=== PATIENT | male | born 1955 | race Caucasian/White ===

== ENCOUNTER → 2018-07-19 | Outpatient (CLI) | payer OTHER ==
[2018-07-19 21:34] LABS: Blood Urea Nitrogen 7 mg/dL (9-20)
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
== END | disposition home or self-care (01) ==
LOC: RADMRIMAIN 19:45
PROVIDERS: ATTEND Physical Medicine & Rehabilitation
DX: M47.26 Other spondylosis with radiculopathy, lumbar region (principal); M47.812 Spondylosis without myelopathy or radiculopathy, cervical region; S22.000A Wedge compression fracture of unspecified thoracic vertebra, initial encounter for closed fracture
CPT/HCPCS: 72141; 72146; 72148; 82565; 84520

== ENCOUNTER → 2018-07-20 | Outpatient (CLI) | payer OTHER ==
--- NOTE | 2018-07-20 16:22 | MR ---
EXAMINATION TYPE: MR shoulder RT wo con DATE OF EXAM: 07/20/2018 COMPARISON: None HISTORY: Rt shoulder pain TECHNIQUE: Multiplanar, multisequence imaging of the right shoulder is performed without contrast. FINDINGS: The exam is limited by patient motion. Rotator Cuff: There is a bursal surface tear of the supraspinatus in its distal tendinous measuring 0 .6 x 0.5 cm. There is overall bursal surface fraying of the supraspinatus fibers with moderate tendin opathy. The infraspinatus tendinous intact with mild tendinopathy demonstrated as abnormal intrinsic signal o f the myotendinous junction and distal fibers. The teres minor and subscapularis are of normal morphology. There is slight attenuation of the insert ional fibers of the subscapularis compatible with mild tendinopathy. Acromioclavicular Joint: There is moderate acromioclavicular arthropathy with capsular hypertrophy, m arginal osteophytes and joint space narrowing. There is only minimal impression upon the supraspinatu s. There is slight downsloping of the acromion. No significant internal impingement is seen as there is no signal alteration of the supraspinatus that again is only minimally impressed upon. Glenohumeral Joint: Mild glenohumeral arthropathy is seen. Numerous osseous cysts are noted of the hu merus and there is mild joint space narrowing. Small amount of fluid is seen within the glenohumeral labral joint space. Labrum: The labrum appears grossly intact given limitation of non-arthrogram study. Biceps Tendon: The long head of biceps is in normal location within bicipital groove. Bone marrow signal: No focal abnormal marrow signal is appreciated. Other: A very small amount of fluid is seen within the subacromial/subdeltoid bursa. IMPRESSION: 1. Partial-thickness subcentimeter bursal surface tear of the supraspinatus at the distal tendons lisa suring 0.6 x 0.5 cm superimposed upon moderate tendinopathy. 2. Mild tendinopathy of the infraspinatus and subscapularis. 3. Very small amount of fluid within the subacromial/subdeltoid bursa that may clinically correlate w ith bursitis. 4. Moderate acromio clavicular arthropathy and mild glenohumeral arthropathy.
--- NOTE | 2018-07-21 09:34 | MR ---
EXAMINATION TYPE: MR brain wo/w con DATE OF EXAM: 07/20/2018 4:26 PM COMPARISON: NONE HISTORY: Lymphangioma, Post concussional syndrome CONTRAST: Patient received 7.5 mL intravenous Gadavist gadolinium contrast. Multiplanar and multispin-echo imaging of the brain was performed . Pre and post contrast enhanced i mages are obtained. The ventricles, basal cisterns and sulci overlying the cerebral convexities are mildly enlarged. Numerous periventricular and deep white matter foci of increased signal throughout both cerebral eloisa spheres some of which are confluent. Largest focus of increased signal on inversion recovery data set right centrum semioval bilaterally measures 9.3 mm and the largest on the left measures approximatel y 7 mm. The findings are nonspecific and could be related to postconcussion syndrome. Additional poss ibilities include that of demyelination, vasculitis, Lyme's disease, chronic migraine headaches among other possibilities. No acute edema is seen on diffusion weighted imaging. There is no evidence for midline shift or mass effect. Acute intracranial hemorrhage or extra-axial collection is not evident. No enhancing lesions are seen. The paranasal sinuses and mastoid air cells are well-aerated. IMPRESSION: 1. Deep white matter changes which are nonspecific as discussed above. 2. No enhancing lesions identified at this time.
== END | disposition home or self-care (01) ==
LOC: RADMRIMAIN 14:55
PROVIDERS: ATTEND Physical Medicine & Rehabilitation
DX: M75.111 Incomplete rotator cuff tear or rupture of right shoulder, not specified as traumatic (principal); M75.91 Shoulder lesion, unspecified, right shoulder; M19.011 Primary osteoarthritis, right shoulder
CPT/HCPCS: 70553; 73221; A9585

== ENCOUNTER 2023-02-25 14:07 | Inpatient (IN) | payer MEDICARE ==
[2023-02-25] MEDS ORDERED: LORazepam 2 MG/ML INJ IV STA (14:57)
--- NOTE | 2023-02-25 14:57 | ED ---
General Adult HPI - General Chief complaint: Seizure Stated complaint: Seizures Time Seen by Provider: 02/25/23 14:12 Source: EMS Mode of arrival: EMS Limitations: altered mental status - History of Present Illness Initial comments: 67-year-old male sent to the ER as a transfer from [facility]. Patient has a history of TBI and chronic pain he is on oxycodone, gabapentin and Ativan at home. Uncertain if he has been taking his medicine for the past 3 days reports he started acting like himself. He did not come to bed last night when she attempted talk to him this morning he seemed confused and she may have had a seizure. He is taken to [facility] by EMS. He had a workup there that included a head CT CTA of the chest and was treated with Ativan Ride and IV fluids. Workup there was significant for lactic acidosis of elevated troponin which was trending up at the time of transfer. He is noted to be tachycardic while there. Upon arrival here patient answers questions but sometimes inappropriately or will start talking nonsense. He is ill-appearing, tachycardic, provides minimal history. - Related Data Home Medications Medication Instructions Recorded Confirmed ALPRAZolam [Xanax] 1 mg PO Q6H PRN 02/25/23 02/25/23 oxyCODONE HCL [Roxicodone] 30 mg PO QID 02/25/23 02/25/23 Allergies Allergy/AdvReac Type Severity Reaction Status Date / Time cephalexin [From Keflex] Allergy Unknown Verified 02/25/23 15:54 Review of Systems ROS Statement: Those systems with pertinent positive or pertinent negative responses have been documented in the HPI. ROS Other: All systems not noted in ROS Statement are negative. 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) ENT exam: Present: other (Mucous membranes are dry) Neck exam: Present: other (Decreased range of motion secondary to pain which family reports is chronic) Respiratory exam: Present: rhonchi Cardiovascular Exam: Present: tachycardia GI/Abdominal exam: Present: soft exam: Present: other (Carranza catheter in place) Neurological exam: Present: alert, other (Oriented to self, sleepy) Course Vital Signs 02/25/23 02/25/23 02/25/23 14:14 15:04 15:30 Temperature 99.9 F H Pulse Rate 119 H 122 H 118 H Respiratory 24 28 H 27 H Rate Blood Pressure 117/88 O2 Sat by Pulse 93 L 94 L 95 Oximetry 02/25/23 02/25/23 02/25/23 16:00 16:30 19:25 Temperature 98.2 F Pulse Rate 118 H 115 H 110 H Respiratory 30 H 28 H 18 Rate Blood Pressure 126/81 127/81 132/92 O2 Sat by Pulse 95 93 L 89 L Oximetry 02/25/23 19:35 Temperature 98.6 F Pulse Rate 111 H Respiratory 15 Rate Blood Pressure 126/78 O2 Sat by Pulse 98 Oximetry EKG Findings - EKG Comments: EKG Findings:: EKG interpreted by me EKG was obtained due to tachycardia EKG was obtained at 1426 rate is 119 rhythm is a narrow complex regular with a room with a P-wave before each QRS this is a sinus tachycardia AR 96, QRS 94, QTC prolonged at [address] elevations or depressions no evidence of acute ischemia or infarction. EKG is abnormal Medical Decision Making - Medical Decision Making The patient was seen and evaluated immediately upon arrival to the emergency department. This is an ill-appearing 67-year-old male coming from outside hospital for altered mental status. On arrival he is altered he's noted to be tachycardic to [employer] elevated though technically not febrile. Repeat labs were obtained, troponin is now trending down, lactic acidosis has resolved. He has mild leukocytosis and elevated CRP. Ammonia is not elevated, tox labs were negative. Patient care was discussed with the neurologist solid waste collection worker Dr. Oswald who agrees with plan for treatment of meningitis versus encephalopathy. Given the patient's not cooperative with exam. Is not stable for LP in the ER we will treat empirically. He does have a history of ALLERGY to Keflex reports he had diffuse rash with taking this medication. He will be treated with vancomycin and Clinda as well as azithromycin. Plan for EEG tomorrow Patient care was discussed with sound physician who agrees with plan for admission for encephalopathy of unknown cause... Sons are at bedside, they were able to give the patient some ice chips he speaking more though he does at times seem very confused. Was pt. sent in by a medical professional or institution (BETH Nam, MANAGED CARE COORDINATOR, urgent care, hospital, or senior care...) When possible be specific @ -Yes, sent from ER physician at [place] Did you speak to anyone other than the patient for history (EMS, parent, family, police, friend...)? What history was obtained from this source @ -EMS, transferring team, family Did you review nursing and triage notes (agree or disagree)? Why? @ -I reviewed and agree with nursing and triage notes Were old charts reviewed (outside hosp., previous admission, EMS record, old EKG, old radiological studies, urgent care reports/EKG's, senior care records)? Report findings @ -No old charts were reviewed Differential Diagnosis (chest pain, altered mental status, abdominal pain women, abdominal pain men, vaginal bleeding, weakness, fever, dyspnea, syncope, headache, dizziness, GI bleed, back pain, seizure, CVA, palpatations, mental he alth, musculoskeletal)? @ -Differential Altered Mental Status: Hypoglycemia, DKA, hypercapnia, ETOH, overdose, CO poisoning, trauma, myxedema coma, HTN encephalopathy, infection, encephalitis, psychosis, intercranial hemorrhage, hepatic encephalopathy, meningitis, CVA, this is not meant to be an all-inclusive list EKG interpreted by me (3pts min.). @ -As above X-rays interpreted by me (1pt min.). @ -None done CT interpreted by me (1pt min.). @No mass U/S interpreted by me (1pt. min.). @ -None done What testing was considered but not performed or refused? (CT, X-rays, U/S, labs)? Why? @ -EEG, will be completed while inpatient, LP was not performed as patient was not cooperative and sedation was too high risk in the ER will be treated empirically What meds were considered but not given or refused? Why? @ -None Did you discuss the management of the patient with other professionals (p rofessionals i.e. BETH Nam, MANAGED CARE COORDINATOR, lab, RT, psych nurse, social group worker, back padder, teacher, promotion officer, case fitter)? Give summary @ -Discussed with the neurologist and admitting team Was smoking cessation discussed for >3mins.? @ -No Was critical care preformed (if so, how long)? @ -Yes Were there social determinants of health that impacted care today? How? (Homelessness, low income, unemployed, alcoholism, drug addiction, transportation, low edu. Level, literacy, decrease access to med. care, fpc, rehab)? @Drug addiction Was there de-escalation of care discussed even if they declined (Discuss DNR or withdrawal of care, Hospice)? DNR status @ -No What co-morbidities impacted this encounter? (DM, HTN, Smoking, COPD, CAD, Cancer, CVA, ARF, Chemo, Hep., AIDS, mental health diagnosis, sleep apnea, morbid obesity)? @ -None Was patient admitted / discharged? Hospital course, mention meds given and route, prescriptions, significant lab abnormalities, going to OR and other pertinent info. @ -Admitted Undiagnosed new problem with uncertain prognosis? @ -Yes Drug Therapy requiring intensive monitoring for toxicity (Heparin, Nitro, Insulin, Cardizem)? @ -No Were any procedures done? @ -No Diagnosis/symptom? @ -Encephalopathy Acute, or Chronic, or Acute on Chronic? @ -Acute Uncomplicated (without systemic symptoms) or Complicated (systemic symptoms)? @ -Complicated Side effects of treatment? @ -No Exacerbation, Progression, or Severe Exacerbation? @ -No Poses a threat to life or bodily function? How? (Chest pain, [place], [place], pneumonia, PE, COPD, DKA, ARF, appy, cholecystitis, CVA, Diverticulitis, Homicidal, Suicidal, threat to staff... and all critical care pts) @ -Yes] - Lab Data Result diagrams: 02/25/23 14:44 02/25/23 14:44 Lab Results 02/25/23 02/25/23 02/25/23 Range/Units 14:44 14:44 14:44 WBC 13.8 H (3.8-10.6) k/uL RBC 4.99 (4.30-5.90) m/uL Hgb 15.0 (13.0-17.5) gm/dL Hct 45.3 (39.0-53.0) % MCV 90.8 (80.0-100.0) fL MCH 30.1 (25.0-35.0) pg MCHC 33.2 (31.0-37.0) g/dL RDW 13.8 (11.5-15.5) % Plt Count 170 (150-450) k/uL MPV 8.3 Neutrophils % 83 % Lymphocytes % 10 % Monocytes % 6 % Eosinophils % 1 % Basophils % 0 % Neutrophils # 11.5 H (1.3-7.7) k/uL Lymphocytes # 1.3 (1.0-4.8) k/uL Monocytes # 0.8 (0-1.0) k/uL Eosinophils # 0.1 (0-0.7) k/uL Basophils # 0.0 (0-0.2) k/uL PT 12.3 H (9.0-12.0) sec INR 1.2 H (<1.2) APTT 22.2 (22.0-30.0) sec VBG pH (7.31-7.41) VBG pCO2 (37-51) mmHg VBG HCO3 (24-28) mmol/L Sodium 140 (137-145) mmol/L Potassium 4.1 (3.5-5.1) mmol/L Chloride 107 (98-107) mmol/L Carbon Dioxide 25 (22-30) mmol/L Anion Gap 8 mmol/L BUN 34 H (9-20) mg/dL Creatinine 0.90 (0.66-1.25) mg/dL Est GFR (CKD-EPI)AfAm >90 (>60 ml/min/1.73 sqM) Est GFR (CKD-EPI)NonAf 89 (>60 ml/min/1.73 sqM) Glucose 89 (74-99) mg/dL Plasma Lactic Acid Lan (0.7-2.0) mmol/L Calcium 8.1 L (8.4-10.2) mg/dL Magnesium 2.3 (1.6-2.3) mg/dL Total Bilirubin 1.5 H (0.2-1.3) mg/dL AST 22 (17-59) U/L ALT 14 (4-49) U/L Alkaline Phosphatase 56 (38-126) U/L Ammonia (<30) umol/L Creatine Kinase 432 H (55-170) U/L Troponin I (0.000-0.034) ng/mL C-Reactive Protein 4.4 H (<1.0) mg/dL Total Protein 6.1 L (6.3-8.2) g/dL Albumin 3.1 L (3.5-5.0) g/dL Salicylates <1.0 mg/dL Urine Opiates Screen (NotDetected) Ur Oxycodone Screen (NotDetected) Urine Methadone Screen (NotDetected) Ur Propoxyphene Screen (NotDetected) Acetaminophen <10.0 ug/mL Ur Barbiturates Screen (NotDetected) U Tricyclic Antidepress (NotDetected) Ur Phencyclidine Scrn (NotDetected) Ur Amphetamines Screen (NotDetected) U Methamphetamines Scrn (NotDetected) U Benzodiazepines Scrn (NotDetected) Urine Cocaine Screen (NotDetected) U Marijuana (THC) Screen (NotDetected) Serum Alcohol <10 mg/dL Acetone, Qual Negative (Negative) 02/25/23 02/25/23 02/25/23 Range/Units 14:44 14:44 14:44 WBC (3.8-10.6) k/uL RBC (4.30-5.90) m/uL Hgb (13.0-17.5) gm/dL Hct (39.0-53.0) % MCV (80.0-100.0) fL MCH (25.0-35.0) pg MCHC (31.0-37.0) g/dL RDW (11.5-15.5) % Plt Count (150-450) k/uL MPV Neutrophils % % Lymphocytes % % Monocytes % % Eosinophils % % Basophils % % Neutrophils # (1.3-7.7) k/uL Lymphocytes # (1.0-4.8) k/uL Monocytes # (0-1.0) k/uL Eosinophils # (0-0.7) k/uL Basophils # (0-0.2) k/uL PT (9.0-12.0) sec INR (<1.2) APTT (22.0-30.0) sec VBG pH 7.40 (7.31-7.41) VBG pCO2 44 (37-51) mmHg VBG HCO3 26 (24-28) mmol/L Sodium (137-145) mmol/L Potassium (3.5-5.1) mmol/L Chloride (98-107) mmol/L Carbon Dioxide (22-30) mmol/L Anion Gap mmol/L BUN (9-20) mg/dL Creatinine (0.66-1.25) mg/dL Est GFR (CKD-EPI)AfAm (>60 ml/min/1.73 sqM) Est GFR (CKD-EPI)NonAf (>60 ml/min/1.73 sqM) Glucose (74-99) mg/dL Plasma Lactic Acid Lan 1.9 (0.7-2.0) mmol/L Calcium (8.4-10.2) mg/dL Magnesium (1.6-2.3) mg/dL Total Bilirubin (0.2-1.3) mg/dL AST (17-59) U/L ALT (4-49) U/L Alkaline Phosphatase (38-126) U/L Ammonia 10 (<30) umol/L Creatine Kinase (55-170) U/L Troponin I 0.813 H* (0.000-0.034) ng/mL C-Reactive Protein (<1.0) mg/dL Total Protein (6.3-8.2) g/dL Albumin (3.5-5.0) g/dL Salicylates mg/dL Urine Opiates Screen (NotDetected) Ur Oxycodone Screen (NotDetected) Urine Methadone Screen (NotDetected) Ur Propoxyphene Screen (NotDetected) Acetaminophen ug/mL Ur Barbiturates Screen (NotDetected) U Tricyclic Antidepress (NotDetected) Ur Phencyclidine Scrn (NotDetected) Ur Amphetamines Screen (NotDetected) U Methamphetamines Scrn (NotDetected) U Benzodiazepines Scrn (NotDetected) Urine Cocaine Screen (NotDetected) U Marijuana (THC) Screen (NotDetected) Serum Alcohol mg/dL Acetone, Qual (Negative) 02/25/23 Range/Units 14:44 WBC (3.8-10.6) k/uL RBC (4.30-5.90) m/uL Hgb (13.0-17.5) gm/dL Hct (39.0-53.0) % MCV (80.0-100.0) fL MCH (25.0-35.0) pg MCHC (31.0-37.0) g/dL RDW (11.5-15.5) % Plt Count (150-450) k/uL MPV Neutrophils % % Lymphocytes % % Monocytes % % Eosinophils % % Basophils % % Neutrophils # (1.3-7.7) k/uL Lymphocytes # (1.0-4.8) k/uL Monocytes # (0-1.0) k/uL Eosinophils # (0-0.7) k/uL Basophils # (0-0.2) k/uL PT (9.0-12.0) sec INR (<1.2) APTT (22.0-30.0) sec VBG pH (7.31-7.41) VBG pCO2 (37-51) mmHg VBG HCO3 (24-28) mmol/L Sodium (137-145) mmol/L Potassium (3.5-5.1) mmol/L Chloride (98-107) mmol/L Carbon Dioxide (22-30) mmol/L Anion Gap mmol/L BUN (9-20) mg/dL Creatinine (0.66-1.25) mg/dL Est GFR (CKD-EPI)AfAm (>60 ml/min/1.73 sqM) Est GFR (CKD-EPI)NonAf (>60 ml/min/1.73 sqM) Glucose (74-99) mg/dL Plasma Lactic Acid Lan (0.7-2.0) mmol/L Calcium (8.4-10.2) mg/dL Magnesium (1.6-2.3) mg/dL Total Bilirubin (0.2-1.3) mg/dL AST (17-59) U/L ALT (4-49) U/L Alkaline Phosphatase (38-126) U/L Ammonia (<30) umol/L Creatine Kinase (55-170) U/L Troponin I (0.000-0.034) ng/mL C-Reactive Protein (<1.0) mg/dL Total Protein (6.3-8.2) g/dL Albumin (3.5-5.0) g/dL Salicylates mg/dL Urine Opiates Screen Not Detected (NotDetected) Ur Oxycodone Screen Not Detected (NotDetected) Urine Methadone Screen Not Detected (NotDetected) Ur Propoxyphene Screen Not Detected (NotDetected) Acetaminophen ug/mL Ur Barbiturates Screen Not Detected (NotDetected) U Tricyclic Antidepress Not Detected (NotDetected) Ur Phencyclidine Scrn Not Detected (NotDetected) Ur Amphetamines Screen Not Detected (NotDetected) U Methamphetamines Scrn Not Detected (NotDetected) U Benzodiazepines Scrn Detected H (NotDetected) Urine Cocaine Screen Not Detected (NotDetected) U Marijuana (THC) Screen Detected H (NotDetected) Serum Alcohol mg/dL Acetone, Qual (Negative) Disposition Clinical Impression: New onset seizure, Encephalopathy, Elevated troponin, SIRS (systemic inflammatory response syndrome) Disposition: ADMITTED IP TO THIS [facility] Condition: Critical
[2023-02-25 15:03] LABS: Basophils % (A) 0 %; Eosinophils # (A) 0.1 k/uL (0-0.7); Eosinophils % (A) 1 %; HCT 45.3 % (39.0-53.0); Lymphocytes # (A) 1.3 k/uL (1.0-4.8); Lymphocytes % (A) 10 %; MCH 30.1 pg (25.0-35.0); MCHC 33.2 g/dL (31.0-37.0); MCV 90.8 fL (80.0-100.0); Mean Platelet Volume 8.3; Monocytes # (A) 0.8 k/uL (0-1.0); Monocytes % (A) 6 %; Neutrophils # (A) 11.5 k/uL (1.3-7.7); Neutrophils % (A) 83 %; Platelet Count 170 k/uL (150-450); RBC 4.99 m/uL (4.30-5.90); RDW 13.8 % (11.5-15.5); WBC 13.8 k/uL (3.8-10.6)
[2023-02-25 15:08] LABS: INR 1.2 (<1.2); Partial Thromboplastin Time 22.2 sec (22.0-30.0); Prothrombin Time 12.3 sec (9.0-12.0)
[2023-02-25 15:10] LABS: Lactic Acid, Venous 1.9 mmol/L (0.7-2.0)
[2023-02-25 15:29] LABS: ALT 14 U/L (4-49); AST 22 U/L (17-59); Acetaminophen <10.0 ug/mL; African American GFR (CKD) >90 (>60 ml/min/1.73 sqM); Albumin 3.1 g/dL (3.5-5.0); Alcohol <10 mg/dL; Alkaline Phosphatase 56 U/L (38-126); Anion Gap 8 mmol/L; Blood Urea Nitrogen 34 mg/dL (9-20); C Reactive Protein 4.4 mg/dL (<1.0); Calcium 8.1 mg/dL (8.4-10.2); Carbon Dioxide 25 mmol/L (22-30); Chloride 107 mmol/L (98-107); Creatine Kinase 432 U/L (55-170); Glucose 89 mg/dL (74-99); Magnesium 2.3 mg/dL (1.6-2.3); Non-African American GFR(CKD) 89 (>60 ml/min/1.73 sqM); Potassium 4.1 mmol/L (3.5-5.1); Salicylate <1.0 mg/dL; Sodium 140 mmol/L (137-145); Total Bilirubin 1.5 mg/dL (0.2-1.3); Total Protein 6.1 g/dL (6.3-8.2)
--- NOTE | 2023-02-25 15:31 | CT ---
EXAMINATION TYPE: CT brain brittney ball con DATE OF EXAM: 02/25/2023 COMPARISON: HISTORY: Seizure. CT DLP: 1542.[address] of the brain was performed. The ventricles, basal cisterns and sulci overlying the cerebral convexities demonstrate mild enlargem ent. Left frontal arachnoid cyst measuring 4.7 cm in length by 8 mm in width. There is no evidence for intracranial hemorrhage or sulcal effacement. There is decreased attenuatio n about the periventricular white matter and deep white matter of both cerebral hemispheres, compatib le with chronic small vessel ischemia. If symptoms persist consider MRI. Osseous calvarium is intact. IMPRESSION: 1. Age related atrophic and chronic small vessel ischemic change without acute intracranial process seen at this time. CT Cervical Spine: Unenhanced CT of the cervical spine was performed with bone and soft tissue window settings submitted . Coronal and sagittal reconstruction is obtained. There is normal alignment and prevertebral soft tissues. No evidence for acute cervical fracture . Scattered degenerative disc disease and spondylosis. Biapical scarring. Moderate upper lobe emphyse matous change. IMPRESSION: 1. No evidence for acute fracture or subluxation of the cervical spine.
--- NOTE | 2023-02-25 15:36 | XR ---
EXAMINATION TYPE: XR chest 2V DATE OF EXAM: 02/25/2023 COMPARISON: 06/07/10 HISTORY: Shortness of breath TECHNIQUE: Frontal and lateral views of the chest are obtained. FINDINGS: Scattered senescent parenchymal changes noted. Hyperinflation compatible with COPD. Increased density right lower lobe as well as patchy density left perihilar region. Correlate for dev eloping pneumonia. Heart size is stable. Mediastinal structures are stable and grossly unremarkable. No evidence for hilar prominence. Degenerative changes dorsal spine. IMPRESSION: 1. Increased density right lower lobe as well as patchy density left perihilar region. Correlate for developing pneumonia.
[2023-02-25 15:51] LABS: VBG PH 7.4 (7.31-7.41)
[2023-02-25 16:08] LABS: Amphetamine Screen,Urine Not Detected (NotDetected); Barbiturate Screen,Urine Not Detected (NotDetected); Benzodiazepines Screen,Urine Detected (NotDetected); Cocaine Screen,Urine Not Detected (NotDetected); Methadone Screen, Urine Not Detected (NotDetected); Opiate Screen,Urine Not Detected (NotDetected); Oxycodone Screen, Urine Not Detected (NotDetected); Phencyclidine Screen,Urine Not Detected (NotDetected); Tricyclic Antidepressant,Urine Not Detected (NotDetected); Urn Cannabinoid Scrn Detected (NotDetected)
[2023-02-25] MEDS ORDERED: LEVOFLOXACIN 500MG-D5W PMX 500 MG in DEXTROSE/WATER 1 100ML.BAG IVPB STA (16:10)
[2023-02-25] MEDS ORDERED: VANCOMYCIN IV PER PHARMACY 1 EACH MISC MISCELLANE PRN (16:10)
[2023-02-25] MEDS ORDERED: VANCOMYCIN 1,250 MG in SODIUM CHLORIDE 0.9% 250 ML IVPB STA (16:16)
[2023-02-25] MEDS ORDERED: NALOXONE 0.4 MG/ML 1 ML VIAL IV PRN (18:02)
[2023-02-25] MEDS: levETIRAcetam IV 500 MG/5 ML VIAL IVP SCH (20:31)
[2023-02-25] MEDS: ACYCLOVIR SODIUM 1,000 MG in SODIUM CHLORIDE 0.9% 250 ML IVPB SCH (20:32)
[2023-02-25 21:26] LABS: Glucose,Whole Blood 81 mg/dL (70-110)
[2023-02-25] MEDS ORDERED: LORazepam 2 MG/ML INJ IV PRN ×2 (21:45)
[2023-02-25] MEDS ORDERED: LORazepam 1 MG TAB PO PRN (21:45)
[2023-02-25] MEDS ORDERED: LORazepam 0.5 MG TAB PO PRN (21:45)
[2023-02-25 22:18] LABS: ABG Base Excess 0.8 mmol/L; ABG HCO3 26 mmol/L (21-25); ABG PCO2 42 mmHg (35-45); ABG PH 7.39 (7.35-7.45); ABG TCO2 27 mmol/L (19-24); Allen Test Performed? Yes
[2023-02-25 22:21] LABS: ABG PO2 56 mmHg (83-108)
--- NOTE | 2023-02-25 23:21 | P.HPIM ---
History of Present Illness H&P Date: 02/25/23 Chief Complaint: altered mental status 67 year old male with polysubstance abuse (opiates, and alcohol), TBI Patient is able to provide any meaningful history due to confusion history obtained by reviewing medical records Patient was a transfer from [facility] he was taken and there by his due to not feeling well and acting right since Tuesday. For the past 4 days she doubts that he was taking his medications was less interactive and she took him to the hospital today as she found him more confused this morning she reported that he was talking nonsense. At [facility] CT angiogram of the chest showed no acute PE CT of the brain in no acute pathology he was given IV fluids and benzos he was found to have elevated troponins. There were m entioned the possibility of seizure but nothing was witnessed Patient doesn't see doctors he only follows up with his pain clinic. Atorvastatin facility for elevated troponins and altered mental status for neurology evaluation Blood work in our facility shows trending down troponins. Lactic acidosis, case discussed with neurology on-call A she will be empirically treated for possible meningitis/encephalitis review of systems unable to obtain on exam Constitutional: tachypnic , cachectic Eyes: Anicteric sclerae, moist conjunctiva, Pupils equal round reactive to light ENMT: NC/AT Oropharynx clear, no erythema, or exudates Neck: Supple, no masses, or JVD No carotid bruits No thyromegaly Lungs: Rhonchorous breathing throughout and decreased breath sounds at lung basis Clear to percussion Tachypnea Cardiovascular: Heart tachycardia No murmurs, gallops, or rubs No peripheral edema Abdominal: Soft Nontender, no guarding, rebound or rigidity Abdomen moving with respiration Normoactive bowel sounds No hepatomegaly, No splenomegaly No palpable mass No abdominal wall hernia noted Skin: Normal temperature, tone, texture, turgor Extremities: No digital cyanosis No clubbing Pedal pulses intact and symmetrical Radial pulses intact and symmetrical No calf tenderness Psychiatric: Awake but disoriented doesn't answer questions properly tangential in his thought process Neuro Muscles Strength 4/5 in all 4 extremities Unable to for perform reliable neuro Lymphatics: no palpable cervical or supraclavicular lymph nodes Past Medical History Past Medical History: Dementia Past Surgical History: Unable to Obtain Past Psychological History: Unable to Obtain Smoking Status: Unknown if ever smoked Past Alcohol Use History: Unable to Obtain Past Drug Use History: Unable to Obtain Medications and Allergies Home Medications Medication Instructions Recorded Confirmed Type ALPRAZolam [Xanax] 1 mg PO Q6H PRN 02/25/23 02/25/23 History oxyCODONE HCL [Roxicodone] 30 mg PO QID 02/25/23 02/25/23 History Allergies Allergy/AdvReac Type Severity Reaction Status Date / Time cephalexin [From Keflex] Allergy Unknown Verified 02/25/23 15:54 Physical Exam Vitals: Vital Signs Temp Pulse Resp BP Pulse Ox 02/25/23 19:35 98.6 F 111 H 15 126/78 98 02/25/23 19:25 98.2 F 110 H 18 132/92 89 L 02/25/23 16:30 115 H 28 H 127/81 93 L 02/25/23 16:00 118 H 30 H 126/81 95 02/25/23 15:30 118 H 27 H 95 02/25/23 15:04 122 H 28 H 94 L 02/25/23 14:14 99.9 F H 119 H 24 117/88 93 L Intake and Output 02/25/23 02/25/23 02/25/23 06:59 14:59 22:59 Other: Weight 63.503 kg Results CBC & Chem 7: 02/25/23 14:44 02/25/23 14:44 Labs: Abnormal Lab Results - Last 24 Hours (Table) 02/25/23 02/25/23 02/25/23 Range/Units 14:44 14:44 14:44 WBC 13.8 H (3.8-10.6) k/uL Neutrophils # 11.5 H (1.3-7.7) k/uL PT 12.3 H (9.0-12.0) sec INR 1.2 H (<1.2) BUN 34 H (9-20) mg/dL Calcium 8.1 L (8.4-10.2) mg/dL Total Bilirubin 1.5 H (0.2-1.3) mg/dL Creatine Kinase 432 H (55-170) U/L Troponin I (0.000-0.034) ng/mL C-Reactive Protein 4.4 H (<1.0) mg/dL Total Protein 6.1 L (6.3-8.2) g/dL Albumin 3.1 L (3.5-5.0) g/dL U Benzodiazepines Scrn (NotDetected) U Marijuana (THC) Screen (NotDetected) 02/25/23 02/25/23 Range/Units 14:44 14:44 WBC (3.8-10.6) k/uL Neutrophils # (1.3-7.7) k/uL PT (9.0-12.0) sec INR (<1.2) BUN (9-20) mg/dL Calcium (8.4-10.2) mg/dL Total Bilirubin (0.2-1.3) mg/dL Creatine Kinase (55-170) U/L Troponin I 0.813 H* (0.000-0.034) ng/mL C-Reactive Protein (<1.0) mg/dL Total Protein (6.3-8.2) g/dL Albumin (3.5-5.0) g/dL U Benzodiazepines Scrn Detected H (NotDetected) U Marijuana (THC) Screen Detected H (NotDetected) Assessment and Plan Assessment: 67-year-old male transferred from [facility] to our facility for Neurontin evaluation due to altered mental status and possible seizures, I discussed the case with the ED doctor and accepted the admission for sepsis with pneumonia rule out an encephalitis(/meningitis with anticipated length of stay more than 2 midnights acute hypoxic respiratory failure secondary to lobar pneumonia acute metabolic encephalopathy Secondary to pneumonia rule out meningitis Possible seizure episode no clear history of seizure patient has history of traumatic brain injury CT of the brain no acute pathology CT of the cervical spine no Acute fracture or dislocation CT angiogram of the chest done at the different facility no acute PE Fall precautions, seizure precautions Patient was started on Keppra 500 mg IV piggyback twice a day Follow-up cultures empirically treated with vancomycin dosing by pharmacy, levofloxacin 500 mg IV piggyback daily, acyclovir 1 g IV piggyback every 8 Chest x-ray showing right lower lobe consuolidation with patchy infiltrates bilaterally Blood work showing leukocytosis 13.8 elevated CRP 4.4 Troponins trending 0.8 then 1.1 and then 0.8 Urine drug cream positive for marijuana and benzo Toxicology screen negative for acetaminophen salicylate and alcohol due to tachypnea and hypoxemia patient initiated on bipap Neurology consult Lactic acid 1.9 within normal limits Ammonia level within normal limits 10 check EEG in AM Renal function unremarkable BUN 34 creatinine 0.9 sodium 140 potassium 4.1 Patient will be kept on alcohol withdrawal precautions unclear history of alcohol abuse Benzo per KRIS Thiamine daily Alcohol withdrawal precautions DVT prophylaxis heparin subcu 3 times a day Full code
[2023-02-26] MEDS: HEPARIN SODIUM,PORCINE/PF 5,000 UNIT/0.5 ML SYRINGE SQ SCH ×3 (00:32→16:11)
--- NOTE | 2023-02-26 01:02 | XR ---
EXAM: XR Chest, 1 View CLINICAL HISTORY: ITS.REASON XR Reason: r/u pul edema TECHNIQUE: Frontal view of the chest. COMPARISON: 02/25/2023 at 1521 FINDINGS: Lungs: Peripheral right lung base consolidation concerning for an infectious etiology is unchanged. Left base atelectasis. Pleural space: Unremarkable. No pneumothorax. No pleural effusions. Heart: Unremarkable. No cardiomegaly. Mediastinum: Unremarkable. Bones/joints: No acute osseous abnormalities. IMPRESSION: Peripheral right lung base consolidation concerning for an infectious etiology is unchanged.
[2023-02-26] MEDS: ACYCLOVIR SODIUM 1,000 MG in SODIUM CHLORIDE 0.9% 250 ML IVPB SCH ×4 (04:15→21:28)
[2023-02-26 04:24] LABS: ABG Base Excess 0.4 mmol/L; ABG HCO3 25 mmol/L (21-25); ABG Oxygen Saturation 98.1 % (94-97); ABG PCO2 40 mmHg (35-45); ABG PH 7.41 (7.35-7.45); ABG PO2 123 mmHg (83-108); ABG TCO2 26 mmol/L (19-24); Allen Test Performed? Yes
[2023-02-26 04:56] LABS: Glucose,Whole Blood 69 mg/dL (70-110)
[2023-02-26] MEDS ORDERED: VANCOMYCIN 1,250 MG in SODIUM CHLORIDE 0.9% 250 ML IVPB SCH (05:00)
[2023-02-26] MEDS: DEXTROSE 50% SYRINGE 50 ML IVP ONE ×2 (05:10→16:27)
[2023-02-26] MEDS: SODIUM CHLORIDE 0.9% 1,000 ML IV SCH ×2 (05:20→10:08)
[2023-02-26 05:33] LABS: Glucose,Whole Blood 191 mg/dL (70-110)
--- NOTE | 2023-02-26 06:58 | XR ---
EXAMINATION TYPE: XR chest 1V DATE OF EXAM: 02/26/2023 6:51 AM COMPARISON: Chest radiographs from 02/25/2023 TECHNIQUE: XR chest 1V Frontal view of the chest. CLINICAL INDICATION:Male, 67 years old with history of Follow-up; FINDINGS: Lungs/Pleura: No pneumothorax. Left lung is clear. Elevation right hemidiaphragm with unchanged right lateral lower lobe density. Pulmonary vascularity: Unremarkable. Heart/mediastinum: Cardiomediastinal silhouette is unremarkable. Atherosclerotic calcifications are seen in the aorta. Musculoskeletal: No acute osseous pathology. IMPRESSION: Unchanged density in the right lower lobe laterally which may represent a loculated pleural effusion.
[2023-02-26 08:17] LABS: Glucose,Whole Blood 83 mg/dL (70-110)
[2023-02-26 08:38] LABS: African American GFR (CKD) >90 (>60 ml/min/1.73 sqM); Anion Gap 5 mmol/L; Blood Urea Nitrogen 33 mg/dL (9-20); Carbon Dioxide 27 mmol/L (22-30); Chloride 112 mmol/L (98-107); Glucose 89 mg/dL (74-99); Magnesium 2.2 mg/dL (1.6-2.3); Non-African American GFR(CKD) >90 (>60 ml/min/1.73 sqM); Potassium 3.8 mmol/L (3.5-5.1); Sodium 144 mmol/L (137-145)
[2023-02-26] MEDS ORDERED: LEVOFLOXACIN 500MG-D5W PMX 500 MG in DEXTROSE/WATER 1 100ML.BAG IVPB SCH (09:00)
[2023-02-26 09:04] LABS: Basophils % (A) 0 %; Eosinophils % (A) 0 %; HCT 45.1 % (39.0-53.0); HGB 14.1 gm/dL (13.0-17.5); Hypochromasia Slight; Lymphocytes # (A) 0.8 k/uL (1.0-4.8); Lymphocytes % (A) 3 %; MCH 29.6 pg (25.0-35.0); MCHC 31.2 g/dL (31.0-37.0); MCV 94.9 fL (80.0-100.0); Mean Platelet Volume 8.4; Monocytes # (A) 1.1 k/uL (0-1.0); Monocytes % (A) 5 %; Neutrophils # (A) 21.8 k/uL (1.3-7.7); Neutrophils % (A) 91 %; Platelet Count 148 k/uL (150-450); RBC 4.75 m/uL (4.30-5.90); WBC 23.9 k/uL (3.8-10.6)
[2023-02-26] MEDS ORDERED: Potassium Replacement Protocol 1 EACH MISC MISCELLANE PRN (09:12)
[2023-02-26] MEDS ORDERED: IPRATROPIUM-ALBUTEROL 3 ML NEB INHALATION PRN (09:22)
[2023-02-26] MEDS: THIAMINE 100 MG TAB PO SCH (10:02)
[2023-02-26] MEDS: POTASSIUM CHLORIDE 10 MEQ in WATER FOR INJECTION 1 100ML.BAG IVPB SCH ×2 (10:07→12:20)
[2023-02-26] MEDS: levETIRAcetam IV 500 MG/5 ML VIAL IVP SCH ×2 (10:07→21:29)
--- NOTE | 2023-02-26 11:03 | P.CNPUL ---
History of Present Illness Consult date: 02/26/23 Requesting physician: Pranav Delacruz Reason for consult: other (Critical care management) Chief complaint: Altered mental status History of present illness: This is a 67-year-old male patient with a history of previous traumatic brain injury, chronic pain for which he takes oxycodone, gabapentin and Ativan, anxiety, chronic and ongoing tobacco dependence, chronic obstructive pulmonary disease, hypertension. He was transferred here from [facility] after being found to have confusion, altered mental status and possibly a seizure at home by his . CT angiogram of the chest ruled out pulmonary embolism. Computed tomography scan of the head showed no acute intracranial process. Chest x-ray reveals no evidence of pneumothorax. The left lung is clear. There is an unchanged right lateral lower lobe density possibly a loculated pleural effusion. White count 23.9. Hemoglobin 14.1. Platelets 148. Sodium 144. Potassium 3.8. Bicarb 27. BUN 33. Creatinine 0.77. Ammonia level XXI. Arterial blood gases on 100% FiO2 revealed a pO2 of 123, pCO2 40, pH 7.41. He is seen today in consultation in the intensive care unit. Currently he is awake and alert. Following commands. Slightly tachycardic. Tachypneic. Afebrile. He is on BiPAP 14/890% FiO2. He was initiated on Keppra, vancomycin, acyclovir, Levaquin. Lumbar puncture pending. He has normal saline at 75 ML's per hour. Review of Systems ROS unobtainable: due to mental status Past Medical History Past Medical History: Dementia Past Surgical History: Unable to Obtain Past Psychological History: Unable to Obtain Smoking Status: Unknown if ever smoked Past Alcohol Use History: Unable to Obtain Past Drug Use History: Unable to Obtain Medications and Allergies Home Medications Medication Instructions Recorded Confirmed Type ALPRAZolam [Xanax] 1 mg PO Q6H PRN 02/25/23 02/25/23 History oxyCODONE HCL [Roxicodone] 30 mg PO QID 02/25/23 02/25/23 History Allergies Allergy/AdvReac Type Severity Reaction Status Date / Time cephalexin [From Keflex] Allergy Unknown Verified 02/25/23 15:54 Physical Exam Vitals: Vital Signs Temp Pulse Pulse Resp BP BP Pulse Ox 02/26/23 10:30 113 H 31 H 113/67 96 02/26/23 10:00 112 H 30 H 117/67 96 02/26/23 09:30 111 H 36 H 104/67 95 02/26/23 09:00 113 H 36 H 100/64 95 02/26/23 08:30 115 H 24 108/62 96 02/26/23 08:00 99.6 F 121 H 32 H 100/63 94 L 02/26/23 07:53 02/26/23 07:30 121 H 34 H 114/64 95 02/26/23 07:00 117 H 29 H 114/72 96 02/26/23 06:30 108 H 32 H 104/69 96 02/26/23 06:00 110 H 36 H 129/85 96 02/26/23 05:41 114 H 02/26/23 05:37 02/26/23 05:30 114 H 34 H 131/77 98 02/26/23 05:00 98.7 F 105 H 16 123/86 98 02/26/23 04:50 02/26/23 04:00 110 H 40 H 100 02/26/23 02:00 106 H 43 H 02/26/23 00:17 02/26/23 00:00 106 H 43 H 162/106 97 02/25/23 22:41 95 02/25/23 22:21 125 H 40 H 117/70 88 L 02/25/23 22:16 02/25/23 20:00 125 H 40 H 02/25/23 19:35 98.6 F 111 H 15 126/78 98 02/25/23 19:25 98.2 F 110 H 18 132/92 89 L 02/25/23 16:30 115 H 28 H 127/81 93 L 02/25/23 16:00 118 H 30 H 126/81 95 02/25/23 15:30 118 H 27 H 95 02/25/23 15:04 122 H 28 H 94 L 02/25/23 14:14 99.9 F H 119 H 24 117/88 93 L FiO2 02/26/23 10:30 02/26/23 10:00 02/26/23 09:30 02/26/23 09:00 02/26/23 08:30 02/26/23 08:00 90 02/26/23 07:53 90 02/26/23 07:30 02/26/23 07:00 02/26/23 06:30 02/26/23 06:00 02/26/23 05:41 02/26/23 05:37 02/26/23 05:30 02/26/23 05:00 02/26/23 04:50 02/26/23 04:00 02/26/23 02:00 02/26/23 00:17 02/26/23 00:00 02/25/23 22:41 02/25/23 22:21 02/25/23 22:16 02/25/23 20:00 02/25/23 19:35 02/25/23 19:25 02/25/23 16:30 02/25/23 16:00 02/25/23 15:30 02/25/23 15:04 02/25/23 14:14 Intake and Output 02/25/23 02/26/23 02/26/23 22:59 06:59 14:59 Intake Total 75 500 Output Total 360 325 120 Balance -360 -250 380 Intake: IV 75 300 Sodium Chloride 0.9% 1, 75 300 000 ml @ 75 mls/hr IV . [id number] [facility] Rx#:[id number] Intake, IV Titration 200 Amount Levofloxacin 500Mg-D5w 100 Pmx 500 mg In Dextrose/ Water 1 100ml.bag @ 100 mls/hr IVPB Q24H [facility] Rx#: [id number] Potassium Chloride 10 meq 100 In Water For Injection 1 100ml.bag @ 100 mls/hr IVPB Q1H [facility] Rx#: [id number] Output: Urine 360 325 120 Other: Voiding Method Incontinent Incontinent Indwelling Catheter Indwelling Catheter Weight 64.5 kg GENERAL EXAM: Alert, somewhat confused to time and place, 67-year-old male, on BiPAP 14/80 and 90% FiO2, comfortable in no apparent distress. HEAD: Normocephalic. EYES: Normal reaction of pupils, equal size. NOSE: Clear with pink turbinates. THROAT: No erythema or exudates. NECK: No masses, no JVD. CHEST: No chest wall deformity. LUNGS: Equal air entry with no crackles, wheeze, rhonchi or dullness. CVS: S1 and S2 normal with no audible murmur, regular rhythm. ABDOMEN: No hepatosplenomegaly, normal bowel sounds, no guarding or rigidity. SPINE: No scoliosis or deformity SKIN: No rashes CENTRAL NERVOUS SYSTEM: No focal deficits, tone is normal in all 4 extremities. EXTREMITIES: There is no peripheral edema. No clubbing, no cyanosis. Peripheral pulses are intact. Results - Laboratory Findings CBC and BMP: 02/26/23 08:13 02/26/23 08:13 ABG ABG pH 7.41 (7.35-7.45) 02/26/23 04:22 ABG pCO2 40 mmHg (35-45) 02/26/23 04:22 ABG pO2 123 mmHg (83-108) H 02/26/23 04:22 ABG O2 Saturation 98.1 % (94-97) H 02/26/23 04:22 PT/INR, D-dimer PT 12.3 sec (9.0-12.0) H 02/25/23 14:44 INR 1.2 (<1.2) H 02/25/23 14:44 Abnormal lab findings: Abnormal Labs 02/25/23 02/25/23 02/25/23 14:44 14:44 14:44 WBC 13.8 H Plt Count Neutrophils # 11.5 H Lymphocytes # Monocytes # PT 12.3 H INR 1.2 H ABG pO2 ABG HCO3 ABG Total CO2 ABG O2 Saturation Chloride BUN 34 H POC Glucose (mg/dL) Calcium 8.1 L Total Bilirubin 1.5 H Creatine Kinase 432 H Troponin I C-Reactive Protein 4.4 H Total Protein 6.1 L Albumin 3.1 L U Benzodiazepines Scrn U Marijuana (THC) Screen 02/25/23 02/25/23 02/25/23 14:44 14:44 22:16 WBC Plt Count Neutrophils # Lymphocytes # Monocytes # PT INR ABG pO2 56 L* ABG HCO3 26 H ABG Total CO2 27 H ABG O2 Saturation 86.0 L Chloride BUN POC Glucose (mg/dL) Calcium Total Bilirubin Creatine Kinase Troponin I 0.813 H* C-Reactive Protein Total Protein Albumin U Benzodiazepines Scrn Detected H U Marijuana (THC) Screen Detected H 02/26/23 02/26/23 02/26/23 04:22 04:54 05:31 WBC Plt Count Neutrophils # Lymphocytes # Monocytes # PT INR ABG pO2 123 H ABG HCO3 ABG Total CO2 26 H ABG O2 Saturation 98.1 H Chloride BUN POC Glucose (mg/dL) 69 L 191 H Calcium Total Bilirubin Creatine Kinase Troponin I C-Reactive Protein Total Protein Albumin U Benzodiazepines Scrn U Marijuana (THC) Screen 02/26/23 02/26/23 08:13 08:13 WBC 23.9 H Plt Count 148 L Neutrophils # 21.8 H Lymphocytes # 0.8 L Monocytes # 1.1 H PT INR ABG pO2 ABG HCO3 ABG Total CO2 ABG O2 Saturation Chloride 112 H BUN 33 H POC Glucose (mg/dL) Calcium 8.0 L Total Bilirubin Creatine Kinase Troponin I C-Reactive Protein Total Protein Albumin U Benzodiazepines Scrn U Marijuana (THC) Screen - Diagnostic Findings Chest x-ray: image reviewed Assessment and Plan Assessment: Altered mental status of unclear etiology. Urine drug screen positive for benzo diazepines and marijuana. Suspect metabolic encephalopathy, seizure History of chronic pain syndrome and the patient takes oxycodone, gabapentin and Xanax Acute hypoxemic respiratory failure suspect secondary to mental status changes and exacerbation of COPD, doubt underlying pneumonia or infection. Pro- calcitonin 0.09 Leukocytosis Troponin leak Chronic and ongoing tobacco dependence Marijuana use Hypertension History of anxiety History of traumatic brain injury History of lipoma of the right chest wall Plan: The patient was seen and evaluated Chest x-ray, ABGs, labs and medications reviewed Progress and tone in negative at 0.09 Discontinue vancomycin and Levaquin Continue acyclovir, lumbar puncture pending Initiate DuoNeb inhalations, Symbicort Heparin for DVT prophylaxis Transitioned to nasal cannula as tolerated Alternating with BiPAP 14/8 and 90% FiO2 Neurology consult We'll continue to follow and make further recommendations based on his clinical status I have personally seen and examined the patient, performed the documentation and the assessment and plan as written. Number of minutes spent on the visit: 20.
[2023-02-26] MEDS: IPRATROPIUM-ALBUTEROL 3 ML NEB INHALATION SCH ×3 (11:15→20:17)
[2023-02-26 11:43] LABS: Glucose,Whole Blood 91 mg/dL (70-110)
--- NOTE | 2023-02-26 12:30 | P.CNNES ---
History of Present Illness Consult date: 02/26/23 History of Present Illness: The patient is a 67-year-old male who was seen in neurologic consultation on February 26, 2023, via teleneurology. History is obtained from the chart. The patient is unable to provide any history. Apparently he was brought into the emergency department in [place], by his , because of increasing confusion over the past 3-4 days. The patient reportedly was having confusion and slurred speech. There is some report of a questionable seizure, at home. The patient does not have a history of seizures. The patient has a history of previous traumatic brain injury, chronic pain for which he takes oxycodone, gabapentin and Ativan, anxi ety, chronic and ongoing tobacco dependence, chronic obstructive pulmonary disease, hypertension. In the emergency department, CT scan of the brain was performed. There is no report of acute hemorrhage or infarct. Chest x-ray revealed right lower lobe infiltrate. The patient became more and more hypoxic. He is currently on BiPAP, in the intensive care unit. Review of Systems ROS unobtainable: due to mental status Past Medical History Past Medical History: Dementia Additional Past Medical History / Comment(s): The patient reportedly has a history of traumatic brain injury, alcohol abuse Past Surgical History: Unable to Obtain Past Psychological History: Unable to Obtain Smoking Status: Unknown if ever smoked Past Alcohol Use History: Unable to Obtain Past Drug Use History: Unable to Obtain Medications and Allergies Home Medications Medication Instructions Recorded Confirmed Type ALPRAZolam [Xanax] 1 mg PO Q6H PRN 02/25/23 02/25/23 History oxyCODONE HCL [Roxicodone] 30 mg PO QID 02/25/23 02/25/23 History Allergies Allergy/AdvReac Type Severity Reaction Status Date / Time cephalexin [From Keflex] Allergy Unknown Verified 02/25/23 15:54 Physical Examination - Vital Signs Vital Signs: Vital Signs Temp Pulse Pulse Resp BP BP Pulse Ox 02/26/23 07:53 02/26/23 06:30 108 H 32 H 104/69 96 02/26/23 06:00 110 H 36 H 129/85 96 02/26/23 05:41 114 H 02/26/23 05:37 02/26/23 05:30 114 H 34 H 131/77 98 02/26/23 05:00 98.7 F 105 H 16 123/86 98 02/26/23 04:50 02/26/23 04:00 110 H 40 H 100 02/26/23 02:00 106 H 43 H 02/26/23 00:17 02/26/23 00:00 106 H 43 H 162/106 97 02/25/23 22:41 95 02/25/23 22:21 125 H 40 H 117/70 88 L 02/25/23 22:16 02/25/23 20:00 125 H 40 H 02/25/23 19:35 98.6 F 111 H 15 126/78 98 02/25/23 19:25 98.2 F 110 H 18 132/92 89 L 02/25/23 16:30 115 H 28 H 127/81 93 L 02/25/23 16:00 118 H 30 H 126/81 95 02/25/23 15:30 118 H 27 H 95 02/25/23 15:04 122 H 28 H 94 L 02/25/23 14:14 99.9 F H 119 H 24 117/88 93 L FiO2 02/26/23 07:53 90 02/26/23 06:30 02/26/23 06:00 02/26/23 05:41 02/26/23 05:37 90 02/26/23 05:30 02/26/23 05:00 90 02/26/23 04:50 100 02/26/23 04:00 100 02/26/23 02:00 02/26/23 00:17 100 02/26/23 00:00 100 02/25/23 22:41 100 02/25/23 22:21 100 02/25/23 22:16 100 02/25/23 20:00 02/25/23 19:35 02/25/23 19:25 02/25/23 16:30 02/25/23 16:00 02/25/23 15:30 02/25/23 15:04 02/25/23 14:14 Intake and Output 02/25/23 02/26/23 02/26/23 22:59 06:59 14:59 Intake Total 75 Output Total 360 325 Balance -360 -250 Intake: IV 75 Sodium Chloride 0.9% 1, 75 000 ml @ 75 mls/hr IV . [id number] [facility] Rx#:[id number] Output: Urine 360 325 Other: Voiding Method Incontinent Incontinent Indwelling Catheter Indwelling Catheter Weight 64.5 kg Gen.: The patient is reclining in the bed. He has a BiPAP mask on. He is lethargic and difficult to arouse. He is in no acute distress. HEENT: Head is atraumatic, normocephalic. Fundus not visualized. There is no scleral icterus. Mucous membranes are moist. Neck: There is a question of nuchal rigidity. When the neck is flexed, the patient's left knee flexes, consistent with positive Kernig sign. There are no carotid bruits Heart: Regular rate and rhythm Lungs: Diffuse wheezing throughout Extremities: Without edema Neurological examination Mental status: The patient opens his eyes to verbal stimulation. He is nonverbal. He follows a few simple commands, such as giving a "thumbs up" Cranial nerves: Pupils are equal at 2 mm. The patient does blink to visual threat. There is direct eye contact with the examiner. There is no obvious facial asymmetry. The patient does not cooperate with further cranial nerve testing Motor: There is some spontaneous movement of the left upper extremity. The patient does not follow instructions for strength testing. Muscle tone is increased throughout. Sensation: There is withdrawal from noxious stimulation, of all 4 extremities. Coordination: Not assessed Deep tendon reflexes: 2+/4+ throughout with the exception of the bilateral Achilles reflexes at 1+/4+. Plantar responses are flexor bilaterally. Gait: Unable to be assessed Results - Laboratory Findings CBC and BMP: 02/26/23 08:13 02/26/23 08:13 Abnormal Lab Findings: Abnormal Labs 02/25/23 02/25/23 02/25/23 14:44 14:44 14:44 WBC 13.8 H Neutrophils # 11.5 H PT 12.3 H INR 1.2 H ABG pO2 ABG HCO3 ABG Total CO2 ABG O2 Saturation BUN 34 H POC Glucose (mg/dL) Calcium 8.1 L Total Bilirubin 1.5 H Creatine Kinase 432 H Troponin I C-Reactive Protein 4.4 H Total Protein 6.1 L Albumin 3.1 L U Benzodiazepines Scrn U Marijuana (THC) Screen 02/25/23 02/25/23 02/25/23 14:44 14:44 22:16 WBC Neutrophils # PT INR ABG pO2 56 L* ABG HCO3 26 H ABG Total CO2 27 H ABG O2 Saturation 86.0 L BUN POC Glucose (mg/dL) Calcium Total Bilirubin Creatine Kinase Troponin I 0.813 H* C-Reactive Protein Total Protein Albumin U Benzodiazepines Scrn Detected H U Marijuana (THC) Screen Detected H 02/26/23 02/26/23 02/26/23 04:22 04:54 05:31 WBC Neutrophils # PT INR ABG pO2 123 H ABG HCO3 ABG Total CO2 26 H ABG O2 Saturation 98.1 H BUN POC Glucose (mg/dL) 69 L 191 H Calcium Total Bilirubin Creatine Kinase Troponin I C-Reactive Protein Total Protein Albumin U Benzodiazepines Scrn U Marijuana (THC) Screen Assessment and Plan Assessment: 1. Altered mental status in a patient who is febrile, with leukocytosis, positive Kernig sign and pneumonia-encephalitis/meningitis must be considered 2. Possible seizure-Secondary to alcohol withdrawal 3. Alcohol and polysubstance abuse-all: Level on admission is less than 10. Drug screen is positive for Benzodiazepines and marijuana Plan: 1. Agree with stat EEG, unfortunately this cannot be done when the patient is not medically stable. 2. Lumbar puncture should be considered and was ordered with the assistance of nursing however per nursing, interventional radiology is not able to do the lumbar puncture until Tuesday. At that time, the patient will have been on antibiotics and antivirals for several days and so utility is questionable 3. Agree with CIWA protocol 4. Seizure precautions 5. Ammonia level has been ordered Time with Patient: Greater than 30 (55 minutes were spent in caring for this patient today including, obtaining history, examining the patient, reviewing imaging, chart documentation, labs, placing orders and creating this note)
--- NOTE | 2023-02-26 14:28 | P.PN ---
Subjective Progress Note Date: 02/26/23 Hospital Course: 67 year old male with polysubstance abuse (opiates, and alcohol), TBI, COPD presenting from outside hospital for acute encephalopathy. At that hospital, CT head did not show any acute pathology, he also had elevated troponins, possibility of unwitnessed seizures. Patient was given IV fluids and benzodiazepines. He also had CT angiogram of the chest showed no acute PE. There was concern for possible meningitis/cephalitis, and was transferred to our facility for neurological evaluation. Patient also have hypoxic respiratory failure, currently on BiPAP, in the medical ICU. Neurology and ICU consulted. Subjective: Seen and examined at bedside. Remains on BiPAP. Patient is more alert and orientated. Pertinent positives and negatives as discussed above, a complete review of systems was performed and all other systems are negative. Vitals Signs Reviewed. General: nontoxic, no distress, appears at stated age Derm: warm, dry Head: atraumatic, normocephalic, symmetric Eyes: EOMI, no lid lag, anicteric sclera Mouth: no lip lesion, mucus membranes moist Cardiovascular: S1S2 reg, no murmur Lungs: Bilateral rhonchi at the bases , no accessory muscle use, on BiPAP Abdominal: soft, nontender to palpation, no guarding, no appreciable organomegaly Ext: no gross muscle atrophy, no edema, no contractures Neuro: Following some commands, no focal deficits Psych: Unable to assess Data Reviewed Today: Pertinent Labs: WBC 23.9, platelet 148, pH 7.41, pCO2 40, O2 123 on BiPAP, sodium 144, potassium 2.8, creatinine 0.77, magnesium 2.2, troponin at 0.813. Imaging: Chest x-ray interpreted independently from this morning, shows right lower lobe opacity Assessment and Plan: Patient is critically ill in medical ICU Acute hypoxic respiratory failure COPD exacerbation Acute encephalopathy Possible encephalitis/meningitis History of TBI, possible seizures Possible drug withdrawal Chronic pain syndrome -Procal negative -patient does have significant leukocytosis -ID consulted -ICU note reviewed, started on bronchodilators, continue antiviral, discontinue abx -possible meningitis/encephalitis, neurology following, on IV keppra -echo also ordered for hypoxia, unable to explain with current chest xray -on ativan PRN per CIWA scores, thiamine DVT ppx: heparin Code status: full code Anticipated discharge place: pending clinical course Anticipated discharge time: pending clinical course Objective - Vital Signs Vital signs: Vital Signs Temp 99.0 F 02/26/23 12:00 Pulse 101 H 02/26/23 14:00 Resp 30 H 02/26/23 14:00 BP 104/65 02/26/23 14:00 Pulse Ox 96 02/26/23 14:00 FiO2 90 02/26/23 12:00 Intake & Output 02/25/23 02/26/23 02/26/23 18:59 06:59 18:59 Intake Total 75 750 Output Total 685 180 Balance -610 570 Weight 63.503 kg 64.5 kg 64.5 kg Intake: IV 75 450 Sodium Chloride 0.9% 1, 75 450 000 ml @ 75 mls/hr IV . [id number] [facility] Rx#:[id number] Intake, IV Titration 300 Amount Levofloxacin 500Mg-D5w 100 Pmx 500 mg In Dextrose/ Water 1 100ml.bag @ 100 mls/hr IVPB Q24H [facility] Rx#: [id number] Potassium Chloride 10 meq 200 In Water For Injection 1 100ml.bag @ 100 mls/hr IVPB Q1H E[facility] Rx#: [id number] Output: Urine 685 180 Other: Voiding Method Incontinent Indwelling Catheter Indwelling Catheter - Labs CBC & Chem 7: 02/26/23 08:13 02/26/23 08:13 Labs: Abnormal Lab Results - Last 24 Hours (Table) 02/25/23 02/25/23 02/25/23 Range/Units 14:44 14:44 14:44 WBC 13.8 H (3.8-10.6) k/uL Plt Count (150-450) k/uL Neutrophils # 11.5 H (1.3-7.7) k/uL Lymphocytes # (1.0-4.8) k/uL Monocytes # (0-1.0) k/uL PT 12.3 H (9.0-12.0) sec INR 1.2 H (<1.2) ABG pO2 (83-108) mmHg ABG HCO3 (21-25) mmol/L ABG Total CO2 (19-24) mmol/L ABG O2 Saturation (94-97) % Chloride (98-107) mmol/L BUN 34 H (9-20) mg/dL POC Glucose (mg/dL) (70-110) mg/dL Calcium 8.1 L (8.4-10.2) mg/dL Total Bilirubin 1.5 H (0.2-1.3) mg/dL Creatine Kinase 432 H (55-170) U/L Troponin I (0.000-0.034) ng/mL C-Reactive Protein 4.4 H (<1.0) mg/dL Total Protein 6.1 L (6.3-8.2) g/dL Albumin 3.1 L (3.5-5.0) g/dL U Benzodiazepines Scrn (NotDetected) U Marijuana (THC) Screen (NotDetected) 02/25/23 02/25/23 02/25/23 Range/Units 14:44 14:44 22:16 WBC (3.8-10.6) k/uL Plt Count (150-450) k/uL Neutrophils # (1.3-7.7) k/uL Lymphocytes # (1.0-4.8) k/uL Monocytes # (0-1.0) k/uL PT (9.0-12.0) sec INR (<1.2) ABG pO2 56 L* (83-108) mmHg ABG HCO3 26 H (21-25) mmol/L ABG Total CO2 27 H (19-24) mmol/L ABG O2 Saturation 86.0 L (94-97) % Chloride (98-107) mmol/L BUN (9-20) mg/dL POC Glucose (mg/dL) (70-110) mg/dL Calcium (8.4-10.2) mg/dL Total Bilirubin (0.2-1.3) mg/dL Creatine Kinase (55-170) U/L Troponin I 0.813 H* (0.000-0.034) ng/mL C-Reactive Protein (<1.0) mg/dL Total Protein (6.3-8.2) g/dL Albumin (3.5-5.0) g/dL U Benzodiazepines Scrn Detected H (NotDetected) U Marijuana (THC) Screen Detected H (NotDetected) 02/26/23 02/26/23 02/26/23 Range/Units 04:22 04:54 05:31 WBC (3.8-10.6) k/uL Plt Count (150-450) k/uL Neutrophils # (1.3-7.7) k/uL Lymphocytes # (1.0-4.8) k/uL Monocytes # (0-1.0) k/uL PT (9.0-12.0) sec INR (<1.2) ABG pO2 123 H (83-108) mmHg ABG HCO3 (21-25) mmol/L ABG Total CO2 26 H (19-24) mmol/L ABG O2 Saturation 98.1 H (94-97) % Chloride (98-107) mmol/L BUN (9-20) mg/dL POC Glucose (mg/dL) 69 L 191 H (70-110) mg/dL Calcium (8.4-10.2) mg/dL Total Bilirubin (0.2-1.3) mg/dL Creatine Kinase (55-170) U/L Troponin I (0.000-0.034) ng/mL C-Reactive Protein (<1.0) mg/dL Total Protein (6.3-8.2) g/dL Albumin (3.5-5.0) g/dL U Benzodiazepines Scrn (NotDetected) U Marijuana (THC) Screen (NotDetected) 02/26/23 02/26/23 Range/Units 08:13 08:13 WBC 23.9 H (3.8-10.6) k/uL Plt Count 148 L (150-450) k/uL Neutrophils # 21.8 H (1.3-7.7) k/uL Lymphocytes # 0.8 L (1.0-4.8) k/uL Monocytes # 1.1 H (0-1.0) k/uL PT (9.0-12.0) sec INR (<1.2) ABG pO2 (83-108) mmHg ABG HCO3 (21-25) mmol/L ABG Total CO2 (19-24) mmol/L ABG O2 Saturation (94-97) % Chloride 112 H (98-107) mmol/L BUN 33 H (9-20) mg/dL POC Glucose (mg/dL) (70-110) mg/dL Calcium 8.0 L (8.4-10.2) mg/dL Total Bilirubin (0.2-1.3) mg/dL Creatine Kinase (55-170) U/L Troponin I (0.000-0.034) ng/mL C-Reactive Protein (<1.0) mg/dL Total Protein (6.3-8.2) g/dL Albumin (3.5-5.0) g/dL U Benzodiazepines Scrn (NotDetected) U Marijuana (THC) Screen (NotDetected)
[2023-02-26] MEDS ORDERED: VANCOMYCIN IV PER PHARMACY 1 EACH MISC MISCELLANE PRN (15:32)
[2023-02-26 16:14] LABS: Glucose,Whole Blood 75 mg/dL (70-110)
[2023-02-26] MEDS: AZTREONAM 2 GM in SODIUM CHLORIDE 0.9% 100 ML IVPB SCH (16:15)
[2023-02-26] MEDS ORDERED: DEXTROSE 50% SYRINGE 50 ML IVP ONE (16:26)
[2023-02-26 18:14] LABS: Glucose,Whole Blood 109 mg/dL (70-110)
[2023-02-26] MEDS: VANCOMYCIN 1,250 MG in SODIUM CHLORIDE 0.9% 250 ML IVPB SCH (18:42)
[2023-02-26] MEDS: SYMBICORT 160-4.5 MCG INHALER INHALATION SCH ×2 (20:17→20:43)
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
[2023-02-27 00:08] LABS: Glucose,Whole Blood 94 mg/dL (70-110)
[2023-02-27] MEDS: SODIUM CHLORIDE 0.9% 1,000 ML IV SCH ×2 (00:24→16:08)
[2023-02-27] MEDS: HEPARIN SODIUM,PORCINE/PF 5,000 UNIT/0.5 ML SYRINGE SQ SCH ×4 (00:25→23:17)
[2023-02-27] MEDS: AZTREONAM 2 GM in SODIUM CHLORIDE 0.9% 100 ML IVPB SCH ×4 (00:25→23:17)
[2023-02-27] MEDS ORDERED: VANCOMYCIN TROUGH DUE 1 EACH MISC MISCELLANE ONE ×2 (04:00→05:00)
[2023-02-27 05:53] LABS: African American GFR (CKD) >90 (>60 ml/min/1.73 sqM); Anion Gap 7 mmol/L; Blood Urea Nitrogen 28 mg/dL (9-20); Calcium 7.9 mg/dL (8.4-10.2); Carbon Dioxide 22 mmol/L (22-30); Chloride 108 mmol/L (98-107); Glucose 87 mg/dL (74-99); Magnesium 1.9 mg/dL (1.6-2.3); Non-African American GFR(CKD) >90 (>60 ml/min/1.73 sqM); Potassium 3.8 mmol/L (3.5-5.1); Sodium 137 mmol/L (137-145)
[2023-02-27 06:09] LABS: Glucose,Whole Blood 87 mg/dL (70-110)
[2023-02-27 06:23] LABS: Basophils % (A) 0 %; Eosinophils % (A) 0 %; HCT 35.9 % (39.0-53.0); HGB 11.6 gm/dL (13.0-17.5); Hypochromasia Slight; Lymphocytes # (A) 0.9 k/uL (1.0-4.8); Lymphocytes % (A) 6 %; MCH 30.5 pg (25.0-35.0); MCHC 32.2 g/dL (31.0-37.0); MCV 94.5 fL (80.0-100.0); Mean Platelet Volume 9.5; Monocytes # (A) 0.5 k/uL (0-1.0); Monocytes % (A) 4 %; Neutrophils # (A) 12.6 k/uL (1.3-7.7); Neutrophils % (A) 89 %; Platelet Count 104 k/uL (150-450); RDW 13.8 % (11.5-15.5); WBC 14.2 k/uL (3.8-10.6)
[2023-02-27] MEDS: ACYCLOVIR SODIUM 1,000 MG in SODIUM CHLORIDE 0.9% 250 ML IVPB SCH ×3 (06:36→22:18)
[2023-02-27] MEDS ORDERED: Potassium Replacement Protocol 1 EACH MISC MISCELLANE PRN (06:52)
[2023-02-27] MEDS ORDERED: POTASSIUM CHLORIDE ER 20 MEQ TAB.ER PO SCH (08:00)
[2023-02-27] MEDS: SYMBICORT 160-4.5 MCG INHALER INHALATION SCH ×2 (08:25→20:39)
[2023-02-27] MEDS: IPRATROPIUM-ALBUTEROL 3 ML NEB INHALATION SCH ×4 (08:26→20:39)
[2023-02-27] MEDS: VANCOMYCIN 1,250 MG in SODIUM CHLORIDE 0.9% 250 ML IVPB SCH (09:18)
[2023-02-27] MEDS: THIAMINE 100 MG TAB PO SCH (10:13)
[2023-02-27] MEDS: levETIRAcetam IV 500 MG/5 ML VIAL IVP SCH ×2 (10:13→20:23)
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
[2023-02-27] MEDS ORDERED: LOPERAMIDE 2 MG CAP PO PRN (10:59)
[2023-02-27] MEDS: PANTOPRAZOLE 40 MG/10 ML VIAL IVP SCH ×2 (11:23→20:22)
[2023-02-27 11:37] LABS: Glucose,Whole Blood 100 mg/dL (70-110)
--- NOTE | 2023-02-27 11:46 | P.PN ---
Subjective Progress Note Date: 02/27/23 Hospital Course: 67 year old male with polysubstance abuse (opiates, and alcohol), TBI, COPD pre senting from outside hospital for acute encephalopathy. At that hospital, CT head did not show any acute pathology, he also had elevated troponins, possibility of unwitnessed seizures. Patient was given IV fluids and benzodiazepines. He also had CT angiogram of the chest showed no acute PE. There was concern for possible meningitis/cephalitis, and was transferred to our facility for neurological evaluation. Patient also have hypoxic respiratory failure, was on BiPAP, in the medical ICU. He is currently on nasal cannula. Neurology and ICU consulted. Infectious the also consulted. Patient on IV antibiotics. Subjective: Seen and examined at bedside. Patient is alert and oriented. Complaining of minimal productive cough. Also having diarrhea, No watery stools. Pertinent positives and negatives as discussed above, a complete review of systems was performed and all other systems are negative. Vitals Signs Reviewed. General: nontoxic, no distress, appears at stated age Derm: warm, dry Head: atraumatic, normocephalic, symmetric Eyes: EOMI, no lid lag, anicteric sclera Mouth: no lip lesion, mucus membranes moist Cardiovascular: S1S2 reg, no murmur Lungs: Bilateral rhonchi at the bases , no accessory muscle use, supplemental oxygen Abdominal: soft, nontender to palpation, no guarding, no appreciable organomegaly Ext: no gross muscle atrophy, no edema, no contractures Neuro: Cranial nerves II-12 intact grossly, no focal deficits, following all commands Psych: Alert and oriented, cooperative Data Reviewed Today: Pertinent Labs: WBC 14.2, hemoglobin 11.6, creatinine 0.67, magnesium 1.9, repeat pro calcitonin 0.29, stool occult blood positive Imaging: No new imaging today Assessment and Plan: Patient is critically ill in medical ICU, prognosis guarded Acute hypoxic respiratory failure COPD exacerbation Acute encephalopathy, resolved Sepsis with unclear source Possible encephalitis/meningitis History of TBI, possible seizures Possible drug withdrawal Chronic pain syndrome Acute blood loss anemia Suspected upper GI bleed -ICU note reviewed, continue current management -Continue to wean oxygen, continue bronchodilators -ID following, on acyclovir IV, vancomycin IV, aztreonam IV, monitor for renal function -Cultures pending -possible meningitis/encephalitis, neurology following, on IV keppra, patient may be atorvastatin LP tomorrow -EKG also pending -Seizure precautions -echo also ordered for hypoxia, unable to explain with current chest xray -on ativan PRN per CIWA scores, thiamine -Patient claims that he has stopping drinking, however did discontinue his Xanax recently -IV pantoprazole 40 mg twice a day, monitor hemoglobin DVT ppx: heparin sq Code status: full code Anticipated discharge place: pending clinical course Anticipated discharge time: pending clinical course Objective - Vital Signs Vital signs: Vital Signs Temp 97.8 F 02/27/23 04:00 Pulse 107 H 02/27/23 10:00 Resp 12 02/27/23 10:00 BP 124/70 02/27/23 10:00 Pulse Ox 96 02/27/23 10:00 FiO2 60 02/27/23 05:00 Intake & Output 02/26/23 02/27/23 02/27/23 18:59 06:59 18:59 Intake Total 1475 3045 Output Total 520 395 Balance 955 2650 Weight 64.5 kg 67.1 kg Intake: IV 975 1175 Acyclovir Sodium 1,000 mg 250 In Sodium Chloride 0.9% 250 ml @ 270 mls/hr IVPB Q8H [facility] Rx#:[id number] Aztreonam 2 gm In Sodium 100 Chloride 0.9% 100 ml @ 33 .3 mls/hr IVPB Q8HR [facility] Rx#:[id number] Sodium Chloride 0.9% 1, 975 825 000 ml @ 75 mls/hr IV . [id number] [facility] Rx#:[id number] Intake, IV Titration 500 Amount Aztreonam 2 gm In Sodium 200 Chloride 0.9% 100 ml @ 33 .3 mls/hr IVPB Q8HR [facility] Rx#:[id number] Levofloxacin 500Mg-D5w 100 Pmx 500 mg In Dextrose/ Water 1 100ml.bag @ 100 mls/hr IVPB Q24H [facility] Rx#: [id number] Potassium Chloride 10 meq 200 In Water For Injection 1 100ml.bag @ 100 mls/hr IVPB Q1H [facility] Rx#: [id number] Oral 1870 Output: Urine 520 395 Other: Voiding Method Indwelling Catheter Indwelling Catheter # Bowel Movements 1 - Labs CBC & Chem 7: 02/27/23 05:15 02/27/23 05:15 Labs: Abnormal Lab Results - Last 24 Hours (Table) 02/26/23 02/27/23 02/27/23 Range/Units 08:13 05:15 05:15 WBC 14.2 H (3.8-10.6) k/uL RBC 3.80 L (4.30-5.90) m/uL Hgb 11.6 L (13.0-17.5) gm/dL Hct 35.9 L (39.0-53.0) % Plt Count 104 L (150-450) k/uL Neutrophils # 12.6 H (1.3-7.7) k/uL Lymphocytes # 0.9 L (1.0-4.8) k/uL Chloride 108 H (98-107) mmol/L BUN 28 H (9-20) mg/dL Calcium 7.9 L (8.4-10.2) mg/dL Procalcitonin 0.29 H (0.02-0.09) ng/mL Microbiology - Last 24 Hours (Table) 02/25/23 14:45 Blood Culture - Preliminary Blood
[2023-02-27 13:39] LABS: Basophils % (A) 0 %; Eosinophils # (A) 0.1 k/uL (0-0.7); Eosinophils % (A) 0 %; HCT 37.9 % (39.0-53.0); HGB 12.3 gm/dL (13.0-17.5); Hypochromasia Moderate; Lymphocytes # (A) 0.8 k/uL (1.0-4.8); Lymphocytes % (A) 6 %; MCH 31.1 pg (25.0-35.0); MCHC 32.4 g/dL (31.0-37.0); MCV 96.1 fL (80.0-100.0); Mean Platelet Volume 9.2; Monocytes # (A) 0.5 k/uL (0-1.0); Monocytes % (A) 4 %; Neutrophils # (A) 12.2 k/uL (1.3-7.7); Neutrophils % (A) 89 %; Platelet Count 114 k/uL (150-450); RBC 3.94 m/uL (4.30-5.90); RDW 13.8 % (11.5-15.5); WBC 13.7 k/uL (3.8-10.6)
--- NOTE | 2023-02-27 16:34 | P.PN ---
Subjective Progress Note Date: 02/27/23 The patient is a 67-year-old male who is seen in neurologic follow-up on February 27, 2023, in collaboration with Suzan Marin, via teleneurology. Per nursing, the patient is doing much better today. Is awake, answering questions, requiring much less oxygen support and is eating. He reportedly has occasional tremors. The patient himself reports that he is feeling better. He does not recall coming into the hospital. He denies headache, vision changes, difficulty with speech and swallowing. The patient reports that he did have a possible seizure, 4-5 years ago. Objective - Vital Signs Vital signs: Vital Signs Temp 98.5 F 02/27/23 12:00 Pulse 102 H 02/27/23 16:16 Resp 25 H 02/27/23 14:00 BP 140/84 02/27/23 14:00 Pulse Ox 96 02/27/23 14:00 FiO2 60 02/27/23 05:00 Intake & Output 02/26/23 02/27/23 02/27/23 18:59 06:59 18:59 Intake Total 1475 3045 824.9 Output Total 520 395 225 Balance 955 2650 599.9 Weight 64.5 kg 67.1 kg Intake: IV 975 1175 824.9 Acyclovir Sodium 1,000 mg 250 In Sodium Chloride 0.9% 250 ml @ 270 mls/hr IVPB Q8H [facility] Rx#:[id number] Acyclovir Sodium 1,000 mg 250 In Sodium Chloride 0.9% 250 ml @ 270 mls/hr IVPB Q8H [facility] Rx#:[id number] Aztreonam 2 gm In Sodium 100 99.9 Chloride 0.9% 100 ml @ 33 .3 mls/hr IVPB Q8HR [facility] Rx#:[id number] Sodium Chloride 0.9% 1, 975 825 225 000 ml @ 75 mls/hr IV . [id number] [facility] Rx#:[id number] Vancomycin 1,250 mg In 250 Sodium Chloride 0.9% 250 ml @ 125 mls/hr IVPB Q12H [facility] Rx#:[id number] Intake, IV Titration 500 Amount Aztreonam 2 gm In Sodium 200 Chloride 0.9% 100 ml @ 33 .3 mls/hr IVPB Q8HR [facility] Rx#:[id number] Levofloxacin 500Mg-D5w 100 Pmx 500 mg In Dextrose/ Water 1 100ml.bag @ 100 mls/hr IVPB Q24H [facility] Rx#: [id number] Potassium Chloride 10 meq 200 In Water For Injection 1 100ml.bag @ 100 mls/hr IVPB Q1H [facility] Rx#: [id number] Oral 1870 Output: Urine 520 395 225 Other: Voiding Method Indwelling Catheter Indwelling Catheter Indwelling Catheter # Bowel Movements 1 1 - Exam Gen.: The patient is reclining in the bed. He is receiving O2 via nasal cannula. He is observed having a full-body spasm, when we entered the room. He says he had one earlier today as well. He denies having these spasms, prior to admission. Otherwise, the patient is in no acute distress. He is thin. HEENT: Head is atraumatic, normocephalic. Fundus not visualized. There is no scleral icterus. Mucous membranes are moist. Neck: Supple, without carotid bruits Heart: Regular rate and rhythm Neurological examination Mental status: The patient is awake, alert and oriented 3. He has difficulty reporting the upcoming holiday. Cranial nerves: Pupils are equal at 3 mm and reactive. Visual wall are full to confrontation. Extraocular movements are intact. There is no nystagmus. Facial sensations intact. There is no facial asymmetry. Hearing is grossly intact. Uvula and palate are midline. Shoulder shrug is symmetric. Tongue protrudes midline. Motor: Eyelid her upper extremity strength is 5/5. Bilateral ankle dorsiflexion 3/5. Plantar flexion 4/5. Coordination: There is mild tremor of the upper extremities with finger to nose testing. Patient is also observed to have tremor of his right foot. The patient is able to perform left-sided [id number] testing. There is ataxia with right-sided [id number] testing. Tendon reflexes: 2+/4+ in the upper extremities. 3+/4+ at the knees. Plantar responses are flexor bilaterally. - Labs CBC & Chem 7: 02/27/23 13:10 02/27/23 05:15 Labs: Abnormal Lab Results - Last 24 Hours (Table) 02/27/23 02/27/23 02/27/23 Range/Units 05:15 05:15 13:10 WBC 14.2 H 13.7 H (3.8-10.6) k/uL RBC 3.80 L 3.94 L (4.30-5.90) m/uL Hgb 11.6 L 12.3 L (13.0-17.5) gm/dL Hct 35.9 L 37.9 L (39.0-53.0) % Plt Count 104 L 114 L (150-450) k/uL Neutrophils # 12.6 H 12.2 H (1.3-7.7) k/uL Lymphocytes # 0.9 L 0.8 L (1.0-4.8) k/uL Chloride 108 H (98-107) mmol/L BUN 28 H (9-20) mg/dL Calcium 7.9 L (8.4-10.2) mg/dL Microbiology - Last 24 Hours (Table) 02/25/23 14:30 Blood Culture - Preliminary Blood 02/25/23 14:45 Blood Culture - Preliminary Blood Assessment and Plan Assessment: 1. Altered mental status in a patient who is febrile, with leukocytosis, positive Kernig sign and pneumonia-encephalitis/meningitis must be considered-There is improvement in the patient's neurologic status today. He is day 2 on antibiotics and antiviral 2. Possible seizure-Secondary to alcohol withdrawal 3. Alcohol and polysubstance abuse-all: Level on admission is less than 10. Drug screen is positive for Benzodiazepines and marijuana Plan: 1. Agree with stat EEG, unfortunately this cannot be done when the patient is not medically stable. 2. Lumbar puncture should be considered and was ordered with the assistance of nursing however per nursing, interventional radiology is not able to do the lumbar puncture until Tuesday. At that time, the patient will have been on antibiotics and antivirals for several days. Cell count, protein, Gram stain, culture, herpes PCR should all be ordered 3. Agree with CIWA protocol 4. Seizure precautions 5. Ammonia level has been ordered Dr. Roge Segura will assume neurologic coverage of this patient as of February 28, 2023 Time with Patient: Less than 30 (28 minutes were spent in caring for this patient today including, obtaining a history, examining the patient, reviewing chart documentation, placing orders, speaking with the patient's nurse and creating this note)
[2023-02-27 17:39] LABS: Color,Urine Light Orange
[2023-02-27 17:40] LABS: Appearance,Urine Cloudy (Clear); Bilirubin,Urine Negative (Negative); Glucose,Urine (UA) Negative (Negative); Ketones,Urine 2+ (Negative); Protein,Urine 1+ (Negative); Specific Gravity,Urine 1.025 (1.001-1.035)
[2023-02-27 17:41] LABS: Bacteria,Urine Few /hpf; Blood,Urine Small (Negative); Leukocyte Esterase,Urine Moderate (Negative); Nitrite,Urine Negative (Negative); Urobilinogen,Urine <2.0 mg/dL (<2.0); WBC,Urine 2 /hpf (0-5)
[2023-02-27 18:46] LABS: Glucose,Whole Blood 123 mg/dL (70-110)
[2023-02-27] MEDS: VANCOMYCIN 1,500 MG in SODIUM CHLORIDE 0.9% 500 ML 500 ML IVPB SCH (20:28)
[2023-02-27] MEDS ORDERED: VANCOMYCIN 1,250 MG in SODIUM CHLORIDE 0.9% 250 ML IVPB SCH (21:00)
[2023-02-27 22:03] LABS: Basophils % (A) 0 %; Eosinophils # (A) 0.1 k/uL (0-0.7); Eosinophils % (A) 0 %; HCT 39.9 % (39.0-53.0); HGB 12.7 gm/dL (13.0-17.5); Hypochromasia Slight; Lymphocytes # (A) 1.1 k/uL (1.0-4.8); Lymphocytes % (A) 9 %; MCH 29.9 pg (25.0-35.0); MCHC 31.7 g/dL (31.0-37.0); MCV 94.2 fL (80.0-100.0); Mean Platelet Volume 9.4; Monocytes # (A) 0.5 k/uL (0-1.0); Monocytes % (A) 4 %; Neutrophils # (A) 10.6 k/uL (1.3-7.7); Neutrophils % (A) 86 %; Platelet Count 132 k/uL (150-450); RBC 4.24 m/uL (4.30-5.90); RDW 13.8 % (11.5-15.5); WBC 12.4 k/uL (3.8-10.6)
--- NOTE | 2023-02-27 22:48 | P.PN ---
Subjective Progress Note Date: 02/27/23 Principal diagnosis: Possible encephalitis Patient is a 67-year male with a past medical history significant for chronic pain syndrome history of traumatic brain injury and hypertension patient was noticed to be confused the morning of presentation to the hospital patient also have increasing respiratory distress requiring BiPAP and admission to the ICU. On today's evaluation that is 02/27/2023, the patient is afebrile the patient is more awake and alert today and is off BiPAP currently on 4 L nasal cannula oxygen patient denies any headache he's aware that he is in the [facility] denies any chest pain or shortness of breath. Has some cough but no sputum production no abdominal pain or diarrhea Objective - Vital Signs Vital signs: Vital Signs Temp 97.8 F 02/27/23 04:00 Pulse 107 H 02/27/23 10:00 Resp 12 02/27/23 10:00 BP 124/70 02/27/23 10:00 Pulse Ox 96 02/27/23 10:00 FiO2 60 02/27/23 05:00 Intake & Output 02/26/23 02/27/23 02/27/23 18:59 06:59 18:59 Intake Total 1475 3045 Output Total 520 395 Balance 955 2650 Weight 64.5 kg 67.1 kg Intake: IV 975 1175 Acyclovir Sodium 1,000 mg 250 In Sodium Chloride 0.9% 250 ml @ 270 mls/hr IVPB Q8H [facility] Rx#:[id number] Aztreonam 2 gm In Sodium 100 Chloride 0.9% 100 ml @ 33 .3 mls/hr IVPB Q8HR [facility] Rx#:[id number] Sodium Chloride 0.9% 1, 975 825 000 ml @ 75 mls/hr IV . [id number] [facility] Rx#:[id number] Intake, IV Titration 500 Amount Aztreonam 2 gm In Sodium 200 Chloride 0.9% 100 ml @ 33 .3 mls/hr IVPB Q8HR [facility] Rx#:[id number] Levofloxacin 500Mg-D5w 100 Pmx 500 mg In Dextrose/ Water 1 100ml.bag @ 100 mls/hr IVPB Q24H [facility] Rx#: [id number] Potassium Chloride 10 meq 200 In Water For Injection 1 100ml.bag @ 100 mls/hr IVPB Q1H [facility] Rx#: [id number] Oral 1870 Output: Urine 520 395 Other: Voiding Method Indwelling Catheter Indwelling Catheter # Bowel Movements 1 - Exam GENERAL DESCRIPTION: An elderly male lying in bed in no distress RESPIRATORY SYSTEM: Unlabored breathing , decreased breath sounds at bases HEART: S1 S2 regular rate and rhythm , ABDOMEN: Soft , no tenderness EXTREMITIES: No edema feet - Labs CBC & Chem 7: 02/27/23 21:30 02/27/23 05:15 Labs: Abnormal Lab Results - Last 24 Hours (Table) 02/26/23 02/27/23 02/27/23 Range/Units 08:13 05:15 05:15 WBC 14.2 H (3.8-10.6) k/uL RBC 3.80 L (4.30-5.90) m/uL Hgb 11.6 L (13.0-17.5) gm/dL Hct 35.9 L (39.0-53.0) % Plt Count 104 L (150-450) k/uL Neutrophils # 12.6 H (1.3-7.7) k/uL Lymphocytes # 0.9 L (1.0-4.8) k/uL Chloride 108 H (98-107) mmol/L BUN 28 H (9-20) mg/dL Calcium 7.9 L (8.4-10.2) mg/dL Procalcitonin 0.29 H (0.02-0.09) ng/mL Microbiology - Last 24 Hours (Table) 02/25/23 14:45 Blood Culture - Preliminary Blood Assessment and Plan (1) Encephalopathy Current Visit: Yes Status: Acute Code(s): G93.40 - ENCEPHALOPATHY, UNSPECIFIED SNOMED Code(s): 51115611 (2) SIRS (systemic inflammatory response syndrome) Current Visit: Yes Status: Acute Code(s): R65.10 - SIRS OF NON-INFECTIOUS ORIGIN W/O ACUTE ORGAN DYSFUNCTION SNOMED Code(s): 951154291 Plan: 1patient present to hospital with sepsis in this patient who did have a fever elevated white count tachycardia concerning for possible [employer] infection possibility of encephalitis or meningitis as patient currently do not have any other obvious focus of infection CT angiogram of the chest did not show any consolidation abdominal soft on Examination no evidence of any cellulitis 2-patient did have cephalexin allergy that will limit the number of antibiotics safe to use 3-we will request for LP/CSF with the fluid should be sent for cell count differential glucose protein HSV DNA by PCR 4Patient to continue with the acyclovir along with vancomycin Azactam while waiting for the work-up to be completed Family at the bedside questions were answered Dictation was produced using [employer] dictation software. please excuse any grammatical, word or spelling errors.
[2023-02-27] MEDS ORDERED: SODIUM CHLORIDE 0.9% 500 ML 500 ML IV ONE (22:51)
[2023-02-28 00:27] LABS: Glucose,Whole Blood 116 mg/dL (70-110)
[2023-02-28 04:34] LABS: Herpes simplex I and/or II IgM 0.38 INDEX (<=0.90); Herpes simplex IgG I Ab 26.8 (< or = 0.90); Herpes simplex IgG II Ab 1.2 (< or = 0.90)
[2023-02-28] MEDS: SODIUM CHLORIDE 0.9% 1,000 ML IV SCH (05:23)
[2023-02-28 05:38] LABS: HCT 38.1 % (39.0-53.0); HGB 12.5 gm/dL (13.0-17.5); Hypochromasia Slight; MCH 30.8 pg (25.0-35.0); MCHC 32.9 g/dL (31.0-37.0); MCV 93.8 fL (80.0-100.0); Mean Platelet Volume 9.2; Platelet Count 136 k/uL (150-450); RBC 4.06 m/uL (4.30-5.90); RDW 13.8 % (11.5-15.5); WBC 10.5 k/uL (3.8-10.6)
[2023-02-28 05:48] LABS: African American GFR (CKD) >90 (>60 ml/min/1.73 sqM); Anion Gap 4 mmol/L; Blood Urea Nitrogen 22 mg/dL (9-20); Calcium 7.8 mg/dL (8.4-10.2); Carbon Dioxide 22 mmol/L (22-30); Chloride 112 mmol/L (98-107); Glucose 101 mg/dL (74-99); Non-African American GFR(CKD) >90 (>60 ml/min/1.73 sqM); Potassium 3.5 mmol/L (3.5-5.1); Sodium 138 mmol/L (137-145)
[2023-02-28] MEDS: ACYCLOVIR SODIUM 1,000 MG in SODIUM CHLORIDE 0.9% 250 ML IVPB SCH ×3 (06:18→23:31)
[2023-02-28] MEDS: POTASSIUM CHLORIDE ER 20 MEQ TAB.ER PO SCH ×2 (06:18→08:16)
[2023-02-28 06:23] LABS: Lymphocytes # (M) 0.95 k/uL (1.0-4.8); Monocytes # (M) 0.11 k/uL (0-1.0); Neutrophils # (M) 9.45 k/uL (1.3-7.7); Neutrophils % (M) 90 %; Nucleated Red Blood Cells 0 /100 WBC (0-0); Total Cells Counted 100
[2023-02-28 06:27] LABS: Glucose,Whole Blood 93 mg/dL (70-110)
[2023-02-28] MEDS: PANTOPRAZOLE 40 MG/10 ML VIAL IVP SCH ×2 (08:12→21:09)
[2023-02-28] MEDS: levETIRAcetam IV 500 MG/5 ML VIAL IVP SCH ×2 (08:13→21:08)
[2023-02-28] MEDS: THIAMINE 100 MG TAB PO SCH (08:16)
[2023-02-28] MEDS: AZTREONAM 2 GM in SODIUM CHLORIDE 0.9% 100 ML IVPB SCH ×2 (08:58→16:17)
[2023-02-28] MEDS: IPRATROPIUM-ALBUTEROL 3 ML NEB INHALATION SCH ×4 (09:06→20:01)
[2023-02-28] MEDS: SYMBICORT 160-4.5 MCG INHALER INHALATION SCH (09:07)
[2023-02-28] MEDS ORDERED: levETIRAcetam IV 500 MG/5 ML VIAL IVP STA (10:12)
[2023-02-28] MEDS ORDERED: LORazepam 2 MG/ML INJ IV STA (10:13)
[2023-02-28] MEDS: VANCOMYCIN 1,500 MG in SODIUM CHLORIDE 0.9% 500 ML 500 ML IVPB SCH ×2 (10:20→21:09)
--- NOTE | 2023-02-28 10:48 | P.PN ---
Subjective Progress Note Date: 02/28/23 This is a 67-year-old male patient with a history of previous traumatic brain injury, chronic pain for which he takes oxycodone, gabapentin and Ativan, anxiety, chronic and ongoing tobacco dependence, chronic obstructive pulmonary disease, hypertension. He was transferred here from [facility] after being found to have confusion, altered mental status and possibly a seizure at home by his . CT angiogram of the chest ruled out pulmonary embolism. Computed tomography scan of the head showed no acute intracranial process. Chest x-ray reveals no evidence of pneumothorax. The left lung is clear. There is an unchanged right lateral lower lobe density possibly a loculated pleural effusion. White count 23.9. Hemoglobin 14.1. Platelets 148. Sodium 144. Potassium 3.8. Bicarb 27. BUN 33. Creatinine 0.77. Ammonia level XXI. Arterial blood gases on 100% FiO2 revealed a pO2 of 123, pCO2 40, pH 7.41. He is seen today in consultation in the intensive care unit. Currently he is awake and alert. Following commands. Slightly tachycardic. Tachypneic. Afebrile. He is on BiPAP 14/890% FiO2. He was initiated on Keppra, vancomycin, acyclovir, Levaquin. Lumbar puncture pending. He has normal saline at 75 ML's per hour. The patient is seen today 02/27/2023 in follow-up in the intensive care unit. He is currently sitting up in bed. Bit more awake and alert today. He is on 2 L high flow nasal cannula. He did wear her BiPAP last night 14/8 and 60% FiO2 to approximate 8 AM this morning. He has normal saline at 75 ML's per hour. His pro calcitonin went from 0.09 up to 0.29. ID is on the case and resumed vancomycin, Azactam and continued on acyclovir. White count 14.2. Hemoglobin 11.6. Platelets 104. Sodium 137. Potassium 3.8. Bicarb 20. BUN 28. Creatin ine 0.67. Glucose 87. Stool for occult blood is positive. Blood culture pending. Lumbar puncture pending. He remains on DuoNeb inhalations, Symbicort, heparin for DVT prophylaxis. On today's evaluation of 02/28/2023, the patient is awake and alert and communicating. He is alert and oriented 3. Is responding appropriately to commands and answering questions appropriately. Is aware that he is in [place] and is also aware of the time and date. He is moving all 4 extremities. Denies having any headache. No neck stiffness. Is weak and is having some occasional tremors. The neuro workup is still in progress. Obviously, seizure was a concern and the patient was started on Keppra. EEG was done and the final report is not available yet. CT of the brain was also completed in addition to the CAT scan of the cervical spine and there is no evidence of any cervical spine fracture on the CAT scan of the head showed chronic atrophic changes with chronic small vessel ischemic changes. The patient was suspected to have a component of encephalitis/meningitis initiated time of admission and the patient was covered with a combination of acyclovir, vancomycin and is active and. He h as hypoxic, he is currently on 6 L to maintain a saturation above 90%. The chest x-ray that was done today showed an extensive right lower lobe and possibly right middle lobe consolidation along with possibly some underlying effusion. Left lung is clear. He has history of alcoholism, denies drinking this point in time. He has previous history of traumatic brain injury, he has chronic pain and limited on a combination of oxycodone and gabapentin and he also takes Ativan for chronic anxiety. Is a chronic smoker and is known to have COPD. His blood work from today shows a WBC count of 10.5 with a hemoglobin 12.7 and a platelet count of 136. BUN is at 22 with a creatinine of 0.6 and the sodium levels of 138, his pro calcitonin level was at 0.29 and his ammonia level was negative. Objective - Vital Signs Vital signs: Vital Signs Temp 97.9 F 02/28/23 08:00 Pulse 137 H 02/28/23 09:16 Resp 41 H 02/28/23 09:00 BP 157/139 02/28/23 09:00 Pulse Ox 94 L 02/28/23 09:12 FiO2 60 02/27/23 05:00 Intake & Output 02/27/23 02/28/23 02/28/23 18:59 06:59 18:59 Intake Total 1074.8 1425 258.3 Output Total 350 540 150 Balance 724.8 885 108.3 Weight 66.7 kg Intake: IV 1074.8 1425 258.3 Acyclovir Sodium 1,000 mg 250 250 In Sodium Chloride 0.9% 250 ml @ 270 mls/hr IVPB Q8H [facility] Rx#:[id number] Aztreonam 2 gm In Sodium 199.8 100 33.3 Chloride 0.9% 100 ml @ 33 .3 mls/hr IVPB Q8HR [facility] Rx#:[id number] Sodium Chloride 0.9% 1, 375 825 225 000 ml @ 75 mls/hr IV . [id number] [facility] Rx#:[id number] Vancomycin 1,250 mg In 250 250 Sodium Chloride 0.9% 250 ml @ 125 mls/hr IVPB Q12H [facility] Rx#:[id number] Output: Urine 350 540 150 Other: Voiding Method Indwelling Catheter Indwelling Catheter # Bowel Movements 1 - Exam GENERAL EXAM: Alert, 67-year-old male, on 6 liters high flow nasal cannula alternating with BiPAP 14/8 and 90% FiO2, comfortable in no apparent distress. HEAD: Normocephalic. EYES: Normal reaction of pupils, equal size. NOSE: Clear with pink turbinates. THROAT: No erythema or exudates. NECK: No masses, no JVD. CHEST: No chest wall deformity. LUNGS: Equal air entry with no crackles, wheeze, rhonchi or dullness. There is diminished breath on the right lung base along with egophony consistent with an underlying pneumonia. CVS: S1 and S2 normal with no audible murmur, regular rhythm. ABDOMEN: No hepatosplenomegaly, normal bowel sounds, no guarding or rigidity. SPINE: No scoliosis or deformity SKIN: No rashes CENTRAL NERVOUS SYSTEM: No focal deficits, tone is normal in all 4 extremities. The patient is awake and alert and communicating at this point in time. He is weak and has generalized motor weakness in all 4 extremities. The reflexes are symmetrical however. No hyperreflexia. No clonus. No Babinski. No neck stiffness. EXTREMITIES: There is no peripheral edema. No clubbing, no cyanosis. Peripheral pulses are intact. - Labs CBC & Chem 7: 02/28/23 04:35 02/28/23 04:35 Labs: Abnormal Lab Results - Last 24 Hours (Table) 02/27/23 02/27/23 02/27/23 Range/Units 05:15 13:10 16:19 WBC 13.7 H (3.8-10.6) k/uL RBC 3.94 L (4.30-5.90) m/uL Hgb 12.3 L (13.0-17.5) gm/dL Hct 37.9 L (39.0-53.0) % Plt Count 114 L (150-450) k/uL Neutrophils # 12.2 H (1.3-7.7) k/uL Neutrophils # (Manual) (1.3-7.7) k/uL Lymphocytes # 0.8 L (1.0-4.8) k/uL Lymphocytes # (Manual) (1.0-4.8) k/uL Chloride (98-107) mmol/L BUN (9-20) mg/dL Creatinine (0.66-1.25) mg/dL Glucose (74-99) mg/dL POC Glucose (mg/dL) (70-110) mg/dL Calcium (8.4-10.2) mg/dL Urine Bacteria Few H (None) /hpf HSV I IgG Ab 26.80 H (< or = 0.90) HSV II IgG 1.20 H (< or = 0.90) 02/27/23 02/27/23 02/28/23 Range/Units 18:44 21:30 00:25 WBC 12.4 H (3.8-10.6) k/uL RBC 4.24 L (4.30-5.90) m/uL Hgb 12.7 L (13.0-17.5) gm/dL Hct (39.0-53.0) % Plt Count 132 L (150-450) k/uL Neutrophils # 10.6 H (1.3-7.7) k/uL Neutrophils # (Manual) (1.3-7.7) k/uL Lymphocytes # (1.0-4.8) k/uL Lymphocytes # (Manual) (1.0-4.8) k/uL Chloride (98-107) mmol/L BUN (9-20) mg/dL Creatinine (0.66-1.25) mg/dL Glucose (74-99) mg/dL POC Glucose (mg/dL) 123 H 116 H (70-110) mg/dL Calcium (8.4-10.2) mg/dL Urine Bacteria (None) /hpf HSV I IgG Ab (< or = 0.90) HSV II IgG (< or = 0.90) 02/28/23 02/28/23 Range/Units 04:35 04:35 WBC (3.8-10.6) k/uL RBC 4.06 L (4.30-5.90) m/uL Hgb 12.5 L (13.0-17.5) gm/dL Hct 38.1 L (39.0-53.0) % Plt Count 136 L (150-450) k/uL Neutrophils # (1.3-7.7) k/uL Neutrophils # (Manual) 9.45 H (1.3-7.7) k/uL Lymphocytes # (1.0-4.8) k/uL Lymphocytes # (Manual) 0.95 L (1.0-4.8) k/uL Chloride 112 H (98-107) mmol/L BUN 22 H (9-20) mg/dL Creatinine 0.61 L (0.66-1.25) mg/dL Glucose 101 H (74-99) mg/dL POC Glucose (mg/dL) (70-110) mg/dL Calcium 7.8 L (8.4-10.2) mg/dL Urine Bacteria (None) /hpf HSV I IgG Ab (< or = 0.90) HSV II IgG (< or = 0.90) Microbiology - Last 24 Hours (Table) 02/25/23 14:45 Blood Culture - Preliminary Blood 02/25/23 14:30 Blood Culture - Preliminary Blood Assessment and Plan Plan: Altered mental status of unclear etiology. Urine drug screen positive for benzodiazepines and marijuana. Suspect metabolic encephalopathy, seizure, in addition, the patient has developed a right lower lobe pneumonia and the presentation could be secondary to metabolic encephalopathy. His mental status is improved and the patient is awake and alert and communicating. His profoundly weak. He has an adequate cough. Unable to bring up much sputum. CAT scan of the brain was negative for any acute abnormalities. Results of the EEG is pending and the patient is currently on Keppra. Acute encephalitis is still likely. An injected is felt to be less likely. The patient's covered with acyclovir, Azactam, and vancomycin. History of chronic pain syndrome and the patient takes oxycodone, gabapentin and Xanax Acute hypoxemic respiratory failure suspect secondary to mental status changes and exacerbation of COPD, and some interstitial fibrosis in addition to an extensive right lung pneumonia, possibly of an aspiration times pressure was underlying mental status and suspicion for aspiration. 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 Continue the vancomycin and Azactam for now Continue IV acyclovir Proceed with lumbar puncture and anesthesia will be consulted in that regard Neurology consultation Continue IV Keppra Keep the patient by mouth for now Continue DuoNeb neb blotchiness on the clock Stop the Symbicort as the patient is unable to perform any form of MDIs DVT and GI prophylaxis We'll continue to follow
--- NOTE | 2023-02-28 11:19 | XR ---
EXAMINATION TYPE: XR chest 1V portable DATE OF EXAM: 02/28/2023 COMPARISON: 02/26/2023 INDICATION: Assess lungs, previous abnormal chest, history of pneumonia TECHNIQUE: Single frontal view of the chest is obtained. FINDINGS: The heart size is normal. The pulmonary vasculature is normal. There is increasing diffuse lung markings. Small right pleural effusion may be developing. There is p ersistence of the right lateral lung opacity. Left lower lobe consolidation may be present with a few air bronchograms. Correlate for worsening pneumonia. IMPRESSION: 1. Worsening left lower lobe infiltrate. Correlate for pneumonia. 2. Developing small right pleural effusion with persistent lung opacity at the right lateral lung bas e. Follow-up to clearing is recommended.
[2023-02-28 11:53] LABS: Glucose,Whole Blood 88 mg/dL (70-110)
--- NOTE | 2023-02-28 12:22 | P.PN ---
Subjective Progress Note Date: 02/28/23 I am seeing the patient for the first time during this admission. Please refer to Dr. Castillo's notes for further details. Some of the history if obtained from the primary team and medical records. Per the primary team he came confused with fever. He also the patient had leukocytosis and per Dr. Castillo's note he had positive Kernig sign so one of the consideration was pneumoniaencephalitis meningitis and the patient was on acyclovir. Also the patient is on aztreonam as well as vancomycin. Patient is ALLERGIC to cephalexin. Lumbar puncture is pending An EEG was ordered that. Was felt by the covering neurologist over the weekend of possible seizure secondary due to alcohol withdrawal the patient was on Keppra 500 mg every 12 hours. According to the patient he felt he has been coughing recently prior to present in the hospital and unsure duration but he thinks is about the past 1 week. He denies any fever or denies any sick contacts any headache any prior seizure-like activity or any focal weakness. He denies any recent travel. He denies of any headache. He stated that the he stopped drinking alcohol about 18 years ago. He stated that he was on Xanax but stopped doing that about a month ago. According to the primary team note he was taken that pain medication as well as Xanax and it seems that he notified them that he stopped cold turkey about a week ago prior to presented facility. Objective - Vital Signs Vital signs: Vital Signs Temp 97.9 F 02/28/23 08:00 Pulse 129 H 02/28/23 11:00 Resp 34 H 02/28/23 11:00 BP 163/97 02/28/23 11:00 Pulse Ox 88 L 02/28/23 11:00 FiO2 60 02/27/23 05:00 Intake & Output 02/27/23 02/28/23 02/28/23 18:59 06:59 18:59 Intake Total 1074.8 1425 641.9 Output Total 350 540 250 Balance 724.8 885 391.9 Weight 66.7 kg Intake: IV 1074.8 1425 474.9 Acyclovir Sodium 1,000 mg 250 250 In Sodium Chloride 0.9% 250 ml @ 270 mls/hr IVPB Q8H [facility] Rx#:[id number] Aztreonam 2 gm In Sodium 199.8 100 99.9 Chloride 0.9% 100 ml @ 33 .3 mls/hr IVPB Q8HR [facility] Rx#:[id number] Sodium Chloride 0.9% 1, 375 825 375 000 ml @ 75 mls/hr IV . [id number] [facility] Rx#:[id number] Vancomycin 1,250 mg In 250 250 Sodium Chloride 0.9% 250 ml @ 125 mls/hr IVPB Q12H [facility] Rx#:[id number] Intake, IV Titration 167 Amount Vancomycin 1,500 mg In 167 Sodium Chloride 0.9% 500 ml 500 ml @ 167 mls/hr IVPB Q12H [facility] Rx#: [id number] Output: Urine 350 540 250 Other: Voiding Method Indwelling Catheter Indwelling Catheter # Bowel Movements 1 - Exam GENERAL: The patient is lying in bed and is not in acute distress. HENT: Supple neck. Negative Brudzinski or Kernig sign. Respiratory: Productive cough. NEUROLOGICAL: Higher mental function: The patient is drowsy but is awake able to voice. He is oriented to self, place and time. Patient is following simple commands commands. No aphasia. Cranial nerves: The pupils are round, equal and reactive to light. Visual wall are full to confrontation throughout. Extraocular movement is intact no nystagmus is noted. The facial strength is normal throughout. No dysarthria is noted. Motor: The strength is right lower extremity predominately distal is 4 positive. Otherwise listed in all extremities above gravity Cerebellum: Normal finger to nose bilaterally. Sensation: Sensation is normal to touch throughout. - Labs CBC & Chem 7: 02/28/23 04:35 02/28/23 04:35 Labs: Abnormal Lab Results - Last 24 Hours (Table) 02/27/23 02/27/23 02/27/23 Range/Units 05:15 13:10 16:19 WBC 13.7 H (3.8-10.6) k/uL RBC 3.94 L (4.30-5.90) m/uL Hgb 12.3 L (13.0-17.5) gm/dL Hct 37.9 L (39.0-53.0) % Plt Count 114 L (150-450) k/uL Neutrophils # 12.2 H (1.3-7.7) k/uL Neutrophils # (Manual) (1.3-7.7) k/uL Lymphocytes # 0.8 L (1.0-4.8) k/uL Lymphocytes # (Manual) (1.0-4.8) k/uL Chloride (98-107) mmol/L BUN (9-20) mg/dL Creatinine (0.66-1.25) mg/dL Glucose (74-99) mg/dL POC Glucose (mg/dL) (70-110) mg/dL Calcium (8.4-10.2) mg/dL Urine Bacteria Few H (None) /hpf HSV I IgG Ab 26.80 H (< or = 0.90) HSV II IgG 1.20 H (< or = 0.90) 02/27/23 02/27/23 02/28/23 Range/Units 18:44 21:30 00:25 WBC 12.4 H (3.8-10.6) k/uL RBC 4.24 L (4.30-5.90) m/uL Hgb 12.7 L (13.0-17.5) gm/dL Hct (39.0-53.0) % Plt Count 132 L (150-450) k/uL Neutrophils # 10.6 H (1.3-7.7) k/uL Neutrophils # (Manual) (1.3-7.7) k/uL Lymphocytes # (1.0-4.8) k/uL Lymphocytes # (Manual) (1.0-4.8) k/uL Chloride (98-107) mmol/L BUN (9-20) mg/dL Creatinine (0.66-1.25) mg/dL Glucose (74-99) mg/dL POC Glucose (mg/dL) 123 H 116 H (70-110) mg/dL Calcium (8.4-10.2) mg/dL Urine Bacteria (None) /hpf HSV I IgG Ab (< or = 0.90) HSV II IgG (< or = 0.90) 02/28/23 02/28/23 Range/Units 04:35 04:35 WBC (3.8-10.6) k/uL RBC 4.06 L (4.30-5.90) m/uL Hgb 12.5 L (13.0-17.5) gm/dL Hct 38.1 L (39.0-53.0) % Plt Count 136 L (150-450) k/uL Neutrophils # (1.3-7.7) k/uL Neutrophils # (Manual) 9.45 H (1.3-7.7) k/uL Lymphocytes # (1.0-4.8) k/uL Lymphocytes # (Manual) 0.95 L (1.0-4.8) k/uL Chloride 112 H (98-107) mmol/L BUN 22 H (9-20) mg/dL Creatinine 0.61 L (0.66-1.25) mg/dL Glucose 101 H (74-99) mg/dL POC Glucose (mg/dL) (70-110) mg/dL Calcium 7.8 L (8.4-10.2) mg/dL Urine Bacteria (None) /hpf HSV I IgG Ab (< or = 0.90) HSV II IgG (< or = 0.90) Microbiology - Last 24 Hours (Table) 02/25/23 14:45 Blood Culture - Preliminary Blood 02/25/23 14:30 Blood Culture - Preliminary Blood Assessment and Plan Assessment: This is a 67-year-old gentleman who is transferred from [place] after being found to be confused a possible seizure-like activity by his . Patient stated that he has been coughing recently prior to presenting to the hospital denies any sick contacts, fevers, recent travel. Altered mental status, fever, leukocytosis of unclear etiology. There is concern for meningoencephalitis (I feel more encephalitis) with positive Kernig sign on prior examination. Today on examination patient has right lower extremity weakness. Rule out any stroke or mass. His mentation is improving compared to couple days but continues to be drowsy. Also some of his confusion is due to his seizure. There is also concern for possible aspiration pneumonia. New onset seizure and I feel likely due to underlying infection possible encephalitis. History of chronic pain syndrome and the patient was taking oxycodone, gabapentin Xanax and he notified me that he stopped the using dose medication about a month ago but he notified the primary he stopped cold turkey about a week ago prior to presenting the hospital History of traumatic brain injury History of trials Bruno syndrome History of alcohol use and he stated that he stopped about 18 years ago Tobacco use Plan: An EEG is ordered and is pending Pending a lumbar puncture IR guided Patient is on acyclovir, vancomycin, Aztreonam. I placed patient on ceftriaxone but it was discontinued by the ICU attending since low suspicious of bacterial meningitis and he felt aspiration pneumonia. ID team is on board. I'll defer the management of antibiotic/acyclovir to the ID team I ordered MRI of the brain with and without stat to rule out any stroke, mass Because of his seizure-like activity today over the right right side in which she had shaking lasting a minute to 2 but he was conversing increased the Keppra from 500 to 1,000mg every 12 hours and I'll give him a loading dose of 1 g once. Also gave him one time Ativan. Continue neurocheck We'll defer the rest of the medical management to primary and other specialists The plan was discussed with the patient's primary attending in his ears. We'll continue to follow Time with Patient: Greater than 30
--- NOTE | 2023-02-28 12:49 | P.PN ---
Subjective Progress Note Date: 02/28/23 Hospital Course: 67 year old male with polysubstance abuse (opiates, and alcohol), TBI, COPD presenting from outside hospital for acute encephalopathy. At that hospital, CT head did not show any acute pathology, he also had elevated troponins, possibility of unwitnessed seizures. Patient was given IV fluids and benzodiazepines. He also had CT angiogram of the chest showed no acute PE. There was concern for possible meningitis/cephalitis, and was transferred to our facility for neurological evaluation. Patient also have hypoxic respiratory failure, was on BiPAP, in the medical ICU. He is currently on nasal cannula. Neurology and ICU consulted. Infectious disease also consulted. Patient on IV antibiotics. Subjective: Seen and examined at bedside. Patient is alert and oriented. Complaining off persistent cough. Pertinent positives and negatives as discussed above, a complete review of systems was performed and all other systems are negative. Vitals Signs Reviewed. General: nontoxic, no distress, appears at stated age Derm: warm, dry Head: atraumatic, normocephalic, symmetric Eyes: EOMI, no lid lag, anicteric sclera Mouth: no lip lesion, mucus membranes moist Cardiovascular: S1S2 reg, no murmur Lungs: Bilateral rhonchi at the bases , no accessory muscle use, supplemental oxygen Abdominal: soft, nontender to palpation, no guarding, no appreciable or ganomegaly Ext: no gross muscle atrophy, no edema, no contractures Neuro: Cranial nerves II-12 intact grossly, right lower extremity weakness, following all commands Psych: Alert and oriented, cooperative Data Reviewed Today: Pertinent Labs: WBC 10.5, hemoglobin 12.5, creatinine 0.61 Imaging: Chest x-ray independently interpreted Left lower lobe opacity worsening, right lower lobe persistent opacity Assessment and Plan: Patient is critically ill in medical ICU, prognosis guarded Acute hypoxic respiratory failure Sepsis secondary to Bacterial pneumonia COPD exacerbation Acute encephalopathy, resolved Possible encephalitis/meningitis Possible seizures Possible drug withdrawal Chronic pain syndrome Acute blood loss anemia, hemoglobin stable Suspected upper GI bleed -ICU note reviewed, continue current antibiotics, bronchodilators change to DuoNeb -Continue to wean oxygen -ID following, on acyclovir IV, vancomycin IV, aztreonam IV, monitor for renal function -Cultures pending -possible meningitis/encephalitis -Discussed management with neurology, EEG pending, patient may have encephalitis -Seizure precautions -Echo also pending to evaluate other causes for hypoxia -on ativan PRN per CIWA scores, thiamine -IV pantoprazole 40 mg twice a day, monitor hemoglobin DVT ppx: heparin sq Code status: full code Anticipated discharge place: pending clinical course Anticipated discharge time: pending clinical course Objective - Vital Signs Vital signs: Vital Signs Temp 97.9 F 02/28/23 08:00 Pulse 129 H 02/28/23 11:00 Resp 34 H 02/28/23 11:00 BP 163/97 02/28/23 11:00 Pulse Ox 88 L 02/28/23 11:00 FiO2 60 02/27/23 05:00 Intake & Output 02/27/23 02/28/23 02/28/23 18:59 06:59 18:59 Intake Total 1074.8 1425 641.9 Output Total 350 540 250 Balance 724.8 885 391.9 Weight 66.7 kg Intake: IV 1074.8 1425 474.9 Acyclovir Sodium 1,000 mg 250 250 In Sodium Chloride 0.9% 250 ml @ 270 mls/hr IVPB Q8H EMILE[facility] Rx#:[id number] Aztreonam 2 gm In Sodium 199.8 100 99.9 Chloride 0.9% 100 ml @ 33 .3 mls/hr IVPB Q8HR E[facility]LE[facility] Rx#:[id number] Sodium Chloride 0.9% 1, 375 825 375 000 ml @ 75 mls/hr IV . [id number] E[facility] Rx#:[id number] Vancomycin 1,250 mg In 250 250 Sodium Chloride 0.9% 250 ml @ 125 mls/hr IVPB Q12H E[facility] Rx#:[id number] Intake, IV Titration 167 Amount Vancomycin 1,500 mg In 167 Sodium Chloride 0.9% 500 ml 500 ml @ 167 mls/hr IVPB Q12H EMILEE Rx#: [id number] Output: Urine 350 540 250 Other: Voiding Method Indwelling Catheter Indwelling Catheter # Bowel Movements 1 - Labs CBC & Chem 7: 02/28/23 04:35 02/28/23 04:35 Labs: Abnormal Lab Results - Last 24 Hours (Table) 02/27/23 02/27/23 02/27/23 Range/Units 05:15 13:10 16:19 WBC 13.7 H (3.8-10.6) k/uL RBC 3.94 L (4.30-5.90) m/uL Hgb 12.3 L (13.0-17.5) gm/dL Hct 37.9 L (39.0-53.0) % Plt Count 114 L (150-450) k/uL Neutrophils # 12.2 H (1.3-7.7) k/uL Neutrophils # (Manual) (1.3-7.7) k/uL Lymphocytes # 0.8 L (1.0-4.8) k/uL Lymphocytes # (Manual) (1.0-4.8) k/uL Chloride (98-107) mmol/L BUN (9-20) mg/dL Creatinine (0.66-1.25) mg/dL Glucose (74-99) mg/dL POC Glucose (mg/dL) (70-110) mg/dL Calcium (8.4-10.2) mg/dL Urine Bacteria Few H (None) /hpf HSV I IgG Ab 26.80 H (< or = 0.90) HSV II IgG 1.20 H (< or = 0.90) 02/27/23 02/27/23 02/28/23 Range/Units 18:44 21:30 00:25 WBC 12.4 H (3.8-10.6) k/uL RBC 4.24 L (4.30-5.90) m/uL Hgb 12.7 L (13.0-17.5) gm/dL Hct (39.0-53.0) % Plt Count 132 L (150-450) k/uL Neutrophils # 10.6 H (1.3-7.7) k/uL Neutrophils # (Manual) (1.3-7.7) k/uL Lymphocytes # (1.0-4.8) k/uL Lymphocytes # (Manual) (1.0-4.8) k/uL Chloride (98-107) mmol/L BUN (9-20) mg/dL Creatinine (0.66-1.25) mg/dL Glucose (74-99) mg/dL POC Glucose (mg/dL) 123 H 116 H (70-110) mg/dL Calcium (8.4-10.2) mg/dL Urine Bacteria (None) /hpf HSV I IgG Ab (< or = 0.90) HSV II IgG (< or = 0.90) 02/28/23 02/28/23 Range/Units 04:35 04:35 WBC (3.8-10.6) k/uL RBC 4.06 L (4.30-5.90) m/uL Hgb 12.5 L (13.0-17.5) gm/dL Hct 38.1 L (39.0-53.0) % Plt Count 136 L (150-450) k/uL Neutrophils # (1.3-7.7) k/uL Neutrophils # (Manual) 9.45 H (1.3-7.7) k/uL Lymphocytes # (1.0-4.8) k/uL Lymphocytes # (Manual) 0.95 L (1.0-4.8) k/uL Chloride 112 H (98-107) mmol/L BUN 22 H (9-20) mg/dL Creatinine 0.61 L (0.66-1.25) mg/dL Glucose 101 H (74-99) mg/dL POC Glucose (mg/dL) (70-110) mg/dL Calcium 7.8 L (8.4-10.2) mg/dL Urine Bacteria (None) /hpf HSV I IgG Ab (< or = 0.90) HSV II IgG (< or = 0.90) Microbiology - Last 24 Hours (Table) 02/25/23 14:45 Blood Culture - Preliminary Blood 02/25/23 14:30 Blood Culture - Preliminary Blood
[2023-02-28 13:08] LABS: HSV I IgG Interp POSITIVE; HSV II IgG Interp POSITIVE
[2023-02-28] MEDS: HEPARIN SODIUM,PORCINE/PF 5,000 UNIT/0.5 ML SYRINGE SQ SCH ×2 (14:28→15:27)
[2023-02-28] MEDS: LORazepam 2 MG/ML INJ IV PRN ×2 (15:04→21:08)
--- NOTE | 2023-02-28 16:12 | MR ---
EXAMINATION TYPE: MR brain wo/w con DATE OF EXAM: 02/28/2023 3:57 PM CLINICAL INDICATION:Male, 67 years old with history of altered mental status with seizure-like and fe armida; Altered mental status with seizure-like and fever COMPARISON: 07/20/2018. TECHNIQUE: Multi planar, multi sequence imaging was performed through the brain including: T1, T2, In version recovery, susceptibility weighted imaging and gradient echo imaging and Diffusion weighted im aging. The patient was then given intravenous contrast and multi planar, T1 fat-saturation images wer e obtained. IV Contrast: 6.5 cc Gadavist FINDINGS: Restricted diffusion within the left frontal/parietal cortex medially in the RICCARDO distribution. Some o f this has a gyriform appearance with some areas suggestive of T2 shine through within this region.. Ventricular dilation proportion to cerebral atrophy.. Similar increased subdural space of the left fr ontal lobe. Intracranial arterial flow voids are maintained. Midline structures show no abnormality. Scattered foci of high T2 signal intensity are seen within the periventricular white matter. The susc eptibility weighted images do not reveal any evidence for micro-hemorrhage. After administration of g adolinium, no abnormal enhancement is seen. The bone marrow signal is within normal limits. Paranasal sinuses and mastoid air cells: No significant paranasal sinus disease. Visualized orbits: Orbital contents are intact. IMPRESSION: 1. Motion limited exam, there is thought to be some areas of restricted diffusion within the posterio r medial left frontal/parietal cortex and subcortical white matter in the RICCARDO distribution suggest ac [place]/subacute CVA. Gyriform appearance of some of this region suggestive associated alignment and necr osis. 2. Nonspecific white matter changes, likely related to small vessel ischemic disease
[2023-02-28] MEDS: PIPERACILLIN-TAZOBACTAM 3.375 GM in SODIUM CHLORIDE 0.9% 100 ML IVPB SCH (16:17)
[2023-02-28 18:04] LABS: Glucose,Whole Blood 74 mg/dL (70-110)
--- NOTE | 2023-02-28 19:16 | P.PN ---
Progress Note - Text Progress Note Date: 02/28/23 I attempted Lumbar Puncture multiple attempts and no success. No bleeding noted in lower back. Will have pain management (Dr. Claros) attempt LP tomorrow.
[2023-02-28 20:42] LABS: INR 1.1 (<1.2); Partial Thromboplastin Time 25.8 sec (22.0-30.0); Prothrombin Time 11.6 sec (9.0-12.0)
--- NOTE | 2023-02-28 22:04 | EEG ---
ELECTROENCEPHALOGRAM REPORT CLINICAL HISTORY: This is a 67-year-old gentleman with altered mental status and new onset seizure-like activity. The video EEG is obtained to evaluate for seizure epileptiform activity. RELEVANT MEDICATIONS: Keppra and Ativan. EEG TYPE: A routine 21-channel EEG was performed with video using the 10/20 electrode placement system. DESCRIPTION: The background consists of 8.5 to 9 hertz activity that is low to moderate voltage and poorly modulated, poorly sustained. At times, the background consists of diffuse nonrhythmic igl-[id number]-oimqsaoc voltage of theta-delta activity. There is no physiological stage 2 sleep architecture. There is no focal slowing. Interictal and ictal is none. ACTIVATION PROCEDURE: Photic stimulation did not evoke a posterior driving response. There is no abnormality during photic stimulation. CLINICAL INTERPRETATION: This is an abnormal routine EEG. The background slowing is suggestive of moderate encephalopathy. Otherwise, there is no focal slowing, epileptiform discharge, or seizure on the EEG. Clinical correlation is recommended. LASHELL / JUANCHON: [id number] / [facility]PITALJosy
[2023-02-28 23:57] LABS: Glucose,Whole Blood 75 mg/dL (70-110)
[2023-03-01] MEDS: PIPERACILLIN-TAZOBACTAM 3.375 GM in SODIUM CHLORIDE 0.9% 100 ML IVPB SCH ×2 (02:07→08:57)
[2023-03-01] MEDS: SODIUM CHLORIDE 0.9% 1,000 ML IV SCH ×2 (05:03→09:38)
[2023-03-01] MEDS: ACYCLOVIR SODIUM 1,000 MG in SODIUM CHLORIDE 0.9% 250 ML IVPB SCH ×3 (05:03→21:00)
[2023-03-01 05:58] LABS: Glucose,Whole Blood 104 mg/dL (70-110)
[2023-03-01 06:47] LABS: African American GFR (CKD) >90 (>60 ml/min/1.73 sqM); Anion Gap 8 mmol/L; Blood Urea Nitrogen 18 mg/dL (9-20); Calcium 7.8 mg/dL (8.4-10.2); Carbon Dioxide 20 mmol/L (22-30); Chloride 113 mmol/L (98-107); Glucose 107 mg/dL (74-99); Non-African American GFR(CKD) >90 (>60 ml/min/1.73 sqM); Potassium 3.8 mmol/L (3.5-5.1); Sodium 141 mmol/L (137-145)
--- NOTE | 2023-03-01 07:09 | CA ---
Transthoracic Echo Report Name: Kristofer Acharya Age: 67 Gender: M : 1955 Exam Date: 02/28/2023 07:55 Exam Location: [facility] Ht (in): 67 Wt (lb): 142 Ordering Physician: Pranav Delacruz MD Attending/Referring Phys: Loading Unit Tool Setter Hailey Robertson RDCS Procedure CPT: Indications: hypoxia, elevated trop Cardiac Hx: Technical Quality: Fair Contrast 1: Total Dose (mL): Contrast 2: Total Dose (mL): MEASUREMENTS (Male / Female) Normal Values 2D ECHO LV Diastolic Diameter PLAX 4.2 cm 4.2 - 5.9 / 3.9 - 5.3 cm LV Systolic Diameter PLAX 4.0 cm IVS Diastolic Thickness 1.3 cm 0.6 - 1.0 / 0.6 - 0.9 cm LVPW Diastolic Thickness 1.2 cm 0.6 - 1.0 / 0.6 - 0.9 cm LV Relative Wall Thickness 0.6 LA Systolic Diameter LX 4.1 cm 3.0 - 4.0 / 2.7 - 3.8 cm M-MODE Aortic Root Diameter MM 3.9 cm AV Cusp Separation MM 2.2 cm DOPPLER AV Peak Velocity 87.8 cm/s AV Peak Gradient 3.1 mmHg MV Area PHT 8.1 cm??? MV Deceleration Time 114.4 ms TR Peak Velocity 390.1 cm/s TR Peak Gradient 60.9 mmHg Right Ventricular Systolic Press 65.9 mmHg FINDINGS Left Ventricle Left ventricular ejection fraction is estimated at 25-30 %. Left ventricular cavity size normal. Mildly increased septal wall thickness. Only basel santana ely Right Ventricle Mild right ventricular dilatation. Severe pulmonary hypertension. Right ventricular systolic pressure estimated at 69 mm hg. Right Atrium Normal right atrial size. Left Atrium Mild left atrial dilatation. Mitral Valve Mitral valve thickened. Trace mitral regurgitation. Aortic Valve Aortic valve not well visualized. No aortic valve stenosis or regurgitation. Tricuspid Valve Structurally normal tricuspid valve. Mild tricuspid regurgitation. Pulmonic Valve Pulmonic valve not well visualized. Pericardium Normal pericardium. No pericardial effusion. Aorta Mild aortic dilatation at the level of the sinuses of valsalva 39 mm CONCLUSIONS Left ventricular ejection fraction 25-30% with apical hypokinesis and basal sparing. May be consistent with Takotsubo's cardiomyopathy vs wrap around LAD disease RVSP 69 Trace mitral regurgitation Mild tricuspid regurgitation Previewed by: Dr. Justin Flynn DO (Electronically Signed) Final Date: 01 March 2023 07:07
[2023-03-01 07:53] LABS: Basophils % (A) 0 %; Eosinophils # (A) 0.1 k/uL (0-0.7); Eosinophils % (A) 1 %; HCT 40.9 % (39.0-53.0); HGB 12.4 gm/dL (13.0-17.5); Hypochromasia Moderate; Lymphocytes # (A) 1.3 k/uL (1.0-4.8); Lymphocytes % (A) 12 %; MCH 29.4 pg (25.0-35.0); MCHC 30.4 g/dL (31.0-37.0); MCV 96.9 fL (80.0-100.0); Mean Platelet Volume 9.3; Monocytes # (A) 0.4 k/uL (0-1.0); Monocytes % (A) 4 %; Neutrophils # (A) 8.5 k/uL (1.3-7.7); Neutrophils % (A) 82 %; Platelet Count 189 k/uL (150-450); RBC 4.22 m/uL (4.30-5.90); RDW 13.8 % (11.5-15.5); WBC 10.4 k/uL (3.8-10.6)
[2023-03-01] MEDS ORDERED: VANCOMYCIN TROUGH DUE 1 EACH MISC MISCELLANE ONE (08:00)
--- NOTE | 2023-03-01 08:02 | XR ---
EXAMINATION TYPE: XR chest 1V portable DATE OF EXAM: 03/01/2023 6:14 AM COMPARISON: Chest radiographs from 02/28/2023 TECHNIQUE: XR chest 1V portable Portable AP radiograph of the chest. CLINICAL INDICATION:Male, 67 years old with history of dyspnea; FINDINGS: Lungs/Pleura: Similar increased diffuse lung markings. Small to moderate size right pleural effusion redemonstrated. Persistent right lateral lung airspace opacity. Small left pleural effusion persists. Patchy left lower lobe consolidation persists. Pulmonary vascularity: Unremarkable. Heart/mediastinum: Cardiomediastinal silhouette is unremarkable. Musculoskeletal: No acute osseous pathology. IMPRESSION: Overall similar examination with bibasilar patchy airspace opacities and small left with small to mod erate right pleural effusions.
[2023-03-01] MEDS: IPRATROPIUM-ALBUTEROL 3 ML NEB INHALATION SCH ×4 (08:35→20:14)
--- NOTE | 2023-03-01 08:58 | P.PCN ---
Date of Procedure: 03/01/23 Procedure(s) Performed: PREOPERATIVE DIAGNOSIS: 1- Lumbar Degenerative Disc Diseases 2-Lumbar spondylosis with Facet arthropathy without myelopathy. POSTOPERATIVE DIAGNOSIS: 1-lumbar degenerative disc disease. 2-lumbar spondylosis with facet arthropathy without myelopathy. PROCEDURE 1. Lumbar epidural steroid injection under fluoroscopic guidance at the L1-2 level. (Fluoroscopy imaging was available in radiology department) 2. Lumbar epidurogram. ANESTHESIA: Lidocaine 1% 3 and then only. EBL: Minimal PROCEDURE INDICATION: The patient with low back pain and radiculitis symptoms unresponsive to conservative treatment. Fluoroscopy was used to optimize visualization of the needle placement and to maximize safety. PROCEDURE DESCRIPTION / TECHNIQUE: The patient was seen and identified in the preoperative area. Risks, benefits, complications including but not limited to infections ,bleeding ,allergic reaction to the medications ,nerve damage and not complete pain releife , and alternatives were discussed with the patient. The patient agreed to proceed with the procedure and signed the consent, and vital signs were stable. Patient was taken to the OR and time out was completed. The patient was placed in the prone position on procedure table and a pillow was placed under the abdomen to reduce lumbar lordosis. The lumbosacral area was prepped and draped in the usual sterile fashion.ere closely monitored during the procedure. Vital signs was monitered during the entire procedure. Using anterior-posterior fluoroscopy, the L1-2 interlaminar space was identified and the skin over this site was marked and then infiltrated with 1% lidocaine subcutaneously. Subsequently, a 20-gauge Tuohy epidural needle was inserted and advanced toward the epidural space using the ``Loss of resistance technique and guided by AP and lateral fluoroscopy. The correct needle position in the epidural space was verified with the injection of 2 mL of the water soluble contrast dye Isovue 200 contrast and observing an excellent epidurogram with the epidural spread of the dye, after negative aspiration for blood and CSF and in the absence of paresthesias. Again after negative aspiration, a 6 ml mixture containing 80 mg of Depo-medrol ( Preservetive Free ), and 2 ml of preservative free Normal Saline, and 2 ml of preservative free lidocaine 1% solution was injected and a washout of epidurogram was seen. Needle was withdrawn intact, skin was cleansed, and bandages were applied. COMPLICATIONS: None DISPOSITION / PLANS: The patient was placed in a supine position and transferred to the recovery area in a stable condition for observation. There was no ev idence of lower extremity motor or sensory deficit after the procedure. Patient was discharged from the recovery room after meeting discharge criteria. Home discharge instructions were given to the patient by the staff. The patient was reexamined prior to discharge. The patient will schedule a follow up in the clinic in 2-4 weeks.
[2023-03-01] MEDS: THIAMINE 100 MG TAB PO SCH (08:59)
[2023-03-01] MEDS: levETIRAcetam IV 500 MG/5 ML VIAL IVP SCH ×2 (08:59→20:55)
[2023-03-01] MEDS: PANTOPRAZOLE 40 MG/10 ML VIAL IVP SCH ×2 (08:59→20:55)
[2023-03-01] MEDS: NICOTINE 21MG/24HR PATCH TRANSDERM SCH (09:00)
[2023-03-01] MEDS ORDERED: HYDROmorphone 0.5 MG/0.5 ML SYRINGE IVP STA (09:08)
--- NOTE | 2023-03-01 09:11 | P.PN ---
Subjective Progress Note Date: 03/01/23 This is a 67-year-old male patient with a history of previous traumatic brain injury, chronic pain for which he takes oxycodone, gabapentin and Ativan, anxiety, chronic and ongoing tobacco dependence, chronic obstructive pulmonary disease, hypertension. He was transferred here from [facility] after being found to have confusion, altered mental status and possibly a seizure at home by his . CT angiogram of the chest ruled out pulmonary embolism. Computed tomography scan of the head showed no acute intracranial process. Chest x-ray reveals no evidence of pneumothorax. The left lung is clear. There is an unchanged right lateral lower lobe density possibly a loculated pleural effusion. White count 23.9. Hemoglobin 14.1. Platelets 148. Sodium 144. Potassium 3.8. Bicarb 27. BUN 33. Creatinine 0.77. Ammonia level XXI. Arterial blood gases on 100% FiO2 revealed a pO2 of 123, pCO2 40, pH 7.41. He is seen today in consultation in the intensive care unit. Currently he is awake and alert. Following commands. Slightly tachycardic. Tachypneic. Afebrile. He is on BiPAP 14/890% FiO2. He was initiated on Keppra, vancomycin, acyclovir, Levaquin. Lumbar puncture pending. He has normal saline at 75 ML's per hour. The patient is seen today 02/27/2023 in follow-up in the intensive care unit. He is currently sitting up in bed. Bit more awake and alert today. He is on 2 L high flow nasal cannula. He did wear her BiPAP last night 14/8 and 60% FiO2 to approximate 8 AM this morning. He has normal saline at 75 ML's per hour. His pro calcitonin went from 0.09 up to 0.29. ID is on the case and resumed vancomycin, Azactam and continued on acyclovir. White count 14.2. Hemoglobin 11.6. Platelets 104. Sodium 137. Potassium 3.8. Bicarb 20. BUN 28. Creatin ine 0.67. Glucose 87. Stool for occult blood is positive. Blood culture pending. Lumbar puncture pending. He remains on DuoNeb inhalations, Symbicort, heparin for DVT prophylaxis. On today's evaluation of 02/28/2023, the patient is awake and alert and communicating. He is alert and oriented 3. Is responding appropriately to commands and answering questions appropriately. Is aware that he is in [place] and is also aware of the time and date. He is moving all 4 extremities. Denies having any headache. No neck stiffness. Is weak and is having some occasional tremors. The neuro workup is still in progress. Obviously, seizure was a concern and the patient was started on Keppra. EEG was done and the final report is not available yet. CT of the brain was also completed in addition to the CAT scan of the cervical spine and there is no evidence of any cervical spine fracture on the CAT scan of the head showed chronic atrophic changes with chronic small vessel ischemic changes. The patient was suspected to have a component of encephalitis/meningitis initiated time of admission and the patient was covered with a combination of acyclovir, vancomycin and is active and. He h as hypoxic, he is currently on 6 L to maintain a saturation above 90%. The chest x-ray that was done today showed an extensive right lower lobe and possibly right middle lobe consolidation along with possibly some underlying effusion. Left lung is clear. He has history of alcoholism, denies drinking this point in time. He has previous history of traumatic brain injury, he has chronic pain and limited on a combination of oxycodone and gabapentin and he also takes Ativan for chronic anxiety. Is a chronic smoker and is known to have COPD. His blood work from today shows a WBC count of 10.5 with a hemoglobin 12.7 and a platelet count of 136. BUN is at 22 with a creatinine of 0.6 and the sodium levels of 138, his pro calcitonin level was at 0.29 and his ammonia level was negative. 03/01/2023, seeing the patient for a follow-up. The patient is awake and alert and communicating. Lumbar punctures to be done today. EEG from yesterday showed encephalopathy, moderate, no evidence of any seizure activity and the patient remains on Keppra. A lumbar puncture will be done by anesthesia today. Otherwise, the patient denies having any headache or neck stiffness. The patient remains on a combination of IV acyclovir, vancomycin and he was also started on Zosyn yesterday due to bilateral pneumonia worse in the right. The patient is still coughing and has a congested cough, unable to bring up much of sputum at this point in time. The chest x-ray from today is essentially unchang ed. There is similar bibasilar patchy airspace disease with a small effusion on the left. Possibility of a right-sided pleural effusion cannot be completely ruled out. I'm going to go ahead an ultrasound the right chest to evaluate for any signs of any effusion. In terms of oxygenation, the patient was brought up as high as 15 L and currently is down to 12 L of oxygen by nasal cannula. Is less tachycardic compared to yesterday. He remains in mild degree of sinus tachycardia. He was able to swallow. Neurology is on the case. Lumbar puncture still pending for now. On today's blood work, the white cell count is 10.4 with a hemoglobin 12.4 and a platelet count of 189. The BUN is 18 with a creatinine of 0.7 and a sodium level is at 141. Potassium levels at 3.8. Objective - Vital Signs Vital signs: Vital Signs Temp 99.1 F 03/01/23 04:30 Pulse 110 H 03/01/23 06:30 Resp 36 H 03/01/23 07:00 BP 157/97 03/01/23 07:00 Pulse Ox 96 03/01/23 07:00 FiO2 12 03/01/23 04:00 Intake & Output 02/28/23 03/01/23 03/01/23 18:59 06:59 18:59 Intake Total 1850.9 1925 Output Total 480 1045 Balance 1370.9 880 Weight 68.7 kg Intake: IV 1349.9 1325 Acyclovir Sodium 1,000 mg 250 350 In Sodium Chloride 0.9% 250 ml @ 270 mls/hr IVPB Q8H [facility] Rx#:[id number] Aztreonam 2 gm In Sodium 199.9 Chloride 0.9% 100 ml @ 33 .3 mls/hr IVPB Q8HR [facility] Rx#:[id number] Sodium Chloride 0.9% 1, 900 975 000 ml @ 75 mls/hr IV . [id number] [facility] Rx#:[id number] Intake, IV Titration 501 600 Amount Piperacillin-Tazobactam 3 100 .375 gm In Sodium Chloride 0.9% 100 ml @ 25 mls/hr IVPB Q8HR [facility] Rx# :[id number] Vancomycin 1,500 mg In 501 500 Sodium Chloride 0.9% 500 ml 500 ml @ 167 mls/hr IVPB Q12H [facility] Rx#: [id number] Output: Urine 480 1045 Other: Voiding Method Indwelling Catheter Indwelling Catheter - Exam GENERAL EXAM: Alert, 67-year-old male, on 12 liters high flow nasal cannula alternating with BiPAP 14/8 and 90% FiO2, comfortable in no apparent distress. HEAD: Normocephalic. EYES: Normal reaction of pupils, equal size. NOSE: Clear with pink turbinates. THROAT: No erythema or exudates. NECK: No masses, no JVD. CHEST: No chest wall deformity. LUNGS: Equal air entry with no crackles, wheeze, rhonchi or dullness. There is diminished breath on the right lung base along with egophony consistent with an underlying pneumonia. CVS: S1 and S2 normal with no audible murmur, regular rhythm. ABDOMEN: No hepatosplenomegaly, normal bowel sounds, no guarding or rigidity. SPINE: No scoliosis or deformity SKIN: No rashes CENTRAL NERVOUS SYSTEM: No focal deficits, tone is normal in all 4 extremities. The patient is awake and alert and communicating at this point in time. He is weak and has generalized motor weakness in all 4 extremities. The reflexes are symmetrical however. No hyperreflexia. No clonus. No Babinski. No neck stiffness. EXTREMITIES: There is no peripheral edema. No clubbing, no cyanosis. Peripheral pulses are intact. - Labs CBC & Chem 7: 03/01/23 05:51 03/01/23 05:51 Labs: Abnormal Lab Results - Last 24 Hours (Table) 03/01/23 03/01/23 Range/Units 05:51 05:51 RBC 4.22 L (4.30-5.90) m/uL Hgb 12.4 L (13.0-17.5) gm/dL MCHC 30.4 L (31.0-37.0) g/dL Neutrophils # 8.5 H (1.3-7.7) k/uL Chloride 113 H (98-107) mmol/L Carbon Dioxide 20 L (22-30) mmol/L Glucose 107 H (74-99) mg/dL Calcium 7.8 L (8.4-10.2) mg/dL Microbiology - Last 24 Hours (Table) 02/25/23 14:45 Blood Culture - Preliminary Blood 02/25/23 14:30 Blood Culture - Preliminary Blood Assessment and Plan Plan: Altered mental status of unclear etiology. Urine drug screen positive for benzodiazepines and marijuana. Suspect metabolic encephalopathy, seizure, in addition, the patient has developed a right lower lobe pneumonia and the presentation could be secondary to metabolic encephalopathy. He has an adequate cough. Unable to bring up much sputum. CAT scan of the brain was negative for any acute abnormalities. Results of the EEG is pending and the patient is currently on Keppra. Acute encephalitis is still likely. An injected is felt to be less likely. The patient's covered with acyclovir, and vancomycin was discontinued, as a, was also discontinued by infectious disease. EEG from yesterday showed encephalopathy. Neurologically awake and alert and communicating. History of chronic pain syndrome and the patient takes oxycodone, gabapentin and Xanax Acute hypoxemic respiratory failure suspect secondary to mental status changes and exacerbation of COPD, and some interstitial fibrosis in addition to an extensive right lung pneumonia, possibly of an aspiration times pressure was underlying mental status and suspicion for aspiration. 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 Plan: Continue monitoring the patient's mental status, essentially improving and the patient is going to undergo his lumbar puncture today Titrate oxygen flow to maintain a saturation above 90%, currently on 12 L of O2 nasal cannula Obtain an ultrasound of the chest on Chris any sizable effusions and consider thoracentesis if there is any sizable effusions Aspiration precautions Allow oral intake Continue IV Zosyn Continue IV acyclovir, total encephalitis is ruled out Proceed with lumbar puncture, anesthesia Neurology consultation Continue IV Keppra Continue DuoNeb nebs on the clock DVT and GI prophylaxis We'll continue to follow
--- NOTE | 2023-03-01 09:24 | P.PCN ---
Date of Procedure: 03/01/23 Procedure(s) Performed: Preoperative diagnosis: Altered mental status Post operative diagnoses: Altered mental status Procedure= lumbar puncture Anesthesia= local infiltration with lidocaine 1% 2 mL. Condition: Critical Complication: none. Description of the procedure procedure risk and benefits discussed with the patient , consent signed. Patient and the procedure area placed in sitting position, back prepped with chlorhexidine 3 times been local infiltration of the skin and subcutaneous tissue with lidocaine 1% 2 mL for skin and subcu interstitial frustrations at L4 5 levels then 22-gauge Quincke-type needle advanced slowly at L4- 5 interlaminar space there was positive cerebrospinal fluid which was clear, no heme, no paresthesia ,total of 8 ML of clear cerebrospinal fluid collected in 4 different tubes 2-2-1/2 mL in each, then the needle removed and a Band-Aid applied and patient tolerated the procedure well without any complications.
--- NOTE | 2023-03-01 10:06 | US ---
EXAMINATION TYPE: US chest DATE OF EXAM: 03/01/2023 Exam done portable in ICU COMPARISON: NONE CLINICAL INDICATION: Male, 67 years old with history of pleural effusions; TECHNIQUE: Targeted ultrasound of the posterior lower bilateral hemithoraces EXAM MEASUREMENTS: Right Pleural Effusion pocket size: 2.4 cm Right skin surface to fluid distance: 3.7 cm Left Pleural Effusion pocket size: 6.8 cm Left skin surface to fluid distance: 2.9 cm Lung seen within mid portion of fluid pocket Right side not marked for possible thoracentesis outside the dept. Left side marked for possible thoracentesis outside the dept. Pulmonologists are able to review the images in the patient?s EMR. IMPRESSIONS: Small right and small to moderate left pleural effusions.
[2023-03-01] MEDS: METOPROLOL SUCCINATE (ER) 50 MG TAB.ER.24H PO SCH (11:59)
[2023-03-01] MEDS: LOSARTAN 25 MG TAB PO SCH (11:59)
[2023-03-01 12:21] LABS: Glucose,Whole Blood 69 mg/dL (70-110)
[2023-03-01 12:38] LABS: Glucose,Whole Blood 102 mg/dL (70-110)
--- NOTE | 2023-03-01 13:50 | P.PN ---
Subjective Progress Note Date: 02/28/23 Principal diagnosis: Possible encephalitis Patient is a 67-year male with a past medical history significant for chronic pain syndrome history of traumatic brain injury and hypertension patient was noticed to be confused the morning of presentation to the hospital patient also have increasing respiratory distress requiring BiPAP and admission to the ICU. On today's evaluation that is 02/28/2023, the patient a remains to befebrile the patient is more awake and alert today and is off Bihowever is requiring more supplemental oxygen today currently on 12 L nasal cannula, patient denies headache no chest pain he did have a cough but not bringing up any sputum no [place] no vomiting no abdominal pain no diarrhea The patient white count is normalized to 10.5,, creatinine 0.61, blood cultures currently pending, CSF is pending collection Objective - Vital Signs Vital signs: Vital Signs Temp 97.9 F 02/28/23 08:00 Pulse 129 H 02/28/23 11:00 Resp 34 H 02/28/23 11:00 BP 163/97 02/28/23 11:00 Pulse Ox 88 L 02/28/23 11:00 FiO2 60 02/27/23 05:00 Intake & Output 02/27/23 02/28/23 02/28/23 18:59 06:59 18:59 Intake Total 1074.8 1425 641.9 Output Total 350 540 250 Balance 724.8 885 391.9 Weight 66.7 kg Intake: IV 1074.8 1425 474.9 Acyclovir Sodium 1,000 mg 250 250 In Sodium Chloride 0.9% 250 ml @ 270 mls/hr IVPB Q8H [facility] Rx#:[id number] Aztreonam 2 gm In Sodium 199.8 100 99.9 Chloride 0.9% 100 ml @ 33 .3 mls/hr IVPB Q8HR [facility] Rx#:[id number] Sodium Chloride 0.9% 1, 375 825 375 000 ml @ 75 mls/hr IV . [id number] [facility] Rx#:[id number] Vancomycin 1,250 mg In 250 250 Sodium Chloride 0.9% 250 ml @ 125 mls/hr IVPB Q12H [facility] Rx#:[id number] Intake, IV Titration 167 Amount Vancomycin 1,500 mg In 167 Sodium Chloride 0.9% 500 ml 500 ml @ 167 mls/hr IVPB Q12H [facility] Rx#: [id number] Output: Urine 350 540 250 Other: Voiding Method Indwelling Catheter Indwelling Catheter # Bowel Movements 1 - Exam GENERAL DESCRIPTION: An elderly male lying in bed in no distress RESPIRATORY SYSTEM: Unlabored breathing , decreased breath sounds at bases HEART: S1 S2 regular rate and rhythm , ABDOMEN: Soft , no tenderness EXTREMITIES: No edema feet - Labs CBC & Chem 7: 03/01/23 05:51 03/01/23 05:51 Labs: Abnormal Lab Results - Last 24 Hours (Table) 02/27/23 02/27/23 02/27/23 Range/Units 05:15 13:10 16:19 WBC 13.7 H (3.8-10.6) k/uL RBC 3.94 L (4.30-5.90) m/uL Hgb 12.3 L (13.0-17.5) gm/dL Hct 37.9 L (39.0-53.0) % Plt Count 114 L (150-450) k/uL Neutrophils # 12.2 H (1.3-7.7) k/uL Neutrophils # (Manual) (1.3-7.7) k/uL Lymphocytes # 0.8 L (1.0-4.8) k/uL Lymphocytes # (Manual) (1.0-4.8) k/uL Chloride (98-107) mmol/L BUN (9-20) mg/dL Creatinine (0.66-1.25) mg/dL Glucose (74-99) mg/dL POC Glucose (mg/dL) (70-110) mg/dL Calcium (8.4-10.2) mg/dL Urine Bacteria Few H (None) /hpf HSV I IgG Ab 26.80 H (< or = 0.90) HSV II IgG 1.20 H (< or = 0.90) 02/27/23 02/27/23 02/28/23 Range/Units 18:44 21:30 00:25 WBC 12.4 H (3.8-10.6) k/uL RBC 4.24 L (4.30-5.90) m/uL Hgb 12.7 L (13.0-17.5) gm/dL Hct (39.0-53.0) % Plt Count 132 L (150-450) k/uL Neutrophils # 10.6 H (1.3-7.7) k/uL Neutrophils # (Manual) (1.3-7.7) k/uL Lymphocytes # (1.0-4.8) k/uL Lymphocytes # (Manual) (1.0-4.8) k/uL Chloride (98-107) mmol/L BUN (9-20) mg/dL Creatinine (0.66-1.25) mg/dL Glucose (74-99) mg/dL POC Glucose (mg/dL) 123 H 116 H (70-110) mg/dL Calcium (8.4-10.2) mg/dL Urine Bacteria (None) /hpf HSV I IgG Ab (< or = 0.90) HSV II IgG (< or = 0.90) 02/28/23 02/28/23 Range/Units 04:35 04:35 WBC (3.8-10.6) k/uL RBC 4.06 L (4.30-5.90) m/uL Hgb 12.5 L (13.0-17.5) gm/dL Hct 38.1 L (39.0-53.0) % Plt Count 136 L (150-450) k/uL Neutrophils # (1.3-7.7) k/uL Neutrophils # (Manual) 9.45 H (1.3-7.7) k/uL Lymphocytes # (1.0-4.8) k/uL Lymphocytes # (Manual) 0.95 L (1.0-4.8) k/uL Chloride 112 H (98-107) mmol/L BUN 22 H (9-20) mg/dL Creatinine 0.61 L (0.66-1.25) mg/dL Glucose 101 H (74-99) mg/dL POC Glucose (mg/dL) (70-110) mg/dL Calcium 7.8 L (8.4-10.2) mg/dL Urine Bacteria (None) /hpf HSV I IgG Ab (< or = 0.90) HSV II IgG (< or = 0.90) Microbiology - Last 24 Hours (Table) 02/25/23 14:45 Blood Culture - Preliminary Blood 02/25/23 14:30 Blood Culture - Preliminary Blood Assessment and Plan (1) Encephalopathy Current Visit: Yes Status: Acute Code(s): G93.40 - ENCEPHALOPATHY, UNSPECIFIED SNOMED Code(s): 65595594 (2) SIRS (systemic inflammatory response syndrome) Current Visit: Yes Status: Acute Code(s): R65.10 - SIRS OF NON-INFECTIOUS ORIGIN W/O ACUTE ORGAN DYSFUNCTION SNOMED Code(s): 352721696 Plan: 1patient present to hospital with sepsis in this patient who did have a fever elevated white count tachycardia concerning for 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 infection possibility of encephalitis or meningitis as patient currently do not have any other obvious focus of infection CT angiogram of the chest did not show any consolidation abdominal soft on Examination no evidence of any cellulitis 2-patient did have cephalexin allergy that will limit the number of antibiotics safe to use 3-we currently waiting for LP/CSF with the fluid should be sent for cell count differential glucose protein HSV DNA by PCR 4Patient to continue with the acyclovir, now with concern for possible aspirat ion and the patient has been started on Zosyn by pulmonary we will discontinue vancomycin and Azactam Dictation was produced using [employer] dictation software. please excuse any grammatical, word or spelling errors. Time with Patient: Less than 30
--- NOTE | 2023-03-01 13:53 | P.PN ---
Subjective Progress Note Date: 03/01/23 Principal diagnosis: Possible encephalitis Patient is a 67-year male with a past medical history significant for chronic pain syndrome history of traumatic brain injury and hypertension patient was noticed to be confused the morning of presentation to the hospital patient also have increasing respiratory distress requiring BiPAP and admission to the ICU. On today's evaluation that is 03/01/2023, the patient denies any fever or any chills, the patient is breathing comfortably today and is down to 10 L high flow nasal cannula oxygen patient denies any chest pain he did have a cough with occasional sputum no vomiting or diarrhea has been reported The patient white count is 10.4, creatinine 0.76, blood cultures currently pending, patient did have LP, CSF results are pending Objective - Vital Signs Vital signs: Vital Signs Temp 99.1 F 03/01/23 04:30 Pulse 118 H 03/01/23 11:00 Resp 22 03/01/23 11:00 BP 149/90 03/01/23 11:00 Pulse Ox 94 L 03/01/23 11:00 FiO2 12 03/01/23 04:00 Intake & Output 02/28/23 03/01/23 03/01/23 18:59 06:59 18:59 Intake Total 1850.9 1925 225 Output Total 480 1045 200 Balance 1370.9 880 25 Weight 68.7 kg Intake: IV 1349.9 1325 225 Acyclovir Sodium 1,000 mg 250 350 In Sodium Chloride 0.9% 250 ml @ 270 mls/hr IVPB Q8H [facility] Rx#:[id number] Aztreonam 2 gm In Sodium 199.9 Chloride 0.9% 100 ml @ 33 .3 mls/hr IVPB Q8HR [facility] Rx#:[id number] Sodium Chloride 0.9% 1, 900 975 225 000 ml @ 75 mls/hr IV . [id number] [facility] Rx#:[id number] Intake, IV Titration 501 600 Amount Piperacillin-Tazobactam 3 100 .375 gm In Sodium Chloride 0.9% 100 ml @ 25 mls/hr IVPB Q8HR [facility] Rx# :[id number] Vancomycin 1,500 mg In 501 500 Sodium Chloride 0.9% 500 ml 500 ml @ 167 mls/hr IVPB Q12H [facility] Rx#: [id number] Output: Urine 480 1045 200 Other: Voiding Method Indwelling Catheter Indwelling Catheter - Exam GENERAL DESCRIPTION: An elderly male lying in bed in no distress RESPIRATORY SYSTEM: Unlabored breathing , decreased breath sounds at bases HEART: S1 S2 regular rate and rhythm , ABDOMEN: Soft , no tenderness EXTREMITIES: No edema feet - Labs CBC & Chem 7: 03/01/23 05:51 03/01/23 05:51 Labs: Abnormal Lab Results - Last 24 Hours (Table) 03/01/23 03/01/23 03/01/23 Range/Units 05:51 05:51 08:58 RBC 4.22 L (4.30-5.90) m/uL Hgb 12.4 L (13.0-17.5) gm/dL MCHC 30.4 L (31.0-37.0) g/dL Neutrophils # 8.5 H (1.3-7.7) k/uL Chloride 113 H (98-107) mmol/L Carbon Dioxide 20 L (22-30) mmol/L Glucose 107 H (74-99) mg/dL POC Glucose (mg/dL) (70-110) mg/dL Calcium 7.8 L (8.4-10.2) mg/dL Troponin I 0.119 H* (0.000-0.034) ng/mL 03/01/23 Range/Units 12:20 RBC (4.30-5.90) m/uL Hgb (13.0-17.5) gm/dL MCHC (31.0-37.0) g/dL Neutrophils # (1.3-7.7) k/uL Chloride (98-107) mmol/L Carbon Dioxide (22-30) mmol/L Glucose (74-99) mg/dL POC Glucose (mg/dL) 69 L (70-110) mg/dL Calcium (8.4-10.2) mg/dL Troponin I (0.000-0.034) ng/mL Microbiology - Last 24 Hours (Table) 02/28/23 13:40 Gram Stain - Preliminary Sputum 02/25/23 14:30 Blood Culture - Preliminary Blood 02/25/23 14:45 Blood Culture - Preliminary Blood Assessment and Plan (1) Encephalopathy Current Visit: Yes Status: Acute Code(s): G93.40 - ENCEPHALOPATHY, UNSPECIFIED SNOMED Code(s): 88837494 (2) SIRS (systemic inflammatory response syndrome) Current Visit: Yes Status: Acute Code(s): R65.10 - SIRS OF NON-INFECTIOUS ORIGIN W/O ACUTE ORGAN DYSFUNCTION SNOMED Code(s): 520295205 Plan: 1patient present to hospital with sepsis in this patient who did have a fever elevated white count tachycardia 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 for 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 please excuse any grammatical, word or spelling errors. Time with Patient: Less than 30
--- NOTE | 2023-03-01 14:06 | P.PN ---
Subjective Progress Note Date: 03/01/23 The patient seen at bedside and he feels he is doing better today compared to yesterday. Per the patient's nurse and his confusion is improving. Patient denies of any headache, difficulty getting his words out. He does not appreciate any new weakness he feels. Today he had a lumbar puncture done. Objective - Vital Signs Vital signs: Vital Signs Temp 99.1 F 03/01/23 04:30 Pulse 118 H 03/01/23 11:00 Resp 22 03/01/23 11:00 BP 149/90 03/01/23 11:00 Pulse Ox 94 L 03/01/23 11:00 FiO2 12 03/01/23 04:00 Intake & Output 02/28/23 03/01/23 03/01/23 18:59 06:59 18:59 Intake Total 1850.9 1925 225 Output Total 480 1045 200 Balance 1370.9 880 25 Weight 68.7 kg Intake: IV 1349.9 1325 225 Acyclovir Sodium 1,000 mg 250 350 In Sodium Chloride 0.9% 250 ml @ 270 mls/hr IVPB Q8H [facility] Rx#:[id number] Aztreonam 2 gm In Sodium 199.9 Chloride 0.9% 100 ml @ 33 .3 mls/hr IVPB Q8HR [facility] Rx#:[id number] Sodium Chloride 0.9% 1, 900 975 225 000 ml @ 75 mls/hr IV . [id number] [facility] Rx#:[id number] Intake, IV Titration 501 600 Amount Piperacillin-Tazobactam 3 100 .375 gm In Sodium Chloride 0.9% 100 ml @ 25 mls/hr IVPB Q8HR [facility] Rx# :[id number] Vancomycin 1,500 mg In 501 500 Sodium Chloride 0.9% 500 ml 500 ml @ 167 mls/hr IVPB Q12H [facility] Rx#: [id number] Output: Urine 480 1045 200 Other: Voiding Method Indwelling Catheter Indwelling Catheter - Exam GENERAL: The patient is lying in bed and is not in acute distress. HENT: Supple neck. Negative Brudzinski or Kernig sign. Respiratory: Productive cough. NEUROLOGICAL: Higher mental function: The patient is awake alert oriented to self place and time. Patient is following simple commands commands. No aphasia. Cranial nerves: The pupils are round, equal and reactive to light. Visual wall are full to confrontation throughout. Extraocular movement is intact no nystagmus is noted. The facial strength is normal throughout. No dysarthria is noted. Motor: The strength is right lower extremity is 4+. Otherwise lifting all extremities above gravity without difficulty. Cerebellum: Normal finger to nose bilaterally. Sensation: Sensation is normal to touch throughout. LAB/DIAGNOSTIC: MRI the brain shows restriction diffusion within the posterior medial left frontal/parietal and subcortical white matter in the RICCARDO distribution suggesting acute/subacute CVA. Gyriform appearance of some of this region suggest associated alignment and necrosis. Echo: Left ventricular enjection 25-30% with apical hypokinesis and basal aspirin. May be consistent with the tic is supple cardiomyopathy versus wrap around LAD disease. - Labs CBC & Chem 7: 03/01/23 05:51 03/01/23 05:51 Labs: Abnormal Lab Results - Last 24 Hours (Table) 03/01/23 03/01/23 03/01/23 Range/Units 05:51 05:51 08:58 RBC 4.22 L (4.30-5.90) m/uL Hgb 12.4 L (13.0-17.5) gm/dL MCHC 30.4 L (31.0-37.0) g/dL Neutrophils # 8.5 H (1.3-7.7) k/uL Chloride 113 H (98-107) mmol/L Carbon Dioxide 20 L (22-30) mmol/L Glucose 107 H (74-99) mg/dL POC Glucose (mg/dL) (70-110) mg/dL Calcium 7.8 L (8.4-10.2) mg/dL Troponin I 0.119 H* (0.000-0.034) ng/mL 03/01/23 Range/Units 12:20 RBC (4.30-5.90) m/uL Hgb (13.0-17.5) gm/dL MCHC (31.0-37.0) g/dL Neutrophils # (1.3-7.7) k/uL Chloride (98-107) mmol/L Carbon Dioxide (22-30) mmol/L Glucose (74-99) mg/dL POC Glucose (mg/dL) 69 L (70-110) mg/dL Calcium (8.4-10.2) mg/dL Troponin I (0.000-0.034) ng/mL Microbiology - Last 24 Hours (Table) 02/28/23 13:40 Gram Stain - Preliminary Sputum 02/25/23 14:30 Blood Culture - Preliminary Blood 02/25/23 14:45 Blood Culture - Preliminary Blood Assessment and Plan Assessment: This is a 67-year-old gentleman who is transferred from [place] after being found to be confused a possible seizure-like activity by his . Patient stated that he has been coughing recently prior to presenting to the hospital denies any sick contacts, fevers, recent travel. Altered mental status, fever, leukocytosis of unclear etiology. There is concern for meningoencephalitis (I feel more encephalitis) with positive reported Kernig sign on prior examination. On examination patient has right lower extremity weakness. His mentation is improving compared to couple days but continues to be drowsy. Also some of his confusion is due to his seizure. There is also concern for possible aspiration pneumonia. New onset seizure and I feel likely due to underlying infection possible e ncephalitis. Acute to subacute ischemic stroke and the on the MRI he has diffusion restriction over the left parietal/frontal region in distribution of RICCARDO (on examination has right lower extremity weakness). No enhancement on MRI Brain. No IV tpa since outside window and risk outweigh benefit (days old but unsure to how long). Unknown exact cause of stroke. Echo has low EF with Takotsubo car diomyopathy vs wrap around LAD disease. 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 Gyriform appearance of some of this region suggest associated alignment and necrosis. I personally had a hard time reviewing the MRI since did not have all images uploaded. I spoke with the reading radiologist and he did agree that the patient did have diffusion restriction over the left parietal frontal region suggestive of acute/subacute CVA. Today's reading radiologist stated that it's hard for him to reports necrosis on the MRI this early. There is no enhancement on MRI. I recommend the patient to be on aspirin 325 daily and Lipitor 20 mg daily at bedtime for secondary stroke prophylaxis. I ordered carotid duplex. Echo has low EF with Takotsubo cardiomyopathy vs wrap around LAD disease. Cardiology team is consulted. Pending LP results which was performed by the pain specialist Dr. Valdovinos Patient is on acyclovir. I placed patient on ceftriaxone on 02/28/23 but it was discontinued by the ICU attending since low suspicious of bacterial meningitis and he felt aspiration pneumonia. ID team is on board. I'll defer the management of antibiotic/antiviral to the ID team Pending 90 minutes EEG reported that study was completed today since having repeated shaking of the right upper lower extremity to rule out any underlying epileptiform discharges or seizure not seen on the routine EEG. He is on Keppra 1gm bid. Continue neurocheck Cardiac monitoring. PT, OT and [employer] OPERATOR [employer] TENDER are consulted. We'll defer the rest of the medical management to primary and other specialists For DVT prophylaxis: Recommend subq heparin. The plan was discussed with the patient's primary attending and his nurse. Time with Patient: Less than 30
[2023-03-01] MEDS ORDERED: LOSARTAN 25 MG TAB PO STA (14:51)
[2023-03-01 15:47] LABS: Glucose,Whole Blood 101 mg/dL (70-110)
--- NOTE | 2023-03-01 16:28 | US ---
EXAMINATION TYPE: US carotid duplex BILAT DATE OF EXAM: 03/01/2023 Exam done portable in ICU COMPARISON: NONE CLINICAL INDICATION: Male, 67 years old with history of stroke; TECHNIQUE: Carotid duplex ultrasound examination. Indirect Doppler criteria was utilized. FINDINGS: EXAM MEASUREMENTS: RIGHT: Peak Systolic Velocity (PSV) cm/sec ----- Right CCA: 106.5 ----- Right ICA: 101.2 ----- Right ECA: 99.8 ICA/CCA ratio: 1.0 RIGHT: End Diastole cm/sec ----- Right CCA: 28.5 ----- Right ICA: 35.8 ----- Right ECA: 8.1 LEFT: Peak Systolic Velocity (PSV) cm/sec ----- Left CCA: 82.3 ----- Left ICA: 111.4 ----- Left ECA: 93.9 ICA/CCA ratio: 1.4 LEFT: End Diastole cm/sec ----- Left CCA: 29.9 ----- Left ICA: 47.4 ----- Left ECA: 12.5 VERTEBRALS (direction of flow): Right Vertebral: Antegrade Left Vertebral: Antegrade Rhythm: Normal Difficult and limited study due to patient heavy breathing No significant stenosis. Mild atherosclerotic calcification in the bilateral carotid bulbs with left greater than right. IMPRESSION: No ultrasound evidence for hemodynamically significant stenosis of the visualized bilateral carotid a rteries. Criteria for Assigning % of Stenosis / Diameter reduction (Estimation based on the indirect measurements of the internal carotid artery velocities (ICA PSV). 1. Normal (no stenosis)=ICA PSV < 125 cm/s: ratio < 2.0: ICA EDV<40 cm/s. 2. Less than 50% stenosis=ICA PSV < 125 cm/s: ratio < 2.0: ICA EDV<40 cm/s. 3. 50 to 69% stenosis=ICA PSV of 125 to 230 cm/s: ration 2.0 ? 4.0: ICA EDV 40-100 cm/s. 4. Greater than 70% stenosis to near occlusion= ICA PSV > 230 cm/s: ratio > 4.0: ICA EDV > 100 cm/s. 5. Near occlusion= ICA PSV velocities may be low or undetectable: variable ratio and ICA EDV. 6. Total occlusion=unable to detect flow.
[2023-03-01] MEDS: MEROPENEM 500 MG in SODIUM CHLORIDE 0.9% 100 ML IVPB SCH (16:50)
--- NOTE | 2023-03-01 17:02 | P.PN ---
Subjective Progress Note Date: 03/01/23 (delayed charting seen at 1205) Patient is a 67-year-old male with a history of polysubstance abuse (opiates and alcohol), TBI, and COPD who presented from an outside hospital for acute en cephalopathy. Patient had lumbar puncture performed by anesthesia on 03/01/23 Patient seen and examined at bedside. He is awake, alert, and oriented 3. His interactions are on and he does not answer my questions appropriately but continues to complain about his Carranza catheter and eating habit out due to his penile pain and feeling like he has to PE. He denies any chest pain, shortness breath, nausea, vomiting. Case discussed with nursing at bedside. They report he has had poor oral intake. He was started on metoprolol and losartan by cardiology. Vital signs reviewed General: nontoxic, no distress, appears at stated age Cardiovascular: S1S2 reg, no murmur, positive posterior tibial pulse bilateral, Lungs: Coarse breath sounds bilateral, no conversational dyspnea, no rhonchi, no rales , no accessory muscle use Abdominal: soft, nontender to palpation, no guarding, no appreciable organomegaly Ext: no gross muscle atrophy, no edema b/l lower extremities, no contractures Neuro: CN II-XI grossly intact, no focal neuro deficits Psych: Alert, oriented 3, appropriate affect Assessment/Plan: Acute hypoxic respiratory failure Sepsis secondary to Bacterial pneumonia COPD exacerbation -Transition from Zosyn to meropenem 500 mg IV every 8 hours -Pulmonary hygiene -Pulmonary note reviewed: Aspiration precautions, Zosyn, acyclovir -Infectious disease note reviewed: Await LP Dermatitis bilateral feet, sparing the soles -Possible related to ALLERGIC reaction -Per pulmonary antibiotic was changed from Zosyn to meropenem for his possible aspiration pneumonia -We'll continue to monitor closely -Patient without any itching. If something develops would use hydrocortisone cream Cardiomyopathy with ejection fraction 25-30% -Await formal cardiology consultation dictation -Patient has been started on metoprolol 50 mg daily and losartan 25 mg daily -Follow blood pressures -Stop IV fluids given elevated BNP Acute encephalopathy, resolved Possible encephalitis/meningitis Possible seizures Possible drug withdrawal -LP performed on 03/01/23. Results currently pending -Case discussed with neurology. 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 Imaging: Carotid Doppler-no evidence of hemodynamically significant stenosis Chest ultrasound: Small right and small to moderate left pleural effusions MRI brain: Motion limited exam some areas of restricted diffusion within the posterior medial left frontal/parietal cortex to suggest acute/subacute CVA, nonspecific white matter changes Echocardiogram with ejection fraction 25-30% with apical hypokinesis and basilar sparing may be consistent with Kaposi was cardiomyopathy versus wraparound LAD disease, severe pulmonary hypertension with RVSP 69 Data Review: Vitals reviewed T-max in the last 24 hours is 99.1. Vitals remarkable for pulse 117, respirations 37, blood pressure 156/92, O2 sat 95% on 8 L Labs reviewed and remarkable for hemoglobin of 12.4, chloride 113, carbon dioxide 20 -Repeat troponin in order to decreased at 0.119. BMP ordered and 19,300. Vancomycin trough 13.5 DVT prophylaxis: Heparin SC Anticipated discharge date: Pending Clinical Course Anticipated discharge place: Pending Clinical Course This dictation was prepared using [employer] voice recognition software. [facility] every attempt is made to correct errors during dictation some may still exist. Objective - Vital Signs Vital signs: Vital Signs Temp 99.1 F 03/01/23 04:30 Pulse 116 H 03/01/23 15:00 Resp 36 H 03/01/23 15:00 BP 169/103 03/01/23 15:00 Pulse Ox 98 03/01/23 15:00 FiO2 12 03/01/23 04:00 Intake & Output 02/28/23 03/01/23 03/01/23 18:59 06:59 18:59 Intake Total 1850.9 1925 435 Output Total 480 1045 425 Balance 1370.9 880 10 Weight 68.7 kg 68.7 kg Intake: IV 1349.9 1325 435 Acyclovir Sodium 1,000 mg 250 350 In Sodium Chloride 0.9% 250 ml @ 270 mls/hr IVPB Q8H [facility] Rx#:[id number] Aztreonam 2 gm In Sodium 199.9 Chloride 0.9% 100 ml @ 33 .3 mls/hr IVPB Q8HR [facility] Rx#:[id number] Sodium Chloride 0.9% 1, 900 975 435 000 ml @ 75 mls/hr IV . [id number] [facility] Rx#:[id number] Intake, IV Titration 501 600 Amount Piperacillin-Tazobactam 3 100 .375 gm In Sodium Chloride 0.9% 100 ml @ 25 mls/hr IVPB Q8HR [facility] Rx# :[id number] Vancomycin 1,500 mg In 501 500 Sodium Chloride 0.9% 500 ml 500 ml @ 167 mls/hr IVPB Q12H [facility] Rx#: [id number] Output: Urine 480 1045 425 Other: Voiding Method Indwelling Catheter Indwelling Catheter - Labs CBC & Chem 7: 03/01/23 05:51 03/01/23 05:51 Labs: Abnormal Lab Results - Last 24 Hours (Table) 03/01/23 03/01/23 03/01/23 Range/Units 05:51 05:51 08:58 RBC 4.22 L (4.30-5.90) m/uL Hgb 12.4 L (13.0-17.5) gm/dL MCHC 30.4 L (31.0-37.0) g/dL Neutrophils # 8.5 H (1.3-7.7) k/uL Chloride 113 H (98-107) mmol/L Carbon Dioxide 20 L (22-30) mmol/L Glucose 107 H (74-99) mg/dL POC Glucose (mg/dL) (70-110) mg/dL Calcium 7.8 L (8.4-10.2) mg/dL Troponin I 0.119 H* (0.000-0.034) ng/mL 03/01/23 Range/Units 12:20 RBC (4.30-5.90) m/uL Hgb (13.0-17.5) gm/dL MCHC (31.0-37.0) g/dL Neutrophils # (1.3-7.7) k/uL Chloride (98-107) mmol/L Carbon Dioxide (22-30) mmol/L Glucose (74-99) mg/dL POC Glucose (mg/dL) 69 L (70-110) mg/dL Calcium (8.4-10.2) mg/dL Troponin I (0.000-0.034) ng/mL Microbiology - Last 24 Hours (Table) 02/28/23 13:40 Gram Stain - Preliminary Sputum 02/25/23 14:30 Blood Culture - Preliminary Blood 02/25/23 14:45 Blood Culture - Preliminary Blood
[2023-03-01] MEDS: ACETAMINOPHEN TAB 325 MG TAB PO PRN (17:14)
[2023-03-01 17:31] LABS: Appearance,CSF Clear; CSF Tube Number 4; CSF Tube Volume 1.5; Nucleated Cells, CSF 1 u/L (0-5); Red Blood Cell,CSF 1 u/L (0-10)
[2023-03-01] MEDS ORDERED: HYDROmorphone 1 MG/ML 1 ML SYRINGE IVP STA (17:44)
[2023-03-01 17:52] LABS: Glucose,CSF 53 mg/dL (40-70)
[2023-03-01] MEDS ORDERED: TAMSULOSIN 0.4 MG CAP.ER.24H PO STA (18:28)
[2023-03-01] MEDS: ALPRAZolam 0.5 MG TAB PO PRN (19:01)
--- NOTE | 2023-03-01 20:31 | EEG ---
ELECTROENCEPHALOGRAM REPORT ELECTROENCEPHALOGRAM (EEG) REPORT: TECHNIQUE: A routine 18-channel EEG was performed with video using the 10/20 international placement system. HISTORY: Encephalopathy. Increased confusion, possible alcohol withdrawal, slurred speech. CURRENT MEDICATIONS: 1. Acyclovir. 2. Albuterol. 3. Keppra. 4. Imodium. 5. Protonix. 6. Piperacillin. 7. Vitamin B1. STUDY DURATION: 74 minutes. FINDINGS: Please note that quality of this recording was significantly limited due to the presence of muscle artifact over the T3-T5, and T5-O1 channel essentially throughout the entire recording. In addition, electrode artifact was noted in the F8-T4 and T4-T6 channels. Waveforms were seen with phase reversal at T4 frequently. However, these did not have a reproducible appearance for a believable cerebral field. BACKGROUND: The background activity consisted of unsustained 7 to 9 hertz rhythmic waveforms. ACTIVATION: Hyperventilation: Not performed. Photic stimulation: Symmetric driving seen. Sleep: Drowsy. ABNORMALITIES: 1. Rare frontally predominant delta range slowing was seen. 2. Intermittent diffuse 5 to 7 hertz theta range slowing was seen. 3. Also note that during the course of this EEG, per crystal growing technician annotation, the patient had frequent body tremoring, jaw tremoring, and right arm tremoring. These events were not associated with epileptiform activity. IMPRESSION: Limited study, abnormal EEG. The rare frontally predominant delta range slowing as well as the diffuse theta range slowing mentioned above is not epileptiform in nature. These findings indicate mild to moderate diffuse cerebral dysfunction, which may in part be due to medication effect. These findings were called to the consulting neurologist at 4:15 p.m. on 03/01/2023. MMODL / IJN: [id number] /
[2023-03-01] MEDS ORDERED: MEROPENEM 1 GM in SODIUM CHLORIDE 0.9% 100 ML IVPB SCH (21:00)
[2023-03-01 22:00] LABS: Chol/HDL Ratio 4.14 Ratio; LDL Cholesterol,Calculated 60.7 mg/dL (0.0-131.0); VLDL Calculation 18.22 mg/dL (5.00-40.00)
[2023-03-01 23:37] LABS: Glucose,Whole Blood 121 mg/dL (70-110)
[2023-03-02] MEDS: MEROPENEM 500 MG in SODIUM CHLORIDE 0.9% 100 ML IVPB SCH ×3 (00:20→16:06)
[2023-03-02 01:09] LABS: Glucose,Whole Blood 172 mg/dL (70-110)
[2023-03-02] MEDS: ALPRAZolam 0.5 MG TAB PO PRN ×2 (04:47→11:17)
[2023-03-02 04:52] LABS: African American GFR (CKD) >90 (>60 ml/min/1.73 sqM); Anion Gap 4 mmol/L; Blood Urea Nitrogen 16 mg/dL (9-20); Calcium 7.5 mg/dL (8.4-10.2); Carbon Dioxide 26 mmol/L (22-30); Chloride 109 mmol/L (98-107); Glucose 107 mg/dL (74-99); Non-African American GFR(CKD) >90 (>60 ml/min/1.73 sqM); Potassium 3.6 mmol/L (3.5-5.1); Sodium 139 mmol/L (137-145)
[2023-03-02] MEDS ORDERED: POTASSIUM CHLORIDE 10 MEQ in WATER FOR INJECTION 1 100ML.BAG IVPB SCH (05:00)
[2023-03-02 05:02] LABS: HCT 38.3 % (39.0-53.0); HGB 11.8 gm/dL (13.0-17.5); Hypochromasia Moderate; MCH 29.6 pg (25.0-35.0); MCHC 30.9 g/dL (31.0-37.0); MCV 95.9 fL (80.0-100.0); Platelet Count 174 k/uL (150-450); WBC 7.3 k/uL (3.8-10.6)
[2023-03-02] MEDS ORDERED: Potassium Replacement Protocol 1 EACH MISC MISCELLANE PRN (05:25)
[2023-03-02] MEDS ORDERED: POTASSIUM CHLORIDE ER 20 MEQ TAB.ER PO SCH (06:00)
[2023-03-02 06:02] LABS: Glucose,Whole Blood 89 mg/dL (70-110)
[2023-03-02 06:13] LABS: Eosinophils # (M) 0.07 k/uL (0-0.7); Lymphocytes # (M) 1.17 k/uL (1.0-4.8); Monocytes # (M) 0.44 k/uL (0-1.0); Neutrophils # (M) 5.62 k/uL (1.3-7.7); Neutrophils % (M) 77 %; Nucleated Red Blood Cells 0 /100 WBC (0-0); Total Cells Counted 100
[2023-03-02] MEDS: ACYCLOVIR SODIUM 1,000 MG in SODIUM CHLORIDE 0.9% 250 ML IVPB SCH ×3 (06:18→22:15)
[2023-03-02] MEDS: IPRATROPIUM-ALBUTEROL 3 ML NEB INHALATION SCH ×4 (07:41→18:23)
--- NOTE | 2023-03-02 08:05 | XR ---
EXAMINATION TYPE: XR chest 1V portable DATE OF EXAM: 03/02/2023 COMPARISON: 03/01/2023 INDICATION: Pneumonia TECHNIQUE: Single frontal view of the chest is obtained. FINDINGS: The heart size is normal. The pulmonary vasculature is normal. There is a moderate right pleural effusion. Bibasilar infiltrates are present. Small left pleural eff usion is present. Findings are similar to comparison IMPRESSION: 1. Bibasilar infiltrates with moderate right and small left pleural effusions, stable from prior exam . Continued follow-up is recommended
[2023-03-02] MEDS: levETIRAcetam IV 500 MG/5 ML VIAL IVP SCH ×2 (08:46→20:21)
[2023-03-02] MEDS: TAMSULOSIN 0.4 MG CAP.ER.24H PO SCH (08:50)
[2023-03-02] MEDS: LOSARTAN 25 MG TAB PO SCH (08:50)
[2023-03-02] MEDS: NICOTINE 21MG/24HR PATCH TRANSDERM SCH (08:50)
[2023-03-02] MEDS: THIAMINE 100 MG TAB PO SCH (08:50)
[2023-03-02] MEDS: METOPROLOL SUCCINATE (ER) 50 MG TAB.ER.24H PO SCH (08:50)
[2023-03-02] MEDS: PANTOPRAZOLE 40 MG/10 ML VIAL IVP SCH ×2 (09:30→20:20)
--- NOTE | 2023-03-02 09:34 | P.PN ---
Subjective Progress Note Date: 03/02/23 This is a 67-year-old male patient with a history of previous traumatic brain injury, chronic pain for which he takes oxycodone, gabapentin and Ativan, anxiety, chronic and ongoing tobacco dependence, chronic obstructive pulmonary disease, hypertension. He was transferred here from [facility] after being found to have confusion, altered mental status and possibly a seizure at home by his . CT angiogram of the chest ruled out pulmonary embolism. Computed tomography scan of the head showed no acute intracranial process. Chest x-ray reveals no evidence of pneumothorax. The left lung is clear. There is an unchanged right lateral lower lobe density possibly a loculated pleural effusion. White count 23.9. Hemoglobin 14.1. Platelets 148. Sodium 144. Potassium 3.8. Bicarb 27. BUN 33. Creatinine 0.77. Ammonia level XXI. Arterial blood gases on 100% FiO2 revealed a pO2 of 123, pCO2 40, pH 7.41. He is seen today in consultation in the intensive care unit. Currently he is awake and alert. Following commands. Slightly tachycardic. Tachypneic. Afebrile. He is on BiPAP 14/890% FiO2. He was initiated on Keppra, vancomycin, acyclovir, Levaquin. Lumbar puncture pending. He has normal saline at 75 ML's per hour. The patient is seen today 02/27/2023 in follow-up in the intensive care unit. He is currently sitting up in bed. Bit more awake and alert today. He is on 2 L high flow nasal cannula. He did wear her BiPAP last night 14/8 and 60% FiO2 to approximate 8 AM this morning. He has normal saline at 75 ML's per hour. His pro calcitonin went from 0.09 up to 0.29. ID is on the case and resumed vancomycin, Azactam and continued on acyclovir. White count 14.2. Hemoglobin 11.6. Platelets 104. Sodium 137. Potassium 3.8. Bicarb 20. BUN 28. Creatin ine 0.67. Glucose 87. Stool for occult blood is positive. Blood culture pending. Lumbar puncture pending. He remains on DuoNeb inhalations, Symbicort, heparin for DVT prophylaxis. On today's evaluation of 02/28/2023, the patient is awake and alert and communicating. He is alert and oriented 3. Is responding appropriately to commands and answering questions appropriately. Is aware that he is in [place] and is also aware of the time and date. He is moving all 4 extremities. Denies having any headache. No neck stiffness. Is weak and is having some occasional tremors. The neuro workup is still in progress. Obviously, seizure was a concern and the patient was started on Keppra. EEG was done and the final report is not available yet. CT of the brain was also completed in addition to the CAT scan of the cervical spine and there is no evidence of any cervical spine fracture on the CAT scan of the head showed chronic atrophic changes with chronic small vessel ischemic changes. The patient was suspected to have a component of encephalitis/meningitis initiated time of admission and the patient was covered with a combination of acyclovir, vancomycin and is active and. He h as hypoxic, he is currently on 6 L to maintain a saturation above 90%. The chest x-ray that was done today showed an extensive right lower lobe and possibly right middle lobe consolidation along with possibly some underlying effusion. Left lung is clear. He has history of alcoholism, denies drinking this point in time. He has previous history of traumatic brain injury, he has chronic pain and limited on a combination of oxycodone and gabapentin and he also takes Ativan for chronic anxiety. Is a chronic smoker and is known to have COPD. His blood work from today shows a WBC count of 10.5 with a hemoglobin 12.7 and a platelet count of 136. BUN is at 22 with a creatinine of 0.6 and the sodium levels of 138, his pro calcitonin level was at 0.29 and his ammonia level was negative. 03/01/2023, seeing the patient for a follow-up. The patient is awake and alert and communicating. Lumbar punctures to be done today. EEG from yesterday showed encephalopathy, moderate, no evidence of any seizure activity and the patient remains on Keppra. A lumbar puncture will be done by anesthesia today. Otherwise, the patient denies having any headache or neck stiffness. The patient remains on a combination of IV acyclovir, vancomycin and he was also started on Zosyn yesterday due to bilateral pneumonia worse in the right. The patient is still coughing and has a congested cough, unable to bring up much of sputum at this point in time. The chest x-ray from today is essentially unchang ed. There is similar bibasilar patchy airspace disease with a small effusion on the left. Possibility of a right-sided pleural effusion cannot be completely ruled out. I'm going to go ahead an ultrasound the right chest to evaluate for any signs of any effusion. In terms of oxygenation, the patient was brought up as high as 15 L and currently is down to 12 L of oxygen by nasal cannula. Is less tachycardic compared to yesterday. He remains in mild degree of sinus tachycardia. He was able to swallow. Neurology is on the case. Lumbar puncture still pending for now. On today's blood work, the white cell count is 10.4 with a hemoglobin 12.4 and a platelet count of 189. The BUN is 18 with a creatinine of 0.7 and a sodium level is at 141. Potassium levels at 3.8. On 03/02/2023, seeing the patient for a follow-up. The patient is currently on 8 L of oxygen by nasal cannula. His being treated for bilateral pneumonia. The patient continues to have dense consolidation of the lower lobes worse on the right and there is also evidence of bilateral pleural effusion. Based on the ultrasound that was performed yesterday. The patient has a 6.8 cm pocket on the left and a 2.4 cm pocket on the right. A left-sided thoracentesis to be done today. Meanwhile, lumbar puncture was done yesterday and the CSF seems to be clear. There is only 1 nucleated cell and 1 RBC and the glucose is normal at 53. 14 has not been checked and needs to be sent in addition to HSV by PCR. The patient is awake and alert and communicating. He remains weak. Is a congested cough. He developed a rash while being on Zosyn and I switched him to IV meropenem. No significant rashes appreciated on today's evaluation. BUN is at 60 with a creatinine of 0.5 and a sodium levels of 139. White cell count is at 7.3 with a hemoglobin of 11.8. Note that the patient also developed some diaphoresis and tachycardia and hypertension yesterday. We thought that this was related to narcotic withdrawal as the patient takes oxycodone on an outpatient basis 4 times a day. This was addressed by the medical team and the patient was started on oxycodone 15 mg every 8 hours for chronic pain. This morning, he seems to much more comfortable. The patient remains on IV acyclovir. The patient is currently on IV meropenem. Objective - Vital Signs Vital signs: Vital Signs Temp 97.6 F 03/02/23 08:00 Pulse 105 H 03/02/23 08:00 Resp 29 H 03/02/23 08:00 BP 102/58 03/02/23 08:00 Pulse Ox 95 03/02/23 08:00 FiO2 12 03/01/23 04:00 Intake & Output 03/01/23 03/02/23 03/02/23 18:59 06:59 18:59 Intake Total 811.6 653.3 10 Output Total 425 900 Balance 386.6 -246.7 10 Weight 68.7 kg 69.1 kg Intake: IV 745 180 10 Acyclovir Sodium 1,000 mg 250 In Sodium Chloride 0.9% 250 ml @ 270 mls/hr IVPB Q8H [facility] Rx#:[id number] Sodium Chloride 0.9% 1, 495 180 10 000 ml @ 75 mls/hr IV . [id number] [facility] Rx#:[id number] Intake, IV Titration 66.6 233.3 Amount Acyclovir Sodium 1,000 mg 200 In Sodium Chloride 0.9% 250 ml @ 270 mls/hr IVPB Q8H [facility] Rx#:[id number] Meropenem 500 mg In 66.6 33.3 Sodium Chloride 0.9% 100 ml @ 33.3 mls/hr IVPB Q8HR [facility] Rx#:[id number] Oral 240 Output: Urine 425 900 Other: Voiding Method Indwelling Catheter Urinal # Voids 1 - Exam GENERAL EXAM: Alert, 67-year-old male, on 8-12 liters high flow nasal cannula HEAD: Normocephalic. EYES: Normal reaction of pupils, equal size. NOSE: Clear with pink turbinates. THROAT: No erythema or exudates. NECK: No masses, no JVD. CHEST: No chest wall deformity. LUNGS: Equal air entry with no crackles, wheeze, rhonchi or dullness. There is diminished breath on the right lung base along with egophony consistent with an underlying pneumonia. CVS: S1 and S2 normal with no audible murmur, regular rhythm. ABDOMEN: No hepatosplenomegaly, normal bowel sounds, no guarding or rigidity. SPINE: No scoliosis or deformity SKIN: No rashes CENTRAL NERVOUS SYSTEM: No focal deficits, tone is normal in all 4 extremities. The patient is awake and alert and communicating at this point in time. He is weak and has generalized motor weakness in all 4 extremities. The reflexes are symmetrical however. No hyperreflexia. No clonus. No Babinski. No neck stiffness. EXTREMITIES: There is no peripheral edema. No clubbing, no cyanosis. Peripheral pulses are intact. - Labs CBC & Chem 7: 03/02/23 04:04 03/02/23 04:04 Labs: Abnormal Lab Results - Last 24 Hours (Table) 03/01/23 03/01/23 03/01/23 Range/Units 08:58 08:58 12:20 RBC (4.30-5.90) m/uL Hgb (13.0-17.5) gm/dL Hct (39.0-53.0) % MCHC (31.0-37.0) g/dL Chloride (98-107) mmol/L Creatinine (0.66-1.25) mg/dL Glucose (74-99) mg/dL POC Glucose (mg/dL) 69 L (70-110) mg/dL Calcium (8.4-10.2) mg/dL Troponin I 0.119 H* (0.000-0.034) ng/mL HDL Cholesterol 25.10 L (40.00-60.00) mg/dL 03/01/23 03/02/23 03/02/23 Range/Units 23:35 01:06 04:04 RBC 4.00 L (4.30-5.90) m/uL Hgb 11.8 L (13.0-17.5) gm/dL Hct 38.3 L (39.0-53.0) % MCHC 30.9 L (31.0-37.0) g/dL Chloride (98-107) mmol/L Creatinine (0.66-1.25) mg/dL Glucose (74-99) mg/dL POC Glucose (mg/dL) 121 H 172 H (70-110) mg/dL Calcium (8.4-10.2) mg/dL Troponin I (0.000-0.034) ng/mL HDL Cholesterol (40.00-60.00) mg/dL 03/02/23 Range/Units 04:04 RBC (4.30-5.90) m/uL Hgb (13.0-17.5) gm/dL Hct (39.0-53.0) % MCHC (31.0-37.0) g/dL Chloride 109 H (98-107) mmol/L Creatinine 0.58 L (0.66-1.25) mg/dL Glucose 107 H (74-99) mg/dL POC Glucose (mg/dL) (70-110) mg/dL Calcium 7.5 L (8.4-10.2) mg/dL Troponin I (0.000-0.034) ng/mL HDL Cholesterol (40.00-60.00) mg/dL Microbiology - Last 24 Hours (Table) 02/28/23 13:40 Gram Stain - Preliminary Sputum 02/25/23 14:30 Blood Culture - Preliminary Blood Assessment and Plan Plan: Altered mental status of unclear etiology. Urine drug screen positive for benzodiazepines and marijuana. Suspect metabolic encephalopathy, seizure, in ad dition, the patient has developed a right lower lobe pneumonia and the presentation could be secondary to metabolic encephalopathy. He has an adequate cough. Unable to bring up much sputum. CAT scan of the brain was negative for any acute abnormalities. Results of the EEG is pending and the pat ient is currently on Keppra. Lumbar puncture was done and it was not consistent with bacterial meningitis. It is not also consistent with encephalitis. I'm going to continue the IV acyclovir for now. Meanwhile, we'll going to send the CSF for protein and HSV by PCR. If the workup is negative, a second-degree we also discontinued. Mental status is adequate for now. History of chronic pain syndrome and the patient takes oxycodone, gabapentin and Xanax Acute hypoxemic respiratory failure suspect secondary to mental status changes and exacerbation of COPD, and some interstitial fibrosis in addition to an extensive right lung pneumonia, possibly of an aspiration times pressure was underlying mental status and suspicion for aspiration. The patient has also developed bilateral pleural effusion larger on the left. The patient remains on IV meropenem. 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 Chronic narcotic use and the patient is currently on oxycodone 50 mg every 8 hours Plan: Continue monitoring the patient's mental status, essentially improving Lumbar puncture was noted IV acyclovir can't be discontinued if neurology and ID are agreeable Send CSF for protein and HSV by PCR Titrate oxygen flow to maintain a saturation above 90%, currently on 8-12 L of O2 nasal cannula I'm going to perform a left-sided thoracentesis Aspiration precautions Allow oral intake Continue IV IV meropenem Continue IV Keppra Continue DuoNeb nebs on the clock DVT and GI prophylaxis We'll continue to follow
--- NOTE | 2023-03-02 10:11 | P.PCN ---
Date of Procedure: 03/02/23 Preoperative Diagnosis: Left-sided pleural effusion Postoperative Diagnosis: Left-sided pleural effusion Procedure(s) Performed: Thoracentesis Anesthesia: local Surgeon: Keturah Angel Estimated Blood Loss (ml): 0 Pathology: other Condition: critical Disposition: ICU Operative Findings: A time out was performed and the chest x-ray was reviewed, the appropriate side was confirmed and marked. My hands were washed immediately prior to the procedure. I wore a surgical cap, mask with protective eyewear, sterile gown and sterile gloves throughout the procedure. The patient was prepped and draped in a sterile manner using chlorhexidine scrub after the appropriate level was percussed and confirmed by ultrasound. 1% lidocaine was used to anesthesize the skin, subcutaneous tissue, superior aspect of the rib periosteum and parietal pleura. A finder needle was then introduced over the superior aspect of the rib to locate the pleural fluid; 2colored fluid was aspirated at a depth of approximately 2 cm. A 10-blade scalpel was used to paul the skin at the insertion site. The [id number] needle was then introduced through the skin incision into the pleural space using negative aspiration pressure and the red colometric indicator to confirm appropriate positioning of the needle. The thoracentesis catheter was then threaded without difficulty. 1200 ml of turbid colored fluid was removed without difficulty. The catheter was then removed. No immediate complications were noted during the procedure. A post-procedure chest x-ray is pending at the time of this note. The fluid will be sent for studies. Estimated blood loss is 0cc
--- NOTE | 2023-03-02 10:44 | XR ---
EXAMINATION TYPE: XR chest 1V portable DATE OF EXAM: 03/02/2023 10:28 AM COMPARISON: Chest radiographs from 03/02/23 TECHNIQUE: XR chest 1V portable Portable AP radiograph of the chest. CLINICAL INDICATION:Male, 67 years old with history of post thoracentesis; FINDINGS: Lungs/Pleura: Small left and decreased small to moderate size right pleural effusions redemonstrated with improvement in bibasilar patchy airspace opacities from prior examination. No pneumothorax. Pulmonary vascularity: Unremarkable. Heart/mediastinum: Cardiomediastinal silhouette is unremarkable. Atherosclerotic calcifications are seen in the aorta. Musculoskeletal: No acute osseous pathology. IMPRESSION: Decreased small to moderate size right pleural effusion status post thoracentesis with stable small l eft pleural effusion. No pneumothorax. Improvement in bibasilar patchy airspace opacities.
[2023-03-02] MEDS ORDERED: ASPIRIN 81 MG PO SCH (10:45)
[2023-03-02] MEDS ORDERED: Magnesium Replacement Protocol 1 EACH MISC MISCELLANE PRN (11:19)
[2023-03-02 11:35] LABS: Glucose,Whole Blood 115 mg/dL (70-110)
[2023-03-02] MEDS ORDERED: MAGNESIUM SULFATE-D5W PMX 1 GM in DEXTROSE/WATER 1 100ML.BAG IVPB ONE (13:00)
[2023-03-02] MEDS: ATORVASTATIN 40 MG TAB PO SCH (13:35)
--- NOTE | 2023-03-02 14:34 | P.PN ---
Subjective Progress Note Date: 03/02/23 Patient is a 67-year-old male patient with traumatic brain injury, chronic pain (on Oxy and Xanax), chronic obstructive pulmonary disease, and hypertension who presetned as a transfer from [facility] for altered mentation and possible seizure like activity. Ct head without acute intracranila process, CTA chest without pulmonary embolism on arrival laboratory analysis is normal for white blood cell, 13.3, PaO2 of 56, calcium 8.1, bilirubin 1.5, CK 432, troponin 0.813, CRP 4.4, pro calcitonin 0.09, urine drug screen was positive for benzodiazepines and marijuana. He was started on empiric treatment for possible pneumonia. Case was discussed neurology and he was also started on empiric treatment for possible meningitis. He required BiPAP and pulmonary was consulted. He was admitted to the ICU. Infectious disease was consulted. Initial antimicrobial regimen consists of Vanco, Azactam, and acyclovir. She had improvement in mentation by 02/28. With some concerns of seizure by neurology and continued on Keppra. EEG and prolonged EEG did not show any signs of seizure activity. He developed worsening bilateral polar effusions. Underwent echocardiogram which confirmed ejection fraction of 25-30% with possible coccus to lose. Cardiology was consulted. He was started on beta marco a and ARB. He was transitioned to Zosyn, he then developed dermatitis and subsequently transitioned to meropenem Patient had lumbar puncture performed by anesthesia on 03/01/23 which can back normal. He underwent left sided thoracentesis on 03/02/23. Imaging: Carotid Doppler-no evidence of hemodynamically significant stenosis Chest ultrasound: Small right and small to moderate left pleural effusions MRI brain: Motion limited exam some areas of restricted diffusion within the posterior medial left frontal/parietal cortex to suggest acute/subacute CVA, nonspecific white matter changes Echocardiogram with ejection fraction 25-30% with apical hypokinesis and basilar sparing may be consistent with Kaposi was cardiomyopathy versus wraparound LAD disease, severe pulmonary hypertension with RVSP 69 Patient seen and examined at bedside. He denies any chest pain. He is feeling very tired after his thoracentesis. He continues to have some shortness of breath. He is having some back pain. He is feeling achy and painful all over and is worried about getting his home oxycodone doses as he realizes that he withdraws anytime this is stopped. I explianed to him that we restarted him at approximately half his dose yesterday. Case discussed with nursing at bedside. Continues to have poor oral intake but he is drinking his ensure, only at [facility] yesterday. Vital signs reviewed General: nontoxic, no distress, appears at stated age Cardiovascular: S1S2 reg, no murmur, positive posterior tibial pulse bilateral, Lungs: Coarse breath sounds bilateral, no conversational dyspnea, no rhonchi, no rales , no accessory muscle use Abdominal: soft, nontender to palpation, no guarding, no appreciable organomegaly Ext: no gross muscle atrophy, no edema b/l lower extremities, no contractures Neuro: CN II-XI grossly intact, no focal neuro deficits Psych: Alert, oriented 3, appropriate affect Assessment/Plan: Acute hypoxic respiratory failure Sepsis secondary to Bacterial pneumonia, bilateral pleural effusions s/p Left sided thora on 03/02/23 COPD exacerbation - Left sided thoracentesisi on 03/02 with removal of 1200 cc of fluid. -Meropenem 500 mg IV every 8 hours D # 2 -Pulmonary hygiene - pulmonary note reviewed: I agree with discontinuation of acyclovir if neurology and ID are agreeable, - await further infectious disease recommendations Opiate and benzodiazepine withdrawal -Patient restarted on his chronic Oxy at home he was taking 30 milligrams 4 times daily. Restarted on 15 mg 3 times daily -patient was taking Xanax 1 mg 4 times daily at home. He was restarted on Xanax 0.5 mg 4 times daily as needed. 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 Segura. It does appear that the patient had a small ac [place] to subacute stroke. We'll start on aspirin 325 mg daily, Lipitor 40 mg daily. CSF without signs of infection and if infectious diseases in agreement can discontinue acyclovir. - Discontinue Acyclovir if ID is in agreement - ASA 325 mg daily, Lipitor 40 mg daily Cardiomyopathy with ejection fraction 25-30% -Await formal cardiology consultation dictation -Continue metoprolol 50 mg daily and Losartan 25 mg daily -Follow blood pressures Dermatitis bilateral feet, sparing the soles -Possible related to ALLERGIC reaction -Per pulmonary antibiotic was changed from Zosyn to meropenem on 03/01 -Continue to monitor closely -Patient without any itching. If something develops would use hydrocortisone cream Severe protein calorie malnutrition - continue with ensure - add Remeron 7.5 mg at night to help with insomnia and appetite stimulation. Resolved/chronic: Chronic pain syndrome Acute blood loss anemia, hemoglobin stable Upper GI bleed ruled out Traumatic brain injury History of alcoholism Marijuana use Hypertension Bruno Mckinley syndrome due to visual losses Imaging: CXR revieed with resolution of left pleural effusion, but conitnuation of right pleural effusion Data Review: T-max in the last 24 hours 98, vitals reviewed from this morning reviewed and remarkable for pulse 107, respirations 31, O2 sat 94% on 10 L high flow Labs reviewed and remarkable for hemoglobin 11.8, glucose 107, calcium 7.5 DVT prophylaxis: Heparin SC Anticipated discharge date: Pending Clinical Course Anticipated discharge place: Pending Clinical Course This dictation was prepared using [employer] voice recognition software. Though every attempt is made to correct errors during dictation some may still exist. Objective - Vital Signs Vital signs: Vital Signs Temp 97.6 F 03/02/23 08:00 Pulse 98 03/02/23 12:00 Resp 14 03/02/23 12:00 BP 116/66 03/02/23 12:00 Pulse Ox 91 L 03/02/23 12:00 FiO2 12 03/01/23 04:00 Intake & Output 03/01/23 03/02/23 03/02/23 18:59 06:59 18:59 Intake Total 811.6 653.3 73.3 Output Total 100 098 5267 Balance 386.6 -246.7 -1326.7 Weight 68.7 kg 69.1 kg Intake: IV 745 180 40 Acyclovir Sodium 1,000 mg 250 In Sodium Chloride 0.9% 250 ml @ 270 mls/hr IVPB Q8H [facility] Rx#:[id number] Sodium Chloride 0.9% 1, 495 180 40 000 ml @ 75 mls/hr IV . [id number] [facility] Rx#:[id number] Intake, IV Titration 66.6 233.3 33.3 Amount Acyclovir Sodium 1,000 mg 200 In Sodium Chloride 0.9% 250 ml @ 270 mls/hr IVPB Q8H [facility] Rx#:[id number] Meropenem 500 mg In 66.6 33.3 33.3 Sodium Chloride 0.9% 100 ml @ 33.3 mls/hr IVPB Q8HR [facility] Rx#:[id number] Oral 240 Output: Urine 425 900 200 Other 1200 Other: Voiding Method Indwelling Catheter Urinal # Voids 1 - Labs CBC & Chem 7: 03/02/23 04:04 03/02/23 04:04 Labs: Abnormal Lab Results - Last 24 Hours (Table) 03/01/23 03/01/23 03/01/23 Range/Units 08:58 08:58 23:35 RBC (4.30-5.90) m/uL Hgb (13.0-17.5) gm/dL Hct (39.0-53.0) % MCHC (31.0-37.0) g/dL Chloride (98-107) mmol/L Creatinine (0.66-1.25) mg/dL Glucose (74-99) mg/dL POC Glucose (mg/dL) 121 H (70-110) mg/dL Calcium (8.4-10.2) mg/dL Troponin I 0.119 H* (0.000-0.034) ng/mL HDL Cholesterol 25.10 L (40.00-60.00) mg/dL 03/02/23 03/02/23 03/02/23 Range/Units 01:06 04:04 04:04 RBC 4.00 L (4.30-5.90) m/uL Hgb 11.8 L (13.0-17.5) gm/dL Hct 38.3 L (39.0-53.0) % MCHC 30.9 L (31.0-37.0) g/dL Chloride 109 H (98-107) mmol/L Creatinine 0.58 L (0.66-1.25) mg/dL Glucose 107 H (74-99) mg/dL POC Glucose (mg/dL) 172 H (70-110) mg/dL Calcium 7.5 L (8.4-10.2) mg/dL Troponin I (0.000-0.034) ng/mL HDL Cholesterol (40.00-60.00) mg/dL 03/02/23 Range/Units 11:34 RBC (4.30-5.90) m/uL Hgb (13.0-17.5) gm/dL Hct (39.0-53.0) % MCHC (31.0-37.0) g/dL Chloride (98-107) mmol/L Creatinine (0.66-1.25) mg/dL Glucose (74-99) mg/dL POC Glucose (mg/dL) 115 H (70-110) mg/dL Calcium (8.4-10.2) mg/dL Troponin I (0.000-0.034) ng/mL HDL Cholesterol (40.00-60.00) mg/dL Microbiology - Last 24 Hours (Table) 02/28/23 13:40 Gram Stain - Preliminary Sputum 02/25/23 14:30 Blood Culture - Preliminary Blood
[2023-03-02] MEDS: ACETAMINOPHEN TAB 325 MG TAB PO PRN ×2 (15:49→20:18)
[2023-03-02] MEDS: ALPRAZolam 0.5 MG TAB PO SCH ×2 (17:15→20:32)
[2023-03-02] MEDS: NITROGLYCERIN OINT 1 INCH/GM PACKET TOPICAL SCH (17:40)
[2023-03-02 18:03] LABS: Glucose,Whole Blood 131 mg/dL (70-110)
[2023-03-02 20:19] LABS: Glucose,Whole Blood 137 mg/dL (70-110)
--- NOTE | 2023-03-02 21:39 | PN ---
PROGRESS NOTE SUBJECTIVE: Kristofer is a 67-year-old gentleman who was admitted to hospital with a confusional state, thought to be secondary to meningitis, but now it appears as if he is going through oxy withdrawal. We have been consulted because of cardiomyopathy suggestive of takotsubo syndrome. He was hypertensive and tachycardic. I added both the beta-marco a and GABY inhibitor with improvement in both. OBJECTIVE: VITAL SIGNS: On exam today, heart rate is 95 beats per minute, blood pressure is 110/62, respiratory rate is 18. CHEST: Reveals good air entry bilaterally. HEART: Reveals first and second heart sounds. No gallop. No murmur. ABDOMEN: Soft. EXTREMITIES: Exam of extremities did not reveal any edema. Peripheral pulses are felt. LABORATORY DATA: Labs show a hemoglobin of 11.8, platelet count is 174. Potassium is 3.6, creatinine is 0.58. 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 PLAN: He will continue current medications. Hopefully home over the next 48 hours. MMODL / IJN: [id number] /
[2023-03-03] MEDS: MIRTAZAPINE 15 MG TAB PO SCH ×2 (01:19→21:42)
[2023-03-03] MEDS: NITROGLYCERIN OINT 1 INCH/GM PACKET TOPICAL SCH ×3 (01:19→16:30)
[2023-03-03] MEDS: MEROPENEM 500 MG in SODIUM CHLORIDE 0.9% 100 ML IVPB SCH ×3 (01:19→16:00)
[2023-03-03 04:58] LABS: Potassium 3.8 mmol/L (3.5-5.1)
[2023-03-03 05:00] LABS: African American GFR (CKD) >90 (>60 ml/min/1.73 sqM); Anion Gap 1 mmol/L; Blood Urea Nitrogen 14 mg/dL (9-20); Calcium 7.6 mg/dL (8.4-10.2); Carbon Dioxide 32 mmol/L (22-30); Chloride 106 mmol/L (98-107); Glucose 95 mg/dL (74-99); Non-African American GFR(CKD) >90 (>60 ml/min/1.73 sqM); Sodium 139 mmol/L (137-145)
[2023-03-03 05:03] LABS: HCT 39.6 % (39.0-53.0); HGB 12.2 gm/dL (13.0-17.5); Hypochromasia Marked; MCHC 30.8 g/dL (31.0-37.0); MCV 97.3 fL (80.0-100.0); Platelet Count 166 k/uL (150-450); RBC 4.07 m/uL (4.30-5.90); RDW 13.8 % (11.5-15.5); WBC 6.8 k/uL (3.8-10.6)
[2023-03-03 05:44] LABS: Band Neutrophils % 3 %; Eosinophils # (M) 0.07 k/uL (0-0.7); Lymphocytes # (M) 1.43 k/uL (1.0-4.8); Monocytes # (M) 0.54 k/uL (0-1.0); Neutrophils % (M) 67 %; Nucleated Red Blood Cells 0 /100 WBC (0-0); Total Cells Counted 100
[2023-03-03 06:37] LABS: Cholesterol,BF Source Thoracentesis F; Cholesterol,Body Fluid 8 mg/dL; Glucose, BF Source Thoracentesis F; Glucose, Body Fluid 110 mg/dL; LDH, Body Fluid Source Thoracentesis F; T. Protein, Body Fluid Source Thoracentesis F; Total Protein, Body Fluid 831 mg/dL
[2023-03-03] MEDS: ACYCLOVIR SODIUM 1,000 MG in SODIUM CHLORIDE 0.9% 250 ML IVPB SCH (06:41)
[2023-03-03 06:50] LABS: Glucose,Whole Blood 83 mg/dL (70-110)
[2023-03-03] MEDS ORDERED: POTASSIUM CHLORIDE ER 20 MEQ TAB.ER PO SCH (07:00)
--- NOTE | 2023-03-03 08:05 | XR ---
EXAMINATION TYPE: XR chest 1V portable DATE OF EXAM: 03/03/2023 6:26 AM COMPARISON: Chest radiographs from 03/02/2023 TECHNIQUE: XR chest 1V portable Portable AP radiograph of the chest. CLINICAL INDICATION:Male, 67 years old with history of pleural effusions; FINDINGS: Patient is rotated which limits evaluation. Lungs/Pleura: Small left pleural effusion with left basilar patchy airspace opacities. Increased opac ification of the right lung likely related to increased moderate size pleural effusion with associate d atelectasis. No pneumothorax. Pulmonary vascularity: Mild pulmonary vascular congestion. Heart/mediastinum: Cardiomediastinal silhouette is partially obscured due to overlying and adjacent o pacities. Mediastinal shift to the right. Musculoskeletal: No acute osseous pathology. IMPRESSION: Mild pulmonary vascular congestion with similar small left pleural effusion and increased opacificati on of the right lung likely related to combination of moderate pleural effusion and atelectasis. This could relate to reexpansion pulmonary edema from recent thoracentesis.
[2023-03-03] MEDS: IPRATROPIUM-ALBUTEROL 3 ML NEB INHALATION SCH ×4 (08:13→20:52)
[2023-03-03 08:16] LABS: Appearance,BF Clear (Clear)
[2023-03-03] MEDS ORDERED: ASPIRIN 325 MG TAB PO SCH (09:00)
[2023-03-03] MEDS ORDERED: RX INFO: IV CONTRAST WAS GIVEN 1 EACH MISC MISCELLANE PRN (09:03)
--- NOTE | 2023-03-03 09:09 | P.PN ---
Subjective Progress Note Date: 03/03/23 This is a 67-year-old male patient with a history of previous traumatic brain injury, chronic pain for which he takes oxycodone, gabapentin and Ativan, anxiety, chronic and ongoing tobacco dependence, chronic obstructive pulmonary disease, hypertension. He was transferred here from [facility] after being found to have confusion, altered mental status and possibly a seizure at home by his . CT angiogram of the chest ruled out pulmonary embolism. Computed tomography scan of the head showed no acute intracranial process. Chest x-ray reveals no evidence of pneumothorax. The left lung is clear. There is an unchanged right lateral lower lobe density possibly a loculated pleural effusion. White count 23.9. Hemoglobin 14.1. Platelets 148. Sodium 144. Potassium 3.8. Bicarb 27. BUN 33. Creatinine 0.77. Ammonia level XXI. Arterial blood gases on 100% FiO2 revealed a pO2 of 123, pCO2 40, pH 7.41. He is seen today in consultation in the intensive care unit. Currently he is awake and alert. Following commands. Slightly tachycardic. Tachypneic. Afebrile. He is on BiPAP 14/890% FiO2. He was initiated on Keppra, vancomycin, acyclovir, Levaquin. Lumbar puncture pending. He has normal saline at 75 ML's per hour. The patient is seen today 02/27/2023 in follow-up in the intensive care unit. He is currently sitting up in bed. Bit more awake and alert today. He is on 2 L high flow nasal cannula. He did wear her BiPAP last night 14/8 and 60% FiO2 to approximate 8 AM this morning. He has normal saline at 75 ML's per hour. His pro calcitonin went from 0.09 up to 0.29. ID is on the case and resumed vancomycin, Azactam and continued on acyclovir. White count 14.2. Hemoglobin 11.6. Platelets 104. Sodium 137. Potassium 3.8. Bicarb 20. BUN 28. Creatin ine 0.67. Glucose 87. Stool for occult blood is positive. Blood culture pending. Lumbar puncture pending. He remains on DuoNeb inhalations, Symbicort, heparin for DVT prophylaxis. On today's evaluation of 02/28/2023, the patient is awake and alert and communicating. He is alert and oriented 3. Is responding appropriately to commands and answering questions appropriately. Is aware that he is in [place] and is also aware of the time and date. He is moving all 4 extremities. Denies having any headache. No neck stiffness. Is weak and is having some occasional tremors. The neuro workup is still in progress. Obviously, seizure was a concern and the patient was started on Keppra. EEG was done and the final report is not available yet. CT of the brain was also completed in addition to the CAT scan of the cervical spine and there is no evidence of any cervical spine fracture on the CAT scan of the head showed chronic atrophic changes with chronic small vessel ischemic changes. The patient was suspected to have a component of encephalitis/meningitis initiated time of admission and the patient was covered with a combination of acyclovir, vancomycin and is active and. He h as hypoxic, he is currently on 6 L to maintain a saturation above 90%. The chest x-ray that was done today showed an extensive right lower lobe and possibly right middle lobe consolidation along with possibly some underlying effusion. Left lung is clear. He has history of alcoholism, denies drinking this point in time. He has previous history of traumatic brain injury, he has chronic pain and limited on a combination of oxycodone and gabapentin and he also takes Ativan for chronic anxiety. Is a chronic smoker and is known to have COPD. His blood work from today shows a WBC count of 10.5 with a hemoglobin 12.7 and a platelet count of 136. BUN is at 22 with a creatinine of 0.6 and the sodium levels of 138, his pro calcitonin level was at 0.29 and his ammonia level was negative. 03/01/2023, seeing the patient for a follow-up. The patient is awake and alert and communicating. Lumbar punctures to be done today. EEG from yesterday showed encephalopathy, moderate, no evidence of any seizure activity and the patient remains on Keppra. A lumbar puncture will be done by anesthesia today. Otherwise, the patient denies having any headache or neck stiffness. The patient remains on a combination of IV acyclovir, vancomycin and he was also started on Zosyn yesterday due to bilateral pneumonia worse in the right. The patient is still coughing and has a congested cough, unable to bring up much of sputum at this point in time. The chest x-ray from today is essentially unchang ed. There is similar bibasilar patchy airspace disease with a small effusion on the left. Possibility of a right-sided pleural effusion cannot be completely ruled out. I'm going to go ahead an ultrasound the right chest to evaluate for any signs of any effusion. In terms of oxygenation, the patient was brought up as high as 15 L and currently is down to 12 L of oxygen by nasal cannula. Is less tachycardic compared to yesterday. He remains in mild degree of sinus tachycardia. He was able to swallow. Neurology is on the case. Lumbar puncture still pending for now. On today's blood work, the white cell count is 10.4 with a hemoglobin 12.4 and a platelet count of 189. The BUN is 18 with a creatinine of 0.7 and a sodium level is at 141. Potassium levels at 3.8. On 03/02/2023, seeing the patient for a follow-up. The patient is currently on 8 L of oxygen by nasal cannula. His being treated for bilateral pneumonia. The patient continues to have dense consolidation of the lower lobes worse on the right and there is also evidence of bilateral pleural effusion. Based on the ultrasound that was performed yesterday. The patient has a 6.8 cm pocket on the left and a 2.4 cm pocket on the right. A left-sided thoracentesis to be done today. Meanwhile, lumbar puncture was done yesterday and the CSF seems to be clear. There is only 1 nucleated cell and 1 RBC and the glucose is normal at 53. 14 has not been checked and needs to be sent in addition to HSV by PCR. The patient is awake and alert and communicating. He remains weak. Is a congested cough. He developed a rash while being on Zosyn and I switched him to IV meropenem. No significant rashes appreciated on today's evaluation. BUN is at 60 with a creatinine of 0.5 and a sodium levels of 139. White cell count is at 7.3 with a hemoglobin of 11.8. Note that the patient also developed some diaphoresis and tachycardia and hypertension yesterday. We thought that this was related to narcotic withdrawal as the patient takes oxycodone on an outpatient basis 4 times a day. This was addressed by the medical team and the patient was started on oxycodone 15 mg every 8 hours for chronic pain. This morning, he seems to much more comfortable. The patient remains on IV acyclovir. The patient is currently on IV meropenem. 03/03/2023, the patient is still in the intensive care unit. We'll continue to have issues with the patient's oxygenation. The patient currently is on 15 L of oxygen by nasal cannula. Note that yesterday, he was on 8 L. I brain his left lung and a total of 1.2 L of pleural fluid was aspirated without any complication. The aeration of the left lung improved. The fluid is a tra nsudate based on protein and LDH criteria. Nevertheless, on today's evaluation, there is progression in his right lung in terms of consolidation and volume loss. The opacification of the right lung has increased and there may be an underlying effusion/atelectasis/consolidation. As such, a CAT scan of the chest will be needed prior to making any further decision. He states that his right lung is also aching and hurting. He is antibiotic coverage is with IV meropenem. His echoes at 6.8 with a hemoglobin 12.2. BUN is at 40 with a creatinine of 0.7 and a sodium level is at 139. Neurologically, he is awake and alert. CSF cultures came back negative. The CSF protein was also low at 25. As such, there is no indication for encephalitis and I'm going to discontinue the IV acyclovir on this patient. For now, the active issue remains chest congestion, probably mucus plugging, pneumonia, volume loss in the right lung and possibly a right-sided pleural effusion. He is drinking. He is communicating. No focal neurological deficits. Objective - Vital Signs Vital signs: Vital Signs Temp 98.1 F 03/03/23 04:00 Pulse 100 03/03/23 08:29 Resp 23 03/03/23 08:00 BP 126/66 03/03/23 08:00 Pulse Ox 92 L 03/03/23 08:00 FiO2 12 03/01/23 04:00 Intake & Output 03/02/23 03/03/23 03/03/23 18:59 06:59 18:59 Intake Total 553.2 370 10 Output Total 1400 400 0 Balance -846.8 -30 10 Weight 70.4 kg Intake: IV 320 370 10 0.9NS 30 120 10 Acyclovir Sodium 1,000 mg 250 250 In Sodium Chloride 0.9% 250 ml @ 270 mls/hr IVPB Q8H [facility] Rx#:[id number] Sodium Chloride 0.9% 1, 40 000 ml @ 75 mls/hr IV . [id number] [facility] Rx#:[id number] Intake, IV Titration 233.2 Amount Magnesium Sulfate-D5w Pmx 100 1 gm In Dextrose/Water 1 100ml.bag @ 100 mls/hr IVPB ONCE ONE Rx#: [id number] Meropenem 500 mg In 133.2 Sodium Chloride 0.9% 100 ml @ 33.3 mls/hr IVPB Q8HR [facility] Rx#:[id number] Output: Urine 200 400 0 Other 1200 Other: Voiding Method Urinal Urinal # Voids 1 1 - Exam GENERAL EXAM: Alert, 67-year-old male, on 15 liters high flow nasal cannula HEAD: Normocephalic. EYES: Normal reaction of pupils, equal size. NOSE: Clear with pink turbinates. THROAT: No erythema or exudates. NECK: No masses, no JVD. CHEST: No chest wall deformity. LUNGS: Equal air entry with no crackles, wheeze, rhonchi or dullness. There is diminished breath on the right lung base along with egophony consistent with an underlying pneumonia. CVS: S1 and S2 normal with no audible murmur, regular rhythm. ABDOMEN: No hepatosplenomegaly, normal bowel sounds, no guarding or rigidity. SPINE: No scoliosis or deformity SKIN: No rashes CENTRAL NERVOUS SYSTEM: No focal deficits, tone is normal in all 4 extremities. The patient is awake and alert and communicating at this point in time. He is weak and has generalized motor weakness in all 4 extremities. The reflexes are symmetrical however. No hyperreflexia. No clonus. No Babinski. No neck stiffness. EXTREMITIES: There is no peripheral edema. No clubbing, no cyanosis. Peripheral pulses are intact. - Labs CBC & Chem 7: 03/03/23 04:12 03/03/23 04:04 Labs: Abnormal Lab Results - Last 24 Hours (Table) 03/02/23 03/02/23 03/02/23 Range/Units 11:34 17:48 18:01 RBC (4.30-5.90) m/uL Hgb (13.0-17.5) gm/dL MCHC (31.0-37.0) g/dL Carbon Dioxide (22-30) mmol/L POC Glucose (mg/dL) 115 H 131 H (70-110) mg/dL Calcium (8.4-10.2) mg/dL Troponin I 0.071 H* (0.000-0.034) ng/mL 03/02/23 03/03/23 03/03/23 Range/Units 20:16 04:04 04:12 RBC 4.07 L (4.30-5.90) m/uL Hgb 12.2 L (13.0-17.5) gm/dL MCHC 30.8 L (31.0-37.0) g/dL Carbon Dioxide 32 H (22-30) mmol/L POC Glucose (mg/dL) 137 H (70-110) mg/dL Calcium 7.6 L (8.4-10.2) mg/dL Troponin I (0.000-0.034) ng/mL Microbiology - Last 24 Hours (Table) 02/25/23 14:45 Blood Culture - Final Blood Assessment and Plan Plan: Altered mental status of unclear etiology. The mental status is back to baseline. Lumbar puncture was negative. This could have been a metabolic encephalopathy. Seizures cannot be completely ruled out. The patient remains on Keppra. Neurology is on the case. IV acyclovir will be discontinued. No evidence of any meningitis. Neurologically intact and communicating without any focal neurological deficit. Urine drug screen positive for benzodiazepines and marijuana. History of chronic pain syndrome and the patient takes oxycodone, gabapentin and Xanax Acute hypoxemic respiratory failure suspect secondary to mental status changes and exacerbation of COPD, and some interstitial fibrosis in addition to an extensive right lung pneumonia, possibly of an aspiration times pressure was underlying mental status and suspicion for aspiration. The patient has also developed bilateral pleural effusion larger on the left. The patient remains on IV meropenem. The patient underwent a left-sided thoracentesis with removal of 1.2 L signs of 8 fluids. The right lung is obviously worse with volume loss, possible mucus plugging, possible consolidation and effusion. Bilateral lower lobe pneumonia worse on the right, the patient better pleural effusion currently on IV meropenem Left-sided pleural effusion, status post thoracentesis and drainage of 1.2 L of fluid, trazodone 8. 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 Final decision will be made following the CAT scan review. Aspiration precautions Allow oral intake Continue IV IV meropenem Continue IV Keppra Continue DuoNeb nebs on the clock DVT and GI prophylaxis We'll continue to follow
--- NOTE | 2023-03-03 09:27 | P.PN ---
Subjective Progress Note Date: 03/02/23 Principal diagnosis: Possible encephalitis Patient is a 67-year male with a past medical history significant for chronic pain syndrome history of traumatic brain injury and hypertension patient was noticed to be confused the morning of presentation to the hospital patient also have increasing respiratory distress requiring BiPAP and admission to the ICU. On today's evaluation that is 03/02/2023, the patient remains to be afebrile, the patient is breathing comfortably today and is down to 6 L high flow nasal cannula oxygen patient denies any chest pain he did have a cough with occasional sputum no vomiting or diarrhea has been reported by the nursing staff The patient white count is 7.3, creatinine 0. 58, blood cultures currently pending, patient did have LP, CSF results reported to be normal sputum cultures pending Objective - Vital Signs Vital signs: Vital Signs Temp 97.6 F 03/02/23 08:00 Pulse 95 03/02/23 11:00 Resp 27 H 03/02/23 11:00 BP 106/57 03/02/23 11:00 Pulse Ox 97 03/02/23 11:00 FiO2 12 03/01/23 04:00 Intake & Output 03/01/23 03/02/23 03/02/23 18:59 06:59 18:59 Intake Total 811.6 653.3 73.3 Output Total 700 035 3251 Balance 386.6 -246.7 -1326.7 Weight 68.7 kg 69.1 kg Intake: IV 745 180 40 Acyclovir Sodium 1,000 mg 250 In Sodium Chloride 0.9% 250 ml @ 270 mls/hr IVPB Q8H [facility] Rx#:[id number] Sodium Chloride 0.9% 1, 495 180 40 000 ml @ 75 mls/hr IV . [id number] [facility] Rx#:[id number] Intake, IV Titration 66.6 233.3 33.3 Amount Acyclovir Sodium 1,000 mg 200 In Sodium Chloride 0.9% 250 ml @ 270 mls/hr IVPB Q8H [facility] Rx#:[id number] Meropenem 500 mg In 66.6 33.3 33.3 Sodium Chloride 0.9% 100 ml @ 33.3 mls/hr IVPB Q8HR [facility] Rx#:[id number] Oral 240 Output: Urine 425 900 200 Other 1200 Other: Voiding Method Indwelling Catheter Urinal # Voids 1 - Exam GENERAL DESCRIPTION: An elderly male lying in bed in no distress RESPIRATORY SYSTEM: Unlabored breathing , decreased breath sounds at bases HEART: S1 S2 regular rate and rhythm , ABDOMEN: Soft , no tenderness EXTREMITIES: No edema feet - Labs CBC & Chem 7: 03/03/23 04:12 03/03/23 04:04 Labs: Abnormal Lab Results - Last 24 Hours (Table) 03/01/23 03/01/23 03/01/23 Range/Units 08:58 08:58 23:35 RBC (4.30-5.90) m/uL Hgb (13.0-17.5) gm/dL Hct (39.0-53.0) % MCHC (31.0-37.0) g/dL Chloride (98-107) mmol/L Creatinine (0.66-1.25) mg/dL Glucose (74-99) mg/dL POC Glucose (mg/dL) 121 H (70-110) mg/dL Calcium (8.4-10.2) mg/dL Troponin I 0.119 H* (0.000-0.034) ng/mL HDL Cholesterol 25.10 L (40.00-60.00) mg/dL 03/02/23 03/02/23 03/02/23 Range/Units 01:06 04:04 04:04 RBC 4.00 L (4.30-5.90) m/uL Hgb 11.8 L (13.0-17.5) gm/dL Hct 38.3 L (39.0-53.0) % MCHC 30.9 L (31.0-37.0) g/dL Chloride 109 H (98-107) mmol/L Creatinine 0.58 L (0.66-1.25) mg/dL Glucose 107 H (74-99) mg/dL POC Glucose (mg/dL) 172 H (70-110) mg/dL Calcium 7.5 L (8.4-10.2) mg/dL Troponin I (0.000-0.034) ng/mL HDL Cholesterol (40.00-60.00) mg/dL 03/02/23 Range/Units 11:34 RBC (4.30-5.90) m/uL Hgb (13.0-17.5) gm/dL Hct (39.0-53.0) % MCHC (31.0-37.0) g/dL Chloride (98-107) mmol/L Creatinine (0.66-1.25) mg/dL Glucose (74-99) mg/dL POC Glucose (mg/dL) 115 H (70-110) mg/dL Calcium (8.4-10.2) mg/dL Troponin I (0.000-0.034) ng/mL HDL Cholesterol (40.00-60.00) mg/dL Microbiology - Last 24 Hours (Table) 02/28/23 13:40 Gram Stain - Preliminary Sputum 02/25/23 14:30 Blood Culture - Preliminary Blood Assessment and Plan (1) Encephalopathy Current Visit: Yes Status: Acute Code(s): G93.40 - ENCEPHALOPATHY, UNSPECIFIED SNOMED Code(s): 92179934 (2) SIRS (systemic inflammatory response syndrome) Current Visit: Yes Status: Acute Code(s): R65.10 - SIRS OF NON-INFECTIOUS ORIGIN W/O ACUTE ORGAN DYSFUNCTION SNOMED Code(s): 055570326 Plan: 1patient present to hospital with sepsis in this patient who did have a fever elevated white count tachycardia concerning for possible [employer] infection possibility of encephalitis or meningitis as patient currently do not have any other obvious focus of infection CT angiogram of the chest did not show any consolidation abdominal soft on Examination no evidence of any cellulitis 2-patient did have cephalexin allergy that will limit the number of antibiotics safe to use 3-patient did have LP/CSF did have normal protein and glucose and white count , hence we'll discontinue acyclovir were discussed with the neurology 4Patient antibiotic has been switched over to meropenem by medicine will wait for sputum to be finalize Dictation was produced using [employer] dictation software. please excuse any grammatical, word or spelling errors. Time with Patient: Less than 30
[2023-03-03] MEDS: levETIRAcetam IV 500 MG/5 ML VIAL IVP SCH (10:10)
[2023-03-03] MEDS: PANTOPRAZOLE 40 MG/10 ML VIAL IVP SCH ×2 (10:11→21:42)
[2023-03-03] MEDS: THIAMINE 100 MG TAB PO SCH (10:11)
[2023-03-03] MEDS: NICOTINE 21MG/24HR PATCH TRANSDERM SCH (10:11)
[2023-03-03] MEDS: ATORVASTATIN 40 MG TAB PO SCH (10:12)
[2023-03-03] MEDS: ALPRAZolam 0.5 MG TAB PO SCH ×4 (10:12→21:42)
[2023-03-03] MEDS: TAMSULOSIN 0.4 MG CAP.ER.24H PO SCH (10:12)
[2023-03-03] MEDS: METOPROLOL SUCCINATE (ER) 50 MG TAB.ER.24H PO SCH (10:17)
--- NOTE | 2023-03-03 10:46 | PN ---
PROGRESS NOTE SUBJECTIVE: Kristofer is a 67-year-old gentleman, who is admitted to hospital with confusion and was found to have cardiomyopathy with severe LV dysfunction. He is currently on aspirin, Lipitor, Cozaar, Toprol, and nitroglycerin paste. He has had episodes of chest discomfort. His troponins have mildly elevated, but there has not been any significant increase since his admission. When he first came in, it was at 0.8, then it was 0.1 and 0.07. His EKG shows diffuse T-wave inversions. The patient needs evaluation for underlying ischemic heart disease when he is more stable mentally and his respiratory status. He developed worsening respiratory status and was found to have pleural effusion and underwent thoracentesis, where they took out about 1200 mL of fluid. At the time of my evaluation, he is free of chest pain. He is on 15 L of high-flow nasal cannula. OBJECTIVE: VITAL SIGNS: Heart rate is 100 beats per minute, blood pressure is 126/60, respiratory rate is 20. NECK: There is no jugular venous distention. Carotid upstroke is diminished. There is no bruit. CHEST: Reveals diminished air entry at the right base. HEART: Reveals first and second heart sounds. No gallop. No murmur. ABDOMEN: Soft. EXTREMITIES: Did not reveal any edema. Peripheral pulses were felt. LABORATORY DATA: Show a potassium of 3.8, creatinine is 0.7. Hemoglobin is 12.2, platelet count of 166. ASSESSMENT: 1. Cardiomyopathy with severe left ventricular systolic dysfunction, probably related to takotsubo syndrome. 2. Confusional state. 3. Respiratory insufficiency. PLAN: I will continue with aggressive medical therapy and when his clinical status improves, I will perform cardiac catheterization on him. MMODL / IJN: [id number] /
--- NOTE | 2023-03-03 11:20 | CT ---
EXAMINATION TYPE: CT chest w con CT DLP: 382 mGycm, Automated exposure control for dose reduction was used. DATE OF EXAM: 03/03/2023 11:00 AM COMPARISON: Chest radiograph 03/03/2023 CLINICAL INDICATION:Male, 67 years old with history of pneumonia; TECHNIQUE: Multiple axial images were obtained through the chest. Sagittal and coronal reformats were created for review. Contrast used:100ml mL of Isovue 300 with IV Contrast (None if empty) Oral contrast used: (None if empty) FINDINGS: LUNGS/ PLEURA: There is consolidation changes in the right upper lung. Trace bilateral pleural effusi ons with associated atelectasis. Large right chest wall lipoma measuring 7.0 x 6.2 x 6.9 cm. There is mild evidence emphysema changes within the left lung. AIRWAY: Multiple opacified airways are seen in the lower lungs including the right lower lobe bronchu s intermedius. In left lower lung. HEART: Tubbs mildly enlarged for size. Mild coronary artery calcifications. MEDIASTINUM: No gross evidence of adenopathy. VASCULATURE: No aortic aneurysm. MUSCULOSKELETAL: There is a mottled appearance of the cortex within the left upper extremity. SOFT TISSUES/LYMPH NODES: Unremarkable. LOWER NECK: No significant findings. UPPER ABDOMEN: No significant findings. IMPRESSION: 1. Consolidation changes within the right upper lung with trace bilateral pleural effusions. Correla te for infection. Findings are new from 02/25/2023 2. Opacified bilateral lower lung large airways correlate for aspiration/retained secretions. 3. Right intrathoracic lipoma appears to be coming from the right chest wall measuring up to 7.0 cm. 4. Left upper extremity/humerus cortical erosive changes partially visualized. Further evaluation wi dedicated left upper extremity radiographs recommended.
[2023-03-03] MEDS ORDERED: METOPROLOL SUCCINATE (ER) 25 MG TAB.ER.24H PO STA (11:44)
[2023-03-03] MEDS ORDERED: FUROSEMIDE 10 MG/ML 2 ML VIAL IV ONE (11:44)
[2023-03-03 11:47] LABS: Glucose,Whole Blood 105 mg/dL (70-110)
--- NOTE | 2023-03-03 13:23 | P.PN ---
Subjective Progress Note Date: 03/03/23 Patient is a 67-year-old male patient with traumatic brain injury, chronic pain (on Oxy and Xanax), chronic obstructive pulmonary disease, and hypertension who presetned as a transfer from [facility] for altered mentation and possible seizure like activity. Ct head without acute intracranila process, CTA chest without pulmonary embolism on arrival laboratory analysis is normal for white blood cell, 13.3, PaO2 of 56, calcium 8.1, bilirubin 1.5, CK 432, troponin 0.813, CRP 4.4, pro calcitonin 0.09, urine drug screen was positive for benzodiazepines and marijuana. He was started on empiric treatment for possible pneumonia. Case was discussed neurology and he was also started on empiric treatment for possible meningitis. He required BiPAP and pulmonary was consulted. He was admitted to the ICU. Infectious disease was consulted. Initial antimicrobial regimen consists of Vanco, Azactam, and acyclovir. She had improvement in mentation by 02/28. With some concerns of seizure by neurology and continued on Keppra. EEG and prolonged EEG did not show any signs of seizure activity. He developed worsening bilateral polar effusions. Underwent echocardiogram which confirmed ejection fraction of 25-30% with possible coccus to lose. Cardiology was consulted. He was started on beta marco a and ARB. He was transitioned to Zosyn, he then developed dermatitis and subsequently transitioned to meropenem Patient had lumbar puncture performed by anesthesia on 03/01/23 which can back normal. He underwent left sided thoracentesis on 03/02/23. Exudative based on elevated protein. Imaging: Carotid Doppler-no evidence of hemodynamically significant stenosis Chest ultrasound: Small right and small to moderate left pleural effusions MRI brain: Motion limited exam some areas of restricted diffusion within the posterior medial left frontal/parietal cortex to suggest acute/subacute CVA, nonspecific white matter changes Echocardiogram with ejection fraction 25-30% with apical hypokinesis and basilar sparing may be consistent with Kaposi was cardiomyopathy versus wraparound LAD disease, severe pulmonary hypertension with RVSP [address] chest showed consolidation changes within the right upper lung with trace bilateral pleural effusion, opacified bilateral lower lung large airways, possible aspiration, right intrathoracic lipoma Patient seen and examined at bedside. He denies any chest pain. He continues to have some shortness of breath. He feels anxious. Has a sitter in place. Vital signs reviewed General: nontoxic, no distress, appears at stated age Cardiovascular: S1S2 reg, no murmur, positive posterior tibial pulse bilateral, Lungs: Coarse breath sounds bilateral, no conversational dyspnea, no rhonchi, no rales , no accessory muscle use, supplemental oxygen Abdominal: soft, nontender to palpation, no guarding, no appreciable organomegaly Ext: no gross muscle atrophy, no edema b/l lower extremities, no contractures Neuro: CN II-XI grossly intact, no focal neuro deficits Psych: Alert, oriented 3, appropriate affect Assessment/Plan: Acute hypoxic respiratory failure Sepsis secondary to Bacterial pneumonia, bilateral pleural effusions s/p Left sided thora on 03/02/23 COPD exacerbation - Left sided thoracentesisi on 03/02 with removal of 1200 cc of fluid. -Exudative fluid based on protein content -Meropenem 500 mg IV every 8 hours D # 3 -Pulmonary hygiene - pulmonary note reviewed: Acyclovir discontinued -Repeat chest CT completed, patient may need further thoracentesis -ID following Opiate and benzodiazepine withdrawal -Patient now on his chronic Oxy , started at 15 mg 3 times daily -patient was taking Xanax 1 mg 4 times daily at home. He was restarted on Xanax 0.5 mg 4 times daily as needed. Acute to subacute left side CVA Acute encephalopathy, resolved Possible encephalitis/meningitis--unlikely given negative LP Possible seizures, ruled out Possible drug withdrawal -Neurology following - ASA 325 mg daily, Lipitor 40 mg daily Cardiomyopathy with ejection fraction 25-30% -Cardiology note reviewed, patient to undergo cardiac cath -Metoprolol increased to 75 mg daily and Losartan 25 mg daily -Follow blood pressures Dermatitis bilateral feet, sparing the soles, resolving -Possible related to ALLERGIC reaction, antibiotics changed -Continue to monitor closely -Patient without any itching. 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 Imaging: CXR independently interpreted, shows resolution of left pleural effusion, but persistent right pleural effusion Data Review: WBC 6.8, hemoglobin 12.2, potassium 3.8, creatinine 0.79, magnesium 2, blood sugars range between 83-137 DVT prophylaxis: Heparin SC Anticipated discharge date: Pending Clinical Course Anticipated discharge place: Pending Clinical Course Objective - Vital Signs Vital signs: Vital Signs Temp 98.1 F 03/03/23 04:00 Pulse 100 03/03/23 12:52 Resp 23 03/03/23 08:00 BP 126/66 03/03/23 08:00 Pulse Ox 92 L 03/03/23 08:00 FiO2 12 03/01/23 04:00 Intake & Output 03/02/23 03/03/23 03/03/23 18:59 06:59 18:59 Intake Total 553.2 370 10 Output Total 1400 400 0 Balance -846.8 -30 10 Weight 70.4 kg Intake: IV 320 370 10 0.9NS 30 120 10 Acyclovir Sodium 1,000 mg 250 250 In Sodium Chloride 0.9% 250 ml @ 270 mls/hr IVPB Q8H [facility] Rx#:[id number] Sodium Chloride 0.9% 1, 40 000 ml @ 75 mls/hr IV . [id number] [facility] Rx#:[id number] Intake, IV Titration 233.2 Amount Magnesium Sulfate-D5w Pmx 100 1 gm In Dextrose/Water 1 100ml.bag @ 100 mls/hr IVPB ONCE ONE Rx#: [id number] Meropenem 500 mg In 133.2 Sodium Chloride 0.9% 100 ml @ 33.3 mls/hr IVPB Q8HR [facility] Rx#:[id number] Output: Urine 200 400 0 Other 1200 Other: Voiding Method Urinal Urinal # Voids 1 1 - Labs CBC & Chem 7: 03/03/23 04:12 03/03/23 04:04 Labs: Abnormal Lab Results - Last 24 Hours (Table) 03/02/23 03/02/23 03/02/23 Range/Units 17:48 18:01 20:16 RBC (4.30-5.90) m/uL Hgb (13.0-17.5) gm/dL MCHC (31.0-37.0) g/dL Carbon Dioxide (22-30) mmol/L POC Glucose (mg/dL) 131 H 137 H (70-110) mg/dL Calcium (8.4-10.2) mg/dL Troponin I 0.071 H* (0.000-0.034) ng/mL 03/03/23 03/03/23 Range/Units 04:04 04:12 RBC 4.07 L (4.30-5.90) m/uL Hgb 12.2 L (13.0-17.5) gm/dL MCHC 30.8 L (31.0-37.0) g/dL Carbon Dioxide 32 H (22-30) mmol/L POC Glucose (mg/dL) (70-110) mg/dL Calcium 7.6 L (8.4-10.2) mg/dL Troponin I (0.000-0.034) ng/mL Microbiology - Last 24 Hours (Table) 02/25/23 14:30 Blood Culture - Final Blood 02/28/23 13:40 Gram Stain - Final Sputum Sputum Culture - Final Joi albicans 02/25/23 14:45 Blood Culture - Final Blood
[2023-03-03] MEDS ORDERED: HEPARIN SODIUM,PORCINE/PF 5,000 UNIT/0.5 ML SYRINGE SQ SCH (16:00)
--- NOTE | 2023-03-03 16:24 | P.PN ---
Subjective Progress Note Date: 03/03/23 The patient is seen at bedside and he states she's doing much better. He denies of any headache, any difficulty getting his words out. The patient has drastically improved. The nursing staff as well as primary team. Objective - Vital Signs Vital signs: Vital Signs Temp 98.1 F 03/03/23 04:00 Pulse 98 03/03/23 15:28 Resp 23 03/03/23 08:00 BP 126/66 03/03/23 08:00 Pulse Ox 92 L 03/03/23 08:00 FiO2 12 03/01/23 04:00 Intake & Output 03/02/23 03/03/23 03/03/23 18:59 06:59 18:59 Intake Total 553.2 370 10 Output Total 1400 400 0 Balance -846.8 -30 10 Weight 70.4 kg Intake: IV 320 370 10 0.9NS 30 120 10 Acyclovir Sodium 1,000 mg 250 250 In Sodium Chloride 0.9% 250 ml @ 270 mls/hr IVPB Q8H [facility] Rx#:[id number] Sodium Chloride 0.9% 1, 40 000 ml @ 75 mls/hr IV . [id number] [facility] Rx#:[id number] Intake, IV Titration 233.2 Amount Magnesium Sulfate-D5w Pmx 100 1 gm In Dextrose/Water 1 100ml.bag @ 100 mls/hr IVPB ONCE ONE Rx#: [id number] Meropenem 500 mg In 133.2 Sodium Chloride 0.9% 100 ml @ 33.3 mls/hr IVPB Q8HR [facility] Rx#:[id number] Output: Urine 200 400 0 Other 1200 Other: Voiding Method Urinal Urinal # Voids 1 1 - Exam GENERAL: The patient is sitting in a recliner chair and is not in acute distress. NEUROLOGICAL: Higher mental function: The patient is awake alert oriented to self place and time. Patient is following simple commands commands. No aphasia. Cranial nerves: The pupils are round, equal and reactive to light. Visual wall are full to confrontation throughout. Extraocular movement is intact no nystagmus is noted. The facial strength is normal throughout. Mild dysarthria is noted. Motor: The strength is right lower extremity is 4+. Otherwise lifting all extremities above gravity without difficulty. Cerebellum: Normal finger to nose bilaterally. Sensation: Sensation is normal to touch throughout. LAB/DIAGNOSTIC: Lipid panel is triglycerides 91, cholesterol is 104, LDL 60 and HDL is 25. MRI the brain shows restriction diffusion within the posterior medial left frontal/parietal and subcortical white matter in the RICCARDO distribution suggesting acute/subacute CVA. Gyriform appearance of some of this region suggest associated alignment and necrosis. Echo: Left ventricular enjection 25-30% with apical hypokinesis and basal asp irin. May be consistent with the tic is supple cardiomyopathy versus wrap around LAD disease. CSF study is clear, colorless, red blood cells 1, nucleated cell is 1, glucose 53, protein is 25 fat. Prolonged EEG (90 minutes) on 03/01/2023 is reported as limited study, abnormal EEG. The rare frontal predominant delta range slowing as well as diffuse theta range slowing mentioned above is not epileptiform in nature. The findings indicate mild to moderate diffuse cerebral dysfunction, which may be part due to medication effect. Carotid duplex is reported as no ultrasound evidence for hemodynamically significant stenosis of the visualized bilateral carotid artery. 2-D echo was reported as left ventricle ejection fraction of 25-30% with apical hypokinesis and basal sparing. May be consistent with Takyotsubo cardiomyopath vs wrap around LAD disease. - Labs CBC & Chem 7: 03/03/23 04:12 03/03/23 04:04 Labs: Abnormal Lab Results - Last 24 Hours (Table) 03/02/23 03/02/23 03/02/23 Range/Units 17:48 18:01 20:16 RBC (4.30-5.90) m/uL Hgb (13.0-17.5) gm/dL MCHC (31.0-37.0) g/dL Carbon Dioxide (22-30) mmol/L POC Glucose (mg/dL) 131 H 137 H (70-110) mg/dL Calcium (8.4-10.2) mg/dL Troponin I 0.071 H* (0.000-0.034) ng/mL 03/03/23 03/03/23 Range/Units 04:04 04:12 RBC 4.07 L (4.30-5.90) m/uL Hgb 12.2 L (13.0-17.5) gm/dL MCHC 30.8 L (31.0-37.0) g/dL Carbon Dioxide 32 H (22-30) mmol/L POC Glucose (mg/dL) (70-110) mg/dL Calcium 7.6 L (8.4-10.2) mg/dL Troponin I (0.000-0.034) ng/mL Microbiology - Last 24 Hours (Table) 02/25/23 14:30 Blood Culture - Final Blood 02/28/23 13:40 Gram Stain - Final Sputum Sputum Culture - Final Joi albicans 02/25/23 14:45 Blood Culture - Final Blood Assessment and Plan Assessment: This is a 67-year-old gentleman who is transferred from [place] after being found to be confused a possible seizure-like activity by his . Patient stated that he has been coughing recently prior to presenting to the hospital denies any sick contacts, fevers, recent travel. Acute to subacute ischemic stroke (left fronto/parietal) and patient has left lower extremity weakness. No auditory since the patient is also to within the risk outweighed the benefit Altered mental status. Encephalopathy of unknown etiology. CSF study is negative for any underlying the [employer] SERVICES [employer] infection. Possible metabolic and underlying aspiration pneumonia Seizure-like activity over the right side clinically bun EEG negative for any seizure or discharges Cardiomyopathy. Echo has low EF with Takotsubo cardiomyopathy vs wrap around LAD disease. Bilateral lower lobe pneumonia worse on the right with pleural effusion Left-sided the pleural effusion status post thoracentesis History of chronic pain syndrome and the patient was taking oxycodone, gabapentin Xanax and he notified me that he stopped the using dose medication about a month ago but he notified the primary he stopped cold turkey about a week ago prior to presenting the hospital History of traumatic brain injury History of trials Bruno syndrome History of alcohol use and he stated that he stopped about 18 years ago Tobacco use Plan: Currently the patient is on aspirin 81 mg daily (at home was taking sporadic a spirin). Recommend start Plavix for his stroke. Starte when it is safe to do so especially since she is having thoracenteses because for his pleural effusion. Currently is on Lipitor 40mg daily. Continue neuro checks Cardiac monitoring Echo has low EF with Takotsubo cardiomyopathy vs wrap around LAD disease. Cardiology team is consulted. Since the prolonged EEG does not show any seizures all going down on Keppra from 1 g to 500 mg twice a day and will continue to weak if continues to be stable. PT, OT and DRILLING ASSISTANT are consulted. We'll defer the rest of the medical management to primary and other specialists For DVT prophylaxis: On subq heparin. The plan was discussed with the patient and primary attending. Will follow-up with patient sporadically. Time with Patient: Less than 30
[2023-03-03 16:49] LABS: Glucose,Whole Blood 136 mg/dL (70-110)
[2023-03-03] MEDS: HEPARIN SODIUM,PORCINE 5,000 UNIT/ML 1 ML VIAL SQ SCH (17:29)
[2023-03-03] MEDS: LOSARTAN 25 MG TAB PO SCH (17:44)
[2023-03-03 20:06] LABS: Glucose,Whole Blood 110 mg/dL (70-110)
[2023-03-03] MEDS: levETIRAcetam 500 MG TAB PO SCH (21:42)
[2023-03-04] MEDS: MEROPENEM 1,000 MG in SODIUM CHLORIDE 0.9% 100 ML IVPB SCH ×3 (00:06→17:45)
[2023-03-04] MEDS: NITROGLYCERIN OINT 1 INCH/GM PACKET TOPICAL SCH ×3 (00:12→17:42)
[2023-03-04] MEDS: HEPARIN SODIUM,PORCINE 5,000 UNIT/ML 1 ML VIAL SQ SCH ×3 (00:12→17:41)
[2023-03-04 04:17] LABS: Basophils % (A) 0 %; Eosinophils # (A) 0.1 k/uL (0-0.7); Eosinophils % (A) 1 %; HCT 37.1 % (39.0-53.0); Hypochromasia Moderate; Lymphocytes # (A) 0.9 k/uL (1.0-4.8); Lymphocytes % (A) 9 %; MCH 30.5 pg (25.0-35.0); MCHC 32.3 g/dL (31.0-37.0); MCV 94.6 fL (80.0-100.0); Mean Platelet Volume 8.4; Monocytes # (A) 0.7 k/uL (0-1.0); Monocytes % (A) 7 %; Neutrophils # (A) 8.1 k/uL (1.3-7.7); Neutrophils % (A) 82 %; Platelet Count 154 k/uL (150-450); RBC 3.92 m/uL (4.30-5.90); RDW 13.7 % (11.5-15.5); WBC 9.9 k/uL (3.8-10.6)
[2023-03-04 04:24] LABS: African American GFR (CKD) 85 (>60 ml/min/1.73 sqM); Anion Gap -1 mmol/L; Blood Urea Nitrogen 14 mg/dL (9-20); Calcium 7.8 mg/dL (8.4-10.2); Carbon Dioxide 38 mmol/L (22-30); Chloride 106 mmol/L (98-107); Glucose 104 mg/dL (74-99); Magnesium 1.9 mg/dL (1.6-2.3); Non-African American GFR(CKD) 74 (>60 ml/min/1.73 sqM); Potassium 3.8 mmol/L (3.5-5.1); Sodium 143 mmol/L (137-145)
[2023-03-04] MEDS ORDERED: MAGNESIUM SULFATE-D5W PMX 1 GM in DEXTROSE/WATER 1 100ML.BAG IVPB ONE (05:30)
[2023-03-04] MEDS: IPRATROPIUM-ALBUTEROL 3 ML NEB INHALATION SCH ×4 (07:51→20:17)
--- NOTE | 2023-03-04 08:22 | XR ---
EXAMINATION TYPE: XR chest 1V portable DATE OF EXAM: 03/04/2023 Comparison: 03/03/2023 Clinical History: 67 year-old male history of pleural effusions Findings: Right heart margin remains obscured by adjacent pleural parenchymal opacity. A moderate right pleural effusion remains with patchy changes throughout the right lung and interstitial densities throughout the left lung. Effusion has diminished from prior exam. Residual small effusion on the left. Impression: Decreased, now moderate sized right pleural effusion with adjacent atelectasis and/or consolidation. Similar small left pleural effusion. Background patchy interstitial opacities are similar.
--- NOTE | 2023-03-04 08:33 | P.PN ---
Subjective Progress Note Date: 03/04/23 This is a 67-year-old male patient with a history of previous traumatic brain injury, chronic pain for which he takes oxycodone, gabapentin and Ativan, anxiety, chronic and ongoing tobacco dependence, chronic obstructive pulmonary disease, hypertension. He was transferred here from [facility] after being found to have confusion, altered mental status and possibly a seizure at home by his . CT angiogram of the chest ruled out pulmonary embolism. Computed tomography scan of the head showed no acute intracranial process. Chest x-ray reveals no evidence of pneumothorax. The left lung is clear. There is an unchanged right lateral lower lobe density possibly a loculated pleural effusion. White count 23.9. Hemoglobin 14.1. Platelets 148. Sodium 144. Potassium 3.8. Bicarb 27. BUN 33. Creatinine 0.77. Ammonia level XXI. Arterial blood gases on 100% FiO2 revealed a pO2 of 123, pCO2 40, pH 7.41. He is seen today in consultation in the intensive care unit. Currently he is awake and alert. Following commands. Slightly tachycardic. Tachypneic. Afebrile. He is on BiPAP 14/890% FiO2. He was initiated on Keppra, vancomycin, acyclovir, Levaquin. Lumbar puncture pending. He has normal saline at 75 ML's per hour. The patient is seen today 02/27/2023 in follow-up in the intensive care unit. He is currently sitting up in bed. Bit more awake and alert today. He is on 2 L high flow nasal cannula. He did wear her BiPAP last night 14/8 and 60% FiO2 to approximate 8 AM this morning. He has normal saline at 75 ML's per hour. His pro calcitonin went from 0.09 up to 0.29. ID is on the case and resumed vancomycin, Azactam and continued on acyclovir. White count 14.2. Hemoglobin 11.6. Platelets 104. Sodium 137. Potassium 3.8. Bicarb 20. BUN 28. Creatin ine 0.67. Glucose 87. Stool for occult blood is positive. Blood culture pending. Lumbar puncture pending. He remains on DuoNeb inhalations, Symbicort, heparin for DVT prophylaxis. On today's evaluation of 02/28/2023, the patient is awake and alert and communicating. He is alert and oriented 3. Is responding appropriately to commands and answering questions appropriately. Is aware that he is in [place] and is also aware of the time and date. He is moving all 4 extremities. Denies having any headache. No neck stiffness. Is weak and is having some occasional tremors. The neuro workup is still in progress. Obviously, seizure was a concern and the patient was started on Keppra. EEG was done and the final report is not available yet. CT of the brain was also completed in addition to the CAT scan of the cervical spine and there is no evidence of any cervical spine fracture on the CAT scan of the head showed chronic atrophic changes with chronic small vessel ischemic changes. The patient was suspected to have a component of encephalitis/meningitis initiated time of admission and the patient was covered with a combination of acyclovir, vancomycin and is active and. He h as hypoxic, he is currently on 6 L to maintain a saturation above 90%. The chest x-ray that was done today showed an extensive right lower lobe and possibly right middle lobe consolidation along with possibly some underlying effusion. Left lung is clear. He has history of alcoholism, denies drinking this point in time. He has previous history of traumatic brain injury, he has chronic pain and limited on a combination of oxycodone and gabapentin and he also takes Ativan for chronic anxiety. Is a chronic smoker and is known to have COPD. His blood work from today shows a WBC count of 10.5 with a hemoglobin 12.7 and a platelet count of 136. BUN is at 22 with a creatinine of 0.6 and the sodium levels of 138, his pro calcitonin level was at 0.29 and his ammonia level was negative. 03/01/2023, seeing the patient for a follow-up. The patient is awake and alert and communicating. Lumbar punctures to be done today. EEG from yesterday showed encephalopathy, moderate, no evidence of any seizure activity and the patient remains on Keppra. A lumbar puncture will be done by anesthesia today. Otherwise, the patient denies having any headache or neck stiffness. The patient remains on a combination of IV acyclovir, vancomycin and he was also started on Zosyn yesterday due to bilateral pneumonia worse in the right. The patient is still coughing and has a congested cough, unable to bring up much of sputum at this point in time. The chest x-ray from today is essentially unchang ed. There is similar bibasilar patchy airspace disease with a small effusion on the left. Possibility of a right-sided pleural effusion cannot be completely ruled out. I'm going to go ahead an ultrasound the right chest to evaluate for any signs of any effusion. In terms of oxygenation, the patient was brought up as high as 15 L and currently is down to 12 L of oxygen by nasal cannula. Is less tachycardic compared to yesterday. He remains in mild degree of sinus tachycardia. He was able to swallow. Neurology is on the case. Lumbar puncture still pending for now. On today's blood work, the white cell count is 10.4 with a hemoglobin 12.4 and a platelet count of 189. The BUN is 18 with a creatinine of 0.7 and a sodium level is at 141. Potassium levels at 3.8. On 03/02/2023, seeing the patient for a follow-up. The patient is currently on 8 L of oxygen by nasal cannula. His being treated for bilateral pneumonia. The patient continues to have dense consolidation of the lower lobes worse on the right and there is also evidence of bilateral pleural effusion. Based on the ultrasound that was performed yesterday. The patient has a 6.8 cm pocket on the left and a 2.4 cm pocket on the right. A left-sided thoracentesis to be done today. Meanwhile, lumbar puncture was done yesterday and the CSF seems to be clear. There is only 1 nucleated cell and 1 RBC and the glucose is normal at 53. 14 has not been checked and needs to be sent in addition to HSV by PCR. The patient is awake and alert and communicating. He remains weak. Is a congested cough. He developed a rash while being on Zosyn and I switched him to IV meropenem. No significant rashes appreciated on today's evaluation. BUN is at 60 with a creatinine of 0.5 and a sodium levels of 139. White cell count is at 7.3 with a hemoglobin of 11.8. Note that the patient also developed some diaphoresis and tachycardia and hypertension yesterday. We thought that this was related to narcotic withdrawal as the patient takes oxycodone on an outpatient basis 4 times a day. This was addressed by the medical team and the patient was started on oxycodone 15 mg every 8 hours for chronic pain. This morning, he seems to much more comfortable. The patient remains on IV acyclovir. The patient is currently on IV meropenem. 03/03/2023, the patient is still in the intensive care unit. We'll continue to have issues with the patient's oxygenation. The patient currently is on 15 L of oxygen by nasal cannula. Note that yesterday, he was on 8 L. I brain his left lung and a total of 1.2 L of pleural fluid was aspirated without any complication. The aeration of the left lung improved. The fluid is a tra nsudate based on protein and LDH criteria. Nevertheless, on today's evaluation, there is progression in his right lung in terms of consolidation and volume loss. The opacification of the right lung has increased and there may be an underlying effusion/atelectasis/consolidation. As such, a CAT scan of the chest will be needed prior to making any further decision. He states that his right lung is also aching and hurting. He is antibiotic coverage is with IV meropenem. His echoes at 6.8 with a hemoglobin 12.2. BUN is at 40 with a creatinine of 0.7 and a sodium level is at 139. Neurologically, he is awake and alert. CSF cultures came back negative. The CSF protein was also low at 25. As such, there is no indication for encephalitis and I'm going to discontinue the IV acyclovir on this patient. For now, the active issue remains chest congestion, probably mucus plugging, pneumonia, volume loss in the right lung and possibly a right-sided pleural effusion. He is drinking. He is communicating. No focal neurological deficits. He is communicating. He remains on 15 L of oxygen by nasal cannula. Bronchoscope was not done yesterday and the patient has already taken his oral diet. Based on that, the procedure was done today. A CAT scan of the chest was done and showed trace bilateral pleural effusion, there is consolidation involving the right lung in addition to atelectasis. There is obviously transfusions within the airways. There is also a large right intrathoracic lipoma appears to be coming from the right chest wall measuring up to 7 cm in size. The patient also has cortical erosion in the left upper extremity humerus. This morning, he is communicating. He is lethargic. He has a congested cough. Unable to bring up much of sputum. Repeat chest x-ray shows essentially no major interval change and there is still persistent consolidation volume loss in the right lung. The white cell cause of 9.9 with a hemoglobin of 12. He is a 40 with a creatinine of 1.06 and his sodium levels of 143. The patient remains on IV Merrem. Sputum was positive for Joi. The patient remains on bronchodilators. The patient is on IV Merrem. Neurologically s table. IV fluids are running in the form of 0.9 at KVO. Objective - Vital Signs Vital signs: Vital Signs Temp 98.4 F 03/04/23 00:00 Pulse 104 H 03/04/23 08:00 Resp 32 H 03/04/23 07:00 BP 142/75 03/04/23 07:00 Pulse Ox 94 L 03/04/23 07:00 FiO2 12 03/01/23 04:00 Intake & Output 03/03/23 03/04/23 03/04/23 18:59 06:59 18:59 Intake Total 834 260 20 Output Total 1550 1200 350 Balance -716 -940 -330 Weight 64.9 kg Intake: IV 360 260 20 0.9NS 120 120 20 Invasive Line 5 20 30 Invasive Line 6 20 10 Meropenem 500 mg In 200 100 Sodium Chloride 0.9% 100 ml @ 33.3 mls/hr IVPB Q8HR [facility] Rx#:[id number] Oral 474 Output: Urine 1550 1200 350 Other: Voiding Method Urinal External Catheter # Bowel Movements 1 - Exam GENERAL EXAM: Alert, 67-year-old male, on 15 liters high flow nasal cannula , lethargic yet awake and alert. Communicating. Body mass index is 22. HEAD: Normocephalic. EYES: Normal reaction of pupils, equal size. NOSE: Clear with pink turbinates. THROAT: No erythema or exudates. NECK: No masses, no JVD. CHEST: No chest wall deformity. LUNGS: Equal air entry with no crackles, wheeze, rhonchi or dullness. There is diminished breath on the right lung base along with egophony consistent with an underlying pneumonia. CVS: S1 and S2 normal with no audible murmur, regular rhythm. ABDOMEN: No hepatosplenomegaly, normal bowel sounds, no guarding or rigidity. SPINE: No scoliosis or deformity SKIN: No rashes CENTRAL NERVOUS SYSTEM: No focal deficits, tone is normal in all 4 extremities. The patient is awake and alert and communicating at this point in time. He is weak and has generalized motor weakness in all 4 extremities. The reflexes are symmetrical however. No hyperreflexia. No clonus. No Babinski. No neck stiffness. EXTREMITIES: There is no peripheral edema. No clubbing, no cyanosis. Peripheral pulses are intact. - Labs CBC & Chem 7: 03/04/23 03:57 03/04/23 03:57 Labs: Abnormal Lab Results - Last 24 Hours (Table) 03/03/23 03/04/23 03/04/23 Range/Units 16:47 03:57 03:57 RBC 3.92 L (4.30-5.90) m/uL Hgb 12.0 L (13.0-17.5) gm/dL Hct 37.1 L (39.0-53.0) % Neutrophils # 8.1 H (1.3-7.7) k/uL Lymphocytes # 0.9 L (1.0-4.8) k/uL Carbon Dioxide 38 H (22-30) mmol/L Glucose 104 H (74-99) mg/dL POC Glucose (mg/dL) 136 H (70-110) mg/dL Calcium 7.8 L (8.4-10.2) mg/dL Microbiology - Last 24 Hours (Table) 03/02/23 10:08 Gram Stain - Preliminary Thoracic Fluid 02/25/23 14:30 Blood Culture - Final Blood 02/28/23 13:40 Gram Stain - Final Sputum Sputum Culture - Final Joi albicans 02/25/23 14:45 Blood Culture - Final Blood Assessment and Plan Plan: Altered mental status of unclear etiology. The mental status is back to baseline. Lumbar puncture was negative. This could have been a metabolic encephalopathy. Seizures cannot be completely ruled out. The patient remains on Keppra. Neurology is on the case. IV acyclovir will be discontinued. No evidence of any meningitis. Neurologically intact and communicating without any focal neurological deficit. Urine drug screen positive for benzodiazepines and marijuana. The mental status is back to normal at this point in time. Neurolo gic workup has been completed. History of chronic pain syndrome and the patient takes oxycodone, gabapentin and Xanax Acute hypoxemic respiratory failure suspect secondary to mental status changes and exacerbation of COPD, and some interstitial fibrosis in addition to an extensive right lung pneumonia, possibly of an aspiration times pressure was underlying mental status and suspicion for aspiration. The patient has also developed bilateral pleural effusion larger on the left. The patient remains on IV meropenem. The patient underwent a left-sided thoracentesis with removal of 1.2 L, transudate, there is persistent consolidation volume loss in the right lung. Consider mucous retention/mucus plugging in addition to pneumonia. The patient will need a bronchoscopy. He is currently on 15 L of oxygen by nasal cannula. He is nothing by mouth awaiting bronchoscopy today. 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 The patient is nothing by mouth for now. No need for thoracentesis of the month the pleural fluid is minimal Aspiration precautions Allow oral intake Continue IV IV meropenem Continue IV Keppra Continue DuoNeb nebs on the clock DVT and GI prophylaxis We'll continue to follow Condition remains critical. We'll continue to follow.
[2023-03-04] MEDS: MORPHINE SULFATE 4 MG/ML SYRINGE IVP SCH (09:42)
[2023-03-04] MEDS: levETIRAcetam 500 MG TAB PO SCH ×2 (09:47→21:53)
[2023-03-04] MEDS: METOPROLOL SUCCINATE (ER) 50 MG TAB.ER.24H PO SCH (09:48)
[2023-03-04] MEDS: PANTOPRAZOLE 40 MG/10 ML VIAL IVP SCH ×2 (09:48→21:52)
--- NOTE | 2023-03-04 10:14 | PN ---
PROGRESS NOTE HISTORY OF PRESENT ILLNESS: Kristofer is a 67-year-old gentleman who was admitted to hospital initially with confusion, had an echocardiogram that showed severe LV systolic dysfunction suggestive of apical ballooning syndrome. He has had some chest discomfort during his stay, but that has improved. His primary problem at the moment is worsening respiratory status, and a chest x-ray revealed evidence of aspiration pneumonia and is currently being treated for the same. He has mildly elevated troponin also. PHYSICAL EXAMINATION: VITAL SIGNS: Heart rate is 104 beats per minute, blood pressure is 142/75, respiratory rate is 18. CHEST: Diminished air entry at the bases. HEART: First and second heart sounds. Systolic murmur at the apex. ABDOMEN: Soft. EXTREMITIES: Did not reveal any edema. Peripheral pulses are felt. The patient is currently on aspirin, Lipitor, Cozaar, Toprol-XL 75 mg daily, Remeron, and nitro paste. He is to undergo bronchoscopy today. His labs show a hemoglobin of 12. Potassium is 3.8, creatinine is 1. ASSESSMENT: 1. Takotsubo syndrome. 2. Respiratory failure secondary to aspiration pneumonia. PLAN: I will increase the dose of losartan and Toprol if necessary for better control of the blood pressure. When the respiratory status improves, we will consider cardiac catheterization. MMODL / IJN: [id number] /
[2023-03-04] MEDS ORDERED: MIDAZOLAM 1 MG/ML 5 ML VIAL IV STA (10:52)
--- NOTE | 2023-03-04 11:15 | P.PCN ---
Date of Procedure: 03/04/23 Preoperative Diagnosis: Right lung pneumonia, mucous plugs, atelectasis/consolidation Postoperative Diagnosis: Same Procedure(s) Performed: Bronchoscopy, bronchioloalveolar lavage of the right lower lobe Anesthesia: MAC Surgeon: Keturah Angel Estimated Blood Loss (ml): 0 Pathology: other Condition: critical Disposition: ICU Operative Findings: This is a procedure that was on intensive care unit under conscious sedation. The patient was given a total of 4 mg of IV Versed during the procedure. Noted the patient was placed on 100% nonrebreather facemask and the procedure was completed. Preoperative chest x-ray showed extensive consolidation and volume loss in the right lung. The patient was suspected to have copious amount of rest or secretions mucous plugs that he was unable to cough. A consent was obtained. A timeout was done. After achieving adequate sedation, the bronchoscope was inserted through the left nostril and was advanced into the posterior pharynx and then larynx. There was copious amounts of loose cystoscopy secretions occupying the upper airway that were suctioned out without any major difficulties. Epiglottis was identified. Arytenoids were seen. The true and the false vocal cords were seen. The vocal cords were functional without any major abnormalities with vocal cord mobility. A total of 2 mL of 1% lidocaine was applied to the vocal cord and following that the bronchoscope was advanced into the upper trachea. Examination of the tracheal bronchial tree with him. There was copious amounts of rest or secretions in purulent respiratory secretions and material and debris is CRYING the entire trachea, back and bilateral mainstem bronchi more so on the right. The secretions were copious and estimated amount was in the order of 30- 40 mL. Constant therapeutic airway suctioning was done and the secretions were removed without any major difficulties. At the secretions were being suctioned out, the patient's oxygen patient remains stable and he did not encounter any desaturations. After completing the therapeutic airway suctioning, the visualized airways included the trachea, bilateral mainstem bronchi, right upper lobe bronchus, bronchus intermedius, right middle lobe bronchus and the right lower lobe bronchus and the various segments of the right and a summation of the left included left upper lobe bronchus and the left lower lobe bronchus and the various 8 segments on the left. Majority of this 20 secretions were BUYING the right lower lobe bronchus. At the completion of the procedure, a bronchial lavage was done of the right lower lobe and a total of 20 mL of purulent aspirate was obtained. The bronchoalveolar lavage will be sent for microbial cultures. After completing the procedure, the flexible bronchoscope was removed and the patient was 100% nonrebreather facemask and it'll be gradually scott sitioned to a nasal cannula. No complications.
[2023-03-04] MEDS: ALPRAZolam 0.5 MG TAB PO SCH ×4 (11:19→22:16)
--- NOTE | 2023-03-04 12:15 | P.PN ---
Subjective Progress Note Date: 03/04/23 Patient is a 67-year-old male patient with traumatic brain injury, chronic pain (on Oxy and Xanax), chronic obstructive pulmonary disease, and hypertension who presetned as a transfer from [facility] for altered mentation and possible seizure like activity. Ct head without acute intracranila process, CTA chest without pulmonary embolism on arrival laboratory analysis is normal for white blood cell, 13.3, PaO2 of 56, calcium 8.1, bilirubin 1.5, CK 432, troponin 0.813, CRP 4.4, pro calcitonin 0.09, urine drug screen was positive for benzodiazepines and marijuana. He was started on empiric treatment for possible pneumonia. Case was discussed neurology and he was also started on empiric treatment for possible meningitis. He required BiPAP and pulmonary was consulted. He was admitted to the ICU. Infectious disease was consulted. Initial antimicrobial regimen consists of Vanco, Azactam, and acyclovir. She had improvement in mentation by 02/28. With some concerns of seizure by neurology and continued on Keppra. EEG and prolonged EEG did not show any signs of seizure activity. He developed worsening bilateral polar effusions. Underwent echocardiogram which confirmed ejection fraction of 25-30% with possible coccus to lose. Cardiology was consulted. He was started on beta marco a and ARB. He was transitioned to Zosyn, he then developed dermatitis and subsequently transitioned to meropenem Patient had lumbar puncture performed by anesthesia on 03/01/23 which can back normal. He underwent left sided thoracentesis on 03/02/23. Exudative based on elevated protein. Bronch completed on 03/04. He was noted to have significant amount of secretion which was suctioned, BAL was completed. Imaging: Carotid Doppler-no evidence of hemodynamically significant stenosis Chest ultrasound: Small right and small to moderate left pleural effusions MRI brain: Motion limited exam some areas of restricted diffusion within the posterior medial left frontal/parietal cortex to suggest acute/subacute CVA, nonspecific white matter changes Echocardiogram with ejection fraction 25-30% with apical hypokinesis and basilar sparing may be consistent with Kaposi was cardiomyopathy versus wraparound LAD disease, severe pulmonary hypertension with RVSP [address] chest showed consolidation changes within the right upper lung with trace bilateral pleural effusion, opacified bilateral lower lung large airways, possible aspiration, right intrathoracic lipoma Patient seen and examined at bedside. He denies any chest pain. He continues to have some shortness of breath. Vital signs reviewed General: nontoxic, no distress, appears at stated age Cardiovascular: S1S2 reg, no murmur, positive posterior tibial pulse bilateral, Lungs: Coarse breath sounds bilateral, no conversational dyspnea, no rhonchi, no rales , no accessory muscle use, supplemental oxygen Abdominal: soft, nontender to palpation, no guarding, no appreciable organomegaly Ext: no gross muscle atrophy, no edema b/l lower extremities, no contractures Neuro: CN II-XI grossly intact, right lower extremity weakness Psych: Alert, oriented 3, appropriate affect Assessment/Plan: Acute hypoxic respiratory failure Sepsis secondary to Bacterial pneumonia, bilateral pleural effusions s/p Left sided thora on 03/02/23 COPD exacerbation - Left sided thoracentesisi on 03/02 with removal of 1200 cc of fluid. -Exudative fluid based on protein content -Meropenem 500 mg IV every 8 hours D # 4 -Pulmonary hygiene - pulmonary note reviewed: Bronchoscopy with BAL completed today -ID following Opiate and benzodiazepine withdrawal -Patient now on his chronic Oxy , started at 15 mg 3 times daily -patient was taking Xanax 1 mg 4 times daily at home. He was restarted on Xanax 0.5 mg 4 times daily as needed. Acute to subacute left side CVA Acute encephalopathy, resolved Possible encephalitis/meningitis--unlikely given negative LP Possible seizures, ruled out Possible drug withdrawal -Neurology following - ASA 325 mg daily, Lipitor 40 mg daily -Acute inpatient rehab consulted Cardiomyopathy with ejection fraction 25-30% Hypertension -Cardiology note reviewed, increase metoprolol and losartan, cardiac cath once respiratory function improves Dermatitis bilateral feet, sparing the soles, resolving -Possible related to ALLERGIC reaction, antibiotics changed -Continue to monitor closely -Patient without any itching. 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 Imaging: CXR independently interpreted, shows resolution of left pleural effusion, but persistent right pleural effusion, but improved Data Review: WBC 9.9, hemoglobin 12, sodium 143, bicarb 38, creatinine 1.06, blood sugars range between 83-136 DVT prophylaxis: Heparin SC Anticipated discharge date: Pending Clinical Course Anticipated discharge place: Pending Clinical Course Objective - Vital Signs Vital signs: Vital Signs Temp 98.2 F 03/04/23 08:00 Pulse 96 03/04/23 11:53 Resp 34 H 03/04/23 11:00 BP 144/79 03/04/23 11:00 Pulse Ox 95 03/04/23 11:00 FiO2 12 03/01/23 04:00 Intake & Output 03/03/23 03/04/23 03/04/23 18:59 06:59 18:59 Intake Total 834 260 20 Output Total 1550 1200 350 Balance -716 -940 -330 Weight 64.9 kg Intake: IV 360 260 20 0.9NS 120 120 20 Invasive Line 5 20 30 Invasive Line 6 20 10 Meropenem 500 mg In 200 100 Sodium Chloride 0.9% 100 ml @ 33.3 mls/hr IVPB Q8HR [facility] Rx#:[id number] Oral 474 Output: Urine 1550 1200 350 Other: Voiding Method Urinal External Catheter External Catheter # Bowel Movements 1 - Labs CBC & Chem 7: 03/04/23 03:57 03/04/23 03:57 Labs: Abnormal Lab Results - Last 24 Hours (Table) 03/03/23 03/04/23 03/04/23 Range/Units 16:47 03:57 03:57 RBC 3.92 L (4.30-5.90) m/uL Hgb 12.0 L (13.0-17.5) gm/dL Hct 37.1 L (39.0-53.0) % Neutrophils # 8.1 H (1.3-7.7) k/uL Lymphocytes # 0.9 L (1.0-4.8) k/uL Carbon Dioxide 38 H (22-30) mmol/L Glucose 104 H (74-99) mg/dL POC Glucose (mg/dL) 136 H (70-110) mg/dL Calcium 7.8 L (8.4-10.2) mg/dL Microbiology - Last 24 Hours (Table) 03/02/23 10:08 Gram Stain - Preliminary Thoracic Fluid Body Fluid Culture - Preliminary 02/25/23 14:30 Blood Culture - Final Blood 02/28/23 13:40 Gram Stain - Final Sputum Sputum Culture - Final Joi albicans
[2023-03-04] MEDS: TAMSULOSIN 0.4 MG CAP.ER.24H PO SCH (14:43)
[2023-03-04] MEDS: ATORVASTATIN 40 MG TAB PO SCH (14:43)
[2023-03-04] MEDS: ASPIRIN 81 MG PO SCH (14:43)
[2023-03-04] MEDS: THIAMINE 100 MG TAB PO SCH (14:43)
[2023-03-04] MEDS: LOSARTAN 25 MG TAB PO SCH (14:45)
[2023-03-04] MEDS: NICOTINE 21MG/24HR PATCH TRANSDERM SCH (17:41)
[2023-03-04 20:07] LABS: Glucose,Whole Blood 97 mg/dL (70-110)
[2023-03-04] MEDS: MIRTAZAPINE 15 MG TAB PO SCH (21:53)
[2023-03-05] MEDS: HEPARIN SODIUM,PORCINE 5,000 UNIT/ML 1 ML VIAL SQ SCH ×4 (01:06→23:23)
[2023-03-05] MEDS: MEROPENEM 1,000 MG in SODIUM CHLORIDE 0.9% 100 ML IVPB SCH ×4 (01:06→23:03)
[2023-03-05] MEDS: NITROGLYCERIN OINT 1 INCH/GM PACKET TOPICAL SCH ×3 (01:23→16:56)
[2023-03-05 04:51] LABS: African American GFR (CKD) >90 (>60 ml/min/1.73 sqM); Blood Urea Nitrogen 15 mg/dL (9-20); Calcium 7.7 mg/dL (8.4-10.2); Chloride 104 mmol/L (98-107); Glucose 104 mg/dL (74-99); Non-African American GFR(CKD) >90 (>60 ml/min/1.73 sqM); Potassium 3.5 mmol/L (3.5-5.1); Sodium 144 mmol/L (137-145)
[2023-03-05 04:58] LABS: Anion Gap 3 mmol/L
[2023-03-05 05:12] LABS: Carbon Dioxide 37 mmol/L (22-30)
[2023-03-05] MEDS ORDERED: POTASSIUM CHLORIDE ER 20 MEQ TAB.ER PO SCH (06:00)
[2023-03-05] MEDS: POTASSIUM CHLORIDE 10 MEQ in WATER FOR INJECTION 1 100ML.BAG IVPB SCH ×6 (06:02→23:04)
[2023-03-05] MEDS ORDERED: MIDAZOLAM 1 MG/ML 5 ML VIAL IV STA (07:42)
--- NOTE | 2023-03-05 07:48 | P.PN ---
Subjective Progress Note Date: 03/05/23 This is a 67-year-old male patient with a history of previous traumatic brain injury, chronic pain for which he takes oxycodone, gabapentin and Ativan, anxiety, chronic and ongoing tobacco dependence, chronic obstructive pulmonary disease, hypertension. He was transferred here from [facility] after being found to have confusion, altered mental status and possibly a seizure at home by his . CT angiogram of the chest ruled out pulmonary embolism. Computed tomography scan of the head showed no acute intracranial process. Chest x-ray reveals no evidence of pneumothorax. The left lung is clear. There is an unchanged right lateral lower lobe density possibly a loculated pleural effusion. White count 23.9. Hemoglobin 14.1. Platelets 148. Sodium 144. Potassium 3.8. Bicarb 27. BUN 33. Creatinine 0.77. Ammonia level XXI. Arterial blood gases on 100% FiO2 revealed a pO2 of 123, pCO2 40, pH 7.41. He is seen today in consultation in the intensive care unit. Currently he is awake and alert. Following commands. Slightly tachycardic. Tachypneic. Afebrile. He is on BiPAP 14/890% FiO2. He was initiated on Keppra, vancomycin, acyclovir, Levaquin. Lumbar puncture pending. He has normal saline at 75 ML's per hour. The patient is seen today 02/27/2023 in follow-up in the intensive care unit. He is currently sitting up in bed. Bit more awake and alert today. He is on 2 L high flow nasal cannula. He did wear her BiPAP last night 14/8 and 60% FiO2 to approximate 8 AM this morning. He has normal saline at 75 ML's per hour. His pro calcitonin went from 0.09 up to 0.29. ID is on the case and resumed vancomycin, Azactam and continued on acyclovir. White count 14.2. Hemoglobin 11.6. Platelets 104. Sodium 137. Potassium 3.8. Bicarb 20. BUN 28. Creatin ine 0.67. Glucose 87. Stool for occult blood is positive. Blood culture pending. Lumbar puncture pending. He remains on DuoNeb inhalations, Symbicort, heparin for DVT prophylaxis. On today's evaluation of 02/28/2023, the patient is awake and alert and communicating. He is alert and oriented 3. Is responding appropriately to commands and answering questions appropriately. Is aware that he is in [place] and is also aware of the time and date. He is moving all 4 extremities. Denies having any headache. No neck stiffness. Is weak and is having some occasional tremors. The neuro workup is still in progress. Obviously, seizure was a concern and the patient was started on Keppra. EEG was done and the final report is not available yet. CT of the brain was also completed in addition to the CAT scan of the cervical spine and there is no evidence of any cervical spine fracture on the CAT scan of the head showed chronic atrophic changes with chronic small vessel ischemic changes. The patient was suspected to have a component of encephalitis/meningitis initiated time of admission and the patient was covered with a combination of acyclovir, vancomycin and is active and. He h as hypoxic, he is currently on 6 L to maintain a saturation above 90%. The chest x-ray that was done today showed an extensive right lower lobe and possibly right middle lobe consolidation along with possibly some underlying effusion. Left lung is clear. He has history of alcoholism, denies drinking this point in time. He has previous history of traumatic brain injury, he has chronic pain and limited on a combination of oxycodone and gabapentin and he also takes Ativan for chronic anxiety. Is a chronic smoker and is known to have COPD. His blood work from today shows a WBC count of 10.5 with a hemoglobin 12.7 and a platelet count of 136. BUN is at 22 with a creatinine of 0.6 and the sodium levels of 138, his pro calcitonin level was at 0.29 and his ammonia level was negative. 03/01/2023, seeing the patient for a follow-up. The patient is awake and alert and communicating. Lumbar punctures to be done today. EEG from yesterday showed encephalopathy, moderate, no evidence of any seizure activity and the patient remains on Keppra. A lumbar puncture will be done by anesthesia today. Otherwise, the patient denies having any headache or neck stiffness. The patient remains on a combination of IV acyclovir, vancomycin and he was also started on Zosyn yesterday due to bilateral pneumonia worse in the right. The patient is still coughing and has a congested cough, unable to bring up much of sputum at this point in time. The chest x-ray from today is essentially unchang ed. There is similar bibasilar patchy airspace disease with a small effusion on the left. Possibility of a right-sided pleural effusion cannot be completely ruled out. I'm going to go ahead an ultrasound the right chest to evaluate for any signs of any effusion. In terms of oxygenation, the patient was brought up as high as 15 L and currently is down to 12 L of oxygen by nasal cannula. Is less tachycardic compared to yesterday. He remains in mild degree of sinus tachycardia. He was able to swallow. Neurology is on the case. Lumbar puncture still pending for now. On today's blood work, the white cell count is 10.4 with a hemoglobin 12.4 and a platelet count of 189. The BUN is 18 with a creatinine of 0.7 and a sodium level is at 141. Potassium levels at 3.8. On 03/02/2023, seeing the patient for a follow-up. The patient is currently on 8 L of oxygen by nasal cannula. His being treated for bilateral pneumonia. The patient continues to have dense consolidation of the lower lobes worse on the right and there is also evidence of bilateral pleural effusion. Based on the ultrasound that was performed yesterday. The patient has a 6.8 cm pocket on the left and a 2.4 cm pocket on the right. A left-sided thoracentesis to be done today. Meanwhile, lumbar puncture was done yesterday and the CSF seems to be clear. There is only 1 nucleated cell and 1 RBC and the glucose is normal at 53. 14 has not been checked and needs to be sent in addition to HSV by PCR. The patient is awake and alert and communicating. He remains weak. Is a congested cough. He developed a rash while being on Zosyn and I switched him to IV meropenem. No significant rashes appreciated on today's evaluation. BUN is at 60 with a creatinine of 0.5 and a sodium levels of 139. White cell count is at 7.3 with a hemoglobin of 11.8. Note that the patient also developed some diaphoresis and tachycardia and hypertension yesterday. We thought that this was related to narcotic withdrawal as the patient takes oxycodone on an outpatient basis 4 times a day. This was addressed by the medical team and the patient was started on oxycodone 15 mg every 8 hours for chronic pain. This morning, he seems to much more comfortable. The patient remains on IV acyclovir. The patient is currently on IV meropenem. 03/03/2023, the patient is still in the intensive care unit. We'll continue to have issues with the patient's oxygenation. The patient currently is on 15 L of oxygen by nasal cannula. Note that yesterday, he was on 8 L. I brain his left lung and a total of 1.2 L of pleural fluid was aspirated without any complication. The aeration of the left lung improved. The fluid is a tra nsudate based on protein and LDH criteria. Nevertheless, on today's evaluation, there is progression in his right lung in terms of consolidation and volume loss. The opacification of the right lung has increased and there may be an underlying effusion/atelectasis/consolidation. As such, a CAT scan of the chest will be needed prior to making any further decision. He states that his right lung is also aching and hurting. He is antibiotic coverage is with IV meropenem. His echoes at 6.8 with a hemoglobin 12.2. BUN is at 40 with a creatinine of 0.7 and a sodium level is at 139. Neurologically, he is awake and alert. CSF cultures came back negative. The CSF protein was also low at 25. As such, there is no indication for encephalitis and I'm going to discontinue the IV acyclovir on this patient. For now, the active issue remains chest congestion, probably mucus plugging, pneumonia, volume loss in the right lung and possibly a right-sided pleural effusion. He is drinking. He is communicating. No focal neurological deficits. On 03/04/2023 He is communicating. He remains on 15 L of oxygen by nasal cannula. Bronchoscope was not done yesterday and the patient has already taken his oral diet. Based on that, the procedure was done today. A CAT scan of the chest was done and showed trace bilateral pleural effusion, there is consolidation involving the right lung in addition to atelectasis. There is obviously transfusions within the airways. There is also a large right intrathoracic lipoma appears to be coming from the right chest wall measuring up to 7 cm in size. The patient also has cortical erosion in the left upper extremity humerus. This morning, he is communicating. He is lethargic. He has a congested cough. Unable to bring up much of sputum. Repeat chest x-ray shows essentially no major interval change and there is still persistent consolidation volume loss in the right lung. The white cell cause of 9.9 with a hemoglobin of 12. He is a 40 with a creatinine of 1.06 and his sodium levels of 143. The patient remains on IV Merrem. Sputum was positive for Joi. The patient remains on bronchodilators. The patient is on IV Merrem. Neurologically stable. IV fluids are running in the form of 0.9 at KVO. On today's evaluation of 03/05/2023, the patient is on 8 L of oxygen by nasal cannula. A bronchoscopy was done and copious amounts of this was secretions were suctioned out from his right lung yesterday. There was massive quantities of mucous plugs. He clinically improved. However, the chest x-ray from today shows complete the investigation of the right lung. Obviously, the patient is going to need another bronchoscope. His calm and comfortable on 8 L of oxygen by nasal cannula with a pulse ox of 96%. No other significant events overnight. He has a congested cough. Unable to bring up much of sputum. The chest x-ray from today was reviewed. Also, the rest of the blood work shows a sodium level of 144, potassium of 3.5, BUN is 15 with a creatinine of 0.88. CBC is pending. Hemoglobin from yesterday was 12 and a white cell cause of 9.9. The patient remains on IV Merrem. The cultures that were obtained from the sputum analysis yesterday showed no microbial growth thus far. He is afebrile. Hemodynamically stable. Neurologically intact IV fluids are currently at KVO. No aspiration overnight. Objective - Vital Signs Vital signs: Vital Signs Temp 99.3 F 03/05/23 05:00 Pulse 89 03/05/23 07:00 Resp 25 H 03/05/23 07:00 BP 148/72 03/05/23 07:00 Pulse Ox 98 03/05/23 07:00 FiO2 12 03/01/23 04:00 Intake & Output 03/04/23 03/05/23 03/05/23 18:59 06:59 18:59 Intake Total 412 583 10 Output Total 1650 1150 350 Balance -1238 -567 -340 Weight 64.9 kg 64.9 kg Intake: IV 212 143 10 0.9NS 80 110 10 Meropenem 500 mg In 132 33 Sodium Chloride 0.9% 100 ml @ 33.3 mls/hr IVPB Q8HR [facility] Rx#:[id number] Intake, IV Titration 200 Amount Meropenem 1,000 mg In 100 Sodium Chloride 0.9% 100 ml @ 33.3 mls/hr IVPB Q8HR [facility] Rx#:[id number] Potassium Chloride 10 meq 100 In Water For Injection 1 100ml.bag @ 100 mls/hr IVPB Q1HR [facility] Rx#: [id number] Oral 200 240 Output: Urine 1650 1150 350 Other: Voiding Method External Catheter External Catheter - Exam GENERAL EXAM: Alert, 67-year-old male, on 8 liters high flow nasal cannula , lethargic yet awake and alert. Communicating. Body mass index is 22. HEAD: Normocephalic. EYES: Normal reaction of pupils, equal size. NOSE: Clear with pink turbinates. THROAT: No erythema or exudates. NECK: No masses, no JVD. CHEST: No chest wall deformity. LUNGS: Equal air entry with no crackles, wheeze, rhonchi or dullness. There is diminished breath on the right lung base along with egophony consistent with an underlying pneumonia. CVS: S1 and S2 normal with no audible murmur, regular rhythm. ABDOMEN: No hepatosplenomegaly, normal bowel sounds, no guarding or rigidity. SPINE: No scoliosis or deformity SKIN: No rashes CENTRAL NERVOUS SYSTEM: No focal deficits, tone is normal in all 4 extremities. The patient is awake and alert and communicating at this point in time. He is w eak and has generalized motor weakness in all 4 extremities. The reflexes are symmetrical however. No hyperreflexia. No clonus. No Babinski. No neck stiffness. EXTREMITIES: There is no peripheral edema. No clubbing, no cyanosis. Peripheral pulses are intact. - Labs CBC & Chem 7: 03/04/23 03:57 03/05/23 04:16 Labs: Abnormal Lab Results - Last 24 Hours (Table) 03/05/23 Range/Units 04:16 Carbon Dioxide 37 H (22-30) mmol/L Glucose 104 H (74-99) mg/dL Calcium 7.7 L (8.4-10.2) mg/dL Microbiology - Last 24 Hours (Table) 03/02/23 10:08 Gram Stain - Preliminary Thoracic Fluid Body Fluid Culture - Preliminary Assessment and Plan Plan: Complete opacification of the right lung due to large quantities of mucus and mucous plugs, secondary to right lung pneumonia. The patient is on IV meropenem. Initial bronchoscope was done on 03/04/2023 and the bronchoscope will be done today. Patient's currently on 8 L of oxygen by nasal cannula Altered mental status of unclear etiology. The mental status is back to baseline. Lumbar puncture was negative. This could have been a metabolic encephalopathy. Seizures cannot be completely ruled out. The patient remains on Keppra. Neurology is on the case. IV acyclovir will be discontinued. No evidence of any meningitis. Neurologically intact and communicating without any focal neurological deficit. Urine drug screen positive for benzodiazepines and marijuana. The mental status is back to normal at this point in time. Neurologic workup has been completed. History of chronic pain syndrome and the patient takes oxycodone, gabapentin and Xanax Acute hypoxemic respiratory failure suspect secondary to COPD, and some interstitial fibrosis in addition to an extensive right lung pneumonia, possibly of an aspiration times pressure was underlying mental status and suspicion for aspiration. The patient has also developed bilateral pleural effusion larger on the left. The patient remains on IV meropenem. The patient underwent a left-sided thoracentesis with removal of 1.2 L, transudate, there is persistent consolidation volume loss in the right lung. Consider mucous retention/mucus plugging in addition to pneumonia. He underwent bronchoscopy yesterday. Currently on 8 L of O2 cannula. Right lung remains completely opacified on today's evaluation. 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 We'll continue to follow. We will be kept in the intensive care unit.
--- NOTE | 2023-03-05 08:05 | P.PCN ---
Date of Procedure: 03/05/23 Preoperative Diagnosis: Right lung collapse Postoperative Diagnosis: Right lung collapse with mucous plugs Procedure(s) Performed: Bronchoscopy, therapeutic airway suctioning and removal of mucous plugs Operative Findings: Anesthesia: MAC Surgeon: Keturah Angel Estimated Blood Loss (ml): 0 Pathology: other Condition: critical Disposition: ICU Operative Findings: This is a procedure that was on intensive care unit under conscious sedation. The patient was given a total of 4 mg of IV Versed during the procedure. Noted the patient was placed on 100% nonrebreather facemask and the procedure was completed. Preoperative chest x-ray complete opacification of the right lung. Bronchoscopy was done yesterday and copious amounts of mucous plugs were removed from the right lung. A consent was obtained. A timeout was done. After achieving adequate sedation, the bronchoscope was inserted through the left nostril and was advanced into the posterior pharynx and then larynx. There was copious amounts of loose cystoscopy secretions occupying the upper airway that were suctioned out without any major difficulties. Epiglottis was identified. Arytenoids were seen. The true and the false vocal cords were seen. The vocal cords were functional without any major abnormalities with vocal cord mobility. A total of 2 mL of 1% lidocaine was applied to the vocal cord and following that the bronchoscope was advanced into the upper trachea. E xamination of the tracheal bronchial tree with him. There was copious amounts of rest or secretions in purulent respiratory secretions and material and debris occupying the entire trachea, back and bilateral mainstem bronchi more so on the right. The secretions were copious and estimated amount was in the order of 30- 40 mL. Constant therapeutic airway suctioning was done and the secretions were removed without any major difficulties. At the secretions were being suctioned out, the patient's oxygen patient remains stable and he did not encounter any desaturations. After completing the therapeutic airway suctioning, the visualized airways included the trachea, bilateral mainstem bronchi, right upper lobe bronchus, bronchus intermedius, right middle lobe bronchus and the right lower lobe bronchus and the various segments of the right and a summation of the left included left upper lobe bronchus and the left lower lobe bronchus and the various 8 segments on the left. Majority of this 20 secretions were BUYING the right lower lobe bronchus. At the completion of the procedure, the airway was clear and there was no significant respiratory secretions retained within the patient's airways. The patient will need a follow-up chest x-ray. The patient is currently on a percent on a beta facemask with a pulse ox of 97%
--- NOTE | 2023-03-05 08:33 | P.PN ---
Subjective Progress Note Date: 03/03/23 Principal diagnosis: Possible encephalitis Patient is a 67-year male with a past medical history significant for chronic pain syndrome history of traumatic brain injury and hypertension patient was noticed to be confused the morning of presentation to the hospital patient also have increasing respiratory distress requiring BiPAP and admission to the ICU. On today's evaluation that is 03/03/2023 patient is afebrile, the patient is more awake and alert and is breathing comfortably however still requiring high flow oxygen at 15 L nasal cannula the patient denies having any chest pain he did have a cough not bringing up any sputum no vomiting diarrhea or any other laura nges reported by nursing staff. Patient white count is 6.8 hemoglobin is 12.2 creatinine 0.79, patient did have a thoracocentesis yesterday with a white count of 345 thoracocentesis fluid pending sputum showing Joi blood cultures negative Objective - Vital Signs Vital signs: Vital Signs Temp 98.1 F 03/03/23 04:00 Pulse 98 03/03/23 12:38 Resp 23 03/03/23 08:00 BP 126/66 03/03/23 08:00 Pulse Ox 92 L 03/03/23 08:00 FiO2 12 03/01/23 04:00 Intake & Output 03/02/23 03/03/23 03/03/23 18:59 06:59 18:59 Intake Total 553.2 370 10 Output Total 1400 400 0 Balance -846.8 -30 10 Weight 70.4 kg Intake: IV 320 370 10 0.9NS 30 120 10 Acyclovir Sodium 1,000 mg 250 250 In Sodium Chloride 0.9% 250 ml @ 270 mls/hr IVPB Q8H [facility] Rx#:[id number] Sodium Chloride 0.9% 1, 40 000 ml @ 75 mls/hr IV . [id number] [facility] Rx#:[id number] Intake, IV Titration 233.2 Amount Magnesium Sulfate-D5w Pmx 100 1 gm In Dextrose/Water 1 100ml.bag @ 100 mls/hr IVPB ONCE ONE Rx#: [id number] Meropenem 500 mg In 133.2 Sodium Chloride 0.9% 100 ml @ 33.3 mls/hr IVPB Q8HR [facility] Rx#:[id number] Output: Urine 200 400 0 Other 1200 Other: Voiding Method Urinal Urinal # Voids 1 1 - Exam GENERAL DESCRIPTION: An elderly male lying in bed in no distress RESPIRATORY SYSTEM: Unlabored breathing , decreased breath sounds at bases HEART: S1 S2 regular rate and rhythm , ABDOMEN: Soft , no tenderness EXTREMITIES: No edema feet - Labs CBC & Chem 7: 03/04/23 03:57 03/05/23 04:16 Labs: Abnormal Lab Results - Last 24 Hours (Table) 03/02/23 03/02/23 03/02/23 Range/Units 17:48 18:01 20:16 RBC (4.30-5.90) m/uL Hgb (13.0-17.5) gm/dL MCHC (31.0-37.0) g/dL Carbon Dioxide (22-30) mmol/L POC Glucose (mg/dL) 131 H 137 H (70-110) mg/dL Calcium (8.4-10.2) mg/dL Troponin I 0.071 H* (0.000-0.034) ng/mL 03/03/23 03/03/23 Range/Units 04:04 04:12 RBC 4.07 L (4.30-5.90) m/uL Hgb 12.2 L (13.0-17.5) gm/dL MCHC 30.8 L (31.0-37.0) g/dL Carbon Dioxide 32 H (22-30) mmol/L POC Glucose (mg/dL) (70-110) mg/dL Calcium 7.6 L (8.4-10.2) mg/dL Troponin I (0.000-0.034) ng/mL Microbiology - Last 24 Hours (Table) 02/28/23 13:40 Gram Stain - Final Sputum Sputum Culture - Final Joi albicans 02/25/23 14:45 Blood Culture - Final Blood Assessment and Plan (1) Encephalopathy Current Visit: Yes Status: Acute Code(s): G93.40 - ENCEPHALOPATHY, UNSPECIFIED SNOMED Code(s): 52691312 (2) SIRS (systemic inflammatory response syndrome) Current Visit: Yes Status: Acute Code(s): R65.10 - SIRS OF NON-INFECTIOUS ORIGIN W/O ACUTE ORGAN DYSFUNCTION SNOMED Code(s): 644992372 Plan: 1patient present to hospital with sepsis in this patient who did have a fever elevated white count tachycardia 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 for 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 po ssibility of encephalitis or meningitis as patient currently do not have any other obvious focus of infection CT angiogram of the chest did not show any consolidation abdominal soft on Examination no evidence of any cellulitis 2-patient did have cephalexin allergy that will limit the number of antibiotics safe to use, patient also develop a rash to Zosyn 3-patient did have LP/CSF did have normal protein and glucose and white count , acyclovir was discontinued 4Patient to continue with meropenem however we will adjust the dose to 1 g every 8 hours as the patient did have abnormal kidney function discussed with the pharmacist Dictation was produced using [employer] dictation software. please excuse any grammatical, word or spelling errors. Time with Patient: Less than 30
--- NOTE | 2023-03-05 08:37 | P.PN ---
Subjective Progress Note Date: 03/04/23 Principal diagnosis: Possible encephalitis Patient is a 67-year male with a past medical history significant for chronic pain syndrome history of traumatic brain injury and hypertension patient was noticed to be confused the morning of presentation to the hospital patient also have increasing respiratory distress requiring BiPAP and admission to the ICU. On today's evaluation that is 03/04/2023, the patient is afebrile patient is currently breathing comfortably on 13 L nasal cannula oxygen patient did have a bronchoscopy done this morning status post lavage of the right lower lobe, patient has tolerated the procedure denies any chest pain or worsening cough no vomiting or diarrhea has been reported. Patient did have a normal white count of 9.9 hemoglobin is 12.0 creatinine 1.06, blood culture has been negative thoracocentesis fluid is currently pending Objective - Vital Signs Vital signs: Vital Signs Temp 98.2 F 03/04/23 08:00 Pulse 96 03/04/23 11:53 Resp 34 H 03/04/23 11:00 BP 144/79 03/04/23 11:00 Pulse Ox 95 03/04/23 11:00 FiO2 12 03/01/23 04:00 Intake & Output 03/03/23 03/04/23 03/04/23 18:59 06:59 18:59 Intake Total 834 260 20 Output Total 1550 1200 350 Balance -716 -940 -330 Weight 64.9 kg 64.9 kg Intake: IV 360 260 20 0.9NS 120 120 20 Invasive Line 5 20 30 Invasive Line 6 20 10 Meropenem 500 mg In 200 100 Sodium Chloride 0.9% 100 ml @ 33.3 mls/hr IVPB Q8HR [facility] Rx#:[id number] Oral 474 Output: Urine 1550 1200 350 Other: Voiding Method Urinal External Catheter External Catheter # Bowel Movements 1 - Exam GENERAL DESCRIPTION: An elderly male lying in bed in no distress RESPIRATORY SYSTEM: Unlabored breathing , decreased breath sounds at bases HEART: S1 S2 regular rate and rhythm , ABDOMEN: Soft , no tenderness EXTREMITIES: No edema feet - Labs CBC & Chem 7: 03/04/23 03:57 03/05/23 04:16 Labs: Abnormal Lab Results - Last 24 Hours (Table) 03/03/23 03/04/23 03/04/23 Range/Units 16:47 03:57 03:57 RBC 3.92 L (4.30-5.90) m/uL Hgb 12.0 L (13.0-17.5) gm/dL Hct 37.1 L (39.0-53.0) % Neutrophils # 8.1 H (1.3-7.7) k/uL Lymphocytes # 0.9 L (1.0-4.8) k/uL Carbon Dioxide 38 H (22-30) mmol/L Glucose 104 H (74-99) mg/dL POC Glucose (mg/dL) 136 H (70-110) mg/dL Calcium 7.8 L (8.4-10.2) mg/dL Microbiology - Last 24 Hours (Table) 03/02/23 10:08 Gram Stain - Preliminary Thoracic Fluid Body Fluid Culture - Preliminary 02/25/23 14:30 Blood Culture - Final Blood 02/28/23 13:40 Gram Stain - Final Sputum Sputum Culture - Final Joi albicans Assessment and Plan (1) Encephalopathy Current Visit: Yes Status: Acute Code(s): G93.40 - ENCEPHALOPATHY, UNSPECIFIED SNOMED Code(s): 65219932 (2) SIRS (systemic inflammatory response syndrome) Current Visit: Yes Status: Acute Code(s): R65.10 - SIRS OF NON-INFECTIOUS ORIGIN W/O ACUTE ORGAN DYSFUNCTION SNOMED Code(s): 035865728 (3) Aspiration pneumonia Current Visit: Yes Status: Acute Code(s): J69.0 - PNEUMONITIS DUE TO INHALATION OF FOOD AND VOMIT SNOMED Code(s): 053443217 (4) Allergy to multiple antibiotics Current Visit: Yes Status: Acute Code(s): Z88.1 - ALLERGY STATUS TO OTHER ANTIBIOTIC AGENTS SNOMED Code(s): 753165458 Plan: 1patient present to hospital with sepsis in this patient who did have a fever elevated white count tachycardia 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 for 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 possibility of encephalitis or meningitis as patient currently do not have any other obvious focus of infection CT angiogram of the chest did not show any consolidation abdominal soft on Examination no evidence of any cellulitis 2-patient did have cephalexin allergy that will limit the number of antibiotics safe to use, patient also develop a rash to Zosyn 3-patient did have LP/CSF did have normal protein and glucose and white count , acyclovir was discontinued 4Patient seemed to have shown some clinical improvement and will continue with meropenem while waiting for bronchoscopy and pleural fluid cultures to finalize Dictation was produced using [employer] software. please excuse any grammatical, word or spelling errors.
[2023-03-05] MEDS: LOSARTAN 25 MG TAB PO SCH (09:00)
--- NOTE | 2023-03-05 09:09 | XR ---
EXAMINATION TYPE: XR chest 1V portable DATE OF EXAM: 03/05/2023 COMPARISON: 03/04/2023 INDICATION: Pneumonia TECHNIQUE: Single frontal view of the chest is obtained. FINDINGS: The heart size is normal. The pulmonary vasculature is normal. There is some deviation of the trachea to the right. There is complete opacification to the right pacheco g field. Correlate for atelectasis. IMPRESSION: 1. Complete opacification of the right lung with shift of the trachea towards the right. Correlate fo r atelectasis. Follow-up is recommended.
[2023-03-05] MEDS: IPRATROPIUM-ALBUTEROL 3 ML NEB INHALATION SCH ×4 (09:13→20:11)
--- NOTE | 2023-03-05 09:20 | XR ---
EXAMINATION TYPE: XR chest 1V portable DATE OF EXAM: 03/05/2023 COMPARISON: Earlier exam INDICATION: Status post bronchoscopy TECHNIQUE: Single frontal view of the chest is obtained. FINDINGS: The heart size is normal. The pulmonary vasculature is normal. There is significant improvement of aeration through the right lung. The trachea is midline. Diffuse mild increased lung markings remain present through the right lung greater at the right lung base. S ome minimal right pleural effusion may be laterally. IMPRESSION: 1. Significant improvement of aeration to the right lung. Residual remains present, greatest at the r ight base. Continued follow-up is recommended. 2. Small right pleural effusion lateral right lung
[2023-03-05] MEDS: TAMSULOSIN 0.4 MG CAP.ER.24H PO SCH (10:09)
[2023-03-05] MEDS: levETIRAcetam 500 MG TAB PO SCH (10:09)
[2023-03-05] MEDS: NICOTINE 21MG/24HR PATCH TRANSDERM SCH (10:09)
[2023-03-05] MEDS: ASPIRIN 81 MG PO SCH (10:09)
[2023-03-05] MEDS: ATORVASTATIN 40 MG TAB PO SCH (10:09)
[2023-03-05] MEDS: METOPROLOL SUCCINATE (ER) 50 MG TAB.ER.24H PO SCH (10:10)
[2023-03-05] MEDS: ALPRAZolam 0.5 MG TAB PO SCH ×4 (10:24→23:04)
[2023-03-05] MEDS: THIAMINE 100 MG TAB PO SCH (10:28)
[2023-03-05 11:15] LABS: Glucose,Whole Blood 115 mg/dL (70-110)
--- NOTE | 2023-03-05 11:18 | P.PN ---
Subjective Progress Note Date: 03/05/23 On follow-up seeing the patient and he denies of any new weakness, numbness, visual disturbance or any neurological issues. No further seizure-like activities. Objective - Vital Signs Vital signs: Vital Signs Temp 99.3 F 03/05/23 05:00 Pulse 98 03/05/23 10:00 Resp 30 H 03/05/23 10:00 BP 137/70 03/05/23 10:00 Pulse Ox 98 03/05/23 10:00 FiO2 12 03/01/23 04:00 Intake & Output 03/04/23 03/05/23 03/05/23 18:59 06:59 18:59 Intake Total 412 583 10 Output Total 1650 1150 350 Balance -1238 -567 -340 Weight 64.9 kg 64.9 kg Intake: IV 212 143 10 0.9NS 80 110 10 Meropenem 500 mg In 132 33 Sodium Chloride 0.9% 100 ml @ 33.3 mls/hr IVPB Q8HR [facility] Rx#:[id number] Intake, IV Titration 200 Amount Meropenem 1,000 mg In 100 Sodium Chloride 0.9% 100 ml @ 33.3 mls/hr IVPB Q8HR [facility] Rx#:[id number] Potassium Chloride 10 meq 100 In Water For Injection 1 100ml.bag @ 100 mls/hr IVPB Q1HR [facility] Rx#: [id number] Oral 200 240 Output: Urine 1650 1150 350 Other: Voiding Method External Catheter External Catheter External Catheter - Exam GENERAL: The patient is sitting in a recliner chair and is not in acute distress. NEUROLOGICAL: Higher mental function: The patient is awake alert oriented to self place and time. Patient is following simple commands commands. No aphasia. Cranial nerves: The pupils are round, equal and reactive to light. Visual wall are full to confrontation throughout. Extraocular movement is intact no nystagmus is noted. The facial strength is normal throughout. Mild dysarthria is noted. Motor: The strength is right lower extremity is 4+. Otherwise lifting all extremities above gravity without difficulty. Cerebellum: Normal finger to nose bilaterally. Sensation: Sensation is normal to touch throughout. LAB/DIAGNOSTIC: Lipid panel is triglycerides 91, cholesterol is 104, LDL 60 and HDL is 25. MRI the brain shows restriction diffusion within the posterior medial left frontal/parietal and subcortical white matter in the RICCARDO distribution suggesting acute/subacute CVA. Gyriform appearance of some of this region suggest associated alignment and necrosis. Echo: Left ventricular enjection 25-30% with apical hypokinesis and basal aspirin. May be consistent with the tic is supple cardiomyopathy versus wrap around LAD disease. CSF study is clear, colorless, red blood cells 1, nucleated cell is 1, glucose 53, protein is 25 fat. Prolonged EEG (90 minutes) on 03/01/2023 is reported as limited study, abnormal EEG. The rare frontal predominant delta range slowing as well as diffuse theta range slowing mentioned above is not epileptiform in nature. The findings indicate mild to moderate diffuse cerebral dysfunction, which may be part due to medication effect. Carotid duplex is reported as no ultrasound evidence for hemodynamically significant stenosis of the visualized bilateral carotid artery. 2-D echo was reported as left ventricle ejection fraction of 25-30% with apical hypokinesis and basal sparing. May be consistent with Takyotsubo cardiomyopath vs wrap around LAD disease. - Labs CBC & Chem 7: 03/04/23 03:57 03/05/23 04:16 Labs: Abnormal Lab Results - Last 24 Hours (Table) 03/05/23 03/05/23 Range/Units 04:16 11:13 Carbon Dioxide 37 H (22-30) mmol/L Glucose 104 H (74-99) mg/dL POC Glucose (mg/dL) 115 H (70-110) mg/dL Calcium 7.7 L (8.4-10.2) mg/dL Microbiology - Last 24 Hours (Table) 03/02/23 10:08 Gram Stain - Preliminary Thoracic Fluid Body Fluid Culture - Preliminary Assessment and Plan Assessment: This is a 67-year-old gentleman who is transferred from [place] after being found to be confused a possible seizure-like activity by his . Patient stated that he has been coughing recently prior to presenting to the hospital denies any sick contacts, fevers, recent travel. Acute to subacute ischemic stroke (left fronto/parietal) and patient has left lower extremity weakness. No auditory since the patient is also to within the risk outweighed the benefit Altered mental status. Encephalopathy of unknown etiology. CSF study is negative for any underlying the CHUTE LOADER infection. Possible metabolic and underlying aspiration pneumonia Seizure-like activity over the right side clinically bun EEG negative for any seizure or discharges Cardiomyopathy. Echo has low EF with Takotsubo cardiomyopathy vs wrap around LAD disease. 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 Recommend start Plavix for his stroke. Starte when it is safe to do so especially since she is having thoracenteses because for his pleural effusion. Currently is on Lipitor 40mg daily. Continue neuro checks Cardiac monitoring Echo has low EF with Takotsubo cardiomyopathy vs wrap around LAD disease. Cardiology team is consulted. Since the prolonged EEG does not show any seizures will stop Keppra from 500mg bid. Will continue to monitor him. PT, OT and [employer] are consulted. We'll defer the rest of the medical management to primary and other specialists For DVT prophylaxis: On subq heparin. The plan was discussed with the patient and primary attending. Will follow-up with patient sporadically. Dr. Erwin will start neurology service on 03/07/2023 in A.M. Time with Patient: Less than 30
[2023-03-05] MEDS: PANTOPRAZOLE 40 MG/10 ML VIAL IVP SCH ×2 (12:06→21:15)
--- NOTE | 2023-03-05 12:11 | PN ---
PROGRESS NOTE SUBJECTIVE: A 67-year-old gentleman with confusional state, respiratory failure, status post bronch x2 and episodes of chest pain. At the time of my evaluation, he is appearing comfortable at rest and is free of symptoms. Blood pressure is poorly controlled. He is currently on Toprol-XL 75 mg daily and Cozaar 25 mg daily, I will increase the dose to 50. OBJECTIVE: GENERAL: On exam, comfortable at rest. VITAL SIGNS: Stable. CHEST: Reveals good air entry bilaterally. HEART: Reveals first and second heart sounds. No gallop. No murmur. ABDOMEN: Soft. EXTREMITIES: Exam of extremities did not reveal any edema. Peripheral pulses are felt. LABORATORY DATA: Labs show that the hemoglobin is 12, platelet count is 154, potassium is 3.5, creatinine is 0.8. ASSESSMENT: 1. Ischemic cardiomyopathy with severe left ventricular dysfunction. 2. Hypertension. PLAN: We will increase the dose of losartan. MMODL / IJN: [id number] /
[2023-03-05] MEDS: LOSARTAN 50 MG TAB PO SCH (12:31)
--- NOTE | 2023-03-05 13:54 | P.PN ---
Subjective Progress Note Date: 03/05/23 Patient is a 67-year-old male patient with traumatic brain injury, chronic pain (on Oxy and Xanax), chronic obstructive pulmonary disease, and hypertension who presetned as a transfer from [facility] for altered mentation and possible seizure like activity. Ct head without acute intracranila process, CTA chest without pulmonary embolism on arrival laboratory analysis is normal for wh ite blood cell, 13.3, PaO2 of 56, calcium 8.1, bilirubin 1.5, CK 432, troponin 0.813, CRP 4.4, pro calcitonin 0.09, urine drug screen was positive for benzodiazepines and marijuana. He was started on empiric treatment for possible pneumonia. Case was discussed neurology and he was also started on empiric treatment for possible meningitis. He required BiPAP and pulmonary was consulted. He was admitted to the ICU. Infectious disease was consulted. Initial antimicrobial regimen consists of Vanco, Azactam, and acyclovir. She had improvement in mentation by 02/28. With some concerns of seizure by neurology and continued on Keppra. EEG and prolonged EEG did not show any signs of seizure activity. He developed worsening bilateral polar effusions. Underwent echocardiogram which confirmed ejection fraction of 25-30% with possible coccus to lose. Cardiology was consulted. He was started on beta marco a and ARB. He was transitioned to Zosyn, he then developed dermatitis and subsequently transitioned to meropenem Patient had lumbar puncture performed by anesthesia on 03/01/23 which can back normal. He underwent left sided thoracentesis on 03/02/23. Exudative based on elevated protein. Bronch completed on 03/04. He was noted to have significant amount of secretion which was suctioned, BAL was completed. Had complete right lung collapse due to mucus plugging, required another bronch today. Imaging: Carotid Doppler-no evidence of hemodynamically significant stenosis Chest ultrasound: Small right and small to moderate left pleural effusions MRI brain: Motion limited exam some areas of restricted diffusion within the posterior medial left frontal/parietal cortex to suggest acute/subacute CVA, nonspecific white matter changes Echocardiogram with ejection fraction 25-30% with apical hypokinesis and basilar sparing may be consistent with Kaposi was cardiomyopathy versus wraparound LAD disease, severe pulmonary hypertension with RVSP [address] chest showed consolidation changes within the right upper lung with trace bilateral pleural effusion, opacified bilateral lower lung large airways, possible aspiration, right intrathoracic lipoma Patient seen and examined at bedside. He denies any chest pain. He continues to have some shortness of breath. Vital signs reviewed General: nontoxic, no distress, appears at stated age Cardiovascular: S1S2 reg, no murmur, positive posterior tibial pulse bilateral, Lungs: Coarse breath sounds bilateral, no conversational dyspnea, no rhonchi, no rales , no accessory muscle use, supplemental oxygen Abdominal: soft, nontender to palpation, no guarding, no appreciable organomegaly Ext: no gross muscle atrophy, no edema b/l lower extremities, no contractures Neuro: CN II-XI grossly intact, right lower extremity weakness Psych: Alert, oriented 3, appropriate affect Assessment/Plan: Acute hypoxic respiratory failure Right lung atelectasis s/p bronch Sepsis secondary to Bacterial pneumonia, bilateral pleural effusions s/p Left sided thora on 03/02/23 COPD exacerbation -Meropenem 500 mg IV every 8 hours D # 5 -Pulmonary hygiene -pulmonary note reviewed: Continue current management -ID following Acute to subacute left side CVA Acute encephalopathy, resolved Possible encephalitis/meningitis--unlikely given negative LP Possible seizures, ruled out -Neurology following - ASA 325 mg daily, Lipitor 40 mg daily -Recommending Plavix as well -Acute inpatient rehab consulted -Ray discontinued Chronic Opiate and benzodiazepine with withdrawal -on oxy 5 mg 3 times daily -patient was taking Xanax 1 mg 4 times daily at home. He was restarted on Xanax 0.5 mg 4 times daily as needed. 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 Imaging: CXR independently interpreted, shows improvement of aeration to the right lung since atelectasis Data Review: Sodium 144, potassium 3.5, bicarb 37, creatinine 0.88 DVT prophylaxis: Heparin SC Anticipated discharge date: Pending Clinical Course Anticipated discharge place: Pending Clinical Course Objective - Vital Signs Vital signs: Vital Signs Temp 99.3 F 03/05/23 05:00 Pulse 96 08/05/23 11:52 Resp 30 H 03/05/23 10:00 BP 137/70 03/05/23 10:00 Pulse Ox 98 03/05/23 10:00 FiO2 12 03/01/23 04:00 Intake & Output 03/04/23 03/05/23 03/05/23 18:59 06:59 18:59 Intake Total 412 583 350 Output Total 1650 1150 900 Balance -1238 -567 -550 Weight 64.9 kg 64.9 kg Intake: IV 212 143 150 0.9NS 80 110 50 Meropenem 500 mg In 132 33 Sodium Chloride 0.9% 100 ml @ 33.3 mls/hr IVPB Q8HR [facility] Rx#:[id number] Potassium Chloride 10 meq 100 In Water For Injection 1 100ml.bag @ 100 mls/hr IVPB Q1HR EMILE[facility] Rx#: [id number] Intake, IV Titration 200 Amount Meropenem 1,000 mg In 100 Sodium Chloride 0.9% 100 ml @ 33.3 mls/hr IVPB Q8HR [facility]LE[facility] Rx#:[id number] Potassium Chloride 10 meq 100 In Water For Injection 1 100ml.bag @ 100 mls/hr IVPB Q1HR EMILEE Rx#: [id number] Oral 200 240 200 Output: Urine 1650 1150 900 Other: Voiding Method External Catheter External Catheter External Catheter - Labs CBC & Chem 7: 03/04/23 03:57 03/05/23 04:16 Labs: Abnormal Lab Results - Last 24 Hours (Table) 03/05/23 03/05/23 Range/Units 04:16 11:13 Carbon Dioxide 37 H (22-30) mmol/L Glucose 104 H (74-99) mg/dL POC Glucose (mg/dL) 115 H (70-110) mg/dL Calcium 7.7 L (8.4-10.2) mg/dL
[2023-03-05 16:16] LABS: Glucose,Whole Blood 146 mg/dL (70-110)
[2023-03-05] MEDS: ACETAMINOPHEN TAB 325 MG TAB PO PRN (16:42)
[2023-03-05 20:17] LABS: Glucose,Whole Blood 157 mg/dL (70-110)
[2023-03-05] MEDS: MIRTAZAPINE 15 MG TAB PO SCH (21:14)
--- NOTE | 2023-03-05 22:40 | XR ---
EXAMINATION TYPE: XR chest 1V portable DATE OF EXAM: 03/05/2023 COMPARISON: 03/05/2023 earlier exam INDICATION: Hypoxia TECHNIQUE: Single frontal view of the chest is obtained. FINDINGS: The heart size is normal. The pulmonary vasculature is there is been improvement of the right lung aeration. However, there is mild to moderate increasing right pleural effusion appearance.. IMPRESSION: 1. Since reoccurring small to moderate right pleural effusion. 2. Improved aeration right upper lung field. 3. Mild atelectatic changes left lung base.
[2023-03-06] MEDS: POTASSIUM CHLORIDE 10 MEQ in WATER FOR INJECTION 1 100ML.BAG IVPB SCH ×2 (00:39→02:25)
[2023-03-06] MEDS: NITROGLYCERIN OINT 1 INCH/GM PACKET TOPICAL SCH ×3 (02:23→16:31)
[2023-03-06 03:43] LABS: Basophils % (A) 0 %; Eosinophils # (A) 0.1 k/uL (0-0.7); Eosinophils % (A) 1 %; HCT 36.3 % (39.0-53.0); HGB 11.3 gm/dL (13.0-17.5); Hypochromasia Moderate; Lymphocytes # (A) 1.3 k/uL (1.0-4.8); Lymphocytes % (A) 14 %; MCH 29.7 pg (25.0-35.0); MCHC 31.1 g/dL (31.0-37.0); MCV 95.5 fL (80.0-100.0); Mean Platelet Volume 9.8; Monocytes # (A) 0.5 k/uL (0-1.0); Monocytes % (A) 5 %; Neutrophils # (A) 7.2 k/uL (1.3-7.7); Neutrophils % (A) 78 %; Platelet Count 140 k/uL (150-450); RDW 13.6 % (11.5-15.5); WBC 9.2 k/uL (3.8-10.6)
[2023-03-06 03:56] LABS: African American GFR (CKD) >90 (>60 ml/min/1.73 sqM); Blood Urea Nitrogen 17 mg/dL (9-20); Calcium 7.6 mg/dL (8.4-10.2); Chloride 100 mmol/L (98-107); Glucose 100 mg/dL (74-99); Magnesium 1.7 mg/dL (1.6-2.3); Non-African American GFR(CKD) >90 (>60 ml/min/1.73 sqM); Potassium 4.2 mmol/L (3.5-5.1); Sodium 139 mmol/L (137-145)
[2023-03-06 04:03] LABS: Anion Gap 3 mmol/L; Carbon Dioxide 36 mmol/L (22-30)
[2023-03-06] MEDS ORDERED: MAGNESIUM SULFATE-D5W PMX 1 GM in DEXTROSE/WATER 1 100ML.BAG IVPB ONE (05:45)
[2023-03-06 06:51] LABS: Glucose,Whole Blood 134 mg/dL (70-110)
--- NOTE | 2023-03-06 08:29 | P.PN ---
Subjective Progress Note Date: 03/06/23 This is a 67-year-old male patient with a history of previous traumatic brain injury, chronic pain for which he takes oxycodone, gabapentin and Ativan, anxiety, chronic and ongoing tobacco dependence, chronic obstructive pulmonary disease, hypertension. He was transferred here from [facility] after being found to have confusion, altered mental status and possibly a seizure at home by his . CT angiogram of the chest ruled out pulmonary embolism. Computed tomography scan of the head showed no acute intracranial process. Chest x-ray reveals no evidence of pneumothorax. The left lung is clear. There is an unchanged right lateral lower lobe density possibly a loculated pleural effusion. White count 23.9. Hemoglobin 14.1. Platelets 148. Sodium 144. Potassium 3.8. Bicarb 27. BUN 33. Creatinine 0.77. Ammonia level XXI. Arterial blood gases on 100% FiO2 revealed a pO2 of 123, pCO2 40, pH 7.41. He is seen today in consultation in the intensive care unit. Currently he is awake and alert. Following commands. Slightly tachycardic. Tachypneic. Afebrile. He is on BiPAP 14/890% FiO2. He was initiated on Keppra, vancomycin, acyclovir, Levaquin. Lumbar puncture pending. He has normal saline at 75 ML's per hour. The patient is seen today 02/27/2023 in follow-up in the intensive care unit. He is currently sitting up in bed. Bit more awake and alert today. He is on 2 L high flow nasal cannula. He did wear her BiPAP last night 14/8 and 60% FiO2 to approximate 8 AM this morning. He has normal saline at 75 ML's per hour. His pro calcitonin went from 0.09 up to 0.29. ID is on the case and resumed vancomycin, Azactam and continued on acyclovir. White count 14.2. Hemoglobin 11.6. Platelets 104. Sodium 137. Potassium 3.8. Bicarb 20. BUN 28. Creatin ine 0.67. Glucose 87. Stool for occult blood is positive. Blood culture pending. Lumbar puncture pending. He remains on DuoNeb inhalations, Symbicort, heparin for DVT prophylaxis. On today's evaluation of 02/28/2023, the patient is awake and alert and communicating. He is alert and oriented 3. Is responding appropriately to commands and answering questions appropriately. Is aware that he is in [place] and is also aware of the time and date. He is moving all 4 extremities. Denies having any headache. No neck stiffness. Is weak and is having some occasional tremors. The neuro workup is still in progress. Obviously, seizure was a concern and the patient was started on Keppra. EEG was done and the final report is not available yet. CT of the brain was also completed in addition to the CAT scan of the cervical spine and there is no evidence of any cervical spine fracture on the CAT scan of the head showed chronic atrophic changes with chronic small vessel ischemic changes. The patient was suspected to have a component of encephalitis/meningitis initiated time of admission and the patient was covered with a combination of acyclovir, vancomycin and is active and. He h as hypoxic, he is currently on 6 L to maintain a saturation above 90%. The chest x-ray that was done today showed an extensive right lower lobe and possibly right middle lobe consolidation along with possibly some underlying effusion. Left lung is clear. He has history of alcoholism, denies drinking this point in time. He has previous history of traumatic brain injury, he has chronic pain and limited on a combination of oxycodone and gabapentin and he also takes Ativan for chronic anxiety. Is a chronic smoker and is known to have COPD. His blood work from today shows a WBC count of 10.5 with a hemoglobin 12.7 and a platelet count of 136. BUN is at 22 with a creatinine of 0.6 and the sodium levels of 138, his pro calcitonin level was at 0.29 and his ammonia level was negative. 03/01/2023, seeing the patient for a follow-up. The patient is awake and alert and communicating. Lumbar punctures to be done today. EEG from yesterday showed encephalopathy, moderate, no evidence of any seizure activity and the patient remains on Keppra. A lumbar puncture will be done by anesthesia today. Otherwise, the patient denies having any headache or neck stiffness. The patient remains on a combination of IV acyclovir, vancomycin and he was also started on Zosyn yesterday due to bilateral pneumonia worse in the right. The patient is still coughing and has a congested cough, unable to bring up much of sputum at this point in time. The chest x-ray from today is essentially unchang ed. There is similar bibasilar patchy airspace disease with a small effusion on the left. Possibility of a right-sided pleural effusion cannot be completely ruled out. I'm going to go ahead an ultrasound the right chest to evaluate for any signs of any effusion. In terms of oxygenation, the patient was brought up as high as 15 L and currently is down to 12 L of oxygen by nasal cannula. Is less tachycardic compared to yesterday. He remains in mild degree of sinus tachycardia. He was able to swallow. Neurology is on the case. Lumbar puncture still pending for now. On today's blood work, the white cell count is 10.4 with a hemoglobin 12.4 and a platelet count of 189. The BUN is 18 with a creatinine of 0.7 and a sodium level is at 141. Potassium levels at 3.8. On 03/02/2023, seeing the patient for a follow-up. The patient is currently on 8 L of oxygen by nasal cannula. His being treated for bilateral pneumonia. The patient continues to have dense consolidation of the lower lobes worse on the right and there is also evidence of bilateral pleural effusion. Based on the ultrasound that was performed yesterday. The patient has a 6.8 cm pocket on the left and a 2.4 cm pocket on the right. A left-sided thoracentesis to be done today. Meanwhile, lumbar puncture was done yesterday and the CSF seems to be clear. There is only 1 nucleated cell and 1 RBC and the glucose is normal at 53. 14 has not been checked and needs to be sent in addition to HSV by PCR. The patient is awake and alert and communicating. He remains weak. Is a congested cough. He developed a rash while being on Zosyn and I switched him to IV meropenem. No significant rashes appreciated on today's evaluation. BUN is at 60 with a creatinine of 0.5 and a sodium levels of 139. White cell count is at 7.3 with a hemoglobin of 11.8. Note that the patient also developed some diaphoresis and tachycardia and hypertension yesterday. We thought that this was related to narcotic withdrawal as the patient takes oxycodone on an outpatient basis 4 times a day. This was addressed by the medical team and the patient was started on oxycodone 15 mg every 8 hours for chronic pain. This morning, he seems to much more comfortable. The patient remains on IV acyclovir. The patient is currently on IV meropenem. 03/03/2023, the patient is still in the intensive care unit. We'll continue to have issues with the patient's oxygenation. The patient currently is on 15 L of oxygen by nasal cannula. Note that yesterday, he was on 8 L. I brain his left lung and a total of 1.2 L of pleural fluid was aspirated without any complication. The aeration of the left lung improved. The fluid is a tra nsudate based on protein and LDH criteria. Nevertheless, on today's evaluation, there is progression in his right lung in terms of consolidation and volume loss. The opacification of the right lung has increased and there may be an underlying effusion/atelectasis/consolidation. As such, a CAT scan of the chest will be needed prior to making any further decision. He states that his right lung is also aching and hurting. He is antibiotic coverage is with IV meropenem. His echoes at 6.8 with a hemoglobin 12.2. BUN is at 40 with a creatinine of 0.7 and a sodium level is at 139. Neurologically, he is awake and alert. CSF cultures came back negative. The CSF protein was also low at 25. As such, there is no indication for encephalitis and I'm going to discontinue the IV acyclovir on this patient. For now, the active issue remains chest congestion, probably mucus plugging, pneumonia, volume loss in the right lung and possibly a right-sided pleural effusion. He is drinking. He is communicating. No focal neurological deficits. On 03/04/2023 He is communicating. He remains on 15 L of oxygen by nasal cannula. Bronchoscope was not done yesterday and the patient has already taken his oral diet. Based on that, the procedure was done today. A CAT scan of the chest was done and showed trace bilateral pleural effusion, there is consolidation involving the right lung in addition to atelectasis. There is obviously transfusions within the airways. There is also a large right intrathoracic lipoma appears to be coming from the right chest wall measuring up to 7 cm in size. The patient also has cortical erosion in the left upper extremity humerus. This morning, he is communicating. He is lethargic. He has a congested cough. Unable to bring up much of sputum. Repeat chest x-ray shows essentially no major interval change and there is still persistent consolidation volume loss in the right lung. The white cell cause of 9.9 with a hemoglobin of 12. He is a 40 with a creatinine of 1.06 and his sodium levels of 143. The patient remains on IV Merrem. Sputum was positive for Joi. The patient remains on bronchodilators. The patient is on IV Merrem. Neurologically stable. IV fluids are running in the form of 0.9 at KVO. On today's evaluation of 03/05/2023, the patient is on 8 L of oxygen by nasal cannula. A bronchoscopy was done and copious amounts of this was secretions were suctioned out from his right lung yesterday. There was massive quantities of mucous plugs. He clinically improved. However, the chest x-ray from today shows complete the investigation of the right lung. Obviously, the patient is going to need another bronchoscope. His calm and comfortable on 8 L of oxygen by nasal cannula with a pulse ox of 96%. No other significant events overnight. He has a congested cough. Unable to bring up much of sputum. The chest x-ray from today was reviewed. Also, the rest of the blood work shows a sodium level of 144, potassium of 3.5, BUN is 15 with a creatinine of 0.88. CBC is pending. Hemoglobin from yesterday was 12 and a white cell cause of 9.9. The patient remains on IV Merrem. The cultures that were obtained from the sputum analysis yesterday showed no microbial growth thus far. He is afebrile. Hemodynamically stable. Neurologically intact IV fluids are currently at KVO. No aspiration overnight. a 60,023, the patient continues to struggle with his breathing episodically. Note that he required bronchoscopy on 2 separate occasions for complete opacification of the right lung/atelectasis and volume loss. He was found to have copious amounts of respiratory secretions and mucous plugs in the right. His last bronchoscopy was done yesterday. Chest x-ray from today shows persistent consolidation of the right lung. There is still some ongoing volume loss. There may be some small right-sided pleural effusion is small left-sided pleural effusion. The patient remains on IV Merrem. The bronchoalveolar lavage that was on the right lower lobe is not doing any specific bacteria. The patient has a cough. He was provided incentive spirometer. Is doing pulmonary toileting. The blood work from today was reviewed and the patient has a white cell count of 9.2 with a hemoglobin of 11.3 and a platelet count of 140. BUN is at 70 with a creatinine of 0.7 and a sodium level is at 139. The fluid balance over the past 24 hours has been -1.8 L. He is hemodynamically stable. His cardiac rhythm is sinus. IV fluids are KVO. Remains on aspirin and Plavix. He remains on metoprolol 75 mg twice a day. No diarrhea and he had a bowel movement yesterday. No aspiration. Objective - Vital Signs Vital signs: Vital Signs Temp 98.1 F 03/05/23 23:04 Pulse 93 03/06/23 07:00 Resp 25 H 03/06/23 07:00 BP 149/77 03/06/23 07:00 Pulse Ox 95 03/06/23 07:00 FiO2 12 03/01/23 04:00 Intake & Output 03/05/23 03/06/23 03/06/23 18:59 06:59 18:59 Intake Total 410 960 10 Output Total 950 1000 Balance -540 -40 10 Weight 64.6 kg Intake: IV 210 520 10 0.9NS 110 120 10 Potassium Chloride 10 meq 100 400 In Water For Injection 1 100ml.bag @ 100 mls/hr IVPB Q1HR [facility] Rx#: [id number] Intake, IV Titration 200 Amount Magnesium Sulfate-D5w Pmx 100 1 gm In Dextrose/Water 1 100ml.bag @ 100 mls/hr IVPB ONCE ONE Rx#: [id number] Meropenem 1,000 mg In 100 Sodium Chloride 0.9% 100 ml @ 33.3 mls/hr IVPB Q8HR [facility] Rx#:[id number] Oral 200 240 Output: Urine 950 1000 Other: Voiding Method External Catheter External Catheter External Catheter # Bowel Movements 1 - Exam GENERAL EXAM: Alert, 67-year-old male, on 10 liters high flow nasal cannula , lethargic yet awake and alert. Communicating. Body mass index is 22. HEAD: Normocephalic. EYES: Normal reaction of pupils, equal size. NOSE: Clear with pink turbinates. THROAT: No erythema or exudates. NECK: No masses, no JVD. CHEST: No chest wall deformity. LUNGS: Equal air entry with no crackles, wheeze, rhonchi or dullness. There is diminished breath on the right lung base along with egophony consistent with an underlying pneumonia.the breath sounds are improved on the right side compared to yesterday CVS: S1 and S2 normal with no audible murmur, regular rhythm. ABDOMEN: No hepatosplenomegaly, normal bowel sounds, no guarding or rigidity. SPINE: No scoliosis or deformity SKIN: No rashes CENTRAL NERVOUS SYSTEM: No focal deficits, tone is normal in all 4 extremities. The patient is awake and alert and communicating at this point in time. He is weak and has generalized motor weakness in all 4 extremities. The reflexes are symmetrical however. No hyperreflexia. No clonus. No Babinski. No neck stiffness. EXTREMITIES: There is no peripheral edema. No clubbing, no cyanosis. Peripheral pulses are intact. - Labs CBC & Chem 7: 03/06/23 03:15 03/06/23 03:15 Labs: Abnormal Lab Results - Last 24 Hours (Table) 03/05/23 03/05/23 03/05/23 Range/Units 11:13 16:14 20:16 RBC (4.30-5.90) m/uL Hgb (13.0-17.5) gm/dL Hct (39.0-53.0) % Plt Count (150-450) k/uL Carbon Dioxide (22-30) mmol/L Glucose (74-99) mg/dL POC Glucose (mg/dL) 115 H 146 H 157 H (70-110) mg/dL Calcium (8.4-10.2) mg/dL 03/06/23 03/06/23 03/06/23 Range/Units 03:15 03:15 06:50 RBC 3.80 L (4.30-5.90) m/uL Hgb 11.3 L (13.0-17.5) gm/dL Hct 36.3 L (39.0-53.0) % Plt Count 140 L (150-450) k/uL Carbon Dioxide 36 H (22-30) mmol/L Glucose 100 H (74-99) mg/dL POC Glucose (mg/dL) 134 H (70-110) mg/dL Calcium 7.6 L (8.4-10.2) mg/dL Microbiology - Last 24 Hours (Table) 08/02/23 10:08 Gram Stain - Preliminary Thoracic Fluid Body Fluid Culture - Preliminary Assessment and Plan Plan: Complete opacification of the right lung due to large quantities of mucus and mucous plugs, secondary to right lung pneumonia. The patient is on IV meropenem. Initial bronchoscope was done on 03/04/2023 and the bronchoscope will be done today. a repeat bronchoscopy was done on 03/05/2023 with evacuation of large amount of mucous plugs. Cultures are negative and the patient is showing some improved aeration of the right lung. There is a small residual right-sided pleural effusion. There is also left-sided pleural effusion that was drained on an earlier setting Altered mental status of unclear etiology. The mental status is back to baseline. Lumbar puncture was negative. This could have been a metabolic en cephalopathy. Seizures cannot be completely ruled out. The patient remains on Keppra. Neurology is on the case. IV acyclovir will be discontinued. No evidence of any meningitis. Neurologically intact and communicating without any focal neurological deficit. Urine drug screen positive for benzodiazepines and marijuana. The mental status is back to normal at this point in time. Neurologic workup has been completed. History of chronic pain syndrome and the patient takes oxycodone, gabapentin and Xanax Acute hypoxemic respiratory failure suspect secondary to COPD, and some interstitial fibrosis in addition to an extensive right lung pneumonia, possibly of an aspiration times pressure was underlying mental status and suspicion for aspiration. The patient has also developed bilateral pleural effusion larger on the left. The patient remains on IV meropenem. The patient underwent a left-sided thoracentesis with removal of 1.2 L, transudate, there is persistent consolidation volume loss in the right lung. Consider mucous retention/mucus plugging in addition to pneumonia. He underwent bronchoscopy2. Currently on 10 L of O2 cannula. 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 Chronic narcotic use and the patient is currently on oxycodone 50 mg every 8 hours Plan: Titrate oxygen flow to maintain a saturation above 90%, currently on 10L of O2 nasal cannula aggressive pulmonary toileting Left-sided pleural effusion was a transudate, Right lung is completely opacified and this improved post bronchoscopy No need for thoracentesis of the month the pleural fluid is minimalon the right Aspiration precautions Allow oral intake Continue IV IV meropenem Continue IV Keppra Continue DuoNeb nebs on the clock DVT and GI prophylaxis We'll continue to follow Condition remains critical. We'll continue to follow. We will be kept in the intensive care unit.
--- NOTE | 2023-03-06 08:31 | XR ---
EXAMINATION TYPE: XR chest 1V portable DATE OF EXAM: 03/06/2023 COMPARISON: 03/05/2023 INDICATION: Pleural effusion TECHNIQUE: Single frontal view of the chest is obtained. FINDINGS: The heart size is normal. The pulmonary vasculature is normal. There is a moderate right pleural effusion similar to previous exam. Minimal left pleural effusion is present. Mild infiltrate is to the right lung. IMPRESSION: 1. Stable moderate right and minimal left pleural effusions. 2. Stable right lung infiltrate.
[2023-03-06] MEDS: IPRATROPIUM-ALBUTEROL 3 ML NEB INHALATION SCH ×4 (08:36→19:49)
[2023-03-06] MEDS: HEPARIN SODIUM,PORCINE 5,000 UNIT/ML 1 ML VIAL SQ SCH ×3 (08:38→23:47)
[2023-03-06] MEDS: MEROPENEM 1,000 MG in SODIUM CHLORIDE 0.9% 100 ML IVPB SCH ×3 (08:38→23:47)
[2023-03-06] MEDS: ASPIRIN 81 MG PO SCH (08:39)
[2023-03-06] MEDS: LOSARTAN 50 MG TAB PO SCH (08:39)
[2023-03-06] MEDS: METOPROLOL SUCCINATE (ER) 100 MG TAB.ER.24H PO SCH (08:39)
[2023-03-06] MEDS: CLOPIDOGREL 75 MG TAB PO SCH (08:39)
[2023-03-06] MEDS: ALPRAZolam 0.5 MG TAB PO SCH ×4 (08:39→23:47)
[2023-03-06] MEDS: ATORVASTATIN 40 MG TAB PO SCH (08:39)
[2023-03-06] MEDS: PANTOPRAZOLE 40 MG/10 ML VIAL IVP SCH ×2 (08:42→20:03)
[2023-03-06] MEDS: TAMSULOSIN 0.4 MG CAP.ER.24H PO SCH (08:42)
[2023-03-06] MEDS: THIAMINE 100 MG TAB PO SCH (08:42)
[2023-03-06] MEDS: NICOTINE 21MG/24HR PATCH TRANSDERM SCH (08:43)
[2023-03-06 11:19] LABS: Glucose,Whole Blood 109 mg/dL (70-110)
--- NOTE | 2023-03-06 12:17 | PN ---
PROGRESS NOTE SUBJECTIVE: Kristofer is a 67-year-old gentleman, who is admitted to hospital with encephalopathy and we were involved in his care because of cardiomyopathy with severe LV dysfunction. He has also had chest pain initially, but at the moment he is chest pain-free. Denies difficulty in breathing or leg edema. PHYSICAL EXAMINATION: GENERAL: He is comfortable at rest. VITAL SIGNS: Heart rate is 90 beats per minute, blood pressure is 150/75, respiratory rate is 18. The patient is saturating at 90% on 10 L of high-flow nasal cannula. CHEST: Reveals diminished air entry at the bases. HEART: Reveals first and second heart sounds. No gallop. ABDOMEN: Soft. EXTREMITIES: Do not reveal any edema. Peripheral pulses are felt. LABORATORY DATA: Labs show that the hemoglobin is 11.3, potassium is 4.2, creatinine is 0.73. ASSESSMENT: 1. Respiratory failure secondary to aspiration pneumonia, status post bronchoscopy with some improvement in his respiratory status. 2. Uncontrolled hypertension. 3. Cardiomyopathy with severe LV dysfunction. PLAN: I am going to continue the aspirin, Lipitor, and Plavix that he is on. Increase the dose of Toprol-XL to 100 mg daily and continue the Cozaar. If his blood pressure remains elevated, I will increase the Cozaar to 100 mg tomorrow. The plan is to perform cardiac catheterization on him after the respiratory status becomes stable. MMODL / IJN: [id number] /
--- NOTE | 2023-03-06 12:56 | P.PN ---
Subjective Progress Note Date: 03/06/23 Patient is a 67-year-old male patient with traumatic brain injury, chronic pain (on Oxy and Xanax), chronic obstructive pulmonary disease, and hypertension who presetned as a transfer from [facility] for altered mentation and possible seizure like activity. Ct head without acute intracranila process, CTA chest without pulmonary embolism on arrival laboratory analysis is normal for white blood cell, 13.3, PaO2 of 56, calcium 8.1, bilirubin 1.5, CK 432, troponin 0.813, CRP 4.4, pro calcitonin 0.09, urine drug screen was positive for benzodiazepines and marijuana. He was started on empiric treatment for possible pneumonia. Case was discussed neurology and he was also started on empiric treatment for possible meningitis. He required BiPAP and pulmonary was consulted. He was admitted to the ICU. Infectious disease was consulted. Initial antimicrobial regimen consists of Vanco, Azactam, and acyclovir. She had improvement in mentation by 02/28. With some concerns of seizure by neurology and continued on Keppra. EEG and prolonged EEG did not show any signs of seizure activity. He developed worsening bilateral polar effusions. Underwent echocardiogram which confirmed ejection fraction of 25-30% with possible coccus to lose. Cardiology was consulted. He was started on beta marco a and ARB. He was transitioned to Zosyn, he then developed dermatitis and subsequently transitioned to meropenem Patient had lumbar puncture performed by anesthesia on 03/01/23 which can back normal and therefore IV acyclovir was discontinued. He underwent left sided thoracentesis on 03/02/[address] of the chest was completed on 03/03 which demonstrated large right chest wall lipoma measuring 7 x 6.2 x 6.9 cm, extensive right-sided infiltrate, and trace bilateral pleural effusions. Patient underwent bronchoscopy with removal of copious amounts of mucous plugs from the right lung on 03/04, patient had severe mucous plugging develop again on 03/05 and required repeated bronchoscopy with removal of mucous plugs. Imaging: Carotid Doppler-no evidence of hemodynamically significant stenosis Chest ultrasound: Small right and small to moderate left pleural effusions MRI brain: Motion limited exam some areas of restricted diffusion within the posterior medial left frontal/parietal cortex to suggest acute/subacute CVA, nonspecific white matter changes Echocardiogram with ejection fraction 25-30% with apical hypokinesis and basilar sparing may be consistent with Kaposi was cardiomyopathy versus wraparound LAD disease, severe pulmonary hypertension with RVSP 69 Patient seen and examined at bedside. He reports his breathing is better today than yesterday. He reports his appetite is slowly improving. He denies any chest discomfort. He denies any nausea or vomiting. Pain is currently well controlled. Vital signs reviewed General: nontoxic, no distress, appears at stated age Cardiovascular: S1S2 reg, no murmur, positive posterior tibial pulse bilateral, Lungs: Decreased breath sounds right base, no conversational dyspnea, no rhonchi, no rales , no accessory muscle use Abdominal: soft, nontender to palpation, no guarding, no appreciable organomegaly Ext: no gross muscle atrophy, no edema b/l lower extremities, no contractures Neuro: CN II-XI grossly intact, no focal neuro deficits Psych: Alert, oriented 3, appropriate affect Assessment/Plan: Acute hypoxic respiratory failure Sepsis secondary to Bacterial pneumonia, bilateral pleural effusions s/p Left sided thora on 03/02/23 with transudative effusion - complicated by severe mucus plugging COPD exacerbation 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 -Meropenem 500 mg IV every 8 hours day #6 -Pulmonary hygiene -Infectious disease no reviewed from 03/04: Continue with meropenem, acyclovir was discontinued. - Mucinex 1200 mg PO BID Chronic pain syndrome - Oxy 15 mg 3 times daily, at home he was taking 30 milligrams 4 times daily. - Xanax 0.5 mg 4 times daily as needed, at home was taking Xanax 1 mg 4 times daily at home Acute to subacute left side CVA Acute encephalopathy, resolved Possible encephalitis/meningitis--unlikely given negative LP Possible seizures, ruled out -Case discussed with Dr. Segura. Would benefit from Plavix 75 mg daily, ordered -Neurology note reviewed: Patient without abnormalities on prolonged EEG. Patient has been successfully weaned off of Keppra. We will follow on an as- needed basis. - ASA 325 mg daily, Lipitor 40 mg daily Cardiomyopathy with ejection fraction 25-30% -Cardiology note reviewed: Increase metoprolol to 100 mg daily, continue with Cozaar. Ultimately would benefit from cardiac cath once respiratory status stable. -Follow blood pressures Severe protein calorie malnutrition - continue with ensure - Remeron 7.5 mg at night to help with insomnia and appetite stimulation. 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 Systolic blood pressure has been ranging in the 140s to 150s. He has been satting in the 90s on 8-10 L high flow Labs from today reviewed and remarkable for white blood cell count 9.2, hemoglobin 11.3, platelets 148, carbon dioxide 36, magnesium 1.7. DVT prophylaxis: Heparin SC Anticipated discharge date: Pending Clinical Course Anticipated discharge place: Pending Clinical Course This dictation was prepared using [email or web address] voice recognition software. Though every attempt is made to correct errors during dictation some may still exist. Objective - Vital Signs Vital signs: Vital Signs Temp 98.4 F 03/06/23 12:00 Pulse 92 03/06/23 12:00 Resp 22 03/06/23 12:00 BP 141/75 03/06/23 12:00 Pulse Ox 95 03/06/23 12:00 FiO2 12 03/01/23 04:00 Intake & Output 03/05/23 03/06/23 03/06/23 18:59 06:59 18:59 Intake Total 410 960 160 Output Total 950 1000 550 Balance -540 -40 -390 Weight 64.6 kg Intake: IV 210 520 60 0.9NS 110 120 60 Potassium Chloride 10 meq 100 400 In Water For Injection 1 100ml.bag @ 100 mls/hr IVPB Q1HR [facility] Rx#: [id number] Intake, IV Titration 200 100 Amount Magnesium Sulfate-D5w Pmx 100 1 gm In Dextrose/Water 1 100ml.bag @ 100 mls/hr IVPB ONCE ONE Rx#: [id number] Meropenem 1,000 mg In 100 100 Sodium Chloride 0.9% 100 ml @ 33.3 mls/hr IVPB Q8HR [facility] Rx#:[id number] Oral 200 240 Output: Urine 950 1000 550 Other: Voiding Method External Catheter External Catheter External Catheter # Bowel Movements 1 - Labs CBC & Chem 7: 03/06/23 03:15 03/06/23 03:15 Labs: Abnormal Lab Results - Last 24 Hours (Table) 03/05/23 03/05/23 03/06/23 Range/Units 16:14 20:16 03:15 RBC 3.80 L (4.30-5.90) m/uL Hgb 11.3 L (13.0-17.5) gm/dL Hct 36.3 L (39.0-53.0) % Plt Count 140 L (150-450) k/uL Carbon Dioxide (22-30) mmol/L Glucose (74-99) mg/dL POC Glucose (mg/dL) 146 H 157 H (70-110) mg/dL Calcium (8.4-10.2) mg/dL 03/06/23 03/06/23 Range/Units 03:15 06:50 RBC (4.30-5.90) m/uL Hgb (13.0-17.5) gm/dL Hct (39.0-53.0) % Plt Count (150-450) k/uL Carbon Dioxide 36 H (22-30) mmol/L Glucose 100 H (74-99) mg/dL POC Glucose (mg/dL) 134 H (70-110) mg/dL Calcium 7.6 L (8.4-10.2) mg/dL Microbiology - Last 24 Hours (Table) 03/02/23 10:08 Gram Stain - Preliminary Thoracic Fluid Body Fluid Culture - Preliminary
[2023-03-06] MEDS: guaiFENesin 600 MG TABLET.ER PO SCH ×2 (13:16→23:47)
--- NOTE | 2023-03-06 16:13 | P.PN ---
Subjective Progress Note Date: 03/05/23 Principal diagnosis: Possible encephalitis Patient is a 67-year male with a past medical history significant for chronic pain syndrome history of traumatic brain injury and hypertension patient was noticed to be confused the morning of presentation to the hospital patient also have increasing respiratory distress requiring BiPAP and admission to the ICU. On today's evaluation that is 03/05/2023, the patient did spike a low-grade fever 100.2 last night the patient is afebrile this morning, patient is currently breathing comfortably and is down to 8L nasal cannula oxygen , the patient denies having any chest pain no worsening cough or sputum production no nausea n o vomiting no abdominal pain and no diarrhea Patient did have a normal white count of 9.9 hemoglobin is 12.0 as of yesterdayhe was done today, creatinine is 0.88, blood culture has been negative thoracocentesis fluid is currently pending Objective - Vital Signs Vital signs: Vital Signs Temp 99.3 F 03/05/23 05:00 Pulse 98 03/05/23 10:00 Resp 30 H 03/05/23 10:00 BP 137/70 03/05/23 10:00 Pulse Ox 98 03/05/23 10:00 FiO2 12 03/01/23 04:00 Intake & Output 03/04/23 03/05/23 03/05/23 18:59 06:59 18:59 Intake Total 412 583 10 Output Total 1650 1150 350 Balance -1238 -567 -340 Weight 64.9 kg 64.9 kg Intake: IV 212 143 10 0.9NS 80 110 10 Meropenem 500 mg In 132 33 Sodium Chloride 0.9% 100 ml @ 33.3 mls/hr IVPB Q8HR [facility] Rx#:[id number] Intake, IV Titration 200 Amount Meropenem 1,000 mg In 100 Sodium Chloride 0.9% 100 ml @ 33.3 mls/hr IVPB Q8HR [facility] Rx#:[id number] Potassium Chloride 10 meq 100 In Water For Injection 1 100ml.bag @ 100 mls/hr IVPB Q1HR [facility] Rx#: [id number] Oral 200 240 Output: Urine 1650 1150 350 Other: Voiding Method External Catheter External Catheter External Catheter - Exam GENERAL DESCRIPTION: An elderly male lying in bed in no distress RESPIRATORY SYSTEM: Unlabored breathing , decreased breath sounds at bases HEART: S1 S2 regular rate and rhythm , ABDOMEN: Soft , no tenderness EXTREMITIES: No edema feet - Labs CBC & Chem 7: 03/06/23 03:15 03/06/23 03:15 Labs: Abnormal Lab Results - Last 24 Hours (Table) 03/05/23 03/05/23 Range/Units 04:16 11:13 Carbon Dioxide 37 H (22-30) mmol/L Glucose 104 H (74-99) mg/dL POC Glucose (mg/dL) 115 H (70-110) mg/dL Calcium 7.7 L (8.4-10.2) mg/dL Microbiology - Last 24 Hours (Table) 03/02/23 10:08 Gram Stain - Preliminary Thoracic Fluid Body Fluid Culture - Preliminary Assessment and Plan (1) Encephalopathy Current Visit: Yes Status: Acute Code(s): G93.40 - ENCEPHALOPATHY, UNSPECIFIED SNOMED Code(s): 70836338 (2) SIRS (systemic inflammatory response syndrome) Current Visit: Yes Status: Acute Code(s): R65.10 - SIRS OF NON-INFECTIOUS ORIGIN W/O ACUTE ORGAN DYSFUNCTION SNOMED Code(s): 624973765 (3) Aspiration pneumonia Current Visit: Yes Status: Acute Code(s): J69.0 - PNEUMONITIS DUE TO INHALATION OF FOOD AND VOMIT SNOMED Code(s): 076775153 (4) Allergy to multiple antibiotics Current Visit: Yes Status: Acute Code(s): Z88.1 - ALLERGY STATUS TO OTHER ANTIBIOTIC AGENTS SNOMED Code(s): 129277947 Plan: 1patient present to hospital with sepsis in this patient who did have a fever elevated white count tachycardia concerning for possible MOUNTER SOUSAPHONES infection p ossibility of encephalitis or meningitis as patient currently do not have any other obvious focus of infection CT angiogram of the chest did not show any consolidation abdominal soft on Examination no evidence of any cellulitis 2-patient did have cephalexin allergy that will limit the number of antibiotics safe to use, patient also develop a rash to Zosyn 3-patient did have LP/CSF did have normal protein and glucose and white count , acyclovir was discontinued 4Patient slowly clinically improving and is currently being treated with meropenem while waiting for bronchoscopy and pleural fluid cultures to finalize Dictation was produced using [employer] dictation software. please excuse any gramm atical, word or spelling errors. Time with Patient: Less than 30
--- NOTE | 2023-03-06 16:14 | P.PN ---
Subjective Progress Note Date: 03/06/23 Principal diagnosis: Possible encephalitis Patient is a 67-year male with a past medical history significant for chronic pain syndrome history of traumatic brain injury and hypertension patient was noticed to be confused the morning of presentation to the hospital patient also have increasing respiratory distress requiring BiPAP and admission to the ICU. On today's evaluation that is 03/06/2023, the patient remains to be afebrile, patient is currently breathing comfortably and is is requiring 1 L nasal cannula oxygen , the patient denies having any chest pain, the patient denies any worsening cough or sputum production no nausea no vomiting no abdominal pain and no diarrhea Patient did have a normal white count of 9.2 hemoglobin is 11.3, creatinine is 0.73, blood culture has been negative thoracocentesis fluid is currently pending Objective - Vital Signs Vital signs: Vital Signs Temp 98.4 F 03/06/23 12:00 Pulse 88 03/06/23 15:11 Resp 23 03/06/23 13:00 BP 141/75 03/06/23 13:00 Pulse Ox 95 03/06/23 13:00 FiO2 12 03/01/23 04:00 Intake & Output 03/05/23 03/06/23 03/06/23 18:59 06:59 18:59 Intake Total 410 960 180 Output Total 950 1000 550 Balance -540 -40 -370 Weight 64.6 kg Intake: IV 210 520 80 0.9NS 110 120 80 Potassium Chloride 10 meq 100 400 In Water For Injection 1 100ml.bag @ 100 mls/hr IVPB Q1HR [facility] Rx#: [id number] Intake, IV Titration 200 100 Amount Magnesium Sulfate-D5w Pmx 100 1 gm In Dextrose/Water 1 100ml.bag @ 100 mls/hr IVPB ONCE ONE Rx#: [id number] Meropenem 1,000 mg In 100 100 Sodium Chloride 0.9% 100 ml @ 33.3 mls/hr IVPB Q8HR [facility] Rx#:[id number] Oral 200 240 Output: Urine 950 1000 550 Other: Voiding Method External Catheter External Catheter External Catheter # Bowel Movements 1 - Exam GENERAL DESCRIPTION: An elderly male lying in bed in no distress RESPIRATORY SYSTEM: Unlabored breathing , decreased breath sounds at bases HEART: S1 S2 regular rate and rhythm , ABDOMEN: Soft , no tenderness EXTREMITIES: No edema feet - Labs CBC & Chem 7: 03/06/23 03:15 03/06/23 03:15 Labs: Abnormal Lab Results - Last 24 Hours (Table) 03/05/23 03/05/23 03/06/23 Range/Units 16:14 20:16 03:15 RBC 3.80 L (4.30-5.90) m/uL Hgb 11.3 L (13.0-17.5) gm/dL Hct 36.3 L (39.0-53.0) % Plt Count 140 L (150-450) k/uL Carbon Dioxide (22-30) mmol/L Glucose (74-99) mg/dL POC Glucose (mg/dL) 146 H 157 H (70-110) mg/dL Calcium (8.4-10.2) mg/dL 03/06/23 03/06/23 Range/Units 03:15 06:50 RBC (4.30-5.90) m/uL Hgb (13.0-17.5) gm/dL Hct (39.0-53.0) % Plt Count (150-450) k/uL Carbon Dioxide 36 H (22-30) mmol/L Glucose 100 H (74-99) mg/dL POC Glucose (mg/dL) 134 H (70-110) mg/dL Calcium 7.6 L (8.4-10.2) mg/dL Microbiology - Last 24 Hours (Table) 03/02/23 10:08 Gram Stain - Preliminary Thoracic Fluid Body Fluid Culture - Preliminary Assessment and Plan (1) Encephalopathy Current Visit: Yes Status: Acute Code(s): G93.40 - ENCEPHALOPATHY, UNSPECIFIED SNOMED Code(s): 39259103 (2) SIRS (systemic inflammatory response syndrome) Current Visit: Yes Status: Acute Code(s): R65.10 - SIRS OF NON-INFECTIOUS ORIGIN W/O ACUTE ORGAN DYSFUNCTION SNOMED Code(s): 838785157 (3) Aspiration pneumonia Current Visit: Yes Status: Acute Code(s): J69.0 - PNEUMONITIS DUE TO INHALATION OF FOOD AND VOMIT SNOMED Code(s): 496606382 (4) Allergy to multiple antibiotics Current Visit: Yes Status: Acute Code(s): Z88.1 - ALLERGY STATUS TO OTHER ANTIBIOTIC AGENTS SNOMED Code(s): 064687846 Plan: 1patient present to hospital with sepsis in this patient who did have a fever elevated white count tachycardia concerning for possible PANTOMIMIST infection possibility of encephalitis or meningitis as patient currently do not have any other obvious focus of infection CT angiogram of the chest did not show any consolidation abdominal soft on Examination no evidence of any cellulitis 2-patient did have cephalexin allergy that will limit the number of antibiotics safe to use, patient also develop a rash to Zosyn 3-patient did have LP/CSF did have normal protein and glucose and white count , acyclovir was discontinued 4Patient is afebrile and the patient white count has normalized, patient to continue with meropenem because of multiple ALLERGIES, while waiting for bronchoscopy and pleural fluid cultures to finalize Dictation was produced using [employer] dictation software. please excuse any grammatical, word or spelling errors. Time with Patient: Less than 30
[2023-03-06 16:25] LABS: Glucose,Whole Blood 133 mg/dL (70-110)
[2023-03-06] MEDS: MIRTAZAPINE 15 MG TAB PO SCH (20:08)
[2023-03-07] MEDS: NITROGLYCERIN OINT 1 INCH/GM PACKET TOPICAL SCH ×4 (00:03→23:49)
[2023-03-07 04:03] LABS: HCT 33.3 % (39.0-53.0); HGB 10.8 gm/dL (13.0-17.5); Hypochromasia Moderate; MCH 30.8 pg (25.0-35.0); MCHC 32.4 g/dL (31.0-37.0); MCV 95.1 fL (80.0-100.0); Mean Platelet Volume 9.2; Platelet Count 135 k/uL (150-450); RDW 13.6 % (11.5-15.5); WBC 8.7 k/uL (3.8-10.6)
[2023-03-07 04:08] LABS: ALT 14 U/L (4-49); AST 23 U/L (17-59); African American GFR (CKD) >90 (>60 ml/min/1.73 sqM); Albumin 2.3 g/dL (3.5-5.0); Alkaline Phosphatase 48 U/L (38-126); Blood Urea Nitrogen 21 mg/dL (9-20); Calcium 7.7 mg/dL (8.4-10.2); Chloride 100 mmol/L (98-107); Glucose 127 mg/dL (74-99); Magnesium 1.9 mg/dL (1.6-2.3); Non-African American GFR(CKD) >90 (>60 ml/min/1.73 sqM); Phosphorus 3.8 mg/dL (2.5-4.5); Potassium 3.9 mmol/L (3.5-5.1); Sodium 139 mmol/L (137-145); Total Bilirubin 0.7 mg/dL (0.2-1.3); Total Protein 4.9 g/dL (6.3-8.2)
[2023-03-07 04:16] LABS: Anion Gap 0 mmol/L
[2023-03-07 04:17] LABS: Carbon Dioxide 39 mmol/L (22-30)
[2023-03-07] MEDS ORDERED: Potassium Replacement Protocol 1 EACH MISC MISCELLANE PRN (05:57)
[2023-03-07] MEDS ORDERED: MAGNESIUM SULFATE-D5W PMX 1 GM in DEXTROSE/WATER 1 100ML.BAG IVPB ONE (05:57)
[2023-03-07] MEDS ORDERED: POTASSIUM CHLORIDE ER 20 MEQ TAB.ER PO SCH (06:00)
[2023-03-07 07:00] LABS: Glucose,Whole Blood 108 mg/dL (70-110)
--- NOTE | 2023-03-07 07:25 | XR ---
EXAMINATION TYPE: XR chest 1V portable DATE OF EXAM: 03/07/2023 COMPARISON: 03/06/2023 INDICATION: Pneumonia TECHNIQUE: Single frontal view of the chest is obtained. FINDINGS: The heart size is normal. The pulmonary vasculature is normal. There is a moderate right pleural effusion. Mild bibasilar infiltrates are present. This is improving on the right lung. This is increasing on the left lung base. Small left pleural effusion remains pre sent. IMPRESSION: 1. Moderate right and small left pleural effusions, stable. 2. Improving right upper lobe infiltrate. 3. Developing atelectatic type changes at the left base.
[2023-03-07] MEDS: IPRATROPIUM-ALBUTEROL 3 ML NEB INHALATION SCH ×4 (07:37→19:43)
[2023-03-07] MEDS: CLOPIDOGREL 75 MG TAB PO SCH (08:05)
[2023-03-07] MEDS: PANTOPRAZOLE 40 MG/10 ML VIAL IVP SCH ×2 (08:05→21:12)
[2023-03-07] MEDS: METOPROLOL SUCCINATE (ER) 100 MG TAB.ER.24H PO SCH (08:05)
[2023-03-07] MEDS: THIAMINE 100 MG TAB PO SCH (08:05)
[2023-03-07] MEDS: LOSARTAN 50 MG TAB PO SCH (08:05)
[2023-03-07] MEDS: NICOTINE 21MG/24HR PATCH TRANSDERM SCH (08:05)
[2023-03-07] MEDS: ALPRAZolam 0.5 MG TAB PO SCH ×4 (08:05→21:12)
[2023-03-07] MEDS: HEPARIN SODIUM,PORCINE 5,000 UNIT/ML 1 ML VIAL SQ SCH ×3 (08:05→23:48)
[2023-03-07] MEDS: TAMSULOSIN 0.4 MG CAP.ER.24H PO SCH (08:05)
[2023-03-07] MEDS: ASPIRIN 81 MG PO SCH (08:05)
[2023-03-07] MEDS: guaiFENesin 600 MG TABLET.ER PO SCH ×2 (08:05→21:11)
[2023-03-07] MEDS: MEROPENEM 1,000 MG in SODIUM CHLORIDE 0.9% 100 ML IVPB SCH ×3 (08:05→23:53)
[2023-03-07] MEDS: ATORVASTATIN 40 MG TAB PO SCH (08:23)
[2023-03-07] MEDS: ACETAMINOPHEN TAB 325 MG TAB PO PRN (09:28)
--- NOTE | 2023-03-07 09:44 | US ---
EXAMINATION TYPE: US chest DATE OF EXAM: 03/07/2023 COMPARISON: NONE CLINICAL INDICATION: Male, 67 years old with history of Right effusion; known effusion on the right, h/o left thoracentesis a few days prior TECHNIQUE: Targeted ultrasound of the posterior lower Right EXAM MEASUREMENTS: Right Pleural Effusion pocket size: 4.9 cm Right skin surface to fluid distance: 2.8 cm Right side NOT marked for possible thoracentesis outside the dept due to viscus fluid versus lung tis klarissa within pocket Pulmonologists are able to review the images in the patient?s EMR. IMPRESSIONS: 1. Small pleural effusion, not marked for thoracentesis due to size
[2023-03-07 11:24] LABS: Glucose,Whole Blood 104 mg/dL (70-110)
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
[2023-03-07] MEDS: polyethylene glycoL 3350 17 GM POWD.PACK PO SCH (12:30)
--- NOTE | 2023-03-07 12:46 | P.PN ---
Subjective Progress Note Date: 03/07/23 Principal diagnosis: Acute hypoxic respiratory failure/multifactorial secondary to pneumonia, mucous plugging, possible aspiration pneumonia, and bilateral pleural effusions. As w ell as underlying COPD. On today's evaluation of 03/05/2023, the patient is on 8 L of oxygen by nasal cannula. A bronchoscopy was done and copious amounts of this was secretions were suctioned out from his right lung yesterday. There was massive quantities of mucous plugs. He clinically improved. However, the chest x-ray from today shows complete the investigation of the right lung. Obviously, the patient is going to need another bronchoscope. His calm and comfortable on 8 L of oxygen by nasal cannula with a pulse ox of 96%. No other significant events overnight. He has a congested cough. Unable to bring up much of sputum. The chest x-ray from today was reviewed. Also, the rest of the blood work shows a sodium level of 144, potassium of 3.5, BUN is 15 with a creatinine of 0.88. CBC is pending. Hemoglobin from yesterday was 12 and a white cell cause of 9.9. The patient remains on IV Merrem. The cultures that were obtained from the sputum analysis yesterday showed no microbial growth thus far. He is afebrile. Hemodynamically stable. Neurologically intact IV fluids are currently at KVO. No aspiration overnight. a 60,023, the patient continues to struggle with his breathing episodically. Note that he required bronchoscopy on 2 separate occasions for complete opa cification of the right lung/atelectasis and volume loss. He was found to have copious amounts of respiratory secretions and mucous plugs in the right. His last bronchoscopy was done yesterday. Chest x-ray from today shows persistent consolidation of the right lung. There is still some ongoing volume loss. There may be some small right-sided pleural effusion is small left-sided pleural effusion. The patient remains on IV Merrem. The bronchoalveolar lavage that was on the right lower lobe is not doing any specific bacteria. The patient has a cough. He was provided incentive spirometer. Is doing pulmonary toileting. The blood work from today was reviewed and the patient has a white cell count of 9.2 with a hemoglobin of 11.3 and a platelet count of 140. BUN is at 70 with a creatinine of 0.7 and a sodium level is at 139. The fluid balance over the past 24 hours has been -1.8 L. He is hemodynamically stable. His cardiac rhythm is sinus. IV fluids are KVO. Remains on aspirin and Plavix. He remains on metoprolol 75 mg twice a day. No diarrhea and he had a bowel movement yesterday. No aspiration. Reevaluated today on 03/07/2023, patient remains in the ICU, seems to be very comfortable, patient denies being in distress or being short of breath, he does have intermittent cough, remains on Merrem, chest x-ray showed questionable atelectasis and right-sided pleural effusion hence I'm recommending an ultrasound of the right chest on the patient today. Indeed the patient did have ultrasound of the chest, not much fluid can be seen on the ultrasound, hence no need for thoracentesis. Labs today showed relatively normal CBC with WBC of 8.7 hemoglobin 10.8, a left lites are normal renal profile is normal bicarb is 39. Cultures from his sputum showed mostly Joi, no bacterial growth has been noticed. No organisms seen on his last BAL. Chest x-ray did show evidence of improving the right upper lobe infiltrate and developing atelectasis at the right base, questionable effusion not seen on ultrasound. Atelectasis is also noted that the left base Objective - Vital Signs Vital signs: Vital Signs Temp 98.2 F 03/07/23 12:00 Pulse 103 H 03/07/23 12:00 Resp 11 L 03/07/23 12:00 BP 129/69 03/07/23 12:00 Pulse Ox 92 L 03/07/23 12:00 FiO2 12 03/01/23 04:00 Intake & Output 03/06/23 03/07/23 03/07/23 18:59 06:59 18:59 Intake Total 220 460 400 Output Total 850 600 500 Balance -630 -140 -100 Weight 64.6 kg Intake: IV 120 120 60 0.9NS 120 120 60 Intake, IV Titration 100 100 100 Amount Magnesium Sulfate-D5w Pmx 100 1 gm In Dextrose/Water 1 100ml.bag @ 100 mls/hr IVPB ONCE ONE Rx#: [id number] Meropenem 1,000 mg In 100 100 Sodium Chloride 0.9% 100 ml @ 33.3 mls/hr IVPB Q8HR [facility] Rx#:[id number] Oral 240 Tube Feeding 240 Output: Urine 850 600 500 Other: Voiding Method External Catheter External Catheter External Catheter - Exam Physical Exam: Revealed a 67-year-old white male in no distress, on 4 L high flow nasal cannula Head: Atraumatic, normocephalic. HEENT:[Neck is supple.] [No neck masses.] [No thyromegaly.] [No JVD.] Chest: [Diminished breath sound at the right base, fine crackles at the left base. Cardiac Exam: [Normal S1 and S2, no S3 gallop, no murmur.] Abdomen: [Soft, nontender, no megaly, no rebound, no guarding, normal bowel sounds.] Extremities: [No clubbing, no edema, no cyanosis.] Neurological Exam: [No focal neurologic deficit.] Patient is noted to be generally weak, otherwise no focal deficits. Psychiatric: Normal mood affect and normal mental status examination. Skin: No rashes. - Labs CBC & Chem 7: 03/07/23 03:12 03/07/23 03:12 Labs: Abnormal Lab Results - Last 24 Hours (Table) 03/06/23 03/07/23 03/07/23 Range/Units 16:23 03:12 03:12 RBC 3.50 L (4.30-5.90) m/uL Hgb 10.8 L (13.0-17.5) gm/dL Hct 33.3 L (39.0-53.0) % Plt Count 135 L (150-450) k/uL Carbon Dioxide 39 H (22-30) mmol/L BUN 21 H (9-20) mg/dL Glucose 127 H (74-99) mg/dL POC Glucose (mg/dL) 133 H (70-110) mg/dL Calcium 7.7 L (8.4-10.2) mg/dL Total Protein 4.9 L (6.3-8.2) g/dL Albumin 2.3 L (3.5-5.0) g/dL Microbiology - Last 24 Hours (Table) 03/02/23 10:08 Gram Stain - Final Thoracic Fluid Body Fluid Culture - Final Assessment and Plan Assessment: Impression: Acute hypoxic respiratory failure, multifactorial Acute complete opacification of the right lung due to mucous plugging and possibly aspiration pneumonia requiring bronchoscopy 2. And extraction of mucous plugs. Underlying COPD with interstitial fibrotic lung disease, chronic. Chronic pain syndrome maintained on oxycodone and gabapentin and Xanax Acute metabolic encephalopathy, being addressed by neurology on the case. Left pleural effusion requiring thoracentesis 1.2 L removed/transudate of Right lower lobe atelectasis, no clear-cut evidence of effusion on the right side. Ultrasound was noted to today. History of alcoholism. Inactive for now. 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 We will continue to follow Time with Patient: Less than 30
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
--- NOTE | 2023-03-07 14:51 | P.PN ---
Subjective Progress Note Date: 03/07/23 SUBJECTIVE: Patient is a 67-year-old gentleman who was admitted to the hospital with encephalopathy and pneumonia. Cardiology was involved when his echo showed severe LV dysfunction. At this time patient is showing modest clinical improvement. He denies any chest pain or chest pressure at this time. He denies having any noticed some swelling. LABS: His labs shows a hemoglobin of 10.8, creatinine of 0.7. Head: Normocephalic. BP 150/70, on high flow nasal cannula saturating well Lungs: Diminished air entry in bilateral lung bases. Diffuse rhonchi audible Heart: Regular rate and rhythm, S1-S2, no S3, no murmur or rub. Abdomen: Soft nontender, positive bowel sounds no organomegaly. Extremities: No edema, intact distal pulses. ASSESSMENT: 1. Respiratory failure due to aspiration pneumonia status post bronchoscopy with some improvement in his respiratory status 2. Metabolic encephalopathy 3. Hypertension 4. Cardiomyopathy with severe LV dysfunction. No signs of fluid overload at this time PLAN: Continue current medications which include aspirin, Lipitor, Plavix. Continue Toprol-XL 100 mg daily and losartan 100 mg daily Once patient is ready for discharge, he will need ischemic evaluation with a heart catheterization Objective - Vital Signs Vital signs: Vital Signs Temp 98.2 F 03/07/23 12:00 Pulse 103 H 03/07/23 12:00 Resp 11 L 03/07/23 12:00 BP 129/69 03/07/23 12:00 Pulse Ox 92 L 03/07/23 12:00 FiO2 12 03/01/23 04:00 Intake & Output 03/06/23 03/07/23 03/07/23 18:59 06:59 18:59 Intake Total 220 460 410 Output Total 850 600 500 Balance -630 -140 -90 Weight 64.6 kg Intake: IV 120 120 70 0.9NS 120 120 70 Intake, IV Titration 100 100 100 Amount Magnesium Sulfate-D5w Pmx 100 1 gm In Dextrose/Water 1 100ml.bag @ 100 mls/hr IVPB ONCE ONE Rx#: [id number] Meropenem 1,000 mg In 100 100 Sodium Chloride 0.9% 100 ml @ 33.3 mls/hr IVPB Q8HR [facility] Rx#:[id number] Oral 240 Tube Feeding 240 Output: Urine 850 600 500 Other: Voiding Method External Catheter External Catheter External Catheter - Labs CBC & Chem 7: 03/07/23 03:12 03/07/23 03:12 Labs: Abnormal Lab Results - Last 24 Hours (Table) 03/06/23 03/07/23 03/07/23 Range/Units 16:23 03:12 03:12 RBC 3.50 L (4.30-5.90) m/uL Hgb 10.8 L (13.0-17.5) gm/dL Hct 33.3 L (39.0-53.0) % Plt Count 135 L (150-450) k/uL Carbon Dioxide 39 H (22-30) mmol/L BUN 21 H (9-20) mg/dL Glucose 127 H (74-99) mg/dL POC Glucose (mg/dL) 133 H (70-110) mg/dL Calcium 7.7 L (8.4-10.2) mg/dL Total Protein 4.9 L (6.3-8.2) g/dL Albumin 2.3 L (3.5-5.0) g/dL Microbiology - Last 24 Hours (Table) 03/02/23 10:08 Gram Stain - Final Thoracic Fluid Body Fluid Culture - Final
--- NOTE | 2023-03-07 15:00 | P.PN ---
Subjective Progress Note Date: 03/07/23 (delayed charting seen at 1005) Patient is a 67-year-old male patient with traumatic brain injury, chronic pain (on Oxy and Xanax), chronic obstructive pulmonary disease, and hypertension who presetned as a transfer from [facility] for altered mentation and possible seizure like activity. Ct head without acute intracranila process, CTA chest without pulmonary embolism on arrival laboratory analysis is normal for white blood cell, 13.3, PaO2 of 56, calcium 8.1, bilirubin 1.5, CK 432, troponin 0.813, CRP 4.4, pro calcitonin 0.09, urine drug screen was positive for benzodiazepines and marijuana. He was started on empiric treatment for possible pneumonia. Case was discussed neurology and he was also started on empiric treatment for possible meningitis. He required BiPAP and pulmonary was consulted. He was admitted to the ICU. Infectious disease was consulted. Init ial antimicrobial regimen consists of Vanco, Azactam, and acyclovir. She had improvement in mentation by 02/28. With some concerns of seizure by neurology and continued on Keppra. EEG and prolonged EEG did not show any signs of seizure activity. He developed worsening bilateral polar effusions. Underwent echocardiogram which confirmed ejection fraction of 25-30% with possible coccus to lose. Cardiology was consulted. He was started on beta marco a and ARB. He was transitioned to Zosyn, he then developed dermatitis and subsequently transitioned to meropenem Patient had lumbar puncture performed by anesthesia on 03/01/23 which can back normal and therefore IV acyclovir was discontinued. He underwent left sided thoracentesis on 03/02/[address] of the chest was completed on 03/03 which demonstrated large right chest wall lipoma measuring 7 x 6.2 x 6.9 cm, extensive right-sided infiltrate, and trace bilateral pleural effusions. Patient underwent bronchoscopy with removal of copious amounts of mucous plugs from the right lung on 03/04, patient had severe mucous plugging develop again on 03/05 and required repeated bronchoscopy with removal of mucous plugs. Imaging: Carotid Doppler-no evidence of hemodynamically significant stenosis Chest ultrasound: Small right and small to moderate left pleural effusions MRI brain: Motion limited exam some areas of restricted diffusion within the posterior medial left frontal/parietal cortex to suggest acute/subacute CVA, nonspecific white matter changes Echocardiogram with ejection fraction 25-30% with apical hypokinesis and basilar sparing may be consistent with Kaposi was cardiomyopathy versus wraparound LAD disease, severe pulmonary hypertension with RVSP 69 Patient seen and examined at bedside. He reports he is very tired. States he is still having some difficulty breathing. He diffuse aches and pains. He is still not had a great appetite but has been drinking his denture. He has been getting up to the chair several times a day. Vital signs reviewed General: nontoxic, no distress, appears at stated age Cardiovascular: S1S2 reg, no murmur, positive posterior tibial pulse bilateral, Lungs: Decreased breath sounds right base, no conversational dyspnea, no rhonchi, no rales , no accessory muscle use Abdominal: soft, +tender to palpation RLQ, no guarding, no appreciable organomegaly Ext: no gross muscle atrophy, no edema b/l lower extremities, no contractures Neuro: CN II-XI grossly intact, no focal neuro deficits Psych: Alert, oriented 3, appropriate affect Assessment/Plan: Acute hypoxic respiratory failure Sepsis secondary to Bacterial pneumonia, bilateral pleural effusions s/p Left sided thora on 03/02/23 with transudative effusion - complicated by severe mucus plugging requiring bronch X 2 COPD exacerbation 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 -Pulmonary note reviewed: Continue Merrem -Meropenem 500 mg IV every 8 hours day #7 -Pulmonary hygiene -Infectious disease no reviewed from 03/06: Continue with meropenem, await cul tures - Mucinex 1200 mg PO BID - Seen by PMR and recommendations are GERTRUDE Chronic pain syndrome - Oxy 15 mg 3 times daily, at home he was taking 30 milligrams 4 times daily. - Xanax 0.5 mg 4 times daily as needed, at home was taking Xanax 1 mg 4 times daily at home Acute to subacute left side CVA Acute encephalopathy, resolved - ASA 325 mg daily, Lipitor 40 mg daily, Plavix 75 mg daily, neuro has signed off Cardiomyopathy with ejection fraction 25-30% -Cardiology note reviewed: Continue with Toprol 100 mg, losartan increased to 100 mg daily. Eventually will need heart cath for ischemic evaluation once respiratory status is stable. -Follow blood pressures Severe protein calorie malnutrition - continue with ensure - Remeron 7.5 mg at night to help with insomnia and appetite stimulation. 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 Chest ultrasound: Small pleural effusion not marked for thoracentesis due to size Data Review: Vitals reviewed T-max the last 24 hours 99.6 Heart rate has been ranging from 90 up to 103 SpO2 in the low 90s between 8-12 L high flow Labs reviewed and remarkable for platelets of 135, carbon dioxide 39, BUN 21 DVT prophylaxis: Heparin SC Anticipated discharge date: Pending Clinical Course Anticipated discharge place: Pending Clinical Course This dictation was prepared using [employer] voice recognition software. Though every attempt is made to correct errors during dictation some may still exist. Objective - Vital Signs Vital signs: Vital Signs Temp 98.2 F 03/07/23 12:00 Pulse 103 H 03/07/23 12:00 Resp 11 L 03/07/23 12:00 BP 129/69 03/07/23 12:00 Pulse Ox 92 L 03/07/23 12:00 FiO2 12 03/01/23 04:00 Intake & Output 03/06/23 03/07/23 03/07/23 18:59 06:59 18:59 Intake Total 220 460 410 Output Total 850 600 500 Balance -630 -140 -90 Weight 64.6 kg Intake: IV 120 120 70 0.9NS 120 120 70 Intake, IV Titration 100 100 100 Amount Magnesium Sulfate-D5w Pmx 100 1 gm In Dextrose/Water 1 100ml.bag @ 100 mls/hr IVPB ONCE ONE Rx#: [id number] Meropenem 1,000 mg In 100 100 Sodium Chloride 0.9% 100 ml @ 33.3 mls/hr IVPB Q8HR [facility] Rx#:[id number] Oral 240 Tube Feeding 240 Output: Urine 850 600 500 Other: Voiding Method External Catheter External Catheter External Catheter - Labs CBC & Chem 7: 03/07/23 03:12 03/07/23 03:12 Labs: Abnormal Lab Results - Last 24 Hours (Table) 03/06/23 03/07/23 03/07/23 Range/Units 16:23 03:12 03:12 RBC 3.50 L (4.30-5.90) m/uL Hgb 10.8 L (13.0-17.5) gm/dL Hct 33.3 L (39.0-53.0) % Plt Count 135 L (150-450) k/uL Carbon Dioxide 39 H (22-30) mmol/L BUN 21 H (9-20) mg/dL Glucose 127 H (74-99) mg/dL POC Glucose (mg/dL) 133 H (70-110) mg/dL Calcium 7.7 L (8.4-10.2) mg/dL Total Protein 4.9 L (6.3-8.2) g/dL Albumin 2.3 L (3.5-5.0) g/dL Microbiology - Last 24 Hours (Table) 03/02/23 10:08 Gram Stain - Final Thoracic Fluid Body Fluid Culture - Final
[2023-03-07 16:31] LABS: Glucose,Whole Blood 103 mg/dL (70-110)
[2023-03-07 20:37] LABS: Glucose,Whole Blood 105 mg/dL (70-110)
[2023-03-07] MEDS: MIRTAZAPINE 15 MG TAB PO SCH (21:11)
[2023-03-08] MEDS: NITROGLYCERIN OINT 1 INCH/GM PACKET TOPICAL SCH ×3 (00:01→15:06)
[2023-03-08 03:54] LABS: Basophils % (A) 0 %; Eosinophils # (A) 0.1 k/uL (0-0.7); Eosinophils % (A) 2 %; HCT 33.7 % (39.0-53.0); HGB 10.5 gm/dL (13.0-17.5); Hypochromasia Moderate; Lymphocytes % (A) 15 %; MCHC 31.1 g/dL (31.0-37.0); MCV 96.4 fL (80.0-100.0); Mean Platelet Volume 9.4; Monocytes # (A) 0.4 k/uL (0-1.0); Monocytes % (A) 6 %; Neutrophils % (A) 75 %; Platelet Count 142 k/uL (150-450); RDW 13.7 % (11.5-15.5); WBC 6.7 k/uL (3.8-10.6)
[2023-03-08 03:55] LABS: ALT 17 U/L (4-49); AST 26 U/L (17-59); African American GFR (CKD) >90 (>60 ml/min/1.73 sqM); Albumin 2.2 g/dL (3.5-5.0); Alkaline Phosphatase 49 U/L (38-126); Blood Urea Nitrogen 23 mg/dL (9-20); Calcium 7.7 mg/dL (8.4-10.2); Chloride 97 mmol/L (98-107); Glucose 113 mg/dL (74-99); Magnesium 1.9 mg/dL (1.6-2.3); Non-African American GFR(CKD) >90 (>60 ml/min/1.73 sqM); Phosphorus 3.5 mg/dL (2.5-4.5); Potassium 4.5 mmol/L (3.5-5.1); Sodium 138 mmol/L (137-145); Total Bilirubin 0.7 mg/dL (0.2-1.3); Total Protein 5.2 g/dL (6.3-8.2)
[2023-03-08 04:01] LABS: Anion Gap 5 mmol/L; Carbon Dioxide 36 mmol/L (22-30)
[2023-03-08 06:37] LABS: Glucose,Whole Blood 112 mg/dL (70-110)
[2023-03-08] MEDS: IPRATROPIUM-ALBUTEROL 3 ML NEB INHALATION SCH ×4 (07:49→20:10)
--- NOTE | 2023-03-08 08:40 | XR ---
EXAMINATION TYPE: XR chest 1V portable DATE OF EXAM: 03/08/2023 5:54 AM COMPARISON: Chest radiographs from 03/07/2023 TECHNIQUE: XR chest 1V portable Frontal view of the chest. CLINICAL INDICATION:Male, 67 years old with history of pneumonia; FINDINGS: Lungs/Pleura: Right pleural effusion with associated atelectasis. There is no evidence of , focal con solidation, or pneumothorax. Trace left effusion. Pulmonary vascularity: Unremarkable. Heart/mediastinum: Cardiomediastinal silhouette is unremarkable. Musculoskeletal: No acute osseous pathology. IMPRESSION: Stable exam with bilateral pleural effusions and interstitial lung disease. Improved aeration of the right lung.
[2023-03-08] MEDS: TAMSULOSIN 0.4 MG CAP.ER.24H PO SCH (08:55)
[2023-03-08] MEDS: MEROPENEM 1,000 MG in SODIUM CHLORIDE 0.9% 100 ML IVPB SCH ×2 (08:55→16:02)
[2023-03-08] MEDS: HEPARIN SODIUM,PORCINE 5,000 UNIT/ML 1 ML VIAL SQ SCH ×2 (08:55→15:59)
--- NOTE | 2023-03-08 09:34 | XR ---
EXAMINATION TYPE: XR chest 1V portable DATE OF EXAM: 03/08/2023 9:25 AM COMPARISON: Chest radiographs from 03/07/2023 TECHNIQUE: XR chest 1V portable Frontal view of the chest. CLINICAL INDICATION:Male, 67 years old with history of Hypoxemia; FINDINGS: Lungs/Pleura: Right pleural effusion with associated atelectasis. There is no evidence of , focal con solidation, or pneumothorax. Trace left effusion. Pulmonary vascularity: Unremarkable. Heart/mediastinum: Cardiomediastinal silhouette is unremarkable. Musculoskeletal: No acute osseous pathology. IMPRESSION: Stable exam with bilateral pleural effusions and interstitial lung disease. Improved aeration of the right lung.
[2023-03-08] MEDS: polyethylene glycoL 3350 17 GM POWD.PACK PO SCH (09:59)
[2023-03-08] MEDS: PANTOPRAZOLE 40 MG/10 ML VIAL IVP SCH ×2 (10:03→21:03)
--- NOTE | 2023-03-08 10:03 | P.PN ---
Subjective 67-year-old patient presenting with encephalopathy and pneumonia 2-D echo showed severe LV dysfunction possibly Takotsubo cardio myopathy He has a history of hypertension No evidence of CHF at this time Wearing BiPAP mask at this time Looks stable asking if he can take off the mask On examination heart sounds S1 and S2 are normal Reduced air entry bilaterally scattered rhonchi no crackles No lower extremity edema Blood pressure 119/55 mmHg respiratory rate 30 sinus mechanism in the 90s Impression Cardio myopathy possibly stress cardio myopathy, on aspirin atorvastatin Plavix metoprolol and losartan No evidence for CHF at this time Suggest Continue current management of encephalopathy and pneumonitis and respiratory failure Once his respiratory issues have stabilized, workup for cardio myopathy thereafter Objective - Vital Signs Vital signs: Vital Signs Temp 98.9 F 03/08/23 08:00 Pulse 93 03/08/23 09:00 Resp 32 H 03/08/23 09:00 BP 110/56 03/08/23 09:00 Pulse Ox 89 L 03/08/23 09:00 FiO2 40 03/08/23 09:00 Intake & Output 03/07/23 03/08/23 03/08/23 18:59 06:59 18:59 Intake Total 450 180 360 Output Total 951 550 200 Balance -501 -370 160 Weight 64.6 kg 64.9 kg Intake: IV 110 180 120 0.9NS 110 80 20 Meropenem 1,000 mg In 100 Sodium Chloride 0.9% 100 ml @ 33.3 mls/hr IVPB Q8HR [facility] Rx#:[id number] Meropenem 500 mg In 100 Sodium Chloride 0.9% 100 ml @ 33.3 mls/hr IVPB Q8HR [facility] Rx#:[id number] Intake, IV Titration 100 Amount Meropenem 1,000 mg In 100 Sodium Chloride 0.9% 100 ml @ 33.3 mls/hr IVPB Q8HR [facility] Rx#:[id number] Oral 240 240 Output: Urine 950 550 200 Stool 1 Other: Voiding Method External Catheter External Catheter # Bowel Movements 1 - Labs CBC & Chem 7: 03/08/23 03:09 03/08/23 03:09 Labs: Abnormal Lab Results - Last 24 Hours (Table) 03/08/23 03/08/23 03/08/23 Range/Units 03:09 03:09 06:35 RBC 3.50 L (4.30-5.90) m/uL Hgb 10.5 L (13.0-17.5) gm/dL Hct 33.7 L (39.0-53.0) % Plt Count 142 L (150-450) k/uL Chloride 97 L (98-107) mmol/L Carbon Dioxide 36 H (22-30) mmol/L BUN 23 H (9-20) mg/dL Glucose 113 H (74-99) mg/dL POC Glucose (mg/dL) 112 H (70-110) mg/dL Calcium 7.7 L (8.4-10.2) mg/dL Total Protein 5.2 L (6.3-8.2) g/dL Albumin 2.2 L (3.5-5.0) g/dL Microbiology - Last 24 Hours (Table) 03/07/23 11:00 Gram Stain - Preliminary Bronchoalviolar Lavage - Right 03/02/23 10:08 Gram Stain - Final Thoracic Fluid Body Fluid Culture - Final
[2023-03-08] MEDS: ATORVASTATIN 40 MG TAB PO SCH (10:04)
[2023-03-08] MEDS: METOPROLOL SUCCINATE (ER) 100 MG TAB.ER.24H PO SCH (10:04)
[2023-03-08] MEDS: CLOPIDOGREL 75 MG TAB PO SCH (10:04)
[2023-03-08] MEDS: LOSARTAN 50 MG TAB PO SCH (10:04)
[2023-03-08] MEDS: guaiFENesin 600 MG TABLET.ER PO SCH ×2 (10:05→21:03)
[2023-03-08] MEDS: ASPIRIN 81 MG PO SCH (10:05)
[2023-03-08] MEDS: NICOTINE 21MG/24HR PATCH TRANSDERM SCH (10:05)
[2023-03-08] MEDS: ALPRAZolam 0.5 MG TAB PO SCH ×4 (10:05→21:03)
[2023-03-08] MEDS: THIAMINE 100 MG TAB PO SCH (10:12)
--- NOTE | 2023-03-08 10:52 | P.PN ---
Subjective Progress Note Date: 03/08/23 Principal diagnosis: Acute hypoxic respiratory failure/multifactorial secondary to pneumonia, mucous plugging, possible aspiration pneumonia, and bilateral pleural effusions. As w ell as underlying COPD. On today's evaluation of 03/05/2023, the patient is on 8 L of oxygen by nasal cannula. A bronchoscopy was done and copious amounts of this was secretions were suctioned out from his right lung yesterday. There was massive quantities of mucous plugs. He clinically improved. However, the chest x-ray from today shows complete the investigation of the right lung. Obviously, the patient is going to need another bronchoscope. His calm and comfortable on 8 L of oxygen by nasal cannula with a pulse ox of 96%. No other significant events overnight. He has a congested cough. Unable to bring up much of sputum. The chest x-ray from today was reviewed. Also, the rest of the blood work shows a sodium level of 144, potassium of 3.5, BUN is 15 with a creatinine of 0.88. CBC is pending. Hemoglobin from yesterday was 12 and a white cell cause of 9.9. The patient remains on IV Merrem. The cultures that were obtained from the sputum analysis yesterday showed no microbial growth thus far. He is afebrile. Hemodynamically stable. Neurologically intact IV fluids are currently at KVO. No aspiration overnight. a 60,023, the patient continues to struggle with his breathing episodically. Note that he required bronchoscopy on 2 separate occasions for complete opa cification of the right lung/atelectasis and volume loss. He was found to have copious amounts of respiratory secretions and mucous plugs in the right. His last bronchoscopy was done yesterday. Chest x-ray from today shows persistent consolidation of the right lung. There is still some ongoing volume loss. There may be some small right-sided pleural effusion is small left-sided pleural effusion. The patient remains on IV Merrem. The bronchoalveolar lavage that was on the right lower lobe is not doing any specific bacteria. The patient has a cough. He was provided incentive spirometer. Is doing pulmonary toileting. The blood work from today was reviewed and the patient has a white cell count of 9.2 with a hemoglobin of 11.3 and a platelet count of 140. BUN is at 70 with a creatinine of 0.7 and a sodium level is at 139. The fluid balance over the past 24 hours has been -1.8 L. He is hemodynamically stable. His cardiac rhythm is sinus. IV fluids are KVO. Remains on aspirin and Plavix. He remains on metoprolol 75 mg twice a day. No diarrhea and he had a bowel movement yesterday. No aspiration. Reevaluated today on 03/07/2023, patient remains in the ICU, seems to be very comfortable, patient denies being in distress or being short of breath, he does have intermittent cough, remains on Merrem, chest x-ray showed questionable atelectasis and right-sided pleural effusion hence I'm recommending an ultrasound of the right chest on the patient today. Indeed the patient did have ultrasound of the chest, not much fluid can be seen on the ultrasound, hence no need for thoracentesis. Labs today showed relatively normal CBC with WBC of 8.7 hemoglobin 10.8, a left lites are normal renal profile is normal bicarb is 39. Cultures from his sputum showed mostly Joi, no bacterial growth has been noticed. No organisms seen on his last BAL. Chest x-ray did show evidence of improving the right upper lobe infiltrate and developing atelectasis at the right base, questionable effusion not seen on ultrasound. Atelectasis is also noted that the left base Reevaluated today on 03/08/2023, patient seems to be doing a bit worse today, he is a bit of distress, his FiO2 was increased up to 12 L high flow nasal cannula and O2 saturation is marginal. On physical examination he has very diminished breath sounds on the right side, and continues to have significant right lower lobe consolidation and atelectasis. Patient was placed on BiPAP, he was definitely need more aggressive pulmonary toileting, and chest physical may have to consider another bronchoscopy and the patient does not improve. WBC count today is 6.7 hemoglobin is 10.5. Normal renal profile is normal bicarb is 36. His sputum cultures have showed mostly Joi albicans. Objective - Vital Signs Vital signs: Vital Signs Temp 98.9 F 03/08/23 08:00 Pulse 87 03/08/23 10:00 Resp 28 H 03/08/23 10:00 BP 107/59 03/08/23 10:00 Pulse Ox 96 03/08/23 10:00 FiO2 40 03/08/23 10:00 Intake & Output 03/07/23 03/08/23 03/08/23 18:59 06:59 18:59 Intake Total 450 180 370 Output Total 951 550 200 Balance -501 -370 170 Weight 64.6 kg 64.9 kg Intake: IV 110 180 130 0.9NS 110 80 30 Meropenem 1,000 mg In 100 Sodium Chloride 0.9% 100 ml @ 33.3 mls/hr IVPB Q8HR [facility] Rx#:[id number] Meropenem 500 mg In 100 Sodium Chloride 0.9% 100 ml @ 33.3 mls/hr IVPB Q8HR [facility] Rx#:[id number] Intake, IV Titration 100 Amount Meropenem 1,000 mg In 100 Sodium Chloride 0.9% 100 ml @ 33.3 mls/hr IVPB Q8HR [facility] Rx#:[id number] Oral 240 240 Output: Urine 950 550 200 Stool 1 Other: Voiding Method External Catheter External Catheter # Bowel Movements 1 - Exam Physical Exam: Revealed a 67-year-old white male, noted to be tachypneic on 12 L high flow nasal cannula with margin O2 saturation in the 80s Head: Atraumatic, normocephalic. HEENT:[Neck is supple.] [No neck masses.] [No thyromegaly.] [No JVD.] Chest: [Diminished breath sounds on the right side mostly left side is clear Cardiac Exam: [Normal S1 and S2, no S3 gallop, no murmur.] Abdomen: [Soft, nontender, no megaly, no rebound, no guarding, normal bowel sounds.] Extremities: [No clubbing, no edema, no cyanosis.] Neurological Exam: [No focal neurologic deficit.] Patient is noted to be generally weak, otherwise no focal deficits. Psychiatric: Normal mood affect and normal mental status examination. Skin: No rashes. - Labs CBC & Chem 7: 03/08/23 03:09 03/08/23 03:09 Labs: Abnormal Lab Results - Last 24 Hours (Table) 03/08/23 03/08/23 03/08/23 Range/Units 03:09 03:09 06:35 RBC 3.50 L (4.30-5.90) m/uL Hgb 10.5 L (13.0-17.5) gm/dL Hct 33.7 L (39.0-53.0) % Plt Count 142 L (150-450) k/uL Chloride 97 L (98-107) mmol/L Carbon Dioxide 36 H (22-30) mmol/L BUN 23 H (9-20) mg/dL Glucose 113 H (74-99) mg/dL POC Glucose (mg/dL) 112 H (70-110) mg/dL Calcium 7.7 L (8.4-10.2) mg/dL Total Protein 5.2 L (6.3-8.2) g/dL Albumin 2.2 L (3.5-5.0) g/dL Microbiology - Last 24 Hours (Table) 03/07/23 11:00 Gram Stain - Preliminary Bronchoalviolar Lavage - Right 03/02/23 10:08 Gram Stain - Final Thoracic Fluid Body Fluid Culture - Final Assessment and Plan Assessment: Impression: Acute hypoxic respiratory failure, multifactorial Acute complete opacification of the right lung due to mucous plugging and possibly aspiration pneumonia requiring bronchoscopy 2. And extraction of mucous plugs. Underlying COPD with interstitial fibrotic lung disease, chronic. Chronic pain syndrome maintained on oxycodone and gabapentin and Xanax Acute metabolic encephalopathy, being addressed by neurology on the case. Left pleural effusion requiring thoracentesis 1.2 L removed/transudative Right lower lobe atelectasis, no clear-cut evidence of effusion, as noted on ultrasound History of alcoholism. Inactive for now. 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 Continue present supportive care measures Continue antibiotics/Merrem Continue Keppra Continue updrafts Continue aspiration precautions Continue GI and DVT prophylaxis Continue chest physical therapy and aggressive pulmonary toileting. Not quite ready for transfer out of the ICU considering his declined this morning. May have to consider bronchoscopy again and the patient does not improve much. We'll continue to follow Time with Patient: Less than 30
--- NOTE | 2023-03-08 11:25 | P.PN ---
Subjective Progress Note Date: 03/08/23 Hospital Course: Patient is a 67-year-old male patient with traumatic brain injury, chronic pain (on Oxy and Xanax), chronic obstructive pulmonary disease, and hypertension who presetned as a transfer from [facility] for altered mentation and possible seizure like activity. Ct head without acute intracranila process, CTA chest without pulmonary embolism on arrival laboratory analysis is normal for white blood cell, 13.3, PaO2 of 56, calcium 8.1, bilirubin 1.5, CK 432, troponin 0.813, CRP 4.4, pro calcitonin 0.09, urine drug screen was positive for benzodiazepines and marijuana. He was started on empiric treatment for possible pneumonia. Case was discussed neurology and he was also started on empiric treatment for possible meningitis. He required BiPAP and pulmonary was consulted. He was admitted to the ICU. Infectious disease was consulted. Initial antimicrobial regimen consists of Vanco, Azactam, and acyclovir. She had improvement in mentation by 02/28. With some concerns of seizure by neurology and continued on Keppra. EEG and prolonged EEG did not show any signs of seizure activity. He developed worsening bilateral polar effusions. Underwent echocardiogram which confirmed ejection fraction of 25-30% with possible coccus to lose. Cardiology was consulted. He was started on beta marco a and ARB. He was transitioned to Zosyn, he then developed dermatitis and subsequently transitioned to meropenem Patient had lumbar puncture performed by anesthesia on 03/01/23 which can back normal and therefore IV acyclovir was discontinued. He underwent left sided thoracentesis on 03/02/[address] of the chest was completed on 03/03 which demonstrated large right chest wall lipoma measuring 7 x 6.2 x 6.9 cm, extensive right-sided infiltrate, and trace bilateral pleural effusions. Patient underwent bronchoscopy with removal of copious amounts of mucous plugs from the right lung on 03/04, patient had severe mucous plugging develop again on 03/05 and required repeated bronchoscopy with removal of mucous plugs. 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 No acute events overnight. Currently on BiPAP. Pertinent positives and negatives as discussed above, a complete review of systems was performed and all other systems are negative. Vitals Signs Reviewed. General: nontoxic, no distress, appears at stated age Cardiovascular: S1S2 reg, no murmur, positive posterior tibial pulse bilateral, Lungs: Decreased breath sounds right base, no conversational dyspnea, no rh onchi, no rales , no accessory muscle use, on BiPAP Abdominal: soft, +tender to palpation RLQ, no guarding, no appreciable organomegaly Ext: no gross muscle atrophy, no edema b/l lower extremities, no contractures Neuro: CN II-XI grossly intact, right lower extremity weakness Psych: Alert, oriented 3, appropriate affect Data Reviewed Today: Pertinent Labs: WBC 6.7 hemoglobin 10.5, potassium 4.5, creatinine 0.68, glucose range between 103-113 Imaging: Chest x-ray independently interpreted, shows improving bilateral pleural effusions and interstitial opacity Assessment and Plan: Acute hypoxic respiratory failure Sepsis secondary to Bacterial pneumonia, bilateral pleural effusions s/p Left sided thora on 03/02/23 with transudative effusion - complicated by severe mucus plugging requiring bronch X 2 COPD exacerbation 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 Eventually will need heart cath for ischemic evaluation once respiratory status is stable. -Follow blood pressures Severe protein calorie malnutrition - continue with ensure - Remeron 7.5 mg at night to help with insomnia and appetite stimulation. 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 Opiate and benzodiazepine withdrawal, resolved Dermatitis bilateral feet, sparing the soles, resolved DVT ppx: heparin sq Code status: full code Anticipated discharge place: [facility] Anticipated discharge time: pending clinical course Objective - Vital Signs Vital signs: Vital Signs Temp 98.9 F 03/08/23 08:00 Pulse 86 03/08/23 11:00 Resp 25 H 03/08/23 11:00 BP 119/64 03/08/23 11:00 Pulse Ox 97 03/08/23 11:00 FiO2 40 03/08/23 11:00 Intake & Output 03/07/23 03/08/23 03/08/23 18:59 06:59 18:59 Intake Total 450 180 380 Output Total 951 550 200 Balance -501 -370 180 Weight 64.6 kg 64.9 kg Intake: IV 110 180 140 0.9NS 110 80 40 Meropenem 1,000 mg In 100 Sodium Chloride 0.9% 100 ml @ 33.3 mls/hr IVPB Q8HR [facility] Rx#:[id number] Meropenem 500 mg In 100 Sodium Chloride 0.9% 100 ml @ 33.3 mls/hr IVPB Q8HR [facility] Rx#:[id number] Intake, IV Titration 100 Amount Meropenem 1,000 mg In 100 Sodium Chloride 0.9% 100 ml @ 33.3 mls/hr IVPB Q8HR [facility] Rx#:[id number] Oral 240 240 Output: Urine 950 550 200 Stool 1 Other: Voiding Method External Catheter External Catheter # Bowel Movements 1 - Labs CBC & Chem 7: 03/08/23 03:09 03/08/23 03:09 Labs: Abnormal Lab Results - Last 24 Hours (Table) 03/08/23 03/08/23 03/08/23 Range/Units 03:09 03:09 06:35 RBC 3.50 L (4.30-5.90) m/uL Hgb 10.5 L (13.0-17.5) gm/dL Hct 33.7 L (39.0-53.0) % Plt Count 142 L (150-450) k/uL Chloride 97 L (98-107) mmol/L Carbon Dioxide 36 H (22-30) mmol/L BUN 23 H (9-20) mg/dL Glucose 113 H (74-99) mg/dL POC Glucose (mg/dL) 112 H (70-110) mg/dL Calcium 7.7 L (8.4-10.2) mg/dL Total Protein 5.2 L (6.3-8.2) g/dL Albumin 2.2 L (3.5-5.0) g/dL Microbiology - Last 24 Hours (Table) 03/07/23 11:00 Gram Stain - Preliminary Bronchoalviolar Lavage - Right 03/02/23 10:08 Gram Stain - Final Thoracic Fluid Body Fluid Culture - Final
[2023-03-08 11:32] LABS: Glucose,Whole Blood 93 mg/dL (70-110)
--- NOTE | 2023-03-08 15:18 | P.PN ---
Subjective Progress Note Date: 03/07/23 Principal diagnosis: Possible encephalitis Patient is a 67-year male with a past medical history significant for chronic pain syndrome history of traumatic brain injury and hypertension patient was noticed to be confused the morning of presentation to the hospital patient also have increasing respiratory distress requiring BiPAP and admission to the ICU. On today's evaluation that is 03/07/2023, the patient continues to be afebrile, patient is currently breathing comfortably and is is requiring 8 L high flow nasal cannula oxygen , the patient denies having any chest pain, the patient denies any worsening cough or sputum production, the patient denies nausea no v omiting no abdominal pain and no diarrhea Patient did have a normal white count of 8.7 hemoglobin is 10.8, creatinine is 0.72, blood culture has been negative, thoracocentesis fluid so far negative, B AL cultures pending Objective - Vital Signs Vital signs: Vital Signs Temp 98.2 F 03/07/23 12:00 Pulse 103 H 03/07/23 12:00 Resp 11 L 03/07/23 12:00 BP 129/69 03/07/23 12:00 Pulse Ox 92 L 03/07/23 12:00 FiO2 12 03/01/23 04:00 Intake & Output 03/06/23 03/07/23 03/07/23 18:59 06:59 18:59 Intake Total 220 460 400 Output Total 850 600 500 Balance -630 -140 -100 Weight 64.6 kg Intake: IV 120 120 60 0.9NS 120 120 60 Intake, IV Titration 100 100 100 Amount Magnesium Sulfate-D5w Pmx 100 1 gm In Dextrose/Water 1 100ml.bag @ 100 mls/hr IVPB ONCE ONE Rx#: [id number] Meropenem 1,000 mg In 100 100 Sodium Chloride 0.9% 100 ml @ 33.3 mls/hr IVPB Q8HR [facility] Rx#:[id number] Oral 240 Tube Feeding 240 Output: Urine 850 600 500 Other: Voiding Method External Catheter External Catheter External Catheter - Exam GENERAL DESCRIPTION: An elderly male lying in bed in no distress RESPIRATORY SYSTEM: Unlabored breathing , decreased breath sounds at bases HEART: S1 S2 regular rate and rhythm , ABDOMEN: Soft , no tenderness EXTREMITIES: No edema feet - Labs CBC & Chem 7: 03/08/23 03:09 03/08/23 03:09 Labs: Abnormal Lab Results - Last 24 Hours (Table) 03/06/23 03/07/23 03/07/23 Range/Units 16:23 03:12 03:12 RBC 3.50 L (4.30-5.90) m/uL Hgb 10.8 L (13.0-17.5) gm/dL Hct 33.3 L (39.0-53.0) % Plt Count 135 L (150-450) k/uL Carbon Dioxide 39 H (22-30) mmol/L BUN 21 H (9-20) mg/dL Glucose 127 H (74-99) mg/dL POC Glucose (mg/dL) 133 H (70-110) mg/dL Calcium 7.7 L (8.4-10.2) mg/dL Total Protein 4.9 L (6.3-8.2) g/dL Albumin 2.3 L (3.5-5.0) g/dL Microbiology - Last 24 Hours (Table) 03/02/23 10:08 Gram Stain - Final Thoracic Fluid Body Fluid Culture - Final Assessment and Plan (1) Encephalopathy Current Visit: Yes Status: Acute Code(s): G93.40 - ENCEPHALOPATHY, UNSPECIFIED SNOMED Code(s): 18611637 (2) SIRS (systemic inflammatory response syndrome) Current Visit: Yes Status: Acute Code(s): R65.10 - SIRS OF NON-INFECTIOUS ORIGIN W/O ACUTE ORGAN DYSFUNCTION SNOMED Code(s): 450310514 (3) Aspiration pneumonia Current Visit: Yes Status: Acute Code(s): J69.0 - PNEUMONITIS DUE TO INHALATION OF FOOD AND VOMIT SNOMED Code(s): 055209350 (4) Allergy to multiple antibiotics Current Visit: Yes Status: Acute Code(s): Z88.1 - ALLERGY STATUS TO OTHER ANTIBIOTIC AGENTS SNOMED Code(s): 038919386 Plan: 1patient present to hospital with sepsis in this patient who did have a fever elevated white count tachycardia concerning for 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 RN infection possibility of encephalitis or meningitis as patient currently do not have any other obvious focus of infection CT angiogram of the chest did not show any consolidation abdominal soft on Examination no evidence of any cellulitis 2-patient did have cephalexin allergy that will limit the number of antibiotics safe to use, patient also develop a rash to Zosyn 3-patient did have LP/CSF did have normal protein and glucose and white count , acyclovir was discontinued 4Patient is afebrile and the patient white count has normalized, patient is currently being treated with meropenem because of multiple ALLERGIES, while waiting for bronchoscopy and pleural fluid cultures to finalize and monitor clinical course closely Dictation was produced using [employer] dictation software. please excuse any grammatical, word or spelling errors.
--- NOTE | 2023-03-08 15:20 | P.PN ---
Subjective Progress Note Date: 03/08/23 Principal diagnosis: Possible encephalitis Patient is a 67-year male with a past medical history significant for chronic pain syndrome history of traumatic brain injury and hypertension patient was noticed to be confused the morning of presentation to the hospital patient also have increasing respiratory distress requiring BiPAP and admission to the ICU. On today's evaluation that is 03/08/2023, the patient remains to be afebrile, patient is lethargic and is currently on a BiPAP and admitted to [facility] today no vomiting and diarrhea or any other changes reported by the nursing staff Patient did have a normal white count of 6.7 hemoglobin is 10.5, creatinine is 0.68, blood culture has been negative, thoracocentesis fluid so far negative, BAL cultures pending Objective - Vital Signs Vital signs: Vital Signs Temp 37.9 F L 03/08/23 12:00 Pulse 90 03/08/23 12:00 Resp 19 03/08/23 12:00 BP 121/77 03/08/23 12:00 Pulse Ox 93 L 03/08/23 12:00 FiO2 40 03/08/23 11:24 Intake & Output 03/07/23 03/08/23 03/08/23 18:59 06:59 18:59 Intake Total 450 180 390 Output Total 951 550 451 Balance -501 -370 -61 Weight 64.6 kg 64.9 kg Intake: IV 110 180 150 0.9NS 110 80 50 Meropenem 1,000 mg In 100 Sodium Chloride 0.9% 100 ml @ 33.3 mls/hr IVPB Q8HR [facility] Rx#:[id number] Meropenem 500 mg In 100 Sodium Chloride 0.9% 100 ml @ 33.3 mls/hr IVPB Q8HR [facility] Rx#:[id number] Intake, IV Titration 100 Amount Meropenem 1,000 mg In 100 Sodium Chloride 0.9% 100 ml @ 33.3 mls/hr IVPB Q8HR [facility] Rx#:[id number] Oral 240 240 Output: Urine 950 550 450 Stool 1 1 Other: Voiding Method External Catheter External Catheter External Catheter # Bowel Movements 1 - Exam GENERAL DESCRIPTION: An elderly male lying in bed in no distress RESPIRATORY SYSTEM: Unlabored breathing , decreased breath sounds at bases HEART: S1 S2 regular rate and rhythm , ABDOMEN: Soft , no tenderness EXTREMITIES: No edema feet - Labs CBC & Chem 7: 03/08/23 03:09 03/08/23 03:09 Labs: Abnormal Lab Results - Last 24 Hours (Table) 03/08/23 03/08/23 03/08/23 Range/Units 03:09 03:09 06:35 RBC 3.50 L (4.30-5.90) m/uL Hgb 10.5 L (13.0-17.5) gm/dL Hct 33.7 L (39.0-53.0) % Plt Count 142 L (150-450) k/uL Chloride 97 L (98-107) mmol/L Carbon Dioxide 36 H (22-30) mmol/L BUN 23 H (9-20) mg/dL Glucose 113 H (74-99) mg/dL POC Glucose (mg/dL) 112 H (70-110) mg/dL Calcium 7.7 L (8.4-10.2) mg/dL Total Protein 5.2 L (6.3-8.2) g/dL Albumin 2.2 L (3.5-5.0) g/dL Microbiology - Last 24 Hours (Table) 03/07/23 11:00 Gram Stain - Preliminary Bronchoalviolar Lavage - Right Assessment and Plan (1) Encephalopathy Current Visit: Yes Status: Acute Code(s): G93.40 - ENCEPHALOPATHY, UNSPECIFIED SNOMED Code(s): 46419315 (2) SIRS (systemic inflammatory response syndrome) Current Visit: Yes Status: Acute Code(s): R65.10 - SIRS OF NON-INFECTIOUS ORIGIN W/O ACUTE ORGAN DYSFUNCTION SNOMED Code(s): 538522948 (3) Aspiration pneumonia Current Visit: Yes Status: Acute Code(s): J69.0 - PNEUMONITIS DUE TO INHALATION OF FOOD AND VOMIT SNOMED Code(s): 389713452 (4) Allergy to multiple antibiotics Current Visit: Yes Status: Acute Code(s): Z88.1 - ALLERGY STATUS TO OTHER ANTIBIOTIC AGENTS SNOMED Code(s): 737645599 Plan: 1patient present to hospital with sepsis in this patient who did have a fever elevated white count tachycardia concerning for possible NAPKIN MACHINE OPERATOR infection possibility of encephalitis or meningitis as patient currently do not have any other obvious focus of infection CT angiogram of the chest did not show any consolidation abdominal soft on Examination no evidence of any cellulitis 2-patient did have cephalexin allergy that will limit the number of antibiotics safe to use, patient also develop a rash to Zosyn 3-patient did have LP/CSF did have normal protein and glucose and white count , acyclovir was discontinued 4Patient is afebrile and the patient white count has normalized cultures are still pending 5- patient to continue with meropenem because of multiple ALLERGIES and concern for possible gram-negative/aspiration pneumonia and monitor clinical course closely Dictation was produced using [employer] dictation software. please excuse any grammatical, word or spelling errors. Time with Patient: Less than 30
[2023-03-08 17:11] LABS: Glucose,Whole Blood 131 mg/dL (70-110)
--- NOTE | 2023-03-08 19:25 | P.PN ---
Subjective Progress Note Date: 03/08/23 03/08/2023: Patient was seen for a follow-up. Patient is doing much better. Complains of back pain "killing, so sore". States he takes oxycodone 30 mg 4 times a day. He is not receiving medication here. Patient states that he does not take pain medications for a day every day, sometimes he does not take pain medication and we does not need it. 03/07/2023: Patient initially seen by Dr. Roge Segura. Please refer to his note for details. Patient is a 67-year-old right-handed male with acute left frontoparietal stroke in the distribution of left RICCARDO noted on MRI. Patient also had some jerking of extremities, which was negative for seizures on EEG. Mentation has remarkably improved. Patient currently on aspirin and Plavix. Patient at present denies headache. Denies any numbness or tingling. He slightly congested, coughing. LAB/DIAGNOSTIC: Lipid panel is triglycerides 91, cholesterol is 104, LDL 60 and HDL is 25. MRI the brain shows restriction diffusion within the posterior medial left frontal/parietal and subcortical white matter in the RICCARDO distribution suggesting acute/subacute CVA. Gyriform appearance of some of this region suggest associated laminar necrosis. I personally reviewed this MRI, agree with the findings. Echo: Left ventricular enjection 25-30% with apical hypokinesis and basal akine sis. May be consistent with the Takatsubo cardiomyopathy versus wrap around LAD disease. CSF study is clear, colorless, red blood cells 1, nucleated cell is 1, glucose 53, protein is 25. Viral cultures negative. Prolonged EEG (90 minutes) on 03/01/2023 is reported as limited study, abnormal EEG. The rare frontal predominant delta range slowing as well as diffuse theta range slowing mentioned above is not epileptiform in nature. The findings indicate mild to moderate diffuse cerebral dysfunction, which may be part due to medication effect. Carotid duplex is reported as no ultrasound evidence for hemodynamically significant stenosis of the visualized bilateral carotid artery. 2-D echo was reported as left ventricle ejection fraction of 25-30% with apical hypokinesis and basal sparing. May be consistent with Takyotsubo cardiomyopath vs wrap around LAD disease. Objective - Vital Signs Vital signs: Vital Signs Temp 98.6 F 03/08/23 16:00 Pulse 95 03/08/23 19:00 Resp 16 08/08/23 19:00 BP 115/52 03/08/23 19:00 Pulse Ox 94 L 03/08/23 19:00 FiO2 40 03/08/23 11:24 Intake & Output 03/08/23 03/08/23 03/09/23 06:59 18:59 06:59 Intake Total 180 1620 Output Total 550 922 Balance -370 698 Weight 64.9 kg Intake: IV 180 300 0.9NS 80 100 Meropenem 1,000 mg In 200 Sodium Chloride 0.9% 100 ml @ 33.3 mls/hr IVPB Q8HR [facility] Rx#:[id number] Meropenem 500 mg In 100 Sodium Chloride 0.9% 100 ml @ 33.3 mls/hr IVPB Q8HR [facility] Rx#:[id number] Oral 1320 Output: Urine 550 920 Stool 2 Other: Voiding Method External Catheter External Catheter # Bowel Movements 1 - Exam Patient is an elderly male, appears somewhat thin built, laying in the bed. Patient is today fully alert, awake. He is giving very appropriate history. Complains of back pain. Patient then become somewhat alert awake oriented to time place and person. He knows it is 03/08/2023, and that he is in [facility] in [place]. Speech and language functions are normal. Patient can name and repeat very well. No aphasia or dysarthria. Attention, concentration is slightly impaired and fund of knowledge is adequate. Detail cognitive function testing deferred. On cranial nerve examination, pupils are equal, round and reacting to light, visual wall are full on confrontation, with no neglect on double simultaneous stimulation. Extraocular muscles are intact with no nystagmus. Face is symmetric, tongue protrudes to the midline. Palatal elevation and sensation normal, hearing and shoulder shrug normal, facial sensation normal. On muscle strength testing, there is no pronator drift and the strength is normal in arms and legs distally and proximally, except right hip flexion, which is 4+. Deep tendon reflexes reveal plantars downgoing bilaterally. Sensory to touch is equal with no neglect on double simultaneous stimulation. Cerebellar function showed no ataxia for [id number] testing. No dysdiadochokinesia. Tone and bulk of muscles normal. Gait deferred.. On general examination, there is no carotid bruit or murmur, S1-S2 audible. Chest is clear on consultation. Abdomen is soft nontender. No organomegaly, bowel sounds present. Peripheral pulses are present. No edema. - Labs CBC & Chem 7: 03/08/23 03:09 03/08/23 03:09 Labs: Abnormal Lab Results - Last 24 Hours (Table) 03/08/23 03/08/23 03/08/23 Range/Units 03:09 03:09 06:35 RBC 3.50 L (4.30-5.90) m/uL Hgb 10.5 L (13.0-17.5) gm/dL Hct 33.7 L (39.0-53.0) % Plt Count 142 L (150-450) k/uL Chloride 97 L (98-107) mmol/L Carbon Dioxide 36 H (22-30) mmol/L BUN 23 H (9-20) mg/dL Glucose 113 H (74-99) mg/dL POC Glucose (mg/dL) 112 H (70-110) mg/dL Calcium 7.7 L (8.4-10.2) mg/dL Total Protein 5.2 L (6.3-8.2) g/dL Albumin 2.2 L (3.5-5.0) g/dL 03/08/23 Range/Units 17:08 RBC (4.30-5.90) m/uL Hgb (13.0-17.5) gm/dL Hct (39.0-53.0) % Plt Count (150-450) k/uL Chloride (98-107) mmol/L Carbon Dioxide (22-30) mmol/L BUN (9-20) mg/dL Glucose (74-99) mg/dL POC Glucose (mg/dL) 131 H (70-110) mg/dL Calcium (8.4-10.2) mg/dL Total Protein (6.3-8.2) g/dL Albumin (3.5-5.0) g/dL Microbiology - Last 24 Hours (Table) 03/07/23 11:00 Gram Stain - Preliminary Bronchoalviolar Lavage - Right Assessment and Plan Assessment: This is a 67-year-old gentleman who is transferred from [place] after being found to be confused a possible seizure-like activity by his . Acute to subacute ischemic stroke (left fronto/parietal in the left RICCARDO territory) and patient has right lower extremity weakness. Altered mental status. Encephalopathy of unknown etiology. CSF study is negative for any underlying BLEACH CHLORINATOR infection. Possible metabolic and underlying aspiration pneumonia Seizure-like activity over the right side clinically but EEG negative for any seizure or discharges Cardiomyopathy. Echo has low EF with Takotsubo cardiomyopathy vs wrap around LAD disease. Bilateral lower lobe pneumonia worse on the right with pleural effusion Left-sided the pleural effusion status post thoracentesis History of chronic pain syndrome and the patient was taking oxycodone, gabapentin Xanax and he notified me that he stopped the using dose medication about a month ago but he notified the primary he stopped cold turkey about a week ago prior to presenting the hospital History of traumatic brain injury History of alcohol use and he stated that he stopped about 18 years ago Tobacco use Plan: Continue aspirin 81 mg daily and Plavix and 75 mg. (at home was taking aspirin "once in a while"). Currently is on Lipitor 40mg daily. Continue neuro checks Cardiac monitoring Echo has low EF 25-30% with apical hypokinesis and basal sparing. May be consistent with Takotsubo cardiomyopathy vs wrap around LAD disease. Mildly dilated left atrium. Cardiology team is on board. Suggest transesophageal echocardiogram, rule out embolic source Since the prolonged EEG does not show any seizures will stop Keppra from 500mg bid. Will continue to monitor him. PT, OT and SANITARIAN AIDE are consulted. We'll defer the rest of the medical management to primary and other specialists For DVT prophylaxis: On subq heparin. Patient asking for pain medication, will defer to IM. Neurologically otherwise clear.
[2023-03-08] MEDS: MIRTAZAPINE 15 MG TAB PO SCH (21:04)
[2023-03-08] MEDS: ACETAMINOPHEN TAB 325 MG TAB PO PRN (23:13)
[2023-03-09] MEDS: HEPARIN SODIUM,PORCINE 5,000 UNIT/ML 1 ML VIAL SQ SCH ×3 (00:07→15:14)
[2023-03-09] MEDS: MEROPENEM 1,000 MG in SODIUM CHLORIDE 0.9% 100 ML IVPB SCH ×3 (00:07→15:14)
[2023-03-09] MEDS: NITROGLYCERIN OINT 1 INCH/GM PACKET TOPICAL SCH ×3 (00:09→15:11)
[2023-03-09 04:48] LABS: African American GFR (CKD) >90 (>60 ml/min/1.73 sqM); Anion Gap 1 mmol/L; Blood Urea Nitrogen 24 mg/dL (9-20); Calcium 7.7 mg/dL (8.4-10.2); Carbon Dioxide 39 mmol/L (22-30); Chloride 98 mmol/L (98-107); Glucose 113 mg/dL (74-99); Non-African American GFR(CKD) >90 (>60 ml/min/1.73 sqM); Potassium 4.1 mmol/L (3.5-5.1); Sodium 138 mmol/L (137-145)
[2023-03-09 04:50] LABS: Basophils % (A) 0 %; Eosinophils # (A) 0.1 k/uL (0-0.7); Eosinophils % (A) 2 %; HCT 31.5 % (39.0-53.0); HGB 10.3 gm/dL (13.0-17.5); Hypochromasia Moderate; Lymphocytes # (A) 1.4 k/uL (1.0-4.8); Lymphocytes % (A) 20 %; MCH 30.9 pg (25.0-35.0); MCHC 32.7 g/dL (31.0-37.0); MCV 94.3 fL (80.0-100.0); Mean Platelet Volume 9.3; Monocytes # (A) 0.4 k/uL (0-1.0); Monocytes % (A) 6 %; Neutrophils # (A) 4.6 k/uL (1.3-7.7); Neutrophils % (A) 70 %; Platelet Count 127 k/uL (150-450); RBC 3.34 m/uL (4.30-5.90); RDW 13.7 % (11.5-15.5); WBC 6.7 k/uL (3.8-10.6)
[2023-03-09 06:43] LABS: Glucose,Whole Blood 121 mg/dL (70-110)
[2023-03-09] MEDS: IPRATROPIUM-ALBUTEROL 3 ML NEB INHALATION SCH ×4 (08:12→19:14)
[2023-03-09] MEDS: NICOTINE 21MG/24HR PATCH TRANSDERM SCH (08:41)
[2023-03-09] MEDS: guaiFENesin 600 MG TABLET.ER PO SCH ×2 (08:44→21:01)
[2023-03-09] MEDS: CLOPIDOGREL 75 MG TAB PO SCH (08:44)
[2023-03-09] MEDS: TAMSULOSIN 0.4 MG CAP.ER.24H PO SCH (08:44)
[2023-03-09] MEDS: ALPRAZolam 0.5 MG TAB PO SCH ×4 (08:44→21:01)
[2023-03-09] MEDS: ASPIRIN 81 MG PO SCH (08:44)
[2023-03-09] MEDS: LOSARTAN 50 MG TAB PO SCH (08:44)
[2023-03-09] MEDS: ATORVASTATIN 40 MG TAB PO SCH (08:44)
[2023-03-09] MEDS: THIAMINE 100 MG TAB PO SCH (08:45)
[2023-03-09] MEDS: PANTOPRAZOLE 40 MG/10 ML VIAL IVP SCH ×2 (08:45→21:02)
[2023-03-09] MEDS: METOPROLOL SUCCINATE (ER) 100 MG TAB.ER.24H PO SCH (08:45)
[2023-03-09] MEDS: polyethylene glycoL 3350 17 GM POWD.PACK PO SCH (08:45)
--- NOTE | 2023-03-09 09:05 | XR ---
EXAMINATION TYPE: XR chest 1V portable DATE OF EXAM: 03/09/2023 HISTORY: Shortness of breath. COMPARISON: March 08, 2023 TECHNIQUE: Single view of the chest is submitted. FINDINGS: Demonstrated are scattered senescent parenchymal change. Right lower lobe infiltrate with pleural effusion persists unchanged. Scattered interstitial prominen ce throughout both lung wall is also stable. The heart is stable. Hilar and mediastinal structures are within normal limits. Degenerative changes are seen of the dorsal spine. IMPRESSION: 1. Right lower lobe infiltrate with pleural effusion persists unchanged. Scattered interstitial prom inence throughout both lung wall is also stable.
--- NOTE | 2023-03-09 09:32 | P.PN ---
Subjective Progress Note Date: 03/09/23 The patient is a 67-year-old male who is currently admitted to the hospital with encephalopathy. Echocardiogram revealed severe LV dysfunction at 25-30% with global hypokinesis, therefore cardiology was consulted. He was started on both beta marco a and GABY inhibitor. Over the course of his admission he developed acute hypoxic respiratory failure, requiring bronchoscopy for aspiration pneumonia as well as BiPAP. The patient has now been weaned down to nasal cannula. The patient was interviewed and examined resting comfortably in bed. He states he is feeling much better now that he is on the nasal cannula. He reports severe anxiety with the facemask. His neurological state has improved. He states he does not have a principal associate and has no history of cardiac issues. He denies any chest pain or chest pressure. No heart racing or fluttering. GENERAL: Ill-appearing, malnourished. No acute distress. NECK: Supple without JVD or thyromegaly. LUNGS: Breath sounds are coarse to auscultation bilaterally. Respiration equal and unlabored. Scattered rhonchi throughout. HEART: Regular rate and rhythm without murmurs, rubs or gallops. S1 and S2 heard. EXTREMITIES: Normal range of motion, no edema. No clubbing or cyanosis. Peripheral pulses intact and strong. TELEMETRY: Sinus rhythm overnight LABS: WBC 6.7, hemoglobin 10.3, hematocrit 31.5, platelet 127, sodium 138, potassium 4.1, BUN 24, creatinine 0.64 IMPRESSION: Acute hypoxic respiratory failure secondary to aspiration pneumonia Status post bronchoscopy Metabolic encephalopathy Hypertension Cardiomyopathy with severe LV dysfunction, global PLAN: Continue maximal medical treatment Add low dose Aldactone Outpatient ischemia workup I am dictating on behalf of Dr Yogi Cooper's history/physical and assessment/plan. Objective - Vital Signs Vital signs: Vital Signs Temp 99.4 F 03/09/23 04:00 Pulse 83 03/09/23 08:23 Resp 17 03/09/23 08:23 BP 105/58 03/09/23 07:00 Pulse Ox 96 03/09/23 08:13 FiO2 40 03/09/23 08:13 Intake & Output 03/08/23 03/09/23 03/09/23 18:59 06:59 18:59 Intake Total 1620 590 10 Output Total 922 600 0 Balance 698 -10 10 Weight 66.4 kg Intake: IV 300 120 10 0.9NS 100 120 10 Meropenem 1,000 mg In 200 Sodium Chloride 0.9% 100 ml @ 33.3 mls/hr IVPB Q8HR [facility] Rx#:[id number] Intake, IV Titration 100 Amount Meropenem 1,000 mg In 100 Sodium Chloride 0.9% 100 ml @ 33.3 mls/hr IVPB Q8HR [facility] Rx#:[id number] Oral 1320 370 Output: Urine 920 600 0 Stool 2 Other: Voiding Method External Catheter External Catheter # Bowel Movements 1 - Labs CBC & Chem 7: 03/09/23 03:38 03/09/23 03:38 Labs: Abnormal Lab Results - Last 24 Hours (Table) 03/08/23 03/09/23 03/09/23 Range/Units 17:08 03:38 03:38 RBC 3.34 L (4.30-5.90) m/uL Hgb 10.3 L (13.0-17.5) gm/dL Hct 31.5 L (39.0-53.0) % Plt Count 127 L (150-450) k/uL Carbon Dioxide 39 H (22-30) mmol/L BUN 24 H (9-20) mg/dL Creatinine 0.64 L (0.66-1.25) mg/dL Glucose 113 H (74-99) mg/dL POC Glucose (mg/dL) 131 H (70-110) mg/dL Calcium 7.7 L (8.4-10.2) mg/dL 03/09/23 Range/Units 06:41 RBC (4.30-5.90) m/uL Hgb (13.0-17.5) gm/dL Hct (39.0-53.0) % Plt Count (150-450) k/uL Carbon Dioxide (22-30) mmol/L BUN (9-20) mg/dL Creatinine (0.66-1.25) mg/dL Glucose (74-99) mg/dL POC Glucose (mg/dL) 121 H (70-110) mg/dL Calcium (8.4-10.2) mg/dL Microbiology - Last 24 Hours (Table) 03/07/23 11:00 Gram Stain - Preliminary Bronchoalviolar Lavage - Right
--- NOTE | 2023-03-09 10:01 | P.PN ---
Subjective Progress Note Date: 03/09/23 Principal diagnosis: Acute hypoxic respiratory failure/multifactorial secondary to pneumonia, mucous plugging, possible aspiration pneumonia, and bilateral pleural effusions. As w ell as underlying COPD. On today's evaluation of 03/05/2023, the patient is on 8 L of oxygen by nasal cannula. A bronchoscopy was done and copious amounts of this was secretions were suctioned out from his right lung yesterday. There was massive quantities of mucous plugs. He clinically improved. However, the chest x-ray from today shows complete the investigation of the right lung. Obviously, the patient is going to need another bronchoscope. His calm and comfortable on 8 L of oxygen by nasal cannula with a pulse ox of 96%. No other significant events overnight. He has a congested cough. Unable to bring up much of sputum. The chest x-ray from today was reviewed. Also, the rest of the blood work shows a sodium level of 144, potassium of 3.5, BUN is 15 with a creatinine of 0.88. CBC is pending. Hemoglobin from yesterday was 12 and a white cell cause of 9.9. The patient remains on IV Merrem. The cultures that were obtained from the sputum analysis yesterday showed no microbial growth thus far. He is afebrile. Hemodynamically stable. Neurologically intact IV fluids are currently at KVO. No aspiration overnight. a 60,023, the patient continues to struggle with his breathing episodically. Note that he required bronchoscopy on 2 separate occasions for complete opa cification of the right lung/atelectasis and volume loss. He was found to have copious amounts of respiratory secretions and mucous plugs in the right. His last bronchoscopy was done yesterday. Chest x-ray from today shows persistent consolidation of the right lung. There is still some ongoing volume loss. There may be some small right-sided pleural effusion is small left-sided pleural effusion. The patient remains on IV Merrem. The bronchoalveolar lavage that was on the right lower lobe is not doing any specific bacteria. The patient has a cough. He was provided incentive spirometer. Is doing pulmonary toileting. The blood work from today was reviewed and the patient has a white cell count of 9.2 with a hemoglobin of 11.3 and a platelet count of 140. BUN is at 70 with a creatinine of 0.7 and a sodium level is at 139. The fluid balance over the past 24 hours has been -1.8 L. He is hemodynamically stable. His cardiac rhythm is sinus. IV fluids are KVO. Remains on aspirin and Plavix. He remains on metoprolol 75 mg twice a day. No diarrhea and he had a bowel movement yesterday. No aspiration. Reevaluated today on 03/07/2023, patient remains in the ICU, seems to be very comfortable, patient denies being in distress or being short of breath, he does have intermittent cough, remains on Merrem, chest x-ray showed questionable atelectasis and right-sided pleural effusion hence I'm recommending an ultrasound of the right chest on the patient today. Indeed the patient did have ultrasound of the chest, not much fluid can be seen on the ultrasound, hence no need for thoracentesis. Labs today showed relatively normal CBC with WBC of 8.7 hemoglobin 10.8, a left lites are normal renal profile is normal bicarb is 39. Cultures from his sputum showed mostly Joi, no bacterial growth has been noticed. No organisms seen on his last BAL. Chest x-ray did show evidence of improving the right upper lobe infiltrate and developing atelectasis at the right base, questionable effusion not seen on ultrasound. Atelectasis is also noted that the left base Reevaluated today on 03/08/2023, patient seems to be doing a bit worse today, he is a bit of distress, his FiO2 was increased up to 12 L high flow nasal cannula and O2 saturation is marginal. On physical examination he has very diminished breath sounds on the right side, and continues to have significant right lower lobe consolidation and atelectasis. Patient was placed on BiPAP, he was definitely need more aggressive pulmonary toileting, and chest physical may have to consider another bronchoscopy and the patient does not improve. WBC count today is 6.7 hemoglobin is 10.5. Normal renal profile is normal bicarb is 36. His sputum cultures have showed mostly Joi albicans. Patient was reevaluated today on 03/09/2003, much better today compared to yesterday, remains on relatively high flow nasal cannula at 5-6 L/m, O2 saturation is in the 90s. Patient is in less distress today, able to cough and clear some secretions on his own. CBC is relatively normal basic metabolic profile is normal renal profile is normal Objective - Vital Signs Vital signs: Vital Signs Temp 97.9 F 03/09/23 08:00 Pulse 83 03/09/23 09:00 Resp 27 H 03/09/23 09:00 BP 105/59 03/09/23 09:00 Pulse Ox 93 L 03/09/23 09:00 FiO2 40 03/09/23 08:13 Intake & Output 03/08/23 03/09/23 03/09/23 18:59 06:59 18:59 Intake Total 1620 590 110 Output Total 922 600 300 Balance 698 -10 -190 Weight 66.4 kg Intake: IV 300 120 10 0.9NS 100 120 10 Meropenem 1,000 mg In 200 Sodium Chloride 0.9% 100 ml @ 33.3 mls/hr IVPB Q8HR [facility] Rx#:[id number] Intake, IV Titration 100 Amount Meropenem 1,000 mg In 100 Sodium Chloride 0.9% 100 ml @ 33.3 mls/hr IVPB Q8HR [facility] Rx#:[id number] Oral 1320 370 100 Output: Urine 920 600 300 Stool 2 Other: Voiding Method External Catheter External Catheter # Bowel Movements 1 - Exam Physical Exam: Revealed a 67-year-old white male, on 5 L high flow nasal cannula and distress. Head: Atraumatic, normocephalic. HEENT:[Neck is supple.] [No neck masses.] [No thyromegaly.] [No JVD.] Chest: Good breath sound bilaterally no rhonchi and no wheezes Cardiac Exam: [Normal S1 and S2, no S3 gallop, no murmur.] Abdomen: [Soft, nontender, no megaly, no rebound, no guarding, normal bowel sounds.] Extremities: [No clubbing, no edema, no cyanosis.] Neurological Exam: [No focal neurologic deficit.] Patient is noted to be generally weak, otherwise no focal deficits. Psychiatric: Normal mood affect and normal mental status examination. Skin: No rashes. - Labs CBC & Chem 7: 03/09/23 03:38 03/09/23 03:38 Labs: Abnormal Lab Results - Last 24 Hours (Table) 03/08/23 03/09/23 03/09/23 Range/Units 17:08 03:38 03:38 RBC 3.34 L (4.30-5.90) m/uL Hgb 10.3 L (13.0-17.5) gm/dL Hct 31.5 L (39.0-53.0) % Plt Count 127 L (150-450) k/uL Carbon Dioxide 39 H (22-30) mmol/L BUN 24 H (9-20) mg/dL Creatinine 0.64 L (0.66-1.25) mg/dL Glucose 113 H (74-99) mg/dL POC Glucose (mg/dL) 131 H (70-110) mg/dL Calcium 7.7 L (8.4-10.2) mg/dL 03/09/23 Range/Units 06:41 RBC (4.30-5.90) m/uL Hgb (13.0-17.5) gm/dL Hct (39.0-53.0) % Plt Count (150-450) k/uL Carbon Dioxide (22-30) mmol/L BUN (9-20) mg/dL Creatinine (0.66-1.25) mg/dL Glucose (74-99) mg/dL POC Glucose (mg/dL) 121 H (70-110) mg/dL Calcium (8.4-10.2) mg/dL Microbiology - Last 24 Hours (Table) 03/07/23 11:00 Gram Stain - Preliminary Bronchoalviolar Lavage - Right Bronchial Washings Culture - Preliminary Joi albicans Assessment and Plan Assessment: Impression: Acute hypoxic respiratory failure, multifactorial Acute complete opacification of the right lung due to mucous plugging and possibly aspiration pneumonia requiring bronchoscopy 2. And extraction of mucous plugs. Underlying COPD with interstitial fibrotic lung disease, chronic. Chronic pain syndrome maintained on oxycodone and gabapentin and Xanax Acute metabolic encephalopathy, being addressed by neurology on the case. Left pleural effusion requiring thoracentesis 1.2 L removed/transudative Right lower lobe atelectasis, no clear-cut evidence of effusion, as noted on ultrasound History of alcoholism. Inactive for now. 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 No plans for bronchoscopy considering the improvement today. We'll continue to follow Time with Patient: Less than 30
--- NOTE | 2023-03-09 11:06 | P.PN ---
Subjective Progress Note Date: 03/09/23 Hospital Course: Patient is a 67-year-old male patient with traumatic brain injury, chronic pain (on Oxy and Xanax), chronic obstructive pulmonary disease, and hypertension who presetned as a transfer from [facility], [place] for altered mentation and possible seizure like activity. Ct head without acute intracranila process, CTA chest without pulmonary embolism on arrival laboratory analysis is normal for white blood cell, 13.3, PaO2 of 56, calcium 8.1, bilirubin 1.5, CK 432, troponin 0.813, CRP 4.4, pro calcitonin 0.09, urine drug screen was positive for benzodiazepines and marijuana. He was started on empiric treatment for possible pneumonia. Case was discussed neurology and he was also started on empiric treatment for possible meningitis. He required BiPAP and pulmonary was con sulted. He was admitted to the ICU. Infectious disease was consulted. Initial antimicrobial regimen consists of Vanco, Azactam, and acyclovir. She had improvement in mentation by 02/28. With some concerns of seizure by neurology and continued on Keppra. EEG and prolonged EEG did not show any signs of seizure activity. He developed worsening bilateral polar effusions. Underwent echocardiogram which confirmed ejection fraction of 25-30% with possible coccus to lose. Cardiology was consulted. He was started on beta marco a and ARB. He was transitioned to Zosyn, he then developed dermatitis and subsequently transitioned to meropenem Patient had lumbar puncture performed by anesthesia on 03/01/23 which can back normal and therefore IV acyclovir was discontinued. He underwent left sided thoracentesis on 03/02/[address] of the chest was completed on 03/03 which demonstrated large right chest wall lipoma measuring 7 x 6.2 x 6.9 cm, extensive right-sided infiltrate, and trace bilateral pleural effusions. Patient underwent bronchoscopy with removal of copious amounts of mucous plugs from the right lung on 03/04, patient had severe mucous plugging develop again on 03/05 and required repeated bronchoscopy with removal of mucous plugs. Respiratory function improving. 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 No acute events overnight. No nasal cannula. Patient claims that his cough has improved dramatically. Pertinent positives and negatives as discussed above, a complete review of systems was performed and all other systems are negative. Vitals Signs Reviewed. General: nontoxic, no distress, appears at stated age Cardiovascular: S1S2 reg, no murmur, positive posterior tibial pulse bilateral, Lungs: Decreased breath sounds right base, no conversational dyspnea, no rhonchi, no rales , no accessory muscle use, on supplemental oxygen Abdominal: soft, nontender, no guarding, no appreciable organomegaly Ext: no gross muscle atrophy, no edema b/l lower extremities, no contractures Neuro: CN II-XI grossly intact, right lower extremity weakness Psych: Alert, oriented 3, appropriate affect Data Reviewed Today: Pertinent Labs: WBC 6.7, hemoglobin 10.3, platelet 127, potassium 4.1, cr eatinine 0.64, blood sugars range between 93-131 Imaging: Chest x-ray independently interpreted, shows improving bilateral pleural effusions and interstitial opacity, similar to yesterday Assessment and Plan: Acute hypoxic respiratory failure Sepsis secondary to Bacterial pneumonia, bilateral pleural effusions s/p Left sided thora on 03/02/23 with transudative effusion - complicated by severe mucus plugging requiring bronch X 2 COPD exacerbation 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 -Pulmonary note reviewed: Continue to monitor in ICU, respiratory function improving -Pulmonary hygiene -Infectious disease following, Continue with meropenem, BAL cultures did grow Joi - Mucinex 1200 mg PO BID - Seen by PMR and recommendations are GERTRUDE Chronic pain syndrome - Oxy 15 mg 3 times daily, at home he was taking 30 milligrams 4 times daily. - Xanax 0.5 mg 4 times daily as needed, at home was taking Xanax 1 mg 4 times daily at home Acute to subacute left side CVA Acute encephalopathy, resolved - ASA 81 mg daily, Lipitor 40 mg daily, Plavix 75 mg daily, neuro has signed off Cardiomyopathy with ejection fraction 25-30% -Cardiology note reviewed: Added Aldactone, Continue with Toprol 100 mg, losartan 50 mg daily. Eventually will need heart cath for ischemic evaluation once respiratory status is stable. Likely outpatient -Follow blood pressures Severe protein calorie malnutrition - continue with ensure - Remeron 7.5 mg at night to help with insomnia and appetite stimulation. 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 Opiate and benzodiazepine withdrawal, resolved Dermatitis bilateral feet, sparing the soles, resolved DVT ppx: heparin sq Code status: full code Anticipated discharge place: [facility] Anticipated discharge time: pending clinical course Objective - Vital Signs Vital signs: Vital Signs Temp 97.9 F 03/09/23 08:00 Pulse 83 03/09/23 09:00 Resp 27 H 03/09/23 09:00 BP 105/59 03/09/23 09:00 Pulse Ox 93 L 03/09/23 09:00 FiO2 40 03/09/23 08:13 Intake & Output 03/08/23 03/09/23 03/09/23 18:59 06:59 18:59 Intake Total 1620 590 110 Output Total 922 600 300 Balance 698 -10 -190 Weight 66.4 kg Intake: IV 300 120 10 0.9NS 100 120 10 Meropenem 1,000 mg In 200 Sodium Chloride 0.9% 100 ml @ 33.3 mls/hr IVPB Q8HR [facility] Rx#:[id number] Intake, IV Titration 100 Amount Meropenem 1,000 mg In 100 Sodium Chloride 0.9% 100 ml @ 33.3 mls/hr IVPB Q8HR [facility] Rx#:[id number] Oral 1320 370 100 Output: Urine 920 600 300 Stool 2 Other: Voiding Method External Catheter External Catheter Urinal # Bowel Movements 1 - Labs CBC & Chem 7: 03/09/23 03:38 03/09/23 03:38 Labs: Abnormal Lab Results - Last 24 Hours (Table) 03/08/23 03/09/23 03/09/23 Range/Units 17:08 03:38 03:38 RBC 3.34 L (4.30-5.90) m/uL Hgb 10.3 L (13.0-17.5) gm/dL Hct 31.5 L (39.0-53.0) % Plt Count 127 L (150-450) k/uL Carbon Dioxide 39 H (22-30) mmol/L BUN 24 H (9-20) mg/dL Creatinine 0.64 L (0.66-1.25) mg/dL Glucose 113 H (74-99) mg/dL POC Glucose (mg/dL) 131 H (70-110) mg/dL Calcium 7.7 L (8.4-10.2) mg/dL 03/09/23 Range/Units 06:41 RBC (4.30-5.90) m/uL Hgb (13.0-17.5) gm/dL Hct (39.0-53.0) % Plt Count (150-450) k/uL Carbon Dioxide (22-30) mmol/L BUN (9-20) mg/dL Creatinine (0.66-1.25) mg/dL Glucose (74-99) mg/dL POC Glucose (mg/dL) 121 H (70-110) mg/dL Calcium (8.4-10.2) mg/dL Microbiology - Last 24 Hours (Table) 03/07/23 11:00 Gram Stain - Preliminary Bronchoalviolar Lavage - Right Bronchial Washings Culture - Preliminary Joi albicans
[2023-03-09] MEDS: SPIRONOLACTONE 25 MG TAB PO SCH (11:55)
--- NOTE | 2023-03-09 19:57 | P.PN ---
Subjective Progress Note Date: 03/09/23 03/09/2023: Patient was seen for a follow-up. Patient states he is doing very well. Denies any new symptoms. No focal symptoms. No headache. 03/08/2023: Patient was seen for a follow-up. Patient is doing much better. Complains of back pain "killing, so sore". States he takes oxycodone 30 mg 4 times a day. He is not receiving medication here. Patient states that he does not take pain medications for a day every day, sometimes he does not take pain medication and we does not need it. 03/07/2023: Patient initially seen by Dr. Roge Segura. Please refer to his note for details. Patient is a 67-year-old right-handed male with acute left frontoparietal stroke in the distribution of left RICCARDO noted on MRI. Patient also had some jerking of extremities, which was negative for seizures on EEG. Mentation has remarkably improved. Patient currently on aspirin and Plavix. Patient at present denies headache. Denies any numbness or tingling. He slightly congested, coughing. LAB/DIAGNOSTIC: Lipid panel is triglycerides 91, cholesterol is 104, LDL 60 and HDL is 25. MRI the brain shows restriction diffusion within the posterior medial left frontal/parietal and subcortical white matter in the RICCARDO distribution suggesting acute/subacute CVA. Gyriform appearance of some of this region suggest associated laminar necrosis. I personally reviewed this MRI, agree with the findings. Echo: Left ventricular enjection 25-30% with apical hypokinesis and basal akinesis. May be consistent with the Takatsubo cardiomyopathy versus wrap around LAD disease. CSF study is clear, colorless, red blood cells 1, nucleated cell is 1, glucose 53, protein is 25. Viral cultures negative. Prolonged EEG (90 minutes) on 03/01/2023 is reported as limited study, abnormal EEG. The rare frontal predominant delta range slowing as well as diffuse theta range slowing mentioned above is not epileptiform in nature. The findings indicate mild to moderate diffuse cerebral dysfunction, which may be part due to medication effect. Carotid duplex is reported as no ultrasound evidence for hemodynamically sign ificant stenosis of the visualized bilateral carotid artery. 2-D echo was reported as left ventricle ejection fraction of 25-30% with apical hypokinesis and basal sparing. May be consistent with Takyotsubo cardiomyopath vs wrap around LAD disease. Objective - Vital Signs Vital signs: Vital Signs Temp 97.9 F 03/09/23 08:00 Pulse 90 03/09/23 19:24 Resp 26 H 03/09/23 19:00 BP 103/55 03/09/23 19:00 Pulse Ox 93 L 03/09/23 19:00 FiO2 40 03/09/23 08:13 Intake & Output 03/09/23 03/09/23 03/10/23 06:59 18:59 06:59 Intake Total 590 480 Output Total 600 1001 Balance -10 -521 Weight 66.4 kg Intake: IV 120 10 0.9NS 120 10 Intake, IV Titration 100 Amount Meropenem 1,000 mg In 100 Sodium Chloride 0.9% 100 ml @ 33.3 mls/hr IVPB Q8HR [facility] Rx#:[id number] Oral 370 470 Output: Urine 600 1000 Stool 1 Other: Voiding Method External Catheter Urinal - Exam Patient is an elderly male, appears somewhat thin built, laying in the bed. Patient is today fully alert, awake. He is giving very appropriate history. Complains of back pain. Patient then become somewhat alert awake oriented to time place and person. He knows it is 03/09/2023, and that he is in [facility] in [place]. Speech and language functions are normal. Patient can name and repeat very well. No aphasia or dysarthria. Attention, concentration is slightly impaired and fund of knowledge is adequate. Detail cognitive function testing deferred. On cranial nerve examination, pupils are equal, round and reacting to light, visual wall are full on confrontation, with no neglect on double simultaneous stimulation. Extraocular muscles are intact with no nystagmus. Face is symmetric, tongue protrudes to the midline. Palatal elevation and sensation normal, hearing and shoulder shrug normal, facial sensation normal. On muscle strength testing, there is no pronator drift and the strength is normal in arms and legs distally and proximally. Deep tendon reflexes reveal plantars downgoing bilaterally. Sensory to touch is equal with no neglect on double simultaneous stimulation. Cerebellar function showed no ataxia for [id number] testing. No dysdiadochokinesia. Tone and bulk of muscles normal. Gait deferred.. On general examination, there is no carotid bruit or murmur, S1-S2 audible. Chest is clear on consultation. Abdomen is soft nontender. No organomegaly, bowel sounds present. Peripheral pulses are present. No edema. - Labs CBC & Chem 7: 03/09/23 03:38 03/09/23 03:38 Labs: Abnormal Lab Results - Last 24 Hours (Table) 03/09/23 03/09/23 03/09/23 Range/Units 03:38 03:38 06:41 RBC 3.34 L (4.30-5.90) m/uL Hgb 10.3 L (13.0-17.5) gm/dL Hct 31.5 L (39.0-53.0) % Plt Count 127 L (150-450) k/uL Carbon Dioxide 39 H (22-30) mmol/L BUN 24 H (9-20) mg/dL Creatinine 0.64 L (0.66-1.25) mg/dL Glucose 113 H (74-99) mg/dL POC Glucose (mg/dL) 121 H (70-110) mg/dL Calcium 7.7 L (8.4-10.2) mg/dL Microbiology - Last 24 Hours (Table) 03/07/23 11:00 Gram Stain - Final Bronchoalviolar Lavage - Right Bronchial Washings Culture - Final Joi albicans Assessment and Plan Assessment: This is a 67-year-old gentleman who is transferred from [place] after being found to be confused a possible seizure-like activity by his . Acute to subacute ischemic stroke (left fronto/parietal in the left RICCARDO territory) and patient has right lower extremity weakness. Altered mental status. Encephalopathy of unknown etiology. CSF study is negative for any underlying [employer] infection. Possible metabolic and underlying aspiration pneumonia Seizure-like activity over the right side clinically but EEG negative for any seizure or discharges Cardiomyopathy. Echo has low EF with Takotsubo cardiomyopathy vs wrap around LAD disease. Bilateral lower lobe pneumonia worse on the right with pleural effusion Left-sided the pleural effusion status post thoracentesis History of chronic pain syndrome and the patient was taking oxycodone, gabapentin Xanax and he notified me that he stopped the using dose medication about a month ago but he notified the primary he stopped cold turkey about a week ago prior to presenting the hospital History of traumatic brain injury History of alcohol use and he stated that he stopped about 18 years ago Tobacco use Plan: Continue aspirin 81 mg daily and Plavix and 75 mg. (at home was taking aspirin "once in a while"). Currently is on Lipitor 40mg daily. Continue neuro checks Cardiac monitoring Echo has low EF 25-30% with apical hypokinesis and basal sparing. May be consistent with Takotsubo cardiomyopathy vs wrap around LAD disease. Mildly dilated left atrium. Cardiology team is on board. Suggest transesophageal echocardiogram, if okay with cardiology, rule out embolic source Since the prolonged EEG does not show any seizures will stop Keppra from 500mg bid. Will continue to monitor him. PT, OT and STENCIL SPRAYER are consulted. We'll defer the rest of the medical management to primary and other specialists For DVT prophylaxis: On subq heparin. Patient asking for pain medication, will defer to IM. Neurologically otherwise clear.
[2023-03-09] MEDS: MIRTAZAPINE 15 MG TAB PO SCH (21:01)
[2023-03-10] MEDS: NITROGLYCERIN OINT 1 INCH/GM PACKET TOPICAL SCH ×5 (01:16→22:48)
[2023-03-10] MEDS: MEROPENEM 1,000 MG in SODIUM CHLORIDE 0.9% 100 ML IVPB SCH ×4 (01:16→23:01)
[2023-03-10] MEDS: HEPARIN SODIUM,PORCINE 5,000 UNIT/ML 1 ML VIAL SQ SCH ×4 (01:16→23:01)
[2023-03-10] MEDS: ACETAMINOPHEN TAB 325 MG TAB PO PRN (01:20)
[2023-03-10 05:37] LABS: Basophils % (A) 0 %; Eosinophils # (A) 0.2 k/uL (0-0.7); Eosinophils % (A) 3 %; HCT 32.8 % (39.0-53.0); HGB 10.4 gm/dL (13.0-17.5); Hypochromasia Moderate; Lymphocytes # (A) 1.6 k/uL (1.0-4.8); Lymphocytes % (A) 25 %; MCH 30.2 pg (25.0-35.0); MCHC 31.6 g/dL (31.0-37.0); MCV 95.3 fL (80.0-100.0); Mean Platelet Volume 9.4; Monocytes # (A) 0.5 k/uL (0-1.0); Monocytes % (A) 8 %; Neutrophils % (A) 62 %; Platelet Count 153 k/uL (150-450); RBC 3.44 m/uL (4.30-5.90); RDW 13.8 % (11.5-15.5); WBC 6.3 k/uL (3.8-10.6)
[2023-03-10 05:51] LABS: African American GFR (CKD) >90 (>60 ml/min/1.73 sqM); Blood Urea Nitrogen 22 mg/dL (9-20); Chloride 97 mmol/L (98-107); Glucose 99 mg/dL (74-99); Non-African American GFR(CKD) >90 (>60 ml/min/1.73 sqM); Potassium 4.5 mmol/L (3.5-5.1); Sodium 137 mmol/L (137-145)
[2023-03-10 05:58] LABS: Anion Gap 2 mmol/L; Carbon Dioxide 38 mmol/L (22-30)
--- NOTE | 2023-03-10 07:26 | XR ---
EXAMINATION TYPE: XR chest 1V portable DATE OF EXAM: 03/10/2023 COMPARISON: 03/09/2023 INDICATION: Dyspnea TECHNIQUE: Single frontal view of the chest is obtained. FINDINGS: The heart size is normal. The pulmonary vasculature is normal. There is a small to moderate right pleural effusion. Mild atelectatic changes developed at the left b ase. IMPRESSION: 1. Stable kwroc-re-ihqjyynt right pleural effusion. 2. Subsegmental atelectasis left lung base.
[2023-03-10] MEDS: IPRATROPIUM-ALBUTEROL 3 ML NEB INHALATION SCH ×4 (08:44→20:35)
[2023-03-10] MEDS: polyethylene glycoL 3350 17 GM POWD.PACK PO SCH ×2 (08:44→08:49)
[2023-03-10] MEDS: NICOTINE 21MG/24HR PATCH TRANSDERM SCH (08:44)
[2023-03-10] MEDS: THIAMINE 100 MG TAB PO SCH (08:46)
[2023-03-10] MEDS: ASPIRIN 81 MG PO SCH (08:46)
[2023-03-10] MEDS: SPIRONOLACTONE 25 MG TAB PO SCH (08:46)
[2023-03-10] MEDS: guaiFENesin 600 MG TABLET.ER PO SCH ×2 (08:47→20:13)
[2023-03-10] MEDS: ATORVASTATIN 40 MG TAB PO SCH (08:47)
[2023-03-10] MEDS: CLOPIDOGREL 75 MG TAB PO SCH (08:47)
[2023-03-10] MEDS: METOPROLOL SUCCINATE (ER) 100 MG TAB.ER.24H PO SCH (08:47)
[2023-03-10] MEDS: LOSARTAN 50 MG TAB PO SCH (08:47)
[2023-03-10] MEDS: PANTOPRAZOLE 40 MG/10 ML VIAL IVP SCH ×2 (08:47→20:13)
[2023-03-10] MEDS: TAMSULOSIN 0.4 MG CAP.ER.24H PO SCH (08:47)
--- NOTE | 2023-03-10 09:58 | P.PN ---
Subjective Progress Note Date: 03/10/23 The patient is a 67-year-old male who is currently admitted to the hospital with encephalopathy. Echocardiogram revealed severe LV dysfunction at 25-30% with global hypokinesis, therefore cardiology was consulted. He was started on both beta marco a and GABY inhibitor. Over the course of his admission he developed acute hypoxic respiratory failure, requiring bronchoscopy for aspiration pneumonia as well as BiPAP. The patient has now been weaned down to nasal cannula. The patient is currently resting comfortably up in the recliner chair. His respiratory status continues to improve. He denies any chest pain or chest pressure. No heart racing or fluttering. No dizziness or lightheadedness when standing GENERAL: Ill-appearing, malnourished. No acute distress. NECK: Supple without JVD or thyromegaly. LUNGS: Breath sounds are coarse to auscultation bilaterally. Respiration equal and unlabored. HEART: Regular rate and rhythm without murmurs, rubs or gallops. S1 and S2 heard. EXTREMITIES: Normal range of motion, no edema. No clubbing or cyanosis. Peripheral pulses intact and strong. TELEMETRY: Sinus rhythm overnight LABS: WBC 6.3, hemoglobin 10.4, hematocrit 32.8, platelet 153, sodium 137, potassium 4.5, BUN 22, creatinine 0.61 IMPRESSION: Acute hypoxic respiratory failure secondary to aspiration pneumonia Status post bronchoscopy Metabolic encephalopathy Hypertension Cardiomyopathy with severe LV dysfunction, global PLAN: Continue maximal medical treatment Continue aggressive pulmonary hygiene Outpatient follow-up with Dr. Cooper No further recommendations from the cardiac standpoint I am dictating on behalf of Dr Yogi Cooper's history/physical and assessment/plan. Objective - Vital Signs Vital signs: Vital Signs Temp 98.8 F 03/10/23 08:00 Pulse 90 03/10/23 08:41 Resp 18 03/10/23 08:41 BP 131/76 03/10/23 08:00 Pulse Ox 92 L 03/10/23 08:00 FiO2 40 03/10/23 08:31 Intake & Output 03/09/23 03/10/23 03/10/23 18:59 06:59 18:59 Intake Total 480 800 Output Total 1001 500 350 Balance -521 300 -350 Weight 66.5 kg Intake: IV 10 100 0.9NS 10 Meropenem 1,000 mg In 100 Sodium Chloride 0.9% 100 ml @ 33.3 mls/hr IVPB Q8HR [facility] Rx#:[id number] Oral 470 700 Output: Urine 1000 500 350 Stool 1 Other: Voiding Method Urinal Urinal - Labs CBC & Chem 7: 03/10/23 05:18 03/10/23 05:18 Labs: Abnormal Lab Results - Last 24 Hours (Table) 03/10/23 03/10/23 Range/Units 05:18 05:18 RBC 3.44 L (4.30-5.90) m/uL Hgb 10.4 L (13.0-17.5) gm/dL Hct 32.8 L (39.0-53.0) % Chloride 97 L (98-107) mmol/L Carbon Dioxide 38 H (22-30) mmol/L BUN 22 H (9-20) mg/dL Creatinine 0.61 L (0.66-1.25) mg/dL Calcium 8.0 L (8.4-10.2) mg/dL Microbiology - Last 24 Hours (Table) 03/07/23 11:00 Gram Stain - Final Bronchoalviolar Lavage - Right Bronchial Washings Culture - Final Joi albicans
[2023-03-10] MEDS: ALPRAZolam 0.5 MG TAB PO SCH ×4 (10:54→21:24)
--- NOTE | 2023-03-10 11:01 | P.PN ---
Subjective Progress Note Date: 03/10/23 Hospital Course: Patient is a 67-year-old male patient with traumatic brain injury, chronic pain (on Oxy and Xanax), chronic obstructive pulmonary disease, and hypertension who presetned as a transfer from [facility] for altered mentation and possible seizure like activity. Ct head without acute intracranila process, CTA chest without pulmonary embolism on arrival laboratory analysis is normal for white blood cell, 13.3, PaO2 of 56, calcium 8.1, bilirubin 1.5, CK 432, troponin 0.813, CRP 4.4, pro calcitonin 0.09, urine drug screen was positive for benzodiazepines and marijuana. He was started on empiric treatment for possible pneumonia. Case was discussed neurology and he was also started on empiric treatment for possible meningitis. He required BiPAP and pulmonary was con sulted. He was admitted to the ICU. Infectious disease was consulted. Initial antimicrobial regimen consists of Vanco, Azactam, and acyclovir. She had improvement in mentation by 02/28. With some concerns of seizure by neurology and continued on Keppra. EEG and prolonged EEG did not show any signs of seizure activity. He developed worsening bilateral polar effusions. Underwent echocardiogram which confirmed ejection fraction of 25-30% with possible coccus to lose. Cardiology was consulted. He was started on beta marco a and ARB. He was transitioned to Zosyn, he then developed dermatitis and subsequently transitioned to meropenem Patient had lumbar puncture performed by anesthesia on 03/01/23 which can back normal and therefore IV acyclovir was discontinued. He underwent left sided thoracentesis on 03/02/[address] of the chest was completed on 03/03 which demonstrated large right chest wall lipoma measuring 7 x 6.2 x 6.9 cm, extensive right-sided infiltrate, and trace bilateral pleural effusions. Patient underwent bronchoscopy with removal of copious amounts of mucous plugs from the right lung on 03/04, patient had severe mucous plugging develop again on 03/05 and required repeated bronchoscopy with removal of mucous plugs. Respiratory function improving. Pending Rehab. 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 No acute events overnight. No nasal cannula. Patient claims that his cough has improved dramatically. Pertinent positives and negatives as discussed above, a complete review of s ystems was performed and all other systems are negative. Vitals Signs Reviewed. General: nontoxic, no distress, appears at stated age Cardiovascular: S1S2 reg, no murmur, positive posterior tibial pulse bilateral, Lungs: Decreased breath sounds right base, no conversational dyspnea, no rhonchi, no rales , no accessory muscle use, on supplemental oxygen Abdominal: soft, nontender, no guarding, no appreciable organomegaly Ext: no gross muscle atrophy, no edema b/l lower extremities, no contractures Neuro: CN II-XI grossly intact, right lower extremity weakness Psych: Alert, oriented 3, appropriate affect Data Reviewed Today: Pertinent Labs: WBC 6.3, hemoglobin 10.4, potassium 4.5, creatinine 0.61 Imaging: Chest x-ray independently interpreted, shows improving bilateral pleural effusions and interstitial opacity, similar to yesterday Assessment and Plan: Acute hypoxic respiratory failure, improving Sepsis secondary to Bacterial pneumonia, bilateral pleural effusions s/p Left si ded thora on 03/02/23 with transudative effusion - complicated by severe mucus plugging requiring bronch X 2 COPD exacerbation, improving 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 -Pulmonary following, transfer out of ICU -Pulmonary hygiene -Infectious disease following, Continue with meropenem, BAL cultures did grow Joi - Mucinex 1200 mg PO BID - Seen by PMR and recommendations are GERTRUDE Chronic pain syndrome - Oxy 15 mg 4 times daily, at home he was taking 30 milligrams 4 times daily. - Xanax 0.5 mg 4 times daily as needed, at home was taking Xanax 1 mg 4 times daily at home Acute to subacute left side CVA Acute encephalopathy, resolved - ASA 81 mg daily, Lipitor 40 mg daily, Plavix 75 mg daily, neuro has signed off Cardiomyopathy with ejection fraction 25-30% -Cardiology following, on Aldactone Continue with Toprol 100 mg, losartan 50 mg daily. Eventually will need heart cath for ischemic evaluation once respiratory status is stable. Likely outpatient -Follow blood pressures Severe protein calorie malnutrition - continue with ensure - Remeron 7.5 mg at night to help with insomnia and appetite stimulation. 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 Anticipated discharge time: pending clinical course Objective - Vital Signs Vital signs: Vital Signs Temp 98.8 F 03/10/23 08:00 Pulse 92 03/10/23 10:00 Resp 18 03/10/23 08:41 BP 131/76 03/10/23 08:00 Pulse Ox 92 L 03/10/23 08:00 FiO2 40 03/10/23 08:31 Intake & Output 03/09/23 03/10/23 03/10/23 18:59 06:59 18:59 Intake Total 480 800 100 Output Total 1001 500 700 Balance -521 300 -600 Weight 66.5 kg Intake: IV 10 100 100 0.9NS 10 Meropenem 1,000 mg In 100 100 Sodium Chloride 0.9% 100 ml @ 33.3 mls/hr IVPB Q8HR [facility] Rx#:[id number] Oral 470 700 Output: Urine 1000 500 700 Stool 1 Other: Voiding Method Urinal Urinal Urinal # Bowel Movements 1 - Labs CBC & Chem 7: 03/10/23 05:18 03/10/23 05:18 Labs: Abnormal Lab Results - Last 24 Hours (Table) 03/10/23 03/10/23 Range/Units 05:18 05:18 RBC 3.44 L (4.30-5.90) m/uL Hgb 10.4 L (13.0-17.5) gm/dL Hct 32.8 L (39.0-53.0) % Chloride 97 L (98-107) mmol/L Carbon Dioxide 38 H (22-30) mmol/L BUN 22 H (9-20) mg/dL Creatinine 0.61 L (0.66-1.25) mg/dL Calcium 8.0 L (8.4-10.2) mg/dL Microbiology - Last 24 Hours (Table) 03/07/23 11:00 Gram Stain - Final Bronchoalviolar Lavage - Right Bronchial Washings Culture - Final Joi albicans
--- NOTE | 2023-03-10 11:50 | P.PN ---
Subjective Progress Note Date: 03/10/23 Principal diagnosis: Acute hypoxic respiratory failure/multifactorial secondary to pneumonia, mucous plugging, possible aspiration pneumonia, and bilateral pleural effusions. As w ell as underlying COPD. On today's evaluation of 03/05/2023, the patient is on 8 L of oxygen by nasal cannula. A bronchoscopy was done and copious amounts of this was secretions were suctioned out from his right lung yesterday. There was massive quantities of mucous plugs. He clinically improved. However, the chest x-ray from today shows complete the investigation of the right lung. Obviously, the patient is going to need another bronchoscope. His calm and comfortable on 8 L of oxygen by nasal cannula with a pulse ox of 96%. No other significant events overnight. He has a congested cough. Unable to bring up much of sputum. The chest x-ray from today was reviewed. Also, the rest of the blood work shows a sodium level of 144, potassium of 3.5, BUN is 15 with a creatinine of 0.88. CBC is pending. Hemoglobin from yesterday was 12 and a white cell cause of 9.9. The patient remains on IV Merrem. The cultures that were obtained from the sputum analysis yesterday showed no microbial growth thus far. He is afebrile. Hemodynamically stable. Neurologically intact IV fluids are currently at KVO. No aspiration overnight. a 60,023, the patient continues to struggle with his breathing episodically. Note that he required bronchoscopy on 2 separate occasions for complete opa cification of the right lung/atelectasis and volume loss. He was found to have copious amounts of respiratory secretions and mucous plugs in the right. His last bronchoscopy was done yesterday. Chest x-ray from today shows persistent consolidation of the right lung. There is still some ongoing volume loss. There may be some small right-sided pleural effusion is small left-sided pleural effusion. The patient remains on IV Merrem. The bronchoalveolar lavage that was on the right lower lobe is not doing any specific bacteria. The patient has a cough. He was provided incentive spirometer. Is doing pulmonary toileting. The blood work from today was reviewed and the patient has a white cell count of 9.2 with a hemoglobin of 11.3 and a platelet count of 140. BUN is at 70 with a creatinine of 0.7 and a sodium level is at 139. The fluid balance over the past 24 hours has been -1.8 L. He is hemodynamically stable. His cardiac rhythm is sinus. IV fluids are KVO. Remains on aspirin and Plavix. He remains on metoprolol 75 mg twice a day. No diarrhea and he had a bowel movement yesterday. No aspiration. Reevaluated today on 03/07/2023, patient remains in the ICU, seems to be very comfortable, patient denies being in distress or being short of breath, he does have intermittent cough, remains on Merrem, chest x-ray showed questionable atelectasis and right-sided pleural effusion hence I'm recommending an ultrasound of the right chest on the patient today. Indeed the patient did have ultrasound of the chest, not much fluid can be seen on the ultrasound, hence no need for thoracentesis. Labs today showed relatively normal CBC with WBC of 8.7 hemoglobin 10.8, a left lites are normal renal profile is normal bicarb is 39. Cultures from his sputum showed mostly Joi, no bacterial growth has been noticed. No organisms seen on his last BAL. Chest x-ray did show evidence of improving the right upper lobe infiltrate and developing atelectasis at the right base, questionable effusion not seen on ultrasound. Atelectasis is also noted that the left base Reevaluated today on 03/08/2023, patient seems to be doing a bit worse today, he is a bit of distress, his FiO2 was increased up to 12 L high flow nasal cannula and O2 saturation is marginal. On physical examination he has very diminished breath sounds on the right side, and continues to have significant right lower lobe consolidation and atelectasis. Patient was placed on BiPAP, he was definitely need more aggressive pulmonary toileting, and chest physical may have to consider another bronchoscopy and the patient does not improve. WBC count today is 6.7 hemoglobin is 10.5. Normal renal profile is normal bicarb is 36. His sputum cultures have showed mostly Joi albicans. Patient was reevaluated today on 03/09/2003, much better today compared to yesterday, remains on relatively high flow nasal cannula at 5-6 L/m, O2 saturation is in the 90s. Patient is in less distress today, able to cough and clear some secretions on his own. CBC is relatively normal basic metabolic profile is normal renal profile is normal Reevaluated today on 03/10/2023, patient continues to steadily improve, nonethel ess remains on 5 L nasal cannula, she has BiPAP at bedside, but not using it. I will recommend that The Patient Out Of ICU to a Regular Medical Floor, Continue Present Treatment Plan Including Antibiotics, Bronchodilators, Incentive Spirometry, No Need for Repeat Bronchoscopy at This Point, Will Continue to Have BiPAP at Bedside and Use As Needed. CBC Is Relatively Normal Electrocerebral Normal Renal Profile Is Normal Objective - Vital Signs Vital signs: Vital Signs Temp 98.8 F 03/10/23 08:00 Pulse 92 03/10/23 10:00 Resp 18 03/10/23 08:41 BP 131/76 03/10/23 08:00 Pulse Ox 92 L 03/10/23 08:00 FiO2 40 03/10/23 08:31 Intake & Output 03/09/23 03/10/23 03/10/23 18:59 06:59 18:59 Intake Total 480 800 100 Output Total 1001 500 700 Balance -521 300 -600 Weight 66.5 kg Intake: IV 10 100 100 0.9NS 10 Meropenem 1,000 mg In 100 100 Sodium Chloride 0.9% 100 ml @ 33.3 mls/hr IVPB Q8HR [facility] Rx#:[id number] Oral 470 700 Output: Urine 1000 500 700 Stool 1 Other: Voiding Method Urinal Urinal Urinal # Bowel Movements 1 - Exam Physical Exam: Revealed a 67-year-old white male, on 5 L high flow nasal cannula and distress. Head: Atraumatic, normocephalic. HEENT:[Neck is supple.] [No neck masses.] [No thyromegaly.] [No JVD.] Chest: Good breath sound bilaterally no rhonchi and no wheezes Cardiac Exam: [Normal S1 and S2, no S3 gallop, no murmur.] Abdomen: [Soft, nontender, no megaly, no rebound, no guarding, normal bowel sounds.] Extremities: [No clubbing, no edema, no cyanosis.] Neurological Exam: [No focal neurologic deficit.] Patient is noted to be generally weak, otherwise no focal deficits. Psychiatric: Normal mood affect and normal mental status examination. Skin: No rashes. - Labs CBC & Chem 7: 03/10/23 05:18 03/10/23 05:18 Labs: Abnormal Lab Results - Last 24 Hours (Table) 03/10/23 03/10/23 Range/Units 05:18 05:18 RBC 3.44 L (4.30-5.90) m/uL Hgb 10.4 L (13.0-17.5) gm/dL Hct 32.8 L (39.0-53.0) % Chloride 97 L (98-107) mmol/L Carbon Dioxide 38 H (22-30) mmol/L BUN 22 H (9-20) mg/dL Creatinine 0.61 L (0.66-1.25) mg/dL Calcium 8.0 L (8.4-10.2) mg/dL Microbiology - Last 24 Hours (Table) 03/07/23 11:00 Gram Stain - Final Bronchoalviolar Lavage - Right Bronchial Washings Culture - Final Joi albicans Assessment and Plan Assessment: Impression: Acute hypoxic respiratory failure, multifactorial Acute complete opacification of the right lung due to mucous plugging and possibly aspiration pneumonia requiring bronchoscopy 2. And extraction of mucous plugs. Underlying COPD with interstitial fibrotic lung disease, chronic. Chronic pain syndrome maintained on oxycodone and gabapentin and Xanax Acute metabolic encephalopathy, being addressed by neurology on the case. Left pleural effusion requiring thoracentesis 1.2 L removed/transudative Right lower lobe atelectasis, no clear-cut evidence of effusion, as noted on ultrasound History of alcoholism. Inactive for now. 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 Keep BiPAP at bedside and use as needed Continue oxygen and titrate accordingly Continue present supportive care measures Continue Merrem Continue Keppra Continue updrafts Continue aspiration precautions Continue GI and DVT prophylaxis Continue chest physical therapy and aggressive pulmonary toileting. No bronchoscopy necessary at this point We'll continue to follow Time with Patient: Less than 30
[2023-03-10 14:06] VITALS: BMI 22.9
--- NOTE | 2023-03-10 14:44 | P.PN ---
Subjective Progress Note Date: 03/09/23 Principal diagnosis: Possible encephalitis Patient is a 67-year male with a past medical history significant for chronic pain syndrome history of traumatic brain injury and hypertension patient was noticed to be confused the morning of presentation to the hospital patient also have increasing respiratory distress requiring BiPAP and admission to the ICU. On today's evaluation that is 03/09/2023, the patient continues to be afebrile, patient is slightly more awake and alert today and is on 4 L nasal cannula oxygen, but denies having any chest pain continued have a cough not begin any sputum no nausea no vomiting no abdominal pain or diarrhea Patient did have a normal white count of 6.7 hemoglobin is 10.3, creatinine is 0.68, blood culture has been negative, thoracocentesis fluid so far negative, BAL cultures so far negative Objective - Vital Signs Vital signs: Vital Signs Temp 97.9 F 03/09/23 08:00 Pulse 84 03/09/23 12:00 Resp 28 H 03/09/23 12:00 BP 109/65 03/09/23 12:00 Pulse Ox 94 L 03/09/23 12:00 FiO2 40 03/09/23 08:13 Intake & Output 03/08/23 03/09/23 03/09/23 18:59 06:59 18:59 Intake Total 1620 590 110 Output Total 922 600 601 Balance 878 10 -561 Weight 66.4 kg Intake: IV 300 120 10 0.9NS 100 120 10 Meropenem 1,000 mg In 200 Sodium Chloride 0.9% 100 ml @ 33.3 mls/hr IVPB Q8HR [facility] Rx#:[id number] Intake, IV Titration 100 Amount Meropenem 1,000 mg In 100 Sodium Chloride 0.9% 100 ml @ 33.3 mls/hr IVPB Q8HR [facility] Rx#:[id number] Oral 1320 370 100 Output: Urine 920 600 600 Stool 2 1 Other: Voiding Method External Catheter External Catheter Urinal # Bowel Movements 1 - Exam GENERAL DESCRIPTION: An elderly male lying in bed in no distress RESPIRATORY SYSTEM: Unlabored breathing , decreased breath sounds at bases HEART: S1 S2 regular rate and rhythm , ABDOMEN: Soft , no tenderness EXTREMITIES: No edema feet - Labs CBC & Chem 7: 03/10/23 05:18 03/10/23 05:18 Labs: Abnormal Lab Results - Last 24 Hours (Table) 03/08/23 03/09/23 03/09/23 Range/Units 17:08 03:38 03:38 RBC 3.34 L (4.30-5.90) m/uL Hgb 10.3 L (13.0-17.5) gm/dL Hct 31.5 L (39.0-53.0) % Plt Count 127 L (150-450) k/uL Carbon Dioxide 39 H (22-30) mmol/L BUN 24 H (9-20) mg/dL Creatinine 0.64 L (0.66-1.25) mg/dL Glucose 113 H (74-99) mg/dL POC Glucose (mg/dL) 131 H (70-110) mg/dL Calcium 7.7 L (8.4-10.2) mg/dL 03/09/23 Range/Units 06:41 RBC (4.30-5.90) m/uL Hgb (13.0-17.5) gm/dL Hct (39.0-53.0) % Plt Count (150-450) k/uL Carbon Dioxide (22-30) mmol/L BUN (9-20) mg/dL Creatinine (0.66-1.25) mg/dL Glucose (74-99) mg/dL POC Glucose (mg/dL) 121 H (70-110) mg/dL Calcium (8.4-10.2) mg/dL Microbiology - Last 24 Hours (Table) 03/07/23 11:00 Gram Stain - Preliminary Bronchoalviolar Lavage - Right Bronchial Washings Culture - Preliminary Joi albicans Assessment and Plan (1) Encephalopathy Current Visit: Yes Status: Acute Code(s): G93.40 - ENCEPHALOPATHY, UNSPECIFIED SNOMED Code(s): 00879982 (2) SIRS (systemic inflammatory response syndrome) Current Visit: Yes Status: Acute Code(s): R65.10 - SIRS OF NON-INFECTIOUS ORIGIN W/O ACUTE ORGAN DYSFUNCTION SNOMED Code(s): 270394783 (3) Aspiration pneumonia Current Visit: Yes Status: Acute Code(s): J69.0 - PNEUMONITIS DUE TO INHALATION OF FOOD AND VOMIT SNOMED Code(s): 094202142 (4) Allergy to multiple antibiotics Current Visit: Yes Status: Acute Code(s): Z88.1 - ALLERGY STATUS TO OTHER ANTIBIOTIC AGENTS SNOMED Code(s): 103350602 Plan: 1patient present to hospital with sepsis in this patient who did have a fever elevated white count tachycardia concerning for possible [employer] infection possibility of encephalitis or meningitis as patient currently do not have any other obvious focus of infection CT angiogram of the chest did not show any consolidation abdominal soft on Examination no evidence of any cellulitis 2-patient did have cephalexin allergy that will limit the number of antibiotics safe to use, patient also develop a rash to Zosyn 3-patient did have LP/CSF did have normal protein and glucose and white count , acyclovir was discontinued 4Patient is afebrile and the patient white count has been normal, cultures are so far negative for any resistant pathogen 5- patient seemed to have shown clinical improvement and will continue with meropenem because of multiple ALLERGIES and concern for possible gram- negative/aspiration pneumonia and monitor clinical course closely Dictation was produced using [employer] dictation software. please excuse any gram matical, word or spelling errors. Time with Patient: Less than 30
--- NOTE | 2023-03-10 14:46 | P.PN ---
Subjective Progress Note Date: 03/10/23 Principal diagnosis: Possible encephalitis Patient is a 67-year male with a past medical history significant for chronic pain syndrome history of traumatic brain injury and hypertension patient was noticed to be confused the morning of presentation to the hospital patient also have increasing respiratory distress requiring BiPAP and admission to the ICU. On today's evaluation that is 03/10/2023, the patient remains to be afebrile, patient is breathing comfortably on 5 L nasal cannula oxygen, patient mentioned feeling better and denies having any chest pain continued have a cough not begin any sputum no nausea no vomiting no abdominal pain or diarrhea Patient did have a normal white count of 6.3 hemoglobin is 10.4, creatinine is 0.61, blood culture has been negative, thoracocentesis fluid so far negative, BAL cultures growing Joi albicans Objective - Vital Signs Vital signs: Vital Signs Temp 98.3 F 03/10/23 12:00 Pulse 90 03/10/23 12:16 Resp 18 03/10/23 12:16 BP 99/61 03/10/23 12:00 Pulse Ox 90 L 03/10/23 12:00 FiO2 40 03/10/23 08:31 Intake & Output 03/09/23 03/10/23 03/10/23 18:59 06:59 18:59 Intake Total 480 800 100 Output Total 1001 500 790 Balance -521 300 -690 Weight 66.5 kg Intake: IV 10 100 100 0.9NS 10 Meropenem 1,000 mg In 100 100 Sodium Chloride 0.9% 100 ml @ 33.3 mls/hr IVPB Q8HR [facility] Rx#:[id number] Oral 470 700 Output: Urine 1000 500 790 Stool 1 Other: Voiding Method Urinal Urinal Urinal # Bowel Movements 1 - Exam GENERAL DESCRIPTION: An elderly male lying in bed in no distress RESPIRATORY SYSTEM: Unlabored breathing , decreased breath sounds at bases HEART: S1 S2 regular rate and rhythm , ABDOMEN: Soft , no tenderness EXTREMITIES: No edema feet - Labs CBC & Chem 7: 03/10/23 05:18 03/10/23 05:18 Labs: Abnormal Lab Results - Last 24 Hours (Table) 03/10/23 03/10/23 Range/Units 05:18 05:18 RBC 3.44 L (4.30-5.90) m/uL Hgb 10.4 L (13.0-17.5) gm/dL Hct 32.8 L (39.0-53.0) % Chloride 97 L (98-107) mmol/L Carbon Dioxide 38 H (22-30) mmol/L BUN 22 H (9-20) mg/dL Creatinine 0.61 L (0.66-1.25) mg/dL Calcium 8.0 L (8.4-10.2) mg/dL Microbiology - Last 24 Hours (Table) 03/07/23 11:00 Gram Stain - Final Bronchoalviolar Lavage - Right Bronchial Washings Culture - Final Joi albicans Assessment and Plan (1) Encephalopathy Current Visit: Yes Status: Acute Code(s): G93.40 - ENCEPHALOPATHY, UNSPECIFIED SNOMED Code(s): 09424654 (2) SIRS (systemic inflammatory response syndrome) Current Visit: Yes Status: Acute Code(s): R65.10 - SIRS OF NON-INFECTIOUS ORIGIN W/O ACUTE ORGAN DYSFUNCTION SNOMED Code(s): 327927701 (3) Aspiration pneumonia Current Visit: Yes Status: Acute Code(s): J69.0 - PNEUMONITIS DUE TO INHALATION OF FOOD AND VOMIT SNOMED Code(s): 752514577 (4) Allergy to multiple antibiotics Current Visit: Yes Status: Acute Code(s): Z88.1 - ALLERGY STATUS TO OTHER ANTIBIOTIC AGENTS SNOMED Code(s): 802739931 Plan: 1patient present to hospital with sepsis in this patient who did have a fever elevated white count tachycardia concerning for possible TRASH MAN infection possibility of encephalitis or meningitis as patient currently do not have any other obvious focus of infection CT angiogram of the chest did not show any consolidation abdominal soft on Examination no evidence of any cellulitis 2-patient did have cephalexin allergy that will limit the number of antibiotics safe to use, patient also develop a rash to Zosyn 3-patient did have LP/CSF did have normal protein and glucose and white count , acyclovir was discontinued 4Patient is afebrile and the patient white count has been normal, BAL and sputum cultures grew Joi which is likely colonizer 5- patient seemed to have shown clinical improvement and will continue with meropenem because of multiple ALLERGIES and plan to finish therapy with oral Avelox prescription sent to the pharmacy Dictation was produced using [employer] dictation software. please excuse any grammatical, word or spelling errors. Time with Patient: Less than 30
[2023-03-10] MEDS: MIRTAZAPINE 15 MG TAB PO SCH (20:12)
[2023-03-10] MEDS: MORPHINE SULFATE 4 MG/ML SYRINGE IVP SCH (21:21)
[2023-03-11] MEDS: NITROGLYCERIN OINT 1 INCH/GM PACKET TOPICAL SCH (07:31)
[2023-03-11] MEDS: IPRATROPIUM-ALBUTEROL 3 ML NEB INHALATION SCH ×3 (08:07→15:23)
[2023-03-11] MEDS: THIAMINE 100 MG TAB PO SCH (08:47)
[2023-03-11] MEDS: guaiFENesin 600 MG TABLET.ER PO SCH (08:47)
[2023-03-11] MEDS: METOPROLOL SUCCINATE (ER) 100 MG TAB.ER.24H PO SCH (08:47)
[2023-03-11] MEDS: CLOPIDOGREL 75 MG TAB PO SCH (08:47)
[2023-03-11] MEDS: HEPARIN SODIUM,PORCINE 5,000 UNIT/ML 1 ML VIAL SQ SCH (08:47)
[2023-03-11] MEDS: ALPRAZolam 0.5 MG TAB PO SCH (08:47)
[2023-03-11] MEDS: LOSARTAN 50 MG TAB PO SCH (08:48)
[2023-03-11] MEDS: TAMSULOSIN 0.4 MG CAP.ER.24H PO SCH (08:48)
[2023-03-11] MEDS: PANTOPRAZOLE 40 MG/10 ML VIAL IVP SCH (08:48)
[2023-03-11] MEDS: ASPIRIN 81 MG PO SCH (08:48)
[2023-03-11] MEDS: SPIRONOLACTONE 25 MG TAB PO SCH (08:48)
[2023-03-11] MEDS: ATORVASTATIN 40 MG TAB PO SCH (08:48)
[2023-03-11] MEDS: polyethylene glycoL 3350 17 GM POWD.PACK PO SCH (08:48)
[2023-03-11] MEDS: NICOTINE 21MG/24HR PATCH TRANSDERM SCH (08:48)
[2023-03-11] MEDS: MEROPENEM 1,000 MG in SODIUM CHLORIDE 0.9% 100 ML IVPB SCH (08:49)
[2023-03-11 09:15] VITALS: BP 116/65; RESP 18; TEMP 98
--- NOTE | 2023-03-11 11:00 | P.DS ---
Providers Date of admission: 02/25/23 18:02 Expected date of discharge: 03/11/23 Attending physician: Pranav Delacruz MD Consults: 02/25/23 18:02 Consult Physician Stat Consulting Provider: Vielka Erwin Consult Reason/Comments: altered Do you want consulting provider notified?: Already Contacted 02/26/23 04:19 Consult Physician Routine Consulting Provider: Sachin Segura Consult Reason/Comments: hypoxemia, pneumonia Do you want consulting provider notified?: Already Contacted 02/26/23 06:31 Consult Physician Stat Consulting Provider: Daniel Crooks Consult Reason/Comments: Critical Care Management Do you want consulting provider notified?: Already Contacted 02/26/23 09:36 Consult to Anesthesia Routine Consulting Provider: Anesthesia,Services Consult Reason/Comments: lumbar puncture 02/26/23 14:21 Consult Physician Urgent Consulting Provider: Talat Blue Consult Reason/Comments: meningitis/encephalitis? Do you want consulting provider notified?: Yes 03/01/23 08:04 Consult Physician Routine Consulting Provider: Justin Flynn Consult Reason/Comments: cardiomyopathy Do you want consulting provider notified?: Yes 03/05/23 15:55 Consult Physician Routine Consulting Provider: Ángel Escudero Consult Reason/Comments: Inpatient rehab evaluation Do you want consulting provider notified?: Yes, Notify in am Primary care physician: Jose Soto Hospital Course: Discharge Diagnosis: Acute hypoxic respiratory failure Sepsis secondary to Bacterial pneumonia, bilateral pleural effusions s/p Left sided thora on 03/02/23 - complicated by severe mucus plugging requiring bronch X 2 COPD exacerbation 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 Chronic pain syndrome Acute to subacute left side CVA Acute encephalopathy Cardiomyopathy with ejection fraction 25-30% Severe protein calorie malnutrition Acute blood loss anemia, hemoglobin stable Upper GI bleed ruled out Traumatic brain injury History of alcoholism Marijuana use Hypertension 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 Ct head without acute intracranila process, CTA chest without pulmonary embolism on arrival laboratory analysis is normal for white blood cell, 13.3, PaO2 of 56, calcium 8.1, bilirubin 1.5, CK 432, troponin 0.813, CRP 4.4, pro calcitonin 0.09, urine drug screen was positive for benzodiazepines and marijuana. He was started on empiric treatment for possible pneumonia. Neurology consulted. He Was also started on empiric treatment for possible meningitis. He required BiPAP and pulmonary was consulted. He was admitted to the ICU. Infectious disease was consulted. Initial antimicrobial regimen consists of Vanco, Azactam, and acyclovir. He had improvement in mentation by 02/28. With some concerns of seizure by neurology and continued on Keppra, now discontinued. EEG and prolonged EEG did not show any signs of seizure activity. Brain MRI did show acute/subacute CVA involving the posterior medial left frontal/parietal cortex and subcortical white matter in the RICCARDO distribution. He developed worsening bilateral pleural effusions. Underwent echocardiogram which confirmed ejection fraction of 25-30%. Cardiology was consulted. He was started on beta marco a and ARB, and Aldactone. He was transitioned to Zosyn, he then developed dermatitis and subsequently transitioned to meropenem Patient had lumbar puncture performed by anesthesia on 03/01/23 which can back normal and therefore IV acyclovir was discontinued. He underwent left sided thoracentesis on 03/02/[address] of the chest was completed on 03/03 which demonstrated large right chest wall lipoma measuring 7 x 6.2 x 6.9 cm, extensive right-sided infiltrate, and trace bilateral pleural effusions. Patient underwent bronchoscopy with removal of copious amounts of mucous plugs from the right lung on 03/04, patient had severe mucous plugging develop again on 03/05 and required repeated bronchoscopy with removal of mucous plugs. Respiratory function improving. He is being discharged on oral antibiotics, guidelines directed heart failure therapy, and dual antiplatelet therapy for his CVA. Patient to follow-up with pulmonology, cardiology, and neurology outpatient. Patient seen and examined at bedside. Vital signs reviewed and stable. Cardiovascular: S1S2 reg, no murmur, positive posterior tibial pulse bilateral, Lungs: Decreased breath sounds right base, no conversational dyspnea, no rhonchi, no rales , no accessory muscle use, on supplemental oxygen Abdominal: soft, nontender, no guarding, no appreciable organomegaly Ext: no gross muscle atrophy, no edema b/l lower extremities, no contractures Neuro: CN II-XI grossly intact, right lower extremity weakness Psych: Alert, oriented 3, appropriate affect A total of 36 minutes of time were spent preparing this complex discharge summary. Patient was discharged on 03/11/23 at 10:38. Patient Condition at Discharge: Stable Plan - Discharge Summary Discharge Rx Participant: Yes New Discharge Prescriptions: New Moxifloxacin HCl [Avelox] 400 mg PO DAILY #7 tab Aspirin 81 mg PO DAILY #60 tab Tamsulosin [Flomax] 0.4 mg PO PC-BRKFST #60 cap guaiFENesin [Mucinex] 1,200 mg PO Q12HR #20 tab Clopidogrel [Plavix] 75 mg PO DAILY #60 tab Metoprolol Succinate (ER) [Toprol XL] 100 mg PO DAILY #60 tab Albuterol Inhaler [Ventolin Hfa Inhaler] 1 - 2 puff INHALATION Q6H PRN #1 each PRN Reason: Shortness Of Breath Or Wheezing Spironolactone [Aldactone] 12.5 mg PO DAILY #60 tab Losartan [Cozaar] 50 mg PO DAILY #60 tab Atorvastatin [Lipitor] 40 mg PO DAILY #60 tab Mirtazapine [Remeron] 7.5 mg PO HS #60 tab Thiamine [Vitamin B-1] 100 mg PO DAILY #90 tab Tiotropium 18 Mcg/Puff [Spiriva] 1 puff INHALATION DAILY #90 each Changed oxyCODONE HCL [Roxicodone] 15 mg PO QID #0 ALPRAZolam [Xanax] 0.5 mg PO Q6H PRN #0 PRN Reason: Anxiety Discharge Medication List Moxifloxacin HCl [Avelox] 400 mg PO DAILY #7 tab 03/10/23 [Rx] ALPRAZolam [Xanax] 0.5 mg PO Q6H PRN #0 03/11/23 [Rx] Albuterol Inhaler [Ventolin Hfa Inhaler] 1 - 2 puff INHALATION Q6H PRN #1 each 03/11/23 [Rx] Aspirin 81 mg PO DAILY #60 tab 03/11/23 [Rx] Atorvastatin [Lipitor] 40 mg PO DAILY #60 tab 03/11/23 [Rx] Clopidogrel [Plavix] 75 mg PO DAILY #60 tab 03/11/23 [Rx] Losartan [Cozaar] 50 mg PO DAILY #60 tab 03/11/23 [Rx] Metoprolol Succinate (ER) [Toprol XL] 100 mg PO DAILY #60 tab 03/11/23 [Rx] Mirtazapine [Remeron] 7.5 mg PO HS #60 tab 03/11/23 [Rx] Spironolactone [Aldactone] 12.5 mg PO DAILY #60 tab 03/11/23 [Rx] Tamsulosin [Flomax] 0.4 mg PO PC-BRKFST #60 cap 03/11/23 [Rx] Thiamine [Vitamin B-1] 100 mg PO DAILY #90 tab 03/11/23 [Rx] Tiotropium 18 Mcg/Puff [Spiriva] 1 puff INHALATION DAILY #90 each 03/11/23 [Rx] guaiFENesin [Mucinex] 1,200 mg PO Q12HR #20 tab 03/11/23 [Rx] oxyCODONE HCL [Roxicodone] 15 mg PO QID #0 03/11/23 [Rx] Follow up Appointment(s)/Referral(s): [facility] [NON-STAFF] - 1 Week Carlyle Layton MD [STAFF PHYSICIAN] - 1 Week Willy Mcdonald MD [STAFF PHYSICIAN] - 1 Week Araceli Rangel MD [REFERRING] - 1 Week Nikita Dukes Jr, DO [Doctor of Osteopathic Medicine] - 1-2 days Patient Instructions/Handouts: Seizure/Epilepsy Discharge Instructions & Follow -Up, Heart Failure (DC), Ischemic Stroke (DC), Community Acquired Pneumonia (DC) Activity/Diet/Wound Care/Special Instructions: Please see a PCP and the specialists. Discharge Disposition: HOME WITH HOME HEALTH SERVICES
--- NOTE | 2023-03-11 11:54 | P.PN ---
Subjective Progress Note Date: 03/11/23 This is a 67-year-old male patient with a history of previous traumatic brain injury, chronic pain for which he takes oxycodone, gabapentin and Ativan, anxiety, chronic and ongoing tobacco dependence, chronic obstructive pulmonary disease, hypertension. He was transferred here from [facility] after being found to have confusion, altered mental status and possibly a seizure at home by his . CT angiogram of the chest ruled out pulmonary embolism. Computed tomography scan of the head showed no acute intracranial process. Chest x-ray reveals no evidence of pneumothorax. The left lung is clear. There is an unchanged right lateral lower lobe density possibly a loculated pleural effusion. White count 23.9. Hemoglobin 14.1. Platelets 148. Sodium 144. Potassium 3.8. Bicarb 27. BUN 33. Creatinine 0.77. Ammonia level XXI. Arterial blood gases on 100% FiO2 revealed a pO2 of 123, pCO2 40, pH 7.41. He is seen today in consultation in the intensive care unit. Currently he is awake and alert. Following commands. Slightly tachycardic. Tachypneic. Afebrile. He is on BiPAP 14/890% FiO2. He was initiated on Keppra, vancomycin, acyclovir, Levaquin. Lumbar puncture pending. He has normal saline at 75 ML's per hour. The patient is seen today 02/27/2023 in follow-up in the intensive care unit. He is currently sitting up in bed. Bit more awake and alert today. He is on 2 L high flow nasal cannula. He did wear her BiPAP last night 14/8 and 60% FiO2 to approximate 8 AM this morning. He has normal saline at 75 ML's per hour. His pro calcitonin went from 0.09 up to 0.29. ID is on the case and resumed vancomycin, Azactam and continued on acyclovir. White count 14.2. Hemoglobin 11.6. Platelets 104. Sodium 137. Potassium 3.8. Bicarb 20. BUN 28. Creatinine 0.67. Glucose 87. Stool for occult blood is positive. Blood culture pending. Lumbar puncture pending. He remains on DuoNeb inhalations, Symbicort, heparin for DVT prophylaxis. Reevaluated today on 03/07/2023, patient remains in the ICU, seems to be very comfortable, patient denies being in distress or being short of breath, he does have intermittent cough, remains on Merrem, chest x-ray showed questionable atelectasis and right-sided pleural effusion hence I'm recommending an ultrasound of the right chest on the patient today. Indeed the patient did have ultrasound of the chest, not much fluid can be seen on the ultrasound, hence no need for thoracentesis. Labs today showed relatively normal CBC with WBC of 8.7 hemoglobin 10.8, a left lites are normal renal profile is normal bicarb is 39. Cultures from his sputum showed mostly Joi, no bacterial growth has been noticed. No organisms seen on his last BAL. Chest x-ray did show evidence of improving the right upper lobe infiltrate and developing atelectasis at the right base, questionable effusion not seen on ultrasound. Atelectasis is also noted that the left base Reevaluated today on 03/08/2023, patient seems to be doing a bit worse today, he is a bit of distress, his FiO2 was increased up to 12 L high flow nasal cannula and O2 saturation is marginal. On physical examination he has very diminished breath sounds on the right side, and continues to have significant right lower lobe consolidation and atelectasis. Patient was placed on BiPAP, he was definitely need more aggressive pulmonary toileting, and chest physical may have to consider another bronchoscopy and the patient does not improve. WBC count today is 6.7 hemoglobin is 10.5. Normal renal profile is normal bicarb is 36. His sputum cultures have showed mostly Joi albicans. Patient was reevaluated today on 03/09/2003, much better today compared to yesterday, remains on relatively high flow nasal cannula at 5-6 L/m, O2 saturation is in the 90s. Patient is in less distress today, able to cough and clear some secretions on his own. CBC is relatively normal basic metabolic profile is normal renal profile is normal Reevaluated today on 03/10/2023, patient continues to steadily improve, nonetheless remains on 5 L nasal cannula, she has BiPAP at bedside, but not using it. I will recommend that The Patient Out Of ICU to a Regular Medical Floor, Continue Present Treatment Plan Including Antibiotics, Bronchodilators, Incentive Spirometry, No Need for Repeat Bronchoscopy at This Point, Will Continue to Have BiPAP at Bedside and Use As Needed. CBC Is Relatively Normal Electrocerebral Normal Renal Profile Is Normal The patient is seen today 03/11/2023 in follow-up on the selective care unit. He is currently resting comfortably in bed. Currently on 3 L high flow nasal cannula. He is continued on bronchodilators, antibiotics in the form of meropenem. NicoDerm patch in place. Heparin for DVT prophylaxis. Objective - Vital Signs Vital signs: Vital Signs Temp 98.0 F 03/11/23 08:00 Pulse 90 03/11/23 11:29 Resp 18 03/11/23 08:00 BP 116/65 03/11/23 08:00 Pulse Ox 85 L 03/11/23 11:16 FiO2 40 03/10/23 08:31 Intake & Output 03/10/23 03/11/23 03/11/23 18:59 06:59 18:59 Intake Total 100 240 Output Total 790 550 Balance -690 -550 240 Weight 66.5 kg Intake: IV 100 Meropenem 1,000 mg In 100 Sodium Chloride 0.9% 100 ml @ 33.3 mls/hr IVPB Q8HR [facility] Rx#:[id number] Oral 240 Output: Urine 790 550 Other: Voiding Method Urinal Urinal # Voids 1 # Bowel Movements 1 - Exam GENERAL EXAM: Alert, 67-year-old male, on 3 liters nasal cannula, comfortable in no apparent distress. HEAD: Normocephalic. EYES: Normal reaction of pupils, equal size. NOSE: Clear with pink turbinates. THROAT: No erythema or exudates. NECK: No masses, no JVD. CHEST: No chest wall deformity. LUNGS: Equal air entry with no crackles, wheeze, rhonchi or dullness. CVS: S1 and S2 normal with no audible murmur, regular rhythm. ABDOMEN: No hepatosplenomegaly, normal bowel sounds, no guarding or rigidity. SPINE: No scoliosis or deformity SKIN: No rashes CENTRAL NERVOUS SYSTEM: No focal deficits, tone is normal in all 4 extremities. EXTREMITIES: There is no peripheral edema. No clubbing, no cyanosis. Peripheral pulses are intact. - Labs CBC & Chem 7: 03/10/23 05:18 03/10/23 05:18 Assessment and Plan Assessment: Altered mental status of unclear etiology. Urine drug screen positive for benzodiazepines and marijuana. Suspect metabolic encephalopathy, seizure History of chronic pain syndrome and the patient takes oxycodone, gabapentin and Xanax Acute hypoxemic respiratory failure suspect secondary to mental status changes and exacerbation of COPD, possible underlying pneumonia or infection. Pro- calcitonin 0.09, then 0.29 Acute complete opacification of the right lung due to mucous plugging and possibly aspiration pneumonia requiring bronchoscopy 2. And extraction of mucous plugs. Underlying COPD with interstitial fibrotic lung disease, chronic. Leukocytosis, recovered Troponin leak Chronic and ongoing tobacco dependence Marijuana use Hypertension History of anxiety History of traumatic brain injury History of lipoma of the right chest wall Plan: The patient was seen and evaluated Medications reviewed Cleared for discharge from the pulmonary standpoint Evaluate for possible home oxygen Continue bronchodilators as needed Educated regarding the importance of complete smoking cessation NicoDerm patch in place Plan is for home with home care Follow up in our office in 1 week I have personally seen and examined the patient, performed the documentation and the assessment and plan as written. Number of minutes spent on the visit: 10.
[2023-03-11 15:27] VITALS: PULSE 88
--- NOTE | 2023-03-11 16:03 | P.PN ---
Subjective Progress Note Date: 03/11/23 Principal diagnosis: Possible encephalitis Patient is a 67-year male with a past medical history significant for chronic pain syndrome history of traumatic brain injury and hypertension patient was noticed to be confused the morning of presentation to the hospital patient also have increasing respiratory distress requiring BiPAP and admission to the ICU. On today's evaluation that is 03/11/2023, the patient continues to be afebrile, patient is breathing comfortably on 3 L nasal cannula oxygen, patient denies having any chest pain continued have a cough not begin any sputum no nausea no vomiting no abdominal pain or diarrhea Patient did have a normal white count of 6.3 hemoglobin is 10.4, creatinine is 0.61 as of yesterday no blood draw today, blood culture has been negative, thoracocentesis fluid so far negative, BAL cultures growing Joi albicans Objective - Vital Signs Vital signs: Vital Signs Temp 98.0 F 03/11/23 08:00 Pulse 90 03/11/23 08:26 Resp 18 03/11/23 08:00 BP 116/65 03/11/23 08:00 Pulse Ox 92 L 03/11/23 08:16 FiO2 40 03/10/23 08:31 Intake & Output 03/10/23 03/11/23 03/11/23 18:59 06:59 18:59 Intake Total 100 240 Output Total 790 550 Balance -690 -550 240 Weight 66.5 kg Intake: IV 100 Meropenem 1,000 mg In 100 Sodium Chloride 0.9% 100 ml @ 33.3 mls/hr IVPB Q8HR [facility] Rx#:[id number] Oral 240 Output: Urine 790 550 Other: Voiding Method Urinal Urinal # Voids 1 # Bowel Movements 1 - Exam GENERAL DESCRIPTION: An elderly male lying in bed in no distress RESPIRATORY SYSTEM: Unlabored breathing , decreased breath sounds at bases HEART: S1 S2 regular rate and rhythm , ABDOMEN: Soft , no tenderness EXTREMITIES: No edema feet - Labs CBC & Chem 7: 03/10/23 05:18 03/10/23 05:18 Assessment and Plan (1) Encephalopathy Current Visit: Yes Status: Acute Code(s): G93.40 - ENCEPHALOPATHY, UNSPECIFIED SNOMED Code(s): 04051176 (2) SIRS (systemic inflammatory response syndrome) Current Visit: Yes Status: Acute Code(s): R65.10 - SIRS OF NON-INFECTIOUS ORIGIN W/O ACUTE ORGAN DYSFUNCTION SNOMED Code(s): 140658479 (3) Aspiration pneumonia Current Visit: Yes Status: Acute Code(s): J69.0 - PNEUMONITIS DUE TO INHALATION OF FOOD AND VOMIT SNOMED Code(s): 279068259 (4) Allergy to multiple antibiotics Current Visit: Yes Status: Acute Code(s): Z88.1 - ALLERGY STATUS TO OTHER ANTIBIOTIC AGENTS SNOMED Code(s): 779401507 Plan: 1patient present to hospital with sepsis in this patient who did have a fever elevated white count tachycardia concerning for possible [employer] infection possibility of encephalitis or meningitis as patient currently do not have any other obvious focus of infection CT angiogram of the chest did not show any consolidation abdominal soft on Examination no evidence of any cellulitis 2-patient did have cephalexin allergy that will limit the number of antibiotics safe to use, patient also develop a rash to Zosyn 3-patient did have LP/CSF did have normal protein and glucose and white count , acyclovir was discontinued 4Patient is afebrile and the patient white count has been normal, BAL and sputum cultures grew Joi which is likely colonizer 5- patient has shown clinical improvement, the patient continue with meropenem 1 inpatient however plan to finish therapy with oral Avelox on discharge prescription sent to the pharmacy yesterday Dictation was produced using [employer] dictation software. please excuse any grammatical, word or spelling errors. Time with Patient: Less than 30
== END 2023-03-11 16:14 | disposition home health service (06) | DRG 853 ==
LOC: EC 14:07 → 3SCARD 18:02 → 2SICU 02-26 04:39 → 3SCARD 03-10 17:20
PROVIDERS: ADMIT Student in an Organized Health Care Education/Training Program; ATTEND Student in an Organized Health Care Education/Training Program
PROC: 5A09457 Assistance with Respiratory Ventilation, 24-96 Consecutive Hours, Continuous Positive Airway Pressure (ICD-10-PCS; 2023-02-25)
PROC: 009U3ZX Drainage of Spinal Canal, Percutaneous Approach, Diagnostic (ICD-10-PCS; 2023-03-01)
PROC: 0W9B3ZX Drainage of Left Pleural Cavity, Percutaneous Approach, Diagnostic (ICD-10-PCS; 2023-03-02)
PROC: 0B9F8ZZ Drainage of Right Lower Lung Lobe, Via Natural or Artificial Opening Endoscopic (ICD-10-PCS; 2023-03-04)
PROC: 0BC18ZZ Extirpation of Matter from Trachea, Via Natural or Artificial Opening Endoscopic (ICD-10-PCS; principal; 2023-03-05 07:30)
PROC: 0WCQ8ZZ Extirpation of Matter from Respiratory Tract, Via Natural or Artificial Opening Endoscopic (ICD-10-PCS; principal; 2023-03-05 07:30)
PROC: 0BC38ZZ Extirpation of Matter from Right Main Bronchus, Via Natural or Artificial Opening Endoscopic (ICD-10-PCS; principal; 2023-03-05 07:30)
DX: A41.9 Sepsis, unspecified organism (principal); E43 Unspecified severe protein-calorie malnutrition; J15.9 Unspecified bacterial pneumonia; G93.41 Metabolic encephalopathy; J69.0 Pneumonitis due to inhalation of food and vomit; J96.01 Acute respiratory failure with hypoxia; I63.9 Cerebral infarction, unspecified; D62 Acute posthemorrhagic anemia; F11.23 Opioid dependence with withdrawal; F13.239 Sedative, hypnotic or anxiolytic dependence with withdrawal, unspecified; J98.19 Other pulmonary collapse; J98.11 Atelectasis; J44.1 Chronic obstructive pulmonary disease with (acute) exacerbation; J44.0 Chronic obstructive pulmonary disease with (acute) lower respiratory infection; J90 Pleural effusion, not elsewhere classified; I51.81 Takotsubo syndrome; R56.9 Unspecified convulsions; Z68.23 Body mass index [BMI] 23.0-23.9, adult; Z20.822 Contact with and (suspected) exposure to COVID-19; T17.998A Other foreign object in respiratory tract, part unspecified causing other injury, initial encounter; F10.21 Alcohol dependence, in remission; T17.990A Other foreign object in respiratory tract, part unspecified in causing asphyxiation, initial encounter; J84.10 Pulmonary fibrosis, unspecified; I10 Essential (primary) hypertension; G93.89 Other specified disorders of brain; Z28.310 Unvaccinated for COVID-19; F17.210 Nicotine dependence, cigarettes, uncomplicated; Z53.29 Procedure and treatment not carried out because of patient's decision for other reasons; Z53.8 Procedure and treatment not carried out for other reasons; G47.00 Insomnia, unspecified; G89.4 Chronic pain syndrome; M54.9 Dorsalgia, unspecified; H54.62 Unqualified visual loss, left eye, normal vision right eye; M54.2 Cervicalgia; I25.5 Ischemic cardiomyopathy; L30.9 Dermatitis, unspecified; M79.7 Fibromyalgia; Z87.820 Personal history of traumatic brain injury; Z74.1 Need for assistance with personal care; Z79.02 Long term (current) use of antithrombotics/antiplatelets; Z79.82 Long term (current) use of aspirin; Z79.899 Other long term (current) drug therapy; Z86.61 Personal history of infections of the central nervous system; Z88.1 Allergy status to other antibiotic agents
CPT/HCPCS: 31624; 31645; 36415; 36600; 70450; 70553; 71045; 71046; 71260; 72125; 76604; 80048; 80053; 80061; 80143; 80179; 80202; 80306; 80320; 81001; 82009; 82140; 82272; 82465; 82550; 82803; 82805; 82945; 83605; 83615; 83735; 83880; 84100; 84132; 84145; 84157; 84484; 85025; 85027; 85610; 85730; 86140; 86694; 86695; 86696; 87040; 87070; 87102; 87116; 87205; 87206; 87252; 87496; 87498; 87529; 87798; 88108; 88305; 89050; 93005; 93306; 93880; 94640; 94660; 94667; 94668; 94760; 95813; 95816; 96365; 96367; 96368; 96375; 99285